=== PATIENT | male | born 1935 | race Caucasian/White ===

== ENCOUNTER 2018-08-26 05:50 | Day surgery (SDC) | payer MEDICARE, OTHER ==
[~2018-08-26] VITALS: Ht 172.7 cm; Wt 84.8 kg
[~2018-08-26 05:50] MED LIST: AMLODIPINE BESY10 MG PO; ASPIRIN325 MG PO; CLINDAMYCIN HC300 MG PO; DELZICOL400 M1 PO; LOSARTAN POTASS25 MG PO; LOSARTAN-HCTZ1 EAC1 PO; MELATONIN1 MG PO; NORCO 5-325 TA1 EACH PO; OMEPRAZOLE20 M1 PO; PENTASA500 MG PO; PRAVACHOL40 MG PO; PRAVACHOL80 MG PO; PROSCAR5 MG PO; STOOL SOFTENER100 M1 PO; TRIAMTERENE-HC1 EAC1 PO; VITAMIN D1000 UNIT PO
--- NOTE | 2018-08-26 10:41 | NUR ---
LE 0730 DR. PICKETT IN TO DISCUSS SURGERY WITH THE PT AND FAMILY. PER DR. PICKETT AND KANIKA MELO STRATEGIC MARKETING LEADER PROCEDURE CANCELED AT THIS TIME.
--- NOTE | 2018-08-27 11:12 | CONS ---
[facility] [address] [place] [place], [place] [address] Signed DATE OF CONSULTATION: 08/26/2018 HISTORY OF PRESENT ILLNESS: This 82-year-old white man is patient of Dr. Jessica Ramirez and has a complex recurrent abdominal wall hernia, for which repair was anticipated this morning. The patient has lost considerable amount of weight going from 230 pounds to 187 pounds anticipating this operation. He was noted by the anesthesia person today that his preoperative EKG showed a heart rate of 41 with a junctional rhythm. Additionally, this past weekend, the patient fell down while at the swap meet in [place], [place], sustaining some contusions to his face and right arm. He had no loss of consciousness or other issues related to that. His fall was related to unsure footing with use of his cane. Concern has been brought up regarding his heart rate being 41 as a baseline with a junctional rhythm. It is notable that he underwent a stress test (chemical type) by Dr. Ferro a year ago and he was said to have no evidence of coronary artery disease. There is no mention made of his low heart rate as regards morbidity at that time apparently. With close discussion with the patient and his , Cathi, it is noted, however, that he does have episodes of lightheadedness, dizziness, weakness and even syncopal episodes to a degree. He has seen a neurologist who had no answer or explanation for this. PHYSICAL EXAMINATION: GENERAL: He is alert and oriented. HEENT: He has a bit of a bruise over his right eye and swelling over his nose. There are some contusions of his right arm. ABDOMEN: Examination shows lax abdominal wall, but no tenderness and no mass. He does have hernia as previously noted. LABORATORY DATA: His heart rate is 40 today. EKG shows a junctional type rhythm. ASSESSMENT: His baseline bradycardia and junctional rhythm are of great concern to the anesthesia provider understandably. Additionally, it was not reported to his inspector electromechanical of his episodes of what sounds like syncope and he has minimized it in the past. His , however, notes that these episodes are significant. 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 It is recalled that he has had a cerebrovascular accident in the distant past. At this point, given the operation anticipated including manipulation of his intraabdominal viscera likely to exacerbate an underlying bradycardic issue (vagal stimulation), it is best operation not be undertaken today. Consideration should strongly be made for pacemaker placement. I would have no issue proceeding with operation once his heart rhythm is more reliably secured. We will discuss with Dr. Ramirez, his primary physician, to help coordinate additional visit with inspector electromechanical for consideration of pacemaker device. For now, hold off on abdominal operation. Norma Pickett MD JM/MODL /[id number] cc: MD Jessica Zimmerman MD Copies: ROSALINDA FERRO MD, JONATHAN MD ~ Electronically Signed By: NORMA PICKETT MD 08/27/18 1112 PATIENT NAME: LUIS ALBERTO MADRIGAL CONSULTATION DATE OF : 35 REPORT #: [id number] PHYSICIAN: NORMA PICKETT MD PCP: JESSICA RAMIREZ MD REPORT IS CONFIDENTIAL AND NOT TO BE RELEASED WITHOUT AUTHORIZATION
== END 2018-08-26 18:00 | disposition home or self-care (01) ==
LOC: DS 05:50
DX: K43.2 Incisional hernia without obstruction or gangrene (principal); R00.1 Bradycardia, unspecified; Z53.8 Procedure and treatment not carried out for other reasons

== ENCOUNTER 2019-05-21 08:45 | Observation (INO) | payer MEDICARE, OTHER ==
[~2019-05-21] VITALS: Ht 172.7 cm; Wt 84.8 kg
--- OUTSIDE RECORDS SUMMARY | ~2019-05-21 | XMS | Encounter Summary ---
Demographics + + + | Address | [address] | | | [place] [address] | + + + | Home Phone | | + + + | Preferred Language | Unknown | + + + | Marital Status | | + + + | Buddhism Affiliation | Unknown | + + + | Race | Unknown | + + + | Ethnic Group | Unknown | + + + Author + + + | Author | [facility] | | | and [place] | + + + | Organization | [facility] | | | and [place] | + + + | Address | Unknown | + + + | Phone | Unavailable | + + + Support + + +---------+ + | Name | Relationship | Address | Phone | + + +---------+ + | Cathi Curry | ECON | Unknown | | + + +---------+ + Marisol Curry | ECON | Unknown | | + + +---------+ + | Baylee Webb | ECON | Unknown | | + + +---------+ + Care Team Providers + +------+ + | Care Power Transformer Repair Supervisor Name | Role | Phone | + +------+ + PCP | Unavailable | + +------+ + Encounter Details +--------+ + + + + | Date | Type | Department | Care Team | Description | +--------+ + + + + | 08/31/ | Hospital | [facility] | | | | 1998 | Encounter | MED CTR XRAY [address] | | | | | | [place] | | | | | | [place] [address] | | | | | | [phone] | | | +--------+ + + + + Social History + +-------+ +--------+------+ | Tobacco Use | Types | Packs/Day | Years | Date | | | | | Used | | + +-------+ +--------+------+ | Never Assessed | | | | | + +-------+ +--------+------+ + + + | Sex Assigned at | Date Recorded | | | | + + + | Not on file | | + + + + + + + | Job Start Date | Occupation | Industry | + + + + | Not on file | Not on file | Not on file | + + + + + + + + | Travel History | Travel Start | Travel End | + + + + + + | No recent travel history available. | + + documented as of this encounter Plan of Treatment +--------+---------+ + + + | Date | Type | Specialty | Care Team | Description | +--------+---------+ + + + | 08/31/ | Office | Cardiology | Lobo Ferro, | | | 2019 | Visit | | MD [address] | | | | | | [place], | | | | | | [place] [address] | | | | | | [phone] | | | | | | | | +--------+---------+ + + + documented as of this encounter Visit Diagnoses Not on filedocumented in this encounter"
--- OUTSIDE RECORDS SUMMARY | ~2019-05-21 | XMS | Clinical Summary ---
Demographics + + + | Address | [address] | | | [place] [address] | + + + | Home Phone | | + + + | Preferred Language | Unknown | + + + | Marital Status | | + + + | Temple Affiliation | Unknown | + + + | Race | Unknown | + + + | Ethnic Group | Unknown | + + + Author + + + | Author | [facility] | | | and [place] | + + + | Organization | [facility] | | | [...] Team Providers + +------+ + | Care Nautical Instrument Mechanic Name | Role | Phone | + +------+ + | Torey Ramirez | PCP | | | MD | | | + +------+ + Allergies + + + + + + | Active Allergy | Reactions | Severity | Noted | Comments | | | | | Date | | + + + + + + | Penicillins | Hives, Swelling, | High | 11/12/19 | | | | Rash | | 14 | | + + + + + + Medications + + + +---------+------+------+-------+ | Medication | Sig | Dispensed | Refills | Star | End | Statu | | | | | | t | Date | s | | | | | | Date | | | + + + +---------+------+------+-------+ | Cholecalciferol | Take 2 tablets by | | 0 | | | Activ | | (VITAMIN D-3 PO) | mouth Daily. | | | | | e | + + + +---------+------+------+-------+ | omeprazole | Take 20 mg by mouth | | 0 | | | Activ | | (PRILOSEC) 20 mg | every morning | | | | | e | | capsule | (before breakfast). | | | | | | + + + +---------+------+------+-------+ | finasteride | Take 5 mg by mouth | | 0 | | | Activ | | (PROSCAR) 5 mg | Daily. | | | | | e | | tablet | | | | | | | + + + +---------+------+------+-------+ | apixaban (ELIQUIS) | Take 5 mg by mouth 2 | | 0 | 08/1 | | Activ | | 5 mg tablet | times daily. | | | 2/20 | | e | | | | | | 19 | | | + + + +---------+------+------+-------+ | aspirin 81 MG | Take 81 mg by mouth | | 0 | | | Activ | | tablet | Daily. | | | | | e | + + + +---------+------+------+-------+ | losartan (COZAAR) | Take 50 mg by mouth | | 0 | 11/17 | 11/17 | Activ | | 50 mg tablet | 2 times daily. | | | 10/06 | 09/06 | e | | | | | | 19 | 20 | | + + + +---------+------+------+-------+ | mesalamine | Apriso 0.375 gram ( | | 0 | | | Activ | | (APRISO) 0.375 g 24 | 2 capsules once a | | | | | e | | hr capsule | day ) | | | | | | + + + +---------+------+------+-------+ | pravastatin | pravastatin 40 mg | | 0 | | | Activ | | (PRAVACHOL) 40 MG | tablet qhs | | | | | e | | tablet | | | | | | | + + + +---------+------+------+-------+ | melatonin 1 mg | Take by mouth | | 0 | | | Activ | | TABS | nightly as needed. | | | | | e | + + + +---------+------+------+-------+ Active Problems + + + | Problem | Noted Date | + + + | Paroxysmal atrial fibrillation | 01/05/2019 | + + + | Bradycardia by electrocardiogram | 01/05/2019 | + + + | Pacemaker | 01/05/2019 | + + + | Agatston CAC score, >400 | 01/05/2019 | + + + | History of abdominal aortic aneurysm (AAA) repair | 01/05/2019 | + + + | History of cerebrovascular accident | 01/05/2019 | + + + | Mixed hyperlipidemia | 01/05/2019 | + + + | senior care current use of anticoagulant | 01/05/2019 | + + + | Encounter for monitoring diuretic therapy | 01/05/2019 | + + + | Cardiac pacemaker in situ | 12/25/2018 | + + + + + | Overview: Medtronic Rhododendron, model W1DR01, s# [id number]. RA | | Lead - [employer] Fineline II , model 4470, s# [id number]. RV | | Lead - Medtronic model 5076, s# [id number] | + + + + + | Morbid obesity | 08/02/2018 | + + + | Irreducible incisional hernia | 03/02/2018 | + + + | Recurrent ventral incisional hernia | 03/02/2018 | + + + | Coronary artery disease | 07/30/2017 | + + + + + | Overview: Coronary calcium score 3151 | + + + + + | Abdominal hernia | 06/13/2017 | + + + | Gastric reflux | | + + + | Essential hypertension | | + + + | Cerebrovascular accident (CVA) due to thrombosis of left middle | | | cerebral artery | | + + + | Atrial fibrillation | | + + + + + | Overview: on monitor 09/05 - AC | + + + +---+ | Sick sinus syndrome | | + +---+ Immunizations + + + + | Name | Administration Dates | Next Due | + + + + | PNEUMOCOCCAL | 05/16/2017 | | | CONJUGATE 13-VALENT | | | | (PCV13) | | | + + + + | ZOSTER, 1 DOSE | 01/06/2010 | | | (ZOSTAVAX) | | | + + + + Family History + + +------+ + | Medical History | Relation | Name | Comments | + + +------+ + | Coronary artery | Father | | | | disease | | | | + + +------+ + | Heart disease | Father | | | + + +------+ + | Cancer | Mother | | | + + +------+ + | Hypertension | Sister | | | + + +------+ + + +------+ + + | Relation | Name | Status | Comments | + +------+ + + | Daughter | | Alive | | + +------+ + + | Daughter | | Alive | | + +------+ + + | Father | | | [place] | | | | (Age | | | | | 68) | | + +------+ + + | Mother | | | colon cancer | | | | (Age | | | | | 84) | | + +------+ + + | Sister | | Alive | | + +------+ + + | Sister | | | | + +------+ + + | Son | | Alive | | + +------+ + + Social History + + + [...] | | | + +-------+---+---+ + + | Comments: smoked and chewed tobaccos | + + + + +---------+ + | Alcohol Use | Drinks/Week | oz/Week | Comments | + + +---------+ + | Yes | | | Alcoholic | | | | | Drinks/day: | | | | | occasionally drinks | | | | | Aida hartmann: | | | | | 3-4 drinks per week | + + +---------+ + + + [...] recent travel history available. | + + Last Filed Vital Signs + + + + + | Vital Sign | Reading | Time Taken | Comments | + + + + + | Blood Pressure | 120/80 | 02/17/2019 12:58 PM | | | | | PDT | | + + + + + | Pulse | 75 | 02/17/2019 12:58 PM | | | | | PDT | | + + + + + | Temperature | 36.4 C (97.6 F) | 01/05/2019 12:51 PM | | | | | PDT | | + + + + + | Respiratory Rate | 20 | 12/26/2018 7:18 AM | | | | | PDT | | + + + + + | Oxygen Saturation | 93% | 02/17/2019 12:58 PM | | | | | PDT | | + + + + + | Inhaled Oxygen | - | - | | | Concentration | | | | + + + + + | Weight | 89 kg (196 lb 1.6 | 02/17/2019 12:58 PM | | | | oz) | PDT | | + + + + + | Height | 172.7 cm (5' 8") | 02/17/2019 12:58 PM | | | | | PDT | | + + + + + | Body Mass Index | 29.82 | 02/17/2019 12:58 PM | | | | | PDT | | + + + + + Plan of Treatment +--------+---------+ + + + | Date | Type | Specialty | Care Team | Description | +--------+---------+ + + + | 08/31/ | Office | Cardiology | Lobo Ferro, | | | 2019 | Visit | | MD [address] | | | | | | [place], | | | | | | [place] [address] | | | | | | [phone] | | | | | | | | +--------+---------+ + + + + + + + + | Health Maintenance | Due Date | Last Done | Comments | + + + + + | Vaccine: | | | | | Dtap/Tdap/Td (1 - | 7 | | | | Tdap) | | | | + + + + + | Vaccine: Zoster (2 | | 01/06/2010 | | | of 3) | 0 | | | + + + + + | Vaccine: | | 05/16/2017 | | | Pneumococcal 65+ (2 | 8 | | | | of 2 - PPSV23) | | | | + + + + + | Adult Annual | | | | | Wellness Visit | 9 | | | + + + + + | Vaccine: Influenza | | 05/07/2009 | | | (#1) | 9 | | | + + + + + Results Not on filefrom Last 3 Months Insurance + +--------+ +--------+ + +--------+ | Payer | Benefi | Subscriber | Effect | Phone | Address | Type | | | t Plan | ID | katie | | | | | | / | | Dates | | | | | | Group | | | | | | + +--------+ +--------+ + +--------+ | [employer] | [place] | [id number] | 05/20/19 | | | Indemn | | | CHOICE | | 18-Pre | | | ity | | | PC3 | | sent | | | | + +--------+ +--------+ + +--------+ | [employer] | [employer] | [id number] | 05/20/19 | | | Indemn | | | NS | | 18-Pre | | | ity | | | ADMIN | | sent | | | | | | [place] | | | | | | [place] | | | | | | + +--------+ +--------+ + +--------+ | MEDICARE | MEDICA | [id number] | 09/18/19 | [phone] | | Medica | | | RE | | 01-Pre | 5 | | re | | | PART A | | sent | | | | | | AND B | | | | | | + +--------+ +--------+ + +--------+ | MODA | MODA | [id number] | 07/19/19 | [phone] | [address] | Indemn | | | HEALTH | | 08-Pre | 9 | [id number] | ity | | | MDCR | | sent | | [place], | | | | [place] | | | | [place] [address] | | + +--------+ +--------+ + +--------+ | [employer]MIN | [place] | [id number] | | | | Indemn | | | NS | | 015-Pr | | | ity | | | ADMIN | | esent | | | | | | [place] | | | | | | | | [place] | | | | | | + +--------+ +--------+ + +--------+ | MEDICARE | MEDICA | [id number] | 09/18/19 | [phone] | | Medica | | | RE | | 01-Pre | 5 | | re | | | PART A | | sent | | | | | | AND B | | | | | | + +--------+ +--------+ + +--------+ | MODA | MODA | [id number] | 05/20/19 | [phone] | [address] | Indemn | | | HEALTH | | 19-Pre | 9 | [phone] | ity | | | MDCR | | sent | | [place], | | | | [place] | | | | [place] [address] | | + +--------+ +--------+ + +--------+ + +--------+ +--------+ + + | Guarantor Name | Accoun | Relation to | Date | Phone | Billing Address | | | t Type | Patient | of | | | | | | | | | | + +--------+ +--------+ + + | Zen Curry | Person | Self [birth year] | [address] | | | al/Fam | | 1936 | [phone] | [place], [place] | | | [place] | | | [address] (Home) | [address] | + +--------+ +--------+ + + | Zen Curry | Person | Self [birth year] | [address] | | | al/Fam | | 1936 | [phone] | [place], [place] | | | [place] | | | [address] (Home) | [address] | + +--------+ +--------+ + + Advance Directives + + + + + | Type | Date Recorded | Patient | Explanation | | | | Label Printing Machinist | | + + + + + | Power of | 11/11/2013 1:22 | | POA Doc | | Business Assistant | PM | | | + + + + + | Advance | 06/02/2014 1:15 | | | | Directive | PM | | | + + + + +
--- OUTSIDE RECORDS SUMMARY | ~2019-05-21 | XMS | Encounter Summary ---
Demographics + + + | Address | [address] | | | [place] [address] | + + + | Home Phone | | + + + | Preferred Language | Unknown | + + + | Marital Status | | + + + | Oriental Orthodox Affiliation | Unknown | + + + [...] Team Providers + +------+ + | Care Night Court Magistrate Name | Role | Phone | + +------+ + | Torey Ramirez | PCP | | | MD | | | + +------+ + Reason for Visit + + + | Reason | Comments | + + + | Diarrhea (Adult) | | + + + Encounter Details +--------+ + + + + | Date | Type | Department | Care Team | Description | +--------+ + + + + | 06/02/ | Emergency | [facility] | Facundo Hinojosa | Diarrhea (Primary | | 2015 | | MED CTR [facility] | Ramirez Ribeiro MD | Dx) | | | | CENTER [address] | [address] | | | | | [place] | [place] | | | | | [address] | [address] | | | | | [phone] | | | +--------+ + + + [...] + + + | Blood Pressure | 108/46 | 06/02/2014 1:29 PM | | | | | PST | | + + + + + | Pulse | 64 | 06/02/2014 12:58 PM | | | | | PST | | + + + + + | Temperature | 36.4 C (97.6 F) | 06/02/2014 12:49 PM | | | | | PST | | + + + + + | Respiratory Rate | 16 | 06/02/2014 12:49 PM | | | | | PST | | + + + + + | Oxygen Saturation | 92% | 06/02/2014 12:58 PM | | | | | PST | | + + + + + | Inhaled Oxygen | - | - | | | Concentration | | | | + + + + + | Weight | 97.5 kg (215 lb) | 06/02/2014 12:49 PM | | | | | PST | | + + + + + | Height | 177.8 cm (5' 10") | 06/02/2014 12:49 PM | | | | | PST | | + + + + + | Body Mass Index | 30.85 | 06/02/2014 12:49 PM | | | | | PST | | + + + + + documented in this encounter Discharge Instructions Instructions Facundo Hinojosa MD - 06/02/2014Return for worsening severe abdomi nal pain, nausea, vomiting, fevers or any other worsening symptoms. Follow-up with your y sician or clinic for continued care. documented in this encounter Medications at Time of Discharge + + + +---------+ + + | Medication | Sig | Dispensed | Refills | Start | End Date | | | | | | Date | | + + + +---------+ + + | Cholecalciferol | Take 2 tablets by | | 0 | | | | (VITAMIN D-3 PO) | mouth Daily. | | | | | + + + +---------+ + + | finasteride | Take 5 mg by mouth | | 0 | | | | (PROSCAR) 5 mg | Daily. | | | | | | tablet | | | | | | + + + +---------+ + + | omeprazole | Take 20 mg by mouth | | 0 | | | | (PRILOSEC) 20 mg | every morning | | | | | | capsule | (before breakfast). | | | | | + + + +---------+ + + | amlodipine | Take 10 mg by mouth | | 0 | | | | (NORVASC) 10 MG | Daily. | | | | 9 | | tablet | | | | | | + + + +---------+ + + | aspirin 325 mg | Take 325 mg by mouth | | 0 | | | | tablet | Daily. | | | | 9 | + + + +---------+ + + | ciprofloxacin | Take 1 tablet by | 10 | 0 | 06/02/19 | | | (CIPRO) 500 mg | mouth 2 times daily | tablet | | 15 | 5 | | tablet | for 5 days. | | | | | + + + +---------+ + + | | Take 1 tablet by | 10 | 0 | 06/02/19 | | | diphenoxylate-atropi | mouth 4 times daily | tablet | | 15 | 5 | | ne (LOMOTIL) | as needed for | | | | | | 2.5-0.025 mg per | Diarrhea for up to | | | | | | tablet | 10 days. | | | | | + + + +---------+ + + | losartan (COZAAR) | Take 25 mg by mouth | | 0 | | | | 25 mg tablet | Daily. | | | | 9 | + + + +---------+ + + | MELATONIN PO | Take by mouth. | | 0 | | | | | | | | | 9 | + + + +---------+ + + | mesalamine | Take 1,500 mg by | | 0 | | | | (APRISO) 0.375 G 24 | mouth Daily. | | | | 9 | | hr capsule | | | | | | + + + +---------+ + + | pravastatin | Take 80 mg by mouth | | 0 | | | | (PRAVACHOL) 80 MG | nightly. | | | | 9 | | tablet | | | | | | + + + +---------+ + + | | Take 1 tablet by | | 0 | | | | triamterene-hydrochl | mouth Daily. | | | | 9 | | orothiazide | | | | | | | (MAXZIDE-25) 37.5-25 | | | | | | | mg per tablet | | | | | | + + + +---------+ + + | UNABLE TO FIND | Med Name: MELANIE Fink | | 0 | | | | | | | | | 9 | + + + +---------+ + + documented as of this encounter [...] | | | | | | [place] [address] | | | | | | [phone] | | | | | | | | +--------+---------+ + + + documented as of this encounter Visit Diagnoses + + | Diagnosis | + + | Diarrhea - Primary | + + documented in this encounter Administered Medications + +--------+ +--------+------+------+ | Medication Order | MAR | Action | Dose | Rate | Site | | | Action | Date | | | | + +--------+ +--------+------+------+ | ciprofloxacin (CIPRO) tablet | Given | 06/02/19 | 500 mg | | | | 500 mg 500 mg, Oral, ONCE, Sat | | 1:29 | | | | | 06/02/14 at 1330, For 1 dose, Give | | PM PST | | | | | 2 hours before or 6 hours after | | | | | | | antacids, dairy, calcium, iron, | | | | | | | or zinc., | | | | | | + +--------+ +--------+------+------+ +---+---+ | | | +---+---+ + +-------+ +---------+---+---+ | diphenoxylate-atropine | Given | 06/02/19 | 2 | | | | (LOMOTIL) 2.5-0.025 mg per tablet | | 15 1:29 | tablets | | | | 2 tablet 2 tablet, Oral, ONCE, | | PM PST | | | | | 06/02/14 at 1330, For 1 dose | | | | | | + +-------+ +---------+---+---+ +---+---+ | | | +---+---+ documented in this encounter
--- OUTSIDE RECORDS SUMMARY | ~2019-05-21 | XMS | Encounter Summary ---
Demographics + + + | Address | [address] | | | [place] [address] | + + + | Home Phone | | + + + | Preferred Language | Unknown | + + + | Marital Status | | + + + | Sabianist Affiliation | Unknown | + + + | Race | Unknown | + + + | Ethnic Group | Unknown | + + + Author + + + | Author | [facility] | | | and [place] | + + + | Organization | [facility] | | [...] Team Providers + +------+ + | Care Real Estate Rep Name | Role | Phone | + +------+ + | Torey Ramirez | PCP | | | MD | | | + +------+ + Reason for Visit +--------+ + | Reason | Comments | +--------+ + | Other | | +--------+ + Encounter Details +--------+ + + + + | Date | Type | Department | Care Team | Description | +--------+ + + + + | 06/03/ | Telephone | [facility] | Avery Wagner, | Other | | 2014 | | PHYSIATRY [address] | [place] [address] | | | | | [place], | [address] | | | | | [place] [address] | [address] | | | | | [phone] | | | +--------+ + + + [...] | | | | | | [place] [address] | | | | | | [phone] | | | | | | | | +--------+---------+ + + + documented as of this encounter Visit Diagnoses Not on filedocumented in this encounter"
--- OUTSIDE RECORDS SUMMARY | ~2019-05-21 | XMS | Encounter Summary ---
Demographics + + + | Address | [address] | | | [place] [address] | + + + | Home Phone | | + + + | Preferred Language | Unknown | + + + | Marital Status | | + + + | Pentecostalism Affiliation | Unknown | + + + | Race | White | + + + | Ethnic Group | Not or | + + + Author + + + | Author | [facility] | + + + | Organization | [facility] | + + + | Address | Unknown | + + + | Phone | Unavailable | + + + Support + + + + + | Name | Relationship | Address | Phone | + + + + + | Cathi Curry | OPAL | [place] | | + + + + + Care Team Providers + +------+ + | Care Medical Registrar Name | Role | Phone | + +------+ + PCP | Unavailable | + +------+ + Encounter Details +--------+ + + + + | Date | Type | Department | Care Team | Description | +--------+ + + + + | 08/17/ | Office | General Internal | Note, Outpatient | Progress Note | | 1997 | Visit-Trans | Medicine [address] | Clinic | | | | cribed | [address] | | | | | | Mailcode: [id number] | | | | | | Outpatient Clinic | | | | | | [facility] [address] | | | | | | [place], [place] | | | | | | [address] | | | | | | [phone] | | | +--------+ + + + [...] as of this encounter Progress Notes Interface, Property Utilization Manager In - 06/16/2006 1:10 AM PST CLINIC DATE: 08/17/97 SURGICAL ONCOLOGY CLINIC SUBJECTIVE: Mr. Curry is the of Cathi Curry who is a long-term patient of Dr. Li's. He has had symptoms of bilateral upper [...] documented in this encounter Plan of Treatment Not on filedocumented as of this encounter Visit Diagnoses Not on filedocumented in this encounter"
--- OUTSIDE RECORDS SUMMARY | ~2019-05-21 | XMS | Encounter Summary ---
Demographics + + + | Address | [address] | | | [place] [address] | + + + | Home Phone | | + + + | Preferred Language | Unknown | + + + | Marital Status | | + + + | Protestant Affiliation | Unknown | + + + | Race | Unknown | + + + | Ethnic Group | Unknown | + + + Author + + + | Author | [facility] | | | and [place] | + + + | Organization | [facility] | | | [...] Team Providers + +------+ + | Care Flitch Hanger Name | Role | Phone | + +------+ + | Torey Ramirez | PCP | | | MD | | | + +------+ + Reason for Visit + + + | Reason | Comments | + + + | Follow-up | 6 weeks | + + + Encounter Details +--------+---------+ + + + | Date | Type | Department | Care Team | Description | +--------+---------+ + + + | 02/17/ | Office | [facility] | Lobo Ferro, | Essential | | 2019 | Visit | CARDIOLOGY [place] | [address] | hypertension | | | | [address] | [place], | (Primary Dx); | | | | [address] | [place] [address] | Cardiac pacemaker in | | | | [place], [place] | [phone] | situ; Coronary | | | | [address] | | artery disease | | | | [phone] | | involving gila [place] | | | | | | coronary artery of | | | | | | [place] heart without | | | | | | angina pectoris; | | | | | | Agatston coronary | | | | | | artery calcium score | | | | | | greater than 400; | | | | | | Paroxysmal atrial | | | | | | fibrillation (HCC); | | | | | | Sick sinus syndrome | | | | | | (HCC); History of | | | | | | AAA (abdominal | | | | | | aortic aneurysm) | | | | | | repair; | | | | | | Hyperlipidemia, | | | | | | unspecified | | | | | | hyperlipidemia type; | | | | | | Preoperative | | | | | | cardiovascular | | | | | | examination; Ventral | | | | | | hernia without | | | | | | obstruction or | | | | | | gangrene | +--------+---------+ + + + Social History [...] occasionally drinks | | | | | Aidalenora hartmann: | | | | | 3-4 [...] + + + | Respiratory Rate | - | - | | + [...] + + + documented in this encounter Progress Notes Lobo Ferro MD - 02/17/2019 1:00 PM PDTFormatting of this note might be different fro m the original. Subjective: Patient ID: Zen Curry is a 83 y.o. male. Patient's medications, allergies, past medical, surgical, social and family histories were obtained and reviewed as appropriate. HPI Mr. Curry, accompanied by his , came to the office today for a follow up visit for hi s asymptomatic CAD (as noted on his coronary CT) and SSS with symptomatic bradycardia. Ammon payne saw him 10/12/17, but he has been seen in our office more recently by BEN Mandujano, most recently on 01/05/2019 and Javi Chaparro MD. Since I last saw him, he had a p ermanent pacemaker implanted on 12/25/18 for episodes of dizziness and unsteadiness with some exercise intolerance over the past several months due to symptomatic bradycardia. He has nev er lost consciousness. Atrial fibrillation was noted on his 6-day event monitor and he was s tarted on Eliquis. He has never had any palpitations. He denies any current chest pain, shor tness of breath. A coronary CT calcium score on 07/30/17 was markedly abnormal at 3151, involving the left m ain, LAD, circumflex and RCA. This is over the 90th percentile for his age. He is complete ly asymptomatic from a cardiovascular standpoint. I explained to them that the presence of calcium indicates that there is clearly plaquing building up in his coronary arteries, but i t can grow extrinsically, and not cause any problems, or intrinsically, and eventually restr icted blood flow, cause angina pectoris or a myocardial infarction. A Lexiscan Cardiolite s tress test at [facility] 10/16/17 showed no evidence of ischemia, with an EF of 53% . In addition to this, he has a history of a remote left MCA stroke in 1997, and an AAA res ection in 2001 that had not been checked since that time. 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 There was mild right renal artery stenosi s. There were simple cysts in the left kidney, and a 2.5 cm soft tissue mass in the right k idney that could represent a cyst, but a follow-up 3-phase CT of the kidneys was recommended . I did not order a CT of the chest to look for a thoracic aortic aneurysm, as the report f rom his coronary CT calcium scan noted only calcification, with no evidence of enlargement o f the ascending aorta. His blood pressure appears adequately controlled. He is on pravasta tin. I had initially seen him due to the bradycardia, for preoperative cardiovascular risk asses sment for ventral hernia repair surgery, which is still not been done. Now that he has a pa cemaker, there are no contraindications and he has a low risk for perioperative cardiovascul ar complications. This can be scheduled at any time, stopping his aspirin for 5 days prior to surgery, and Eliquis for 48 hours prior to surgery. 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 Left M CA CVA, no h/o migraines, seizures, syncope. He has occasional episodes of Dizziness, denie s numbness, tingling, paresthesias. EYES: No amaurosis, diplopia, recent visual changes, or glaucoma ENT: Bilateral hearing loss, tinnitus, epistaxis, has occasional dysphagia related to yadira o in 1949 ENDOCRINE: No history of diabetes. No history of thyroid disorders or other endocrine prob lems. No excessive hunger, thirst. PULMONARY/SLEEP: No dyspnea, orthopnea, paroxysmal nocturnal dyspnea. He has a remote his tory of asthma, has mild COPD/Emphysema. He has a history of both aspiration and community- acquired Pneumonia 3 x, most recently with septicemia 04/05. His notes snoring, no instructor dancing ea or gasping, denies daytime somnolence. Sleep is refreshing. CARDIOVASCULAR: Denies chest pain, pressure or discomfort. No history of CAD previously, but a coronary calcium score 07/30/17 was 3151, with calcium involving the LM, LAD, LCx and R CA. No history of heart failure. No history of cardiac arrhythmias. No palpitations. No his tory of a heart murmur, rheumatic fever. He has a history of essential Hypertension, Hyperl ipidemia. He has occasional pedal Edema, no claudication symptoms. He has a h/o an AAA, un derwent surgical repair 2001. -- Pacemaker implantation (12/25/18): Medtronic [place], model W1DR01, s# [id number]. RA Lead - [employer] Fineline II , model 4470, s# [id number]. RV Lead - Medtronic model 5076, s# [id number] -- 6-Day Event Monitor (09/11/18): predominantly sinus bradycardia, ave HR 55, low 38 bpm, p aroxysmal atrial fibrillation with an overall burden of 1.53%, rare PVCs, occasional PACs, a nd runs of PAT. 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 There was mild right renal artery stenosis. There were simple cysts in the left kidney, and a 2.5 cm soft tissue mass in the right kidney fina t could represent a cyst, but a follow-up 3-phase CT of the kidneys was recommended. -- Lexiscan Cardiolite stress test (10/16/17): No EKG changes, normal SPECT perfusion, EF 53 % GASTROINTESTINAL: Abdominal incisional hernias, GERD. No recent abdominal pain, nausea, v omiting or diarrhea. Denies PUD, melena, hematochezia, hepatitis. RENAL/: No history of kidney disease. No dysuria, hematuria, has BPH, with no significa nt urinary urgency, hesitancy, but has mildly increased frequency, no significant nocturia.. HEMATOLOGY/ONCOLOGY: No h/o bleeding disorders, DVT, PE. Denies easy bruisability or ble eding. No history of anemia, transfusions. He has a history of skin cancer. MUSCULOSKELETAL: No myalgias, has polyarthralgias. No history of rheumatologic or autoimm une diseases. CUTANEOUS: No rashes, pruritus, lesions. PSYCHIATRIC: No history of depression, anxiety or other psychiatric problems. Past Medical History: Diagnosis Date Abdominal aortic aneurysm (AAA) ([facility]) 2001 Surgical repair Atrial fibrillation ([facility]) on monitor 09/05 - AC Cardiac pacemaker in situ 12/25/2018 Medtronic Ansley, model W1DR01, s# [id number]. RA Lead - [employer] Fineline II , model 4470, s# [id number]. 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 RA Lead - [employer] Fineline II , model 4470, s# [id number]. RV Lead - Medtronic model 5076, s# [id number] CARDIOVASCULAR STRESS TEST 09/2017 A2A SPECT: normal perfusion, EF 53% cataract surgery 2010 HERNIA REPAIR 2006 x2 HERNIA REPAIR Left 5 surgeries on left side INCISIONAL HERNIA REPAIR x 5 OTHER SURGICAL HISTORY Right WRIST ARTHRODESIS OTHER SURGICAL HISTORY bilateral total knee arthroplasties OTHER SURGICAL HISTORY LAMINECTOMY FOR EXCISION / EVACUATION INTRASPINAL LESION - benign tumor OTHER SURGICAL HISTORY 05/09/1998 OTHER SURGICAL HISTORY 11/22/1997 OTHER SURGICAL HISTORY 09/06/2009 CATARACT EXTRACTION - bilateral OTHER SURGICAL HISTORY 07/19/2001 subclavian catheter placement OTHER SURGICAL HISTORY 08/2018 6 days: NSR 38-148 (55), atrial fib (1.53%, 91 avg HR, longest 2-3 hr), triggers with PACs PACEMAKER INSERTION 12/25/2018 DC MDT PPM for SSS, symptomatic bradycardia SKIN CANCER EXCISION 07/23/2014 face, right lateral brow TONSILLECTOMY AND ADENOIDECTOMY TOTAL KNEE ARTHROPLASTY 2006 right; left TRANSTHORACIC ECHOCARDIOGRAM 10/2018 EF 50%, tr-mild AI, mild MR, tr TR, mild MI, RVSP 22 Family History Problem Relation Age of Onset Cancer Mother Heart disease Father Coronary artery disease Father Hypertension Sister Social History Socioeconomic History Marital status: Spouse name: Not on file Number of children: Not on file Years of education: Not on file Highest education level: Not on file Social Needs Financial resource strain: Not on file Food insecurity - worry: Not on file Food insecurity - inability: Not on file Transportation needs - medical: Not on file Transportation needs - non-medical: Not on file Occupational History Not on file Tobacco Use Smoking status: Former Smoker Packs/day: 3.00 Years: 39.00 Pack years: 117.00 Types: Cigarettes Last attempt to quit: 05/20/1993 Years since quittin.7 Smokeless tobacco: Current User Types: Snuff Tobacco comment: smoked and chewed tobaccos Substance and Sexual Activity Alcohol use: Yes Comment: Alcoholic Drinks/day: occasionally drinks [place] whiskey: 3-4 drinks per week Drug use: Not on file Comment: Drug use: No Sexual activity: Never Other Topics Concern Not on file Social History Narrative Not on file Allergies Allergen Reactions Penicillins Hives,Swelling,Rash Intolerance No active intolerances/contraindications Current Outpatient Medications Medication Sig Dispense Refill apixaban (ELIQUIS) 5 mg tablet Take 5 mg by mouth 2 times daily. aspirin 81 MG tablet Take 81 mg by mouth Daily. Cholecalciferol (VITAMIN D-3 PO) Take 2 tablets by mouth Daily. finasteride (PROSCAR) 5 mg tablet Take 5 mg by mouth Daily. losartan (COZAAR) 50 mg tablet Take 50 mg by mouth 2 times daily. melatonin 1 mg TABS Take by mouth nightly as needed. mesalamine (APRISO) 0.375 g 24 hr capsule Apriso 0.375 gram ( 2 capsules once a day ) omeprazole (PRILOSEC) 20 mg capsule Take 20 mg by mouth every morning (before breakfast ). pravastatin (PRAVACHOL) 40 MG tablet pravastatin 40 mg tablet qhs No current facility-administered medications for this visit. Objective: BP 120/80 | Pulse 75 | Ht 1.727 m (5' 8") | Wt 89 kg (196 lb 1.6 oz) | SpO2 93% | BMI 29.82 kg/m PHYSICAL EXAM GENERAL: Moderately obese, well developed, well nourished elderly male, in no di stress. Appears approximately stated age. HEENT: Normocephalic, atraumatic. Bilateral hearing aids. EYES: PERRL, sclerae anicteric, no xanthelsasmas MOUTH: Oral mucosae moist, dentiures, no lesions noted NECK: No JVD, lymphadenopathy, thyromegaly, bruits. Carotid pulses are 2+ bilaterally LUNGS: Clear bilaterally, with no rales, rhonchi or wheezing noted, respirations unlabored HEART: Left-sided pacemaker pocket appears normal. Nondisplaced PMI, regular rate and rh ythm, S1, S2 normal. No murmurs, rubs or gallops noted. ABDOMEN: Soft, nontender, no organomegaly, masses or bruits. Bowel sounds are normal in a ll 4 quadrants. Well-healed scar from AAA resection. Large right-sided abdominal hernia, n ot reducible. The abdominal aortic pulsation is not palpable. EXTREMITIES: No edema. Radial pulses 2+ bilaterally. Femoral pulses are 2+ bilaterally wi thout bruits. DP and PT pulses are 2+ bilaterally. SKIN: Warm and dry, capillary refill is normal, no lesions. NEUROLOGIC: Awake, alert and oriented x 3. No focal motor deficits. PSYCHIATRIC: Appropriate, affect appears normal EKG: Atrial paced rhythm with capture, intrinsic ventricular conduction, LAFB, mild, nonspe cific IVCD, nonspecific T wave flattening in the inferolateral leads Assessment: Zen was seen today for follow-up. Diagnoses and all orders for this visit: Essential hypertension - ECG 12 lead Cardiac pacemaker in situ Coronary artery disease involving [place] coronary artery of [place] river heart without angina pec toris Agatston coronary artery calcium score greater than 400 Paroxysmal atrial fibrillation (HCC) Sick sinus syndrome (HCC) History of AAA (abdominal aortic aneurysm) repair Hyperlipidemia, unspecified hyperlipidemia type Plan: Schedule surgery per Dr. Ramirez. Follow-up in 6 months. documented in this en counter Plan of Treatment +--------+---------+ + + + | Date | Type | Specialty | Care Team | Description | +--------+---------+ + + + | 08/31/ | Office | Cardiology | Lobo Ferro, | | | 2019 | Visit | | [address] | | | | | | [place], | | | | | | [place] [id number] | | | | | | [phone] | | | | | | | | +--------+---------+ + + + documented as of this encounter Procedures + +--------+ + + + | Procedure Name | Priori | Date/Time | Associated Diagnosis | Comments | | | ty | | | | + +--------+ + + + | ECG 12 LEAD | Routin | 02/17/2019 | Essential | Results for this | | | e | 1:07 PM | hypertension | procedure are in the | | | | PDT | | results section. | + +--------+ + + + documented in this encounter Results ECG 12 lead (02/17/2019 1:07 PM PDT) + + + + + + | Component | Value | Ref Range | Performed | Pathologist | | | | | At | Signature | + + + + + + | VENTRICULAR | 71 | BPM | [facility] | | | RATE EKG | | | | | + + + + + + | ATRIAL RATE | 71 | BPM | [facility] | | + + + + + + | P-R | 208 | ms | [facility] | | | INTERVAL | | | | | + + + + + + | QRS | 110 | ms | [facility] | | | DURATION | | | | | + + + + + + | Q-T | 406 | ms | [facility] | | | INTERVAL | | | | | + + + + + + | Q-T | 441 | ms | [facility] | | | INTERVAL | | | | | | (CORRECTED) | | | | | + + + + + + | P WAVE AXIS | -20 | degrees | [facility] | | + + + + + + | QRS AXIS | -52 | degrees | [facility] | | + + + + + + | T AXIS | -31 | degrees | [facility] | | + + + + + + | INTERPRETAT | Atrial-paced rhythmLeft | | [facility] | | | ION TEXT | axis | | | | | | deviationNonspecific ST | | | | | | and T wave | | | | | | abnormalityAbnormal | | | | | | ECGWhen compared with | | | | | | ECG of 05-JAN-2019 | | | | | | 12:49,Previous ECG has | | | | | | undetermined rhythm, | | | | | | needs reviewST no longer | | | | | | depressed in Anterior | | | | | | leadsPlease refer to | | | | | | Providers office visit | | | | | | note for Providers | | | | | | Interpretation.Confirmed | | | | | | by [facility] [place] Read Only, | | | | | | [facility] ([id number]), | | | | | | publications editor Devante Dill | | | | | | ([id number]) on 02/17/2019 | | | | | | 3:21:05 PM | | | | + + + + + + + + | Specimen | + + | | + + + + + | Narrative | Performed At | + + + | | | + + + + +---------+ + + | Performing | Address | City/State/Zipcode | Phone Number | | Organization | | | | + +---------+ + + | [facility] | | | | + +---------+ + + documented in this encounter Visit Diagnoses + + | Diagnosis | + + | Essential hypertension - Primary Unspecified essential hypertension | + + | Cardiac pacemaker in situ | + + | Coronary artery disease involving [place] coronary artery of [place] heart without | | angina pectoris | + + | Agatston coronary artery calcium score greater than 400 Nonspecific (abnormal) | | findings on radiological and other examination of other intrathoracic organs | + + | Paroxysmal atrial fibrillation (HCC) Atrial fibrillation | + + | Sick sinus syndrome (HCC) Sinoatrial node dysfunction | + + | History of AAA (abdominal aortic aneurysm) repair Other postprocedural status | + + | Hyperlipidemia, unspecified hyperlipidemia type | + + | Preoperative cardiovascular examination Pre-operative cardiovascular examination | + + | Ventral hernia without obstruction or gangrene Ventral hernia, unspecified, without | | mention of obstruction or gangrene | + + documented in this encounter
--- OUTSIDE RECORDS SUMMARY | ~2019-05-21 | XMS | Encounter Summary ---
Demographics + + + | Address | [address] | | | [place] [address] | + + + | Home Phone | | + + + | Preferred Language | Unknown | + + + | Marital Status | | + + + | Sabianism Affiliation | Unknown | + + + | Race | Unknown | + + + | Ethnic Group | Unknown | + + + Author + + + | Author | [facility] | | | and [place] | + + + | Organization | [facility] | | | and [...] Team Providers + +------+ + | Care Airfield Engineer Officer Name | Role | Phone | + +------+ + | Torey Ramirez | PCP | | | MD | | | + +------+ + Encounter Details +--------+ + + + + | Date | Type | Department | Care Team | Description | +--------+ + + + + | 10/21/ | Orders Only | [facility] | Iman Estevez | | | 2019 | | [address] | [address] | | | | | [address] | [address] | | | | | [place], [place] | [place] [address] | | | | | [address] | [phone] | | | | | [phone] | | | +--------+ + + + [...] | 08/31/ | Office | Cardiology | Rosalinda Ferro, | | | 2019 | Visit | | MD [address] | | | | | | [place], | | | | | | [place] [address] | | | | | | [phone] | | | | | | | | +--------+---------+ + + + documented as of this encounter Procedures + +--------+ + + + | Procedure Name | Priori | Date/Time | Associated Diagnosis | Comments | | | ty | | | | + +--------+ + + + | ECHO COMPLETE | Routin | 10/21/2018 | | Results for this | | | e | 4:04 PM | | procedure are in the | | | | PDT | | results section. | + +--------+ + + + documented in this encounter Results ECHO Complete (10/21/2018 4:04 PM PDT) + + | Specimen | + + | | + + + + + | Impressions | Performed At | + + + | 1. Overall left ventricular systolic function is low-normal with an | | | EF of 50%. 2. The right ventricle is normal in size and function. 3. | | | No significant valvular abnormalities are noted. | | + + + + + + | Narrative | Performed At | + + + | Patient Name: Zen Curry Date of : 1935 | | | Performing Physician: ROSALINDA FERRO MD | | | | | | INDICATIONS AFIB, BRADYCARDIA, CVA CONCLUSIONS | | | 1. Overall left ventricular systolic function is | | | low-normal with an EF of 50%. 2. The right ventricle is normal in | | | size and function. 3. No significant valvular abnormalities are noted. | | | FINDINGS -------- ECG rhythm: Sinus ECG rhythm: bradycardia | | | (HR 50 bpm). Study: A 2-dimensional transthoracic echocardiogram with | | | m-mode, spectral and color flow Doppler was perfomed at [facility]. Study: | | | This was a technically adequate study. Left Ventricle: Overall left | | | ventricular systolic function is low-normal with an EF of 50%. Left | | | Ventricle: The left ventricle cavity size is normal. Left Ventricle: | | | Left ventricular wall thickness is normal. Left Ventricle: No | | | regional wall motion abnormalities. Left Ventricle: The diastolic | | | filling pattern is normal for the age of the patient. Right | | | Ventricle: The right ventricle is normal in size and function. Left | | | Atrium: The left atrium is normal in size. Right Atrium: The right | | | atrium is normal in size. Aortic Valve: The aortic valve was not well | | | visualized, but on limited views, appears to be trileaflet. Aortic | | | Valve: Aortic valve is mildly thickened. Aortic Valve: There is | | | trace-mild aortic regurgitation. Aortic Valve: The aortic pressure | | | half-time by Doppler is 1259ms. Aortic Valve: There is no evidence of | | | aortic stenosis. Mitral Valve: Normal appearing mitral valve. | | | Mitral Valve: Mild mitral regurgitation is present. Mitral Valve: No | | | evidence of MVP. Tricuspid Valve: The tricuspid valve appears | | | structurally normal. Tricuspid Valve: Trace tricuspid regurgitation | | | present. Tricuspid Valve: There is no evidence of pulmonary | | | hypertension. Tricuspid Valve: The right ventricular systolic | | | pressure (pulmonary artery systolic pressure), as measured by Doppler, | | | is 21.79mmHg. Pulmonic Valve: Pulmonic valve appears structurally | | | normal. Pulmonic Valve: Mild pulmonic regurgitation is present with 3 | | | small, separate regurgitant jets. Pericardium: There is no | | | pericardial effusion. IVC/Hepatic Veins: The inferior vena cava is | | | normal in size and collapses > 50 % with sniff, indicating normal | | | central venous pressures. Aorta: The aortic root, ascending aorta and | | | aortic arch are normal. Mass: No mass visualized Thrombus: No clot | | | visualized Thrombus: No vegetation visualized. Septum: No ASD | | | observed. Septum: No VSD observed. MEASUREMENTS | | | Ao asc: 3.78 cm Ao sinus: 3.[address] junct: 2.91 cm | | | EDV(Teich): 133.65 ml IVSd: 0.89 cm LVIDd: 5.27 cm LVPWd: | | | 0.86 cm LVOT Area: 4.29 cm2 LVOT Diam: 2.33 cm %FS: | | | 28.26 % EF(Teich): 54.19 % ESV(Teich): 61.22 ml LVIDs: | | | 3.78 cm SV(Teich): 72.43 ml RV Major: 7.24 cm RV Minor: | | | 2.73 cm LVEF MOD A2C: 69.49 % SV MOD A2C: 82.50 ml LVEF MOD | | | A4C: 67.77 % SV MOD A4C: 103.54 ml EF Biplane: 68.73 % | | | LVEDV MOD BP: 137.45 ml LVESV MOD BP: 42.98 ml LVEDV MOD A2C: | | | 118.72 ml LVLd A2C: 8.04 cm LVEDV MOD A4C: 152.77 ml LVLd | | | A4C: 8.39 cm LVESV MOD A2C: 36.22 ml LVLs A2C: 6.43 cm | | | LVESV MOD A4C: 49.22 ml LVLs A4C: 6.69 cm LAESV(A-L): 49.37 | | | ml LAESV Index (A-L): 24.20 ml/m2 LAAs A2C: 13.32 cm2 LAESV | | | A-L A2C: 36.68 ml LALs A2C: 4.10 cm LAAs A4C: 17.93 cm2 | | | LAESV A-L A4C: 54.82 ml LALs A4C: 4.97 cm RAAs: 16.25 cm2 | | | RAESV A-L: 44.86 ml RAESV MOD: 41.77 ml RALs: 4.99 cm AR | | | Dec [place]: 0.79 m/s2 AR Dec Time: 4340.87 ms AR maxPG: | | | 47.11 mmHg AR PHT: 1258.85 ms AR Vmax: 3.43 m/s AV maxPG: | | | 7.89 mmHg AV meanP.05 mmHg AV Vmax: 1.40 m/s AV Vmean: | | | 0.94 m/s AV VTI: 27.86 cm CONSUELO Vmax: 3.16 cm2 CONSUELO (VTI): | | | 3.87 cm2 AVAI (Vmax): 0.00 cm2/m2 AVAI (VTI): 0.00 cm2/m2 | | | LVOT maxP.29 mmHg LVOT meanP.25 mmHg LVSI Dopp: | | | 52.90 ml/m2 LVSV Dopp: 107.93 ml LVOT Vmax: 1.03 m/s LVOT | | | Vmean: 0.72 m/s LVOT VTI: 25.15 cm MV A Ilir: 0.76 m/s MV | | | Dec [place]: 3.70 m/s2 MV DecT: 189.41 ms MV E Ilir: 0.70 m/s | | | MV E/A Ratio: 0.91 MV PHT: 54.93 ms MVA By PHT: 4.00 cm2 | | | Septal e': 0.05 m/s Septal E/e': 13.12 Lateral e': 0.08 m/s | | | Lateral E/e': 8.07 RAP: 5 mmHg RVSP: 21.78 mmHg TR | | | maxP.78 mmHg TR Vmax: 2.04 m/s Marketing Support Manager: ELVIE | | | Authenticated by: ROSALINDA FERRO MD Report Date/Time: 10-21-2018 | | | 18:31:53 | | + + + + + | Procedure Note | + + | Andre Rad Conversion - 01/08/2019 1:42 PM PDT Patient Name: Thom Curry of | | : 1935 Performing Physician: ROSALINDA FERRO, | | INDICATIONS A | | FIB, BRADYCARDIA, CVA CONCLUSIONS 1. Overall left ventricular systolic | | function is low-normal with an EF of 50%.2. The right ventricle is normal in size and | | function. 3. No significant valvular abnormalities are noted. FINDINGS--------ECG | | rhythm: SinusECG rhythm: bradycardia (HR 50 bpm).Study: A 2-dimensional transthoracic | | echocardiogram with m-mode, spectral and color flow Doppler was perfomed at [facility].Study: | | This was a technically adequate study.Left Ventricle: Overall left ventricular systolic | | function is low-normal with an EF of 50%.Left Ventricle: The left ventricle cavity size | | is normal.Left Ventricle: Left ventricular wall thickness is normal.Left Ventricle: No | | regional wall motion abnormalities.Left Ventricle: The diastolic filling pattern is | | normal for the age of the patient.Right Ventricle: The right ventricle is normal in size | | and function.Left Atrium: The left atrium is normal in size.Right Atrium: The right | | atrium is normal in size.Aortic Valve: The aortic valve was not well visualized, but on | | limited views, appears to be trileaflet.Aortic Valve: Aortic valve is mildly | | thickened.Aortic Valve: There is trace-mild aortic regurgitation.Aortic Valve: The | | aortic pressure half-time by Doppler is 1259ms.Aortic Valve: There is no evidence of | | aortic stenosis.Mitral Valve: Normal appearing mitral valve.Mitral Valve: Mild mitral | | regurgitation is present.Mitral Valve: No evidence of MVP.Tricuspid Valve: The tricuspid | | valve appears structurally normal.Tricuspid Valve: Trace tricuspid regurgitation | | present.Tricuspid Valve: There is no evidence of pulmonary hypertension.Tricuspid Valve: | | The right ventricular systolic pressure (pulmonary artery systolic pressure), as | | measured by Doppler, is 21.79mmHg.Pulmonic Valve: Pulmonic valve appears structurally | | normal.Pulmonic Valve: Mild pulmonic regurgitation is present with 3 small, separate | | regurgitant jets.Pericardium: There is no pericardial effusion.IVC/Hepatic Veins: The | | inferior vena cava is normal in size and collapses > 50 % with sniff, indicating normal | | central venous pressures.Aorta: The aortic root, ascending aorta and aortic arch are | | normal.Mass: No mass visualizedThrombus: No clot visualizedThrombus: No vegetation | | visualized.Septum: No ASD observed.Septum: No VSD observed. MEASUREMENTS Ao | | asc: 3.78 cmAo sinus: 3.[address] junct: 2.91 cmEDV(Teich): 133.65 mlIVSd: | | 0.89 cmLVIDd: 5.27 cmLVPWd: 0.86 cmLVOT Area: 4.29 [id number] Diam: 2.33 cm%FS: | | 28.26 %EF(Teich): 54.19 %ESV(Teich): 61.22 mlLVIDs: 3.78 cmSV(Teich): 72.43 mlRV | | Major: 7.24 cmRV Minor: 2.73 cmLVEF MOD A2C: 69.49 %SV MOD A2C: 82.50 mlLVEF | | MOD A4C: 67.77 %SV MOD A4C: 103.54 mlEF Biplane: 68.73 %LVEDV MOD BP: 137.45 | | mlLVESV MOD BP: 42.98 mlLVEDV MOD A2C: 118.72 mlLVLd A2C: 8.04 cmLVEDV MOD A4C: | | 152.77 mlLVLd A4C: 8.39 cmLVESV MOD A2C: 36.22 mlLVLs A2C: 6.43 cmLVESV MOD A4C: | | 49.22 mlLVLs A4C: 6.69 cmLAESV(A-L): 49.37 mlLAESV Index (A-L): 24.20 ml/m2LAAs | | A2C: 13.32 [id number] A-L A2C: 36.68 mlLALs A2C: 4.10 cmLAAs A4C: 17.93 [id number] | | A-L A4C: 54.82 mlLALs A4C: 4.97 cmRAAs: 16.25 [id number] A-L: 44.86 mlRAESV MOD: | | 41.77 mlRALs: 4.99 cmAR Dec [place]: 0.79 m/s2AR Dec Time: 4340.87 msAR maxPG: | | 47.11 mmHgAR PHT: 1258.85 msAR Vmax: 3.43 m/Yasir maxP.89 mmHgAV meanP.05 | | mmHgAV Vmax: 1.40 m/Yasir Vmean: 0.94 m/Yasir VTI: 27.86 cmAVA Vmax: 3.16 cm2AVA | | (VTI): 3.87 [id number] (Vmax): 0.00 cm2/m2AVAI (VTI): 0.00 cm2/m2LVOT maxP.29 | | mmHgLVOT meanP.25 mmHgLVSI Dopp: 52.90 ml/m2LVSV Dopp: 107.93 mlLVOT Vmax: | | 1.03 m/sLVOT Vmean: 0.72 m/sLVOT VTI: 25.15 cmMV A Ilir: 0.76 m/sMV Dec [place]: | | 3.70 m/s2MV DecT: 189.41 msMV E Ilir: 0.70 m/sMV E/A Ratio: 0.91MV PHT: 54.93 | | msMVA By PHT: 4.00 [id number] e': 0.05 m/sSeptal E/e': 13.12Lateral e': 0.08 | | m/sLateral E/e': 8.07RAP: 5 mmHgRVSP: 21.78 mmHgTR maxP.78 mmHgTR Vmax: | | 2.04 m/s Marketing Support Manager: DBSAuthenticated by: Alejandro MORIN Date/Time: 10-21-2018 | | 18:31:53 IMPRESSION: 1. Overall left ventricular systolic function is low-normal with an | | EF of 50%.2. The right ventricle is normal in size and function. 3. No significant | | valvular abnormalities are noted. | | | |MEASUREMENTS | | | |Ao asc: 3.78 cm | |Ao sinus: 3.76 cm | |Ao st junct: 2.91 cm | |EDV(Teich): 133.65 ml | |IVSd: 0.89 cm | |LVIDd: 5.27 cm | |LVPWd: 0.86 cm | |LVOT Area: 4.29 cm2 | |LVOT Diam: 2.33 cm | |%FS: 28.26 % | |EF(Teich): 54.19 % | |ESV(Teich): 61.22 ml | |LVIDs: 3.78 cm | |SV(Teich): 72.43 ml | |RV Major: 7.24 cm | |RV Minor: 2.73 cm | |LVEF MOD A2C: 69.49 % | |SV MOD A2C: 82.50 ml | |LVEF MOD A4C: 67.77 % | |SV MOD A4C: 103.54 ml | |EF Biplane: 68.73 % | |LVEDV MOD BP: 137.45 ml | |LVESV MOD BP: 42.98 ml | |LVEDV MOD A2C: 118.72 ml | |LVLd A2C: 8.04 cm | |LVEDV MOD A4C: 152.77 ml | |LVLd A4C: 8.39 cm | |LVESV MOD A2C: 36.22 ml | |LVLs A2C: 6.43 cm | |LVESV MOD A4C: 49.22 ml | |LVLs A4C: 6.69 cm | |LAESV(A-L): 49.37 ml | |LAESV Index (A-L): 24.20 ml/m2 | |LAAs A2C: 13.32 cm2 | |LAESV A-L A2C: 36.68 ml | |LALs A2C: 4.10 cm | |LAAs A4C: 17.93 cm2 | |LAESV A-L A4C: 54.82 ml | |LALs A4C: 4.97 cm | |RAAs: 16.25 cm2 | |RAESV A-L: 44.86 ml | |RAESV MOD: 41.77 ml | |RALs: 4.99 cm | |AR Dec [place]: 0.79 m/s2 | |AR Dec Time: 4340.87 ms | |AR maxP.11 mmHg | |AR PHT: 1258.85 ms | |AR Vmax: 3.43 m/s | |AV maxP.89 mmHg | |AV meanP.05 mmHg | |AV Vmax: 1.40 m/s | |AV Vmean: 0.94 m/s | |AV VTI: 27.86 cm | |CONSUELO Vmax: 3.16 cm2 | |CONSUELO (VTI): 3.87 cm2 | |AVAI (Vmax): 0.00 cm2/m2 | |AVAI (VTI): 0.00 cm2/m2 | |LVOT maxP.29 mmHg | |LVOT meanP.25 mmHg | |LVSI Dopp: 52.90 ml/m2 | |LVSV Dopp: 107.93 ml | |LVOT Vmax: 1.03 m/s | |LVOT Vmean: 0.72 m/s | |LVOT VTI: 25.15 cm | |MV A Ilir: 0.76 m/s | |MV Dec [place]: 3.70 m/s2 | |MV DecT: 189.41 ms | |MV E Ilir: 0.70 m/s | |MV E/A Ratio: 0.91 | |MV PHT: 54.93 ms | |MVA By PHT: 4.00 cm2 | |Septal e': 0.05 m/s | |Septal E/e': 13.12 | |Lateral e': 0.08 m/s | |Lateral E/e': 8.07 | |RAP: 5 mmHg | |RVSP: 21.78 mmHg | |TR maxP.78 mmHg | |TR Vmax: 2.04 m/s | | | |Marketing Support Manager: DBS | |Authenticated by: ROSALINDA FERRO MD | |Report Date/Time: 10-21-2018 18:31:53 | | | |IMPRESSION: | |1. Overall left ventricular systolic function is low-normal with an EF of 50%. | |2. The right ventricle is normal in size and function. 3. No significant valvular abnormali ties are noted. | + + documented in this encounter Visit Diagnoses Not on filedocumented in this encounter"
--- OUTSIDE RECORDS SUMMARY | ~2019-05-21 | XMS | Encounter Summary ---
Demographics + + + | Address | [address] | | | [place] [address] | + + + | Home Phone | | + + + | Preferred Language | Unknown | + + + | Marital Status | | + + + | Buddhism Affiliation | Unknown | + + + | Race | Unknown | + + + | Ethnic Group | Unknown | + + + Author + + + | Author | [facility] | | | and [place] | + + + | Organization | [facility] | | | and [...] Team Providers + +------+ + | Care Refrigeration Installer Name | Role | Phone | + [...] | [address] | [place], [place] | Hypertension; Stroke | | | | [place], [place] | [address] | (HCC) | | | | [address] | | | | | | [phone] | | | +--------+ + + + [...] | | | | | | [place] [id number] | | | | | | [phone] | | | | | | | [...]
--- OUTSIDE RECORDS SUMMARY | ~2019-05-21 | XMS | Encounter Summary ---
Demographics + + + | Address | [address] | | | [place] [address] | + + + | Home Phone [...] + + + | Author | [facility] | + + + | Organization | [facility] | + + + | [...] Team Providers + +------+ + | Care Cook Seafood Name | Role | Phone | + +------+ + | Torey Ramirez MD | PCP | | + +------+ + Encounter Details +--------+ + + + + | Date | Type | Department | Care Team | Description | +--------+ + + + + | 03/03/ | Document-Sc | UNKNOWN DEPARTMENT | Unknown . | | | 2013 | anned | [address] | | | | | | [address] | | | | | | [place], [place] | | | | | | [address] | | | +--------+ + + + [...] as of this encounter Plan of Treatment Not on filedocumented as of this encounter Visit Diagnoses Not on filedocumented in this encounter"
--- OUTSIDE RECORDS SUMMARY | ~2019-05-21 | XMS | Encounter Summary ---
Demographics + + + | Address | [address] | | | [place] [address] | + + + | Home Phone | | + + + | Preferred Language | Unknown | + + + | Marital Status | | + + + | Oriental Orthodox Affiliation | Unknown | + + + | Race | Unknown | + + + | Ethnic Group | Unknown | + + + Author + + + | Author | [facility] | | | and [place] | + + + | Organization | [facility] | | | and [...] Team Providers + +------+ + | Care Laundry Operator Name | Role | Phone | + +------+ + | Torey Ramirez | PCP | | | MD | | | + +------+ + Encounter Details +--------+ + + + + | Date | Type | Department | Care Team | Description | +--------+ + + + + | 01/02/ | Orders Only | [facility] | Iman Estevez | Essential (primary) | | 2019 | | CARDIOLOGY [place] | [address] | hypertension; Mixed | | | | [address] | [address] | hyperlipidemia; | | | | [address] | [place] [address] | Anemia; watermaster | | | | [place], [place] | [phone] | current use of | | | | [address] | | anticoagulant; | | | | [phone] | | Paroxysmal atrial | | | | | | fibrillation (HCC); | | | | | | Encounter for | | | | | | screening for other | | | | | | suspected endocrine | | | | | | disorder; Dizziness | | | | | | and giddiness; | | | | | | Encounter for | | | | | | therapeutic drug | | | | | | level monitoring | +--------+ + + + + Social [...] | | | | | | [place] [id number] | | | | | | [phone] | | | | | | | | +--------+---------+ + + + + +------+--------+ + + | Name | Type | Priori | Associated Diagnoses | Order Schedule | | | | ty | | | + +------+--------+ + + | Comprehensive | Lab | Routin | Essential | Expected: | | Metabolic Panel | | e | (primary) | 10/20/2018, Expires: | | | | | hypertension Mixed | 04/08/2020 | | | | | hyperlipidemia | | + +------+--------+ + + | Lipid Panel | Lab | Routin | Mixed | Expected: | | | | e | hyperlipidemia | 10/20/2018, Expires: | | | | | | 04/08/2020 | + +------+--------+ + + | CBC with | Lab | Routin | Anemia watermaster | Expected: | | Differential | | e | current use of | 10/20/2018, Expires: | | | | | anticoagulant | 10/06/2019 | + +------+--------+ + + | TSH | Lab | Routin | Paroxysmal atrial | Expected: | | | | e | fibrillation (HCC) | 10/20/2018, Expires: | | | | | Encounter For | 10/07/2019 | | | | | Screening For Other | | | | | | Suspected Endocrine | | | | | | Disorder | | + +------+--------+ + + | Basic Metabolic | Lab | Routin | Essential | Expected: | | Panel | | e | (primary) | 12/18/2018, Expires: | | | | | hypertension | 11/18/2019 | | | | | Dizziness and | | | | | | giddiness Encounter | | | | | | for therapeutic | | | | | | drug level | | | | | | monitoring | | + +------+--------+ + + documented as of this encounter Visit Diagnoses + + | Diagnosis | + + | Essential (primary) hypertension Unspecified essential hypertension | + + | Mixed hyperlipidemia | + + | Anemia Anemia, unspecified | + + | correction current use of anticoagulant Encounter for long-term (current) use of | | anticoagulants | + + | Paroxysmal atrial fibrillation (HCC) Atrial fibrillation | + + | Encounter for screening for other suspected endocrine disorder | + + | Dizziness and giddiness | + + | Encounter for therapeutic drug level monitoring Encounter for therapeutic drug | | monitoring | + + documented in this encounter"
--- OUTSIDE RECORDS SUMMARY | ~2019-05-21 | XMS | Clinical Summary ---
Demographics + + + | Address | [address] | | | [place] [address] | + + + | Home Phone | | + + + | Preferred Language | Unknown | + + + | Marital Status | | + + + | Zoroastrian Affiliation | Unknown | + + + | Race | White | + + + | Ethnic Group | Not or | + + + Author + + + | Organization | Unknown | + + + | Address | Unknown | + + + | Phone | Unavailable | + + + Support + + + + + | Name | Relationship | Address | Phone | + + + + + | Cathi Curry | OPAL | [place] | | + + + + + Care Team Providers + +------+ + | Care Fire Suppression Captain Name | Role | Phone | + +------+ + PCP | Unavailable | + +------+ + Source Comments CRESCENCIO is fully live on both [facility] and [facility] InPatient.[facility] Allergies Not on File Medications Not on file Active Problems Not on file Social History + +-------+ +--------+------+ | Tobacco [...] | + + Last Filed Vital Signs Not on file Plan of Treatment + + + + + | Health Maintenance | Due Date | Last Done | Comments | + + + + + | Pneumococcal | | | | | vaccination (1 of 2 | 1 | | | | - PCV13) | | | | + + + + + | Influenza (Flu) | | | | | vaccination (#1) | 9 | | | + + + + + Results Not on filefrom Last 3 Months"
--- OUTSIDE RECORDS SUMMARY | ~2019-05-21 | XMS | Encounter Summary ---
Demographics + + + | Address | [address] | | | [place] [address] | + + + | Home Phone | | + + + | Preferred Language | Unknown | + + + | Marital Status | | + + + | Alevism Affiliation | Unknown | + + + | Race | Unknown | + + + | Ethnic Group | Unknown | + + + Author + + + | Author | [facility] | | | and [place] | + + + | Organization | [facility] | | [...] Team Providers + +------+ + | Care Poultry Process Worker Name | Role | Phone | + +------+ + PCP | Unavailable | + +------+ + Encounter Details +--------+ + + + + | Date | Type | Department | Care Team | Description | +--------+ + + + + | 06/08/ | Hospital | [facility] | | | | 1998 | Encounter | MED CTR XRAY [address] | | | | | | [place] | | | | | | [place] [address] | | | | | | [phone] | | | +--------+ + + + [...] | | | | | | [place] [id number] | | | | | | [phone] | | | | | | | | +--------+---------+ + + + documented as of this encounter Visit Diagnoses Not on filedocumented in this encounter"
--- OUTSIDE RECORDS SUMMARY | ~2019-05-21 | XMS | Encounter Summary ---
Demographics + + + | Address | [address] | | | [place] [address] | + + + | Home Phone | | + + + | Preferred Language | Unknown | + + + | Marital Status | | + + + | Gnosticism Affiliation | Unknown | + + + | Race | Unknown | + + + | Ethnic Group | Unknown | + + + Author + + + | Author | [facility] | | | and [place] | + + + | Organization | [facility] | | | [...] Team Providers + +------+ + | Care Direct Marketing Analyst Name | Role | Phone | + +------+ + | Jessica Vega | PCP | | | MD | | | + +------+ + Reason for Visit +--------+ + | Reason | Comments | +--------+ + | Other | Wound Check & 2 month | +--------+ + Encounter Details +--------+---------+ + + + | Date | Type | Department | Care Team | Description | +--------+---------+ + + + | 01/05/ | Office | [facility] | Iman Estevez | Paroxysmal atrial | | 2019 | Visit | [facility] [place] | [address] | fibrillation (HCC) | | | | [address] | PRANEETH CORTES | (Primary Dx); | | | | [address] | [place] [address] | Pacemaker; | | | | [place] | [phone] | Bradycardia by | | | | [address] | | electrocardiogram; | | | | [phone] | | Visit for wound | | | | | | check; | | | | | | Cerebrovascular | | | | | | accident (CVA) due | | | | | | to thrombosis of | | | | | | left middle cerebral | | | | | | artery (HCC); | | | | | | Agatston CAC score, | | | | | | >400; Essential | | | | | | hypertension; | | | | | | History of abdominal | | | | | | aortic aneurysm | | | | | | (AAA) repair; | | | | | | History of | | | | | | cerebrovascular | | | | | | accident; Mixed | | | | | | hyperlipidemia; Long | | | | | | term current use of | | | | | | anticoagulant; | | | | | | Encounter for | | | | | | monitoring diuretic | | | | | | therapy | +--------+---------+ + + + Social History [...] occasionally drinks | | | | | [place]: | | | | | 3-4 [...] + + + | Blood Pressure | 128/72 | 01/05/2019 12:51 PM | | | | | PDT | | + + + + + | Pulse | 76 | 01/05/2019 12:51 PM | | | | | PDT | | + + + + + | Temperature | 36.4 C (97.6 F) | 01/05/2019 12:51 PM | | | | | PDT | | + + + + + | Respiratory Rate | - | - | | + + + + + | Oxygen Saturation | 95% | 01/05/2019 12:51 PM | | | | | PDT | | + + + + + | Inhaled Oxygen | - | - | | | Concentration | | | | + + + + + | Weight | 86.4 kg (190 lb 6.4 | 01/05/2019 12:51 PM | | | | oz) | PDT | | + + + + + | Height | 172.7 cm (5' 8") | 01/05/2019 12:51 PM | | | | | PDT | | + + + + + | Body Mass Index | 28.95 | 01/05/2019 12:51 PM | | | | | PDT | | + + + + + documented in this encounter Patient Instructions Patient Instructions Iman Estevez FNP - 01/05/2019 12:30 PM PDTI made no changes t o medications today Your pacemaker looks good See me back in [address] Ferro documented in this encounter Progress Notes ValeriearnaldoImanYamileth, FNP - 01/05/2019 12:30 PM PDTFormatting of this note might be differe nt from the original. Progress Notes by BEN Vázquez at 10/06/18 0268 Author: BEN Vázquez Service: (none) Author Type: Advanced Registered Nurs e Practitioner Filed: 10/06/18 3006 Encounter Date: 10/06/2018 Status: Signed Char Filter Operator: BEN Vázquez (Advanced Registered Nurse Practitioner) Date of visit: 10/06/2018 Primary Care Physician: JESSICA VEGA CHIEF COMPLAINT: Chief Complaint Patient presents with Follow-up 4 week & monitor HISTORY OF PRESENT ILLNESS: Mr. Trevor Curry is a 83 old man who is here today to follow up after having a dual-[place] pacemaker placed [address] Chaparro for sick sinus syndrome for increased bradycar lizzy. He is accompanied today by his Catherine who contributed to history. He is a patient of Dr. Ferro who is his primary hypnotherapist and last seen by him November 12, 2017. He was also seen and evaluated by cardiology nurse practitioner Anna Kemp on September 02, 2018 when he was seen urgently due to abnormal EKG that was done as part of preop erative screening for abdominal hernia repair. Today, I reviewed all previous documentation available to me in electronic medical cara rd and from external sources. He has a history of sick sinus syndrome and bradycardia with dual chamber pacemaker 019, paroxysmal atrial fibrillation, coronary artery calcification with coronary calcium sc ore 07/30/2017 of 3151 with calcification mainly involving the left main, LAD, left circumfle x, and RCA, hypertension, hyperlipidemia, intermittent pedal edema, abdominal aortic surgica l repair 2001, and multiple hernia repairs. He had multiple hernia repairs, predominantly on the left, but now needs right-sided her abner repair by Dr. Pathak, and previously received cardiac clearance from Dr. Ferro 2017. He had his EKG performed for preoperative evaluation in August, and anesthesia declined to proce ed with anesthesia without further cardiac evaluation due to bradycardic heart rate in the 4 0's. His [id number] VASC score is 6 ( age, HTN, stroke) with HAS BLED score 4 (HTN, Stroke, age, ASA,) and he is anticoagulated on Eliquis 5 mg twice daily. His current and previous testing and procedures are detailed below . I saw him last on November 17, 2018 when I followed up with him about his event monitor, and rocael avilez had been referred to Dr. Chaparro. I stopped his losartan hydrochlorothiazide and changed him to losartan twice daily 50 mg, and added furosemide 20 mg daily for increased lower ext remity edema, and told him to follow-up with Dr. Vega about his mildly elevated TSH. He reports today that he tolerated his pacemaker procedure well, and has experienced rashawn y little pain or discomfort, and has mostly been compliant with his activity restrictions, t edson twice raised his left arm above his head before he caught himself. Unfortunately his right arm has limited mobility, and he predominantly uses his left arm for reaching. I removed Steri-Strips from incision today, and his pacemaker incision to his left upper ch est is well approximated without erythema or exudate, and is only problem areas are where he had EKG stickers in the hospital, which irritated his skin. He denies any fever or chills or increased dyspnea with or without exertion. He reports he resumed his Eliquis the day after the procedure and has not experienced any b leeding He reports his energy and alertness are much improved, and his previous symptoms of lighthe adedness and fatigue have resolved since his pacemaker was placed. He denies any chest pain, palpitations or syncope. He also denies any symptoms or signs of stroke or TIA. He has a former smoker who quit in 1993 and smoked 3 packs a day as well as chewing tobacco for approximately 44 years. He drinks 3-4 servings of whiskey per week, but denies any use of recreational drugs. He reports he dislikes drinking water, and his reports that al l of their caffeinated beverages such as ice tea and coffee are decaffeinated. 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illo [facility] for yearly evaluations, as well as his PCP Dr. Vega. They Again did not bring his medications to the clinic today, and I have asked that they d o so in future. I have reviewed his medication list in detail with him and his , and he is now taking furosemide daily, as previously refused to take it. He asked me to send a copy of my note today to not only his PCP, Dr. Vega, also Dr. Paige garcia at the [facility], and . Vital signs today: 01/05/2019: Blood pressure 128/72, pulse 76, O2 sat 95%, weight 190 pound s, temp 96.7 . REVIEW OF SYSTEMS: Negative except for pertinent items noted in HPI. Constitutional: Reports improved energy and activity tolerance.. Denies unexplained weight loss. Appetite is good. Weight is stable. Denies night sweats fevers or chills HENT: Denies nosebleeds. Bilateral hearing loss with hearing aids. 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 Eyes: History of cataract surgery. Denies visual disturbance or double vision. Respiratory/Sleep:: COPD/Emphysema seen on coronary CT calcium score July 2017, denies cou gh, occasional mild ROOT.. Denies hemoptysis or excessive sputum production. reports s noring, denies orthopnea, PND. Cardiovascular: Reports occasional mild pedal edema. Denies chest pain, palpitations . De nies history of rheumatic fever. Denies claudication . AAA surgical repair 2001 Gastrointestinal:Abdominal incisional hernias, multiple hernia repairs on the left, now nee ds repair on the right. GERD .Denies nausea, vomiting, and blood in stool. Genitourinary: Denies hematuria. BPH Musculoskeletal:arthralgia to hands . Denies myalgias, back pain. Skin: Denies color change. Denies rash or lesions. Skin cancer excision right lateral b row 2014 Neurological:previous dizziness and vertigo resolved with pacer.. stroke 1997 with mild ri ght slightest weakness previous expressive aphasia resolved. 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 Denies dizziness, syncope and numbness. Hematological/Oncology . Bruises easily. Denies bleeding history of skin cancer only Endocrine: Denies diabetes or thyroid disease. Denies excessive thirst or hunger. Psychia tric/Behavioral: denies any history of depression or anxiety or other psychiatric illness. Vaccines: Current on flu vaccine?. Current on post 65 pneumonia vaccine?. Habits/Social : history of smoking: quit 1993, smoked 3 ppd x 42 yrs , started when 16 year s, and also chewed at same time EtOH use:whiskey 3-4 per week . Drinks 2-3 servings of de caffeinated coffee, and iced tea daily . Denies recreational or illicit drug use. Exercis es with yard work and tolerates. Lives in [place]. . Retired [employer] . 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 Sees [facility] Badillo [facility] once a year Outpatient Medications Prior to Visit Medication Sig Dispense Refill aspirin 325 MG EC tablet Take 325 mg by mouth daily with breakfast. cholecalciferol (VITAMIN D-3) 1000 units tablet Take 1,000 Units by mouth daily. DiphenhydrAMINE HCl, Sleep, (ZZZQUIL) 25 MG CAPS Take 25 mg by mouth nightly. finasteride (PROSCAR) 5 MG tablet Take 5 mg by mouth daily. Garlic 10 MG CAPS Take 1 capsule by mouth daily. losartan-hydrochlorothiazide (HYZAAR) 100-25 MG per tablet Take 1 tablet by mouth daily . Melatonin 5 MG TABS Take 5 mg by mouth nightly. mesalamine (APRISO) 0.375 g 24 hr capsule Take 750 mg by mouth daily. omeprazole (PRILOSEC) 20 MG capsule Take 20 mg by mouth every morning before breakfast. pravastatin (PRAVACHOL) 40 MG tablet Take 40 mg by mouth nightly. No facility-administered medications prior to visit. PHYSICAL EXAM: Wt Readings from Last 3 Encounters: 10/06/18 85 kg (187 lb 6.4 oz) 09/02/18 85.7 kg (189 lb) 11/12/17 95.1 kg (209 lb 9.6 oz) Temp Readings from Last 3 Encounters: No data found for Temp BP Readings from Last 3 Encounters: 10/06/18 98/54 09/02/18 122/60 11/12/17 124/68 Pulse Readings from Last 3 Encounters: 10/06/18 56 09/02/18 51 11/12/17 58 GENERAL: Well developed, well nourished, in no distress. Appears approximately stated age . HEENT: Normocephalic, atraumatic. Bilateral hearing aids EYES: PERRL, EOM normal. MOUTH: Oral mucosae moist, dentition adequate( dentures), no lesions noted NECK: No JVD, lymphadenopathy, thyromegaly, bruits. Carotid pulses are 2+ bilaterally LUNGS/CHEST: Clear bilaterally, with no rales, rhonchi or wheezing noted, respirations unl abored HEART: Pacer incision to JULI, edges well approximated, no erythema or exudate. Nondisplace d PMI, regular rate and rhythm, S1, S2 normal. No murmurs, rubs or gallops noted. ABDOMEN: Wearing abdominal binder, not removed, platelets right-sided incisional hernia. S oft, nontender, no organomegaly, masses or bruits. Bowel sounds are normal in all 4 quadran ts. The abdominal aortic pulsation is not palpable. EXTREMITIES: No edema. Radial pulses 2+ bilaterally. Femoral pulses are 2+ bilaterally wi thout bruits. DP and PT pulses are 2+ bilaterally. No clubbing. SKIN: Warm and dry, capillary refill is normal, no lesions. NEUROLOGIC: Awake, alert and oriented x 3. No focal motor or sensory deficits. PSYCHIATRIC: Appropriate, affect appears normal DATA: Blood tests: No results found for: WBC, RBC, HGB, HCT, PLT No results found for: NA, K, CL, CO2, ANIONGAP, GLUF, BUN, CREATININE, BCR, CA, EGFR No results found for: CHOL, TRIG, LDL, LDL, GLUF, HGBA1C No results found for: BNP, CKTOTAL, TSH, CRP No results found for: METF, NMETFX, TFNMFX, XLLUHIM53KMG, QPFNTY05AUN, TOTEPI CARDIAC PROCEDURES/IMAGING Lexiscan Cardiolite stress test (10/16/17): No EKG changes, normal SPECT perfusion, EF 53% CT heart with calcium scorin07/30/2017:( [facility]) Significant calcification left main, RCA, LAD, and circumflex. Minimal amount of calcification seen in the accessory artery. Calcium score 3151 (90th 100-100 percentile for males over 70 years of age. Lung windows demonstra te significant lung destruction from COPD. No pleural or pericardial effusions. Aortic sarita t is moderately calcified. 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 There was mild right renal artery stenosi s. There were simple cysts in the left kidney, and a 2.5 cm soft tissue mass in the right k idney that could represent a cyst, but a follow-up 3-phase CT of the kidneys was recommended . 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 Mesenteric arteries widely patent. Kidneys each have a single artery. The left is widely patent the right appears narrowed by atherosc lerotic disease. The proximal abdominal aorta appears normal in caliber the mid abdominal aorta is slightly lobulated posteriorly and measures 33 mm in AP diameter. The distal aorta shows surgical cl ips anteriorly and at the bifurcation. The aorta measures 26 mm here. There is no evidence of dissection or leakage or residual aneurysm. The iliac arteries are widely patent, thoug h mildly calcified. The femoral arteries are moderately calcified but also appear patent. Incidental images of the lung base shows dependent atelectasis and scarring. Heavy coronar y artery calcification is present. The liver spleen stomach pancreas and adrenal glands rj ear normal. The gallbladder is absent. Skin there are seen multiple large anterior abdominal wall hernias of small bowel and vesse ls. There is no evidence of bowel obstruction. Scoliosis and degenerative changes are seen in the ECHO- Echo: 10/21/2018: [facility]: Technically adequate study. EF 50%. LV normal in size an d wall thickness, no regional wall motion abnormalities. Normal diastolic function for age. RV normal in size and function. Normal size atria. Aortic valve not well visualized appe ars to be trileaflet, mildly thickened, mild AI, aortic pressure half-time 1259 ms, no aorti c stenosis. Normal mitral valve, mild MR, no MVP. Tricuspid valve normal, trace TR. No pu lmonary hypertension, RVSP 21.79 mmHg. Pulmonic valve normal, mild PI with 3 small separate regurgitant jets. No pericardial effusion. IVC WNL, normal CVP. Aortic root, ascending a suzy, and aortic arch are normal. No mass, no clot, no ASD, no VSD PACER Dual-chamber pacemaker: 12/25/2018: (Dr. Chaparro): Indication bradycardia.Generator : [employer] onic Doyle, model #W1DR01, serial number [id number].RA Lead: [employer] right atrial Fineline II active fixation, model 4470,serial number [id number] RV Lead: A Med[employer]onic right ve ntricular active fixation, model 5076, serial number [id number]. EKG/EVENT MONITOR 7-day event monitor:09/11/2018-09/17/2018: Predominantly sinus bradycardia. Average heart rat e 55 bpm, range 38-148 bpm. Normal circadian rhythm. No evidence of AV block or clinically significant pauses. Ventricular ectopy <1%. Isolated unifocal PVCs, 35 ventricular couple ts, no evidence of ventricular tachycardia. Overall atrial ectopic rhythm burden was 4.53%. Isolated PACs, atrial couplets, and 76 months of PAT. Maximum duration 26 minutes, rate 1 27 maximum recorded heart rate. Single 2-hour and 40 one episode of paroxysmal atrial fibri llation during monitor time. With an overall burden of atrial fibrillation of 1.53%. Prue ge ventricular rate was 91 bpm, range 85-147 bpm. One episode of reported symptoms correlat ed to an isolated PAC EK10/07/2017: Sinus bradycardia with sinus arrhythmia, left axis deviation. Rate 57 bpm, WY 176 ms, QRS 110 ms, QTC 418 ms, tracing personally reviewed by me EK09/02/2018: Sinus bradycardia with PACs. Rate 49 bpm, WY 170 ms, QRS 114 ms, QTC 417 m s, tracing personally reviewed by me EK10/06/2018: Sinus bradycardia with PACs, ST flattening anterolateral, possible previous anterior IA. Rate 57 bpm, WY 170 ms, QRS 108 ms, QTC 424 ms tracing personally reviewed by me, and similar morphology to previous EKG's EK01/05/2019: Atrially paced rhythm , stable nonspecific ST and T wave abnormalities. R ate 71 bpm, WY 206 ms, QRS 104 ms, QTC 434 ms, tracing personally reviewed by me, and ST fla ttening in anterolateral leads stable, and atrially paced rhythm has replaced sinus rhythm s hannah previous EKG LABS Labs: 08/04/2018: BMP: Sodium 140, potassium 5, chloride 104, glucose 103, BUN 20, creatinin e 0.6, GFR 85 Labs: 08/25/2018: CMP: Sodium 140, potassium 3.5, ALT 100, glucose 105, BUN 14, creatinine 0. 8, AST 14, ALT 9, alk phos 40, total bili 1.4, GFR 93, albumin 3.9. CBC: WBC 6.1, RBC 4.63, hemoglobin 14.2, hematocrit 22.1, platelets 219. Labs: 12/25/2018: BMP: Sodium 146, potassium 3.6, chloride 107, glucose 90, BUN 18, creatinin e 0.86, GFR >60 CBC: WBC 6.81, RBC 4.57, hemoglobin 13.4, hematocrit 40.8, platelets 231 Assessment/Plan ASSESSMENT & PLAN: He Is here today with his to follow up after having a dual-chamber pacemaker placed [address] Chaparro for sick sinus syndrome with increased bradycardia. He has problems as detailed below. As discussed in HPI, his pacer incision is healing well, and edges are well as needed witho ut erythema or exudate. I reinforced activity restrictions with him today, as well as advis ing him against using any powder or lotion near his incision. He continues to tolerate Eliquis 5 mg twice daily well without any bleeding, and his labs p erformed last month prior to his pacemaker insertion showed a stable and normal BMP, and a n ormal CBC count. His EKG performed in the clinic today now shows atrially paced rhythm at 71 bpm. He reports today that he feels tremendously improved since his pacemaker insertion, wit h resolution of his previous symptoms of dizziness and lightheadedness, and his heart rate a nd blood pressure are now normalized, and he is tolerating daily furosemide. I made no changes to cardiac medications today, and he should continue Pravachol 40 mg nightly for hyperlipidemia, losartan 50 mg daily twice daily for hypertension, Eliquis 5 mg twice daily for stroke prevention, and aspirin 81 mg daily for coronary artery calcific ation, and furosemide 20 mg daily for hypertension and pedal edema. He will follow-up next with Dr. Ferro in February. I also discussed with him that once he has recovered completely from his pacemaker proce dure, he should be able to get his hernia operation. Please note, visit diagnosis should be : Paroxysmal atrial fibrillation,pacemaker, bradycardia, CVA due to thrombosis of the left mi ddle stable artery, agatston score CAC score greater than 400, essential hypertension, hist ory of abdominal aortic aneurysm repair, history of CVA, mixed hyperlipidemia, current use o f anticoagulant, encounter for monitoring diuretic . EKG only order placed for this visit. Errors occurred with new [employer] interface . 1. History of cerebrovascular accident 2. Paroxysmal atrial fibrillation (HCC) 3. Bradycardia by electrocardiogram 4. History of abdominal aortic aneurysm (AAA) repair 5. Essentialhypertension 6. Dizziness 7. Coronary artery calcification seen on CAT scan 8. 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 Mixed hyperlipidemia 10. Anemia, unspecified type 11. Anticoagulated 12. Screening for thyroid disorder Orders Placed This Encounter Procedures Comprehensive metabolic panel Lipid panel CBC W/Auto Diff (Reflex to Manual) TSH Ambulatory referral to Cardiac Electrophysiology Electrocardiogram, 12-lead Echo cardiac adult complete The following portions of the patient's history were personally reviewed by me and updated as appropriate: EKG tracings, other specialty provider and PCP notes,any Hospital admission and discharge summaries, any ER records , current and previous cardiac testing and procedure reports and d grace, medication bottles NOT brought to visit today Allergies, current medications.labs Family history, past medical history, past social history, past surgical history. Problem list. BEN Vázquez [facility] 10/06/2018 documented in t his encounter Plan of Treatment +--------+---------+ + + + | Date | Type | Specialty | Care Team | Description | +--------+---------+ + + + | 08/31/ | Office | Cardiology | Lobo Ferro, | | | 2019 | Visit | | MD [address] | | | | | | [place], | | | | | | [place] [address] | | | | | | [phone] | | | | | | | | +--------+---------+ + + + documented as of this encounter Procedures + +--------+ + + + | Procedure Name | Priori | Date/Time | Associated Diagnosis | Comments | | | ty | | | | + +--------+ + + + | ECG 12 LEAD | Routin | 01/05/2019 | Paroxysmal atrial | Results for this | | | e | 12:49 PM | fibrillation (HCC) | procedure are in the | | | | PDT | Bradycardia by | results section. | | | | | electrocardiogram | | | | | | Pacemaker Visit for | | | | | | wound check | | | | | | Cerebrovascular | | | | | | accident (CVA) due | | | | | | to thrombosis of | | | | | | left middle cerebral | | | | | | artery (HCC) | | | | | | Agatston CAC score, | | | | | | >400 Essential | | | | | | hypertension | | | | | | History of abdominal | | | | | | aortic aneurysm | | | | | | (AAA) repair | | | | | | History of | | | | | | cerebrovascular | | | | | | accident Mixed | | | | | | hyperlipidemia Long | | | | | | term current use of | | | | | | anticoagulant | | | | | | Encounter for | | | | | | monitoring diuretic | | | | | | therapy | | + +--------+ + + + documented in this encounter Results ECG 12 lead (01/05/2019 12:49 PM PDT) + + + + + + | Component | Value | Ref Range | Performed | Pathologist | | | | | At | Signature | + + + + + + | VENTRICULAR | 71 | BPM | [facility] | | | RATE EKG | | | | | + + + + + + | ATRIAL RATE | 70 | BPM | [facility] | | + + + + + + | P-R | 206 | ms | [facility] | | | INTERVAL | | | | | + + + + + + | QRS | 104 | ms | [facility] | | | DURATION | | | | | + + + + + + | Q-T | 400 | ms | [facility] | | | INTERVAL | | | | | + + + + + + | Q-T | 434 | ms | [facility] | | | INTERVAL | | | | | | (CORRECTED) | | | | | + + + + + + | P WAVE AXIS | -61 | degrees | [facility] | | + + + + + + | QRS AXIS | -47 | degrees | [facility] | | + + + + + + | T AXIS | -16 | degrees | [facility] | | + + + + + + | INTERPRETAT | Please refer to | | [facility] | | | ION TEXT | Providers office visit | | | | | | note for Providers | | | | | | Interpretation.Confirmed | | | | | | by [facility] Plato Read Only, | | | | | | [facility] Praneeth ([id number]), | | | | | | greeting card editor Devante Dill | | | | | | ([id number]) on 01/05/2019 | | | | | | 12:59:47 PM | | | | + + [...] + | Diagnosis | + + | Paroxysmal atrial fibrillation (HCC) - Primary Atrial fibrillation | + + | Pacemaker Cardiac pacemaker in situ | + + | Bradycardia by electrocardiogram Other specified cardiac dysrhythmias | + + | Visit for wound check Encounter for other specified aftercare | + + | 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 (HCC) | + + | Agatston CAC score, >400 Nonspecific (abnormal) findings on radiological and other | | examination of other intrathoracic organs | + + | Essential hypertension Unspecified essential hypertension | + + | History of abdominal aortic aneurysm (AAA) repair | + + | History of cerebrovascular accident Transient ischemic attack (TIA), and cerebral | | infarction without residual deficits | + + | Mixed hyperlipidemia | + + | residential current use of anticoagulant Encounter for long-term (current) use of | | anticoagulants | + + | Encounter for monitoring diuretic therapy Encounter for therapeutic drug monitoring | + + documented in this encounter
--- OUTSIDE RECORDS SUMMARY | ~2019-05-21 | XMS | Encounter Summary ---
Demographics + + + | Address | [address] | | | [place] [address] | + + + | Home Phone | | + + + | Preferred Language | Unknown | + + + | Marital Status | | + + + | Lutheran Affiliation | Unknown | + + + | Race | Unknown | + + + | Ethnic Group | Unknown | + + + Author + + + | Author | [facility] | | | and [place] | + + + | Organization | [facility] | | | [...] Team Providers + +------+ + | Care Refractory Specialist Name | Role | Phone | + +------+ + PCP | Unavailable | + +------+ + Encounter Details +--------+ + + + + | Date | Type | Department | Care Team | Description | +--------+ + + + + | 12/17/ | Hospital | [facility] | | | | 2000 | Encounter | MED CTR XRAY [address] | | | | | | [place] | | | | | | [place] [address] | | | | | | [phone] | | | +--------+ + + + [...] | | | | | | [place] [id number] | | | | | | [phone] | | | | | | | | +--------+---------+ + + + documented as of this encounter Visit Diagnoses Not on filedocumented in this encounter"
--- OUTSIDE RECORDS SUMMARY | ~2019-05-21 | XMS | Encounter Summary ---
Demographics + + + | Address | [address] | | | [place] [address] | + + + | Home Phone | | + + + | Preferred Language | Unknown | + + + | Marital Status | | + + + | Denominational Affiliation | Unknown | + + + | Race | Unknown | + + + | Ethnic Group | Unknown | + + + Author + + + | Author | [facility] | | | and [place] | + + + | Organization | [facility] | | | [...] Team Providers + +------+ + | Care Hunter Skin Diver Name | Role | Phone | + +------+ + PCP | Unavailable | + +------+ + Encounter Details +--------+ + + + + | Date | Type | Department | Care Team | Description | +--------+ + + + + | 12/27/ | Hospital | [facility] | | | | 2000 | Encounter | MED CTR XRAY [address] | | | | | | [place] | | | | | | [place] [address] | | | | | | [phone] | | | +--------+ + + + [...] | | | | | | [place] [address] | | | | | | [phone] | | | | | | | | +--------+---------+ + + + documented as of this encounter Visit Diagnoses Not on filedocumented in this encounter"
--- OUTSIDE RECORDS SUMMARY | ~2019-05-21 | XMS | Encounter Summary ---
Demographics + + + | Address | [address] | | | [place] [address] | + + + | Home Phone [...] Team Providers + +------+ + | Care Panel Machine Operator Name | Role | Phone | + +------+ + PCP | Unavailable | + +------+ + Encounter Details +--------+ + + + + | Date | Type | Department | Care Team | Description | +--------+ + + + + | 08/17/ | Results | | Other, Faculty | | | 1997 | Only | | [phone] | | +--------+ + + + + [...] Not on filedocumented as of this encounter Procedures + +--------+ + + + | Procedure Name | Priori | Date/Time | Associated Diagnosis | Comments | | | ty | | | | + +--------+ + + + | X-RAY CHEST 2 VIEW | Priori | 08/17/1997 | | Results for this | | | ty | 3:42 PM | | procedure are in the | | | | PST | | results section. | + +--------+ + + + documented in this encounter Results CHEST 2 VIEW (08/17/1997 3:42 PM PST) + + + + + + | Component | Value | Ref Range | Performed | Pathologist | | | | | At | Signature | + + + + + + | CHEST, 2 | Radiologist 1: [facility], | | | | | VIEWS OR | Sudhir PATEL-Radiologist | | | | | STEREO | 2: Reyna HILLMAN, | | | | | | M.DNaomyCHEST, TWO VIEWS: | | | | | | 08-17-97 at 1542 | | | | | | hours. | | | | | | Dictated: | | | | | | 08-20-97 COMPARISON: | | | | | | None. HISTORY: | | | | | | The patient is a | | | | | | 61-year-old male, rule | | | | | | out metastaticdisease. | | | | | | FINDINGS: There | | | | | | is a well-circumscribed | | | | | | 7-mm density | | | | | | projectingin the right | | | | | | upper lobe over the | | | | | | posterior fifth rib. | | | | | | The lungs areotherwise | | | | | | clear. There is | | | | | | slight hyperinflation | | | | | | with splaying of | | | | | | thepulmonary vasculature | | | | | | indicating early | | | | | | changes of emphysema. | | | | | | There ivy small | | | | | | eventration noted in the | | | | | | posterior aspect of the | | | | | | lefthemidiaphragm. No | | | | | | pleural effusion or | | | | | | pneumothorax is | | | | | | identified.The thoracic | | | | | | aorta is mildly tortuous | | | | | | through the chest. | | | | | | Themediastinum, yves | | | | | | and heart are otherwise | | | | | | normal. | | | | | | Surroundingvisualized | | | | | | skeletal structures and | | | | | | soft tissues are normal. | | | | | | IMPRESSION: 1. | | | | | | Calcified density | | | | | | projecting over the | | | | | | posterior right fifth | | | | | | riblikely represents | | | | | | granuloma or bone | | | | | | island. 2. No findings | | | | | | of metastatic disease. | | | | | | 3. Early changes of | | | | | | emphysema. END OF | | | | | | IMPRESSION: | | | | + + + + + + + + | Specimen | + + | | + + + + + | Narrative | Performed At | + + + | Ordered by NEERAJ YAN | | + + + + +---------+ + + | Performing | Address | City/State/Zipcode | Phone Number | | Organization | | | | + +---------+ + + | [facility] | | | | | RADIOLOGY | | | | + +---------+ + + documented in this encounter Visit Diagnoses Not on filedocumented in this encounter"
--- OUTSIDE RECORDS SUMMARY | ~2019-05-21 | XMS | Encounter Summary ---
Demographics + + + | Address | [address] | | | [place] [address] | + + + | Home Phone | | + + + | Preferred Language | Unknown | + + + | Marital Status | | + + + | Jainism Affiliation | Unknown | + + + | Race | White | + + + | Ethnic Group | Not or | + + + Author + + + | Author | [facility] | + + + | Organization | [facility] | + + + | [...] Team Providers + +------+ + | Care Legend Maker Name | Role | Phone | + +------+ + | Torey Ramirez MD | PCP | | + +------+ + Encounter Details +--------+ + + + + | Date | Type | Department | Care Team | Description | +--------+ + + + + | 12/04/ | Outside | Neurophysiology | Demarcus George MD | | | 2013 | Referral | EEG at [facility] [address] | [facility] | | | | Order | [address] | NEUROLOGY [address] | | | | | Mailcode: [id number] | [facility] | | | | | [facility] | [place] [address] | | | | | [place], [place] | [phone] | | | | | [address] | | | | | | [phone] | | | +--------+ + + + [...] 12/03/2013 Place of | | | Service: [facility] Department: EEG [facility] - [phone] | | | ROUTINE EEG Indication: Mr. [...] | recorded. Yaima Garcia M.D. Suggested CPT: 98636 - EEG | | | Routine Awake Only Suggested Dx: 780.39 - Convulsions | | | Electronically signed on 12/07/2013 at 5:10 PM YAIMA GARCIA MD. | | | | | + + + documented in this encounter Visit Diagnoses Not on filedocumented in this encounter"
--- OUTSIDE RECORDS SUMMARY | ~2019-05-21 | XMS | Encounter Summary ---
Demographics + + + | Address | [address] | | | [place] [address] | + + + | Home Phone | | + + + | Preferred Language | Unknown | + + + | Marital Status | | + + + | Rastafarian Affiliation | Unknown | + + + | Race | Unknown | + + + | Ethnic Group | Unknown | + + + Author + + + | Author | [facility] | | | and [place] | + + + | Organization | [facility] | | | [...] Team Providers + +------+ + | Care In Service Coordinator Name | Role | Phone | + [...] | Arachnoid | Awais, | [address] | | | | | cyst | PA-C [address] | [place], | | | | | Syncope and | [address] | [place] | | | | | collapse | [place], | [address] | | | | | Procedures | [place] [address] | Phone: | | | | | MRI Brain w | Phone: | [phone] | | | | | wo Contrast | [phone] | Fax: | | | | | | Fax: | [phone] | | | | | | [phone] | | +--------+--------+ + + + + [...] | | | | | | [place] [address] | [place] | | | | | | Phone: | [address] | | | | | | [phone] | Phone: | | | | | | Fax: | [phone] | | | | | | [phone] | Fax: | | | | | | | [phone] | +--------+ + + + + + [...] Kristy, | | | | | | [place] | Avery Ordaz DO | | | | | Subarachnoid | System | [address] | | | | | cyst | [place] | [address] | | | | | Procedures | Health and | [place], [place] | | | | | [place] OFFICE | Service | [address] Phone: | | | | | CONSULTATION | | [phone] | | | | | NEW/ESTAB | | Fax: | | | | | PATIENT 60 | | [phone] | | | | | MIN | | | +--------+--------+ + + + + Encounter Details +--------+---------+ + + + | Date | Type | Department | Care Team | Description | +--------+---------+ + + + | 11/11/ | Office | [facility] | Awais Nobles, | Arachnoid cyst | | 2013 | Visit | NEUROSURGERY [address] | PA-C [address] | (Primary Dx); | | | | [address] | [place], [place] | Syncope and collapse | | | | [place], [place] | [address] | | | | | [address] | | | | | | [phone] | | | +--------+---------+ + + + [...] RHEUMATOLOGIC: No joint arthritis, no rheumatoid arthritis. Awais Davis PA-C - 11/11/2013 1:15 PM PDT . 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 CRANIAL NERVES: II: Acuity is intact. [...] Intrinsics 5 5 Ulnar Intrinsics 5 5 Military Communications Specialist Strength 5 5 Hip Flexion 5 5 [...] today, and I greatly appreciate the r eferral. The patient has an arachnoid cyst. This [...] 11/11/2013 13:16 documented in thi s encounter Plan of Treatment +--------+---------+ + + + | Date | Type | Specialty | Care Team | Description | +--------+---------+ + + + | 08/31/ | Office | Cardiology | Lobo Ferro, | | | 2019 | Visit | | MD [address] | | | | | | [place], | | | | | | [place] [address] | | | | | | [phone] | | | | | | | | +--------+---------+ + + + + +---------+--------+ + + [...] | + + +--------+ + + | [place] | Outpatient | Routin | Arachnoid cyst [...]
[~2019-05-21 08:45] MED LIST changes: +ELIQUIS5 MG PO
--- NOTE | 2019-05-21 13:20 | NUR ---
05/21/19 1320 Vinita Wolf 1313-PATIENT ARRIVED TO PACU ON 10L MASK PLACED ON 6L RR EVEN.ORAL AIRWAY IN PLACE. PATIENT REACTIVE TO VOICE EYES OPEN DOES NOT FOLLOW COMMANDS. IVF INFUSING. BP RETAKEN FIRST READING LOWER. INCISION TO ABDOMEN CDI WITH GABRIELLE WRAP. 2 NATHAN DRAINS SANGUINOUS DRAINAGE. APACED
--- NOTE | 2019-05-21 15:06 | NUR ---
PT ARRIVED TO FLOOR VIA STRETCHER. PT IS SOMEWHAT DROWSY BUT ORIENTED TO PLACE AND PERSON. 2L NC IN PLACE. SATURATIONS 89% TITRATED TO 3LNC. SATURATION AT 92%. NOW. SCD'S IN PLACE. CPOX PLACED. ABDOMINAL BINDER IN PLACE. 2 NATHAN DRAINS WITH SMALL AMOUNT OF SERSANG DRAINAGE. PT DENEIS PAIN/NAUSEA. BOWEL TONES HYPOACTIVE. ORIENTED TO ROOM. CALL LIGHT IN REACH. BED ALARM PLACED FOR SAFETY.
--- NOTE | 2019-05-21 16:25 | NUR ---
VITALS TAKEN AND STABLE. ABDONIAL ISICION C/D/I. BINDER STILL IN PLACE. DRAIN WITH SAME AMOUNT OF SEROSANG DRAINAGE. DENEIS PAIN/NAUSEA. CALL LIGHT IN REACH.
--- NOTE | 2019-05-21 17:30 | NUR ---
PT SITTING UP I NBED. TELE #[address] HR 77 AND IRREGULAR. DINNER AT [facility]. CALL LIGHT IN REACH.
--- NOTE | 2019-05-21 18:14 | NUR ---
PT SITTING AT 90 DEGREE ANGLE IN BED EATING DINNER. VISIBLE FROM NURSES STATION. CALL LIGHT IN REACH.DRESSING C/D/I. JPS WITH SEROSANG DRAINAGE. DENIES PAIN OR NASUEA.
--- NOTE | 2019-05-21 22:31 | NUR ---
VITALS DONE AND CHARTED.
--- NOTE | 2019-05-21 23:06 | NUR ---
PATIENT RESSTING IN BED WATCHING TV, NO NEEDS AT THIS TIME. CALL LIGHT IN REACH.
--- NOTE | 2019-05-21 23:07 | NUR ---
ABD BINDER IN PLACE, NATHAN DRAINS DRAINING SANGUINOUS FLUID. PATIENT HAVING NO PAIN AND DRESSINGS HAVE SOME DRIED SHADOWING ON THE BUT ARE INTACT. PATIENT ABLE TO TAKE HIS PO PILLS AND JUST WANTS TO GO TO SLEEP. LIGHTS TURNED DOWN AND CALL LIGHT IN REACH.
--- NOTE | 2019-05-21 23:26 | NUR ---
PATIENT JUST LAYING AWAKE IN THE DARK. PATIENT HAS NO NEEDS AT THIS TIME. CALL LIGHT IN REACH.
--- NOTE | 2019-05-22 01:24 | NUR ---
PATIENT RESTING QUIETLY IN SEMI-FOWLERS POSITION. RESPIRATIONS REGULAR AND EVEN.CALL LIGHT IN REACH. SATS 97% ON 2.5L/NC. EYES CLOSED.
--- NOTE | 2019-05-22 03:27 | NUR ---
PATIENT CALLED 2 PERSON ASSIST UP TO THE BED SIDE COMMODE AND PATIENT HAD A 1 MEDIUM SEMI FORMED BM AND THEN BACK TO BED. ICE WATER FILLED, PATIENT HAVING NO PAIN. CALL LIGHT IN REACH NO OTHER NEEDS AT THIS TIME.
--- NOTE | 2019-05-22 05:08 | NUR ---
PATIENT HAS RESTED SLEPT PART OF THE NIGHT, CAT NAPS REALLY. HE HAS HAD NO C/O PAIN STOOD WITH 2 PERSON ASSIST AND HAD A MEDIUM SEMI FORMED BM IN THE BEDSIDE COMMODE THEN WENT BACK TO BED. RESTING QUIETLY AT THIS TIME. BOTH NATHAN SITES DRAINING SANGUINOUS FLUID. CALLS APPROPRIATELY. CALL LIGHT IN REACH AND ABD BINDER AND ABD DRESSING DRY AND INTACT.
--- NOTE | 2019-05-22 07:19 | NUR ---
REPORT RECEIVED FROM PAPER REWINDER OPERATOR RN. PT SITTING IN BED AWAKE. ALERT AND ORIENTED. CALL LIGHT IN REACH. 3L NC IN PLACE.
--- NOTE | 2019-05-22 07:39 | NUR ---
RN in room with patient getting him up to chair.
--- NOTE | 2019-05-22 07:42 | NUR ---
SBA TO CHAIR FOR COFFEE. PT REFUSING BREAKFAST THIS MORNING. ROY IN PLACE. TITRATED TO RA. SATURATION 93% CALL LIGHT IN REACH.
--- NOTE | 2019-05-22 07:59 | NUR ---
PATIENT UP TO CHAIR WITH CALL BUTTON IN REACH. PATIENT WASHED HANDS AND FACE. LINENS CHANGED. PATIENT DRINKING COFFEE REFUSED BREAKFAST. NO OTHER NEEDS AT THIS TIME.
[2019-05-22] MEDS ORDERED: TYLENOL EXTRA500 MG PO (09:43)
--- NOTE | 2019-05-22 09:49 | OR ---
[facility] [address] [place], [place] [address] Signed DATE OF OPERATION: 05/21/2019 SURGEON: Norma Pickett MD PREOPERATIVE DIAGNOSES: 1. Recurrent incarcerated complex abdominal wall hernia. 2. Multiple medical problems, distant history of cerebrovascular accident with near-complete recovery, history of aortic aneurysm repair, history of multiple incisional hernia repairs, history of more recent pacemaker placement. POSTOPERATIVE DIAGNOSES: 1. Recurrent incarcerated complex abdominal wall hernia. 2. Multiple medical problems, distant history of cerebrovascular accident with near-complete recovery, history of aortic aneurysm repair, history of multiple incisional hernia repairs, history of more recent pacemaker placement. 3. Additional hernia defect in inferior right lateral abdominal wall. PROCEDURES: 1. Exploration of abdominal wall with reduction of hernia x2, reconstruction of abdominal wall defect x2 with right-sided component separation technique and medialization of linea alba. 2. Implantation of Prolene mesh underlay technique. 3. Excision of redundant abdominal wall mesh. 4. Repair of secondary abdominal wall defect, separate and distinct. ANESTHESIA: General endotracheal; Norma Silva CRNA, and local 20 mL of 0.25% Marcaine with epinephrine. DRAINS: 7 mm [place] x2. INDICATION: This 83-year-old white man is a patient of Dr. Jessica Ramirez and well known to me from the past. He has undergone aortic aneurysm repair by me many years ago, which remains good but has had several abdominal wall hernias. He has very lax abdominal wall itself, but is noted to have considerable amount of enteric contents in the subcutaneous space on the right side. Incisional hernia repairs in the past have included implantation of mesh. He has very poor abdominal wall muscle tone. He underwent a weight loss effort, which was quite impressive and was anticipating complex abdominal Electronically Signed By: NORMA PICKETT MD 05/22/19 0949 PATIENT NAME: LUIS ALBERTO MADRIGAL OPERATIVE REPORT DATE OF : 35 REPORT #: [id number] PHYSICIAN: NORMA PICKETT MD PCP: JESSICA RAMIREZ MD REPORT IS CONFIDENTIAL AND NOT TO BE RELEASED WITHOUT AUTHORIZATION [facility] [address], [place] [address] Signed wall reconstruction and hernia repair a few months ago, but upon presentation had severe bradycardia, ultimately culminating in placement of a pacemaker device. He is now here for repair of the abdominal wall hernia and reconstruction of abdominal wall. The mindful is complex medical problems and rather complex abdominal wall defect. CT scan shows very attenuated muscle fibers and a large dominant defect, possibly another as well. He and his family understand the risk of hernia repair included but not limited to bleeding, infection, recurrence, and other unforeseen complications, in particular including abdominal compartment syndrome upon reduction of abdominal viscera to the abdominal compartment. Understanding all of this, they wished to proceed. FINDINGS: The dominant defect was felt to the right of the midline and about 3 cm above the umbilicus. A transverse incision was used. Reduction of multiple bowel loops from the subcutaneous space was undertaken and the fascial defect appeared to be about 10 cm transversely oriented and 6 cm wide. It appeared to be related to a defect where a mesh had from the abdominal wall. Medialization of the linea alba was undertaken with a component separation approach incising the external oblique fascia. Redundant and viable fascial tissue with Prolene mesh was noted medially. A good portion was excised so as to avoid seroma cavity with [id number] healing. Additionally noted was a separate defect approximately 6 cm in size inferior and lateral to the dominant defect. This was closed with interrupted Prolene sutures with Prolene pledgets and the defect additionally covered by mesh in continuity of the other defect. Photographs were taken. Drains were placed. He tolerated procedure well. DESCRIPTION OF PROCEDURE: The patient was brought to the operating room, given a general endotracheal anesthetic. Preoperative antibiotics were given. Sequential compression device stockings used and heparin subcutaneously administered. A Echavarria catheter was placed, mindful of a likely prolonged operation. Abdominal wall palpation confirmed very lax abdominal wall generally, but a distinct defect to the right of the midline prior incision several centimeters from it. On that basis, a transverse incision was made directly over that area. Dissection was carried through the subcutaneous space and using blunt electrocautery dissection, herniated small bowel with a large redundant hernia sac was undertaken. The lateral defect appeared to be rectus muscle and portion of linea alba directed laterally. Medially was a redundant but thick scar tissue with associated Prolene mesh. The hernia sac was dissected free circumferentially preserving hernia sac as necessary, but ultimately the hernia sac was entered. Intraabdominal contents were normal with no sign of ascites or carcinomatosis. The properitoneal space was developed circumferentially, but not fully able to be developed medially where the mesh was contiguous with it. It was freed superiorly and on the right lateral and inferior aspect quite handily. Palpation of the defect inferiorly showed another defect separate and distinct from this that measured approximately 6 cm in size with a well-formed Electronically Signed By: NORMA PICKETT MD 05/22/19 0949 PATIENT NAME: LUIS ALBERTO MADRIGAL OPERATIVE REPORT DATE OF : 35 REPORT #: [id number] PHYSICIAN: NORMA PICKETT MD PCP: JESSICA RAMIREZ MD REPORT IS CONFIDENTIAL AND NOT TO BE RELEASED WITHOUT AUTHORIZATION [facility] [address], [place] [address] Signed hernia sac. With various maneuvers, the hernia sac was dissected free. An additional incision was considered, however, minimizing incisions was deemed advisable under his circumstances and with great effort. The additional hernia was more fully defined. The fascial defect was reapproximated with interrupted 0 Prolene sutures with Prolene pledgets completely. Photographs were taken. This defect was able likely to be covered by additional mesh for the dominant hernia defect. The properitoneal space was well-developed and the peritoneum elastic and mobile enough that it could cover the inferior aspect and the medial aspects more fully. This peritoneal leaf was sewn to the abdominal wall in the lower aspect and inferiorly to allow for a biologic barrier between the anticipated implantation of Prolene mesh. A 6 x 6-inch piece of Prolene mesh was cut to an elliptical configuration and configured so as to cover the dominant defect as well as the secondary defect identified. It became clear that the most viable tissue was that on the right side of the abdomen including the rectus abdominis. Mobilization of the midline was somewhat impeded as is usual. On that basis, a components release approached at least to the right side was deemed advisable. Subcutaneous tissue was elevated and the lateral edge of the rectus identified and the external oblique incised with electrocautery. This allowed for mobility of the attenuated but healthy otherwise rectus abdominis. The Prolene mesh was then secured into the properitoneal space with interrupted 0 Prolene sutures with Prolene pledgets. The right rectus abdominis was medialized reconstructing the linea alba to essentially [place] linea alba with contiguous fibrotic mesh from the past. Redundant mesh was excised and the medialization and reconstruction of the defect undertaken with interrupted 0 Prolene suture with Prolene pledgets in multiple interrupted configuration. Irrigation was undertaken. The mesh covered both abdominal wall defects in aggregate. Two separate stab incisions were made to allow for placement of [place] drains 7 mm in size. They were secured to skin with nylon suture. Silvano's layer was reapproximated with interrupted 2-0 Vicryl and skin closed with running subcuticular 3-0 Vicryl. Steri-Strips were applied as was a silver sponge dressing and Opsites. The drains were attached to bulb suction. After dressings were applied, an abdominal binder was also applied. The patient tolerated procedure well. Blood loss was less than 25 mL in aggregate. Sponge, needle, and counts reported as correct x3. The operation was prolonged, complicated, and difficult lasting approximately nearly 4 hours in aggregate. Norma Pickett MD Electronically Signed By: NORMA PICKETT MD 05/22/19 0949 PATIENT NAME: LUIS ALBERTO MADRIGAL OPERATIVE REPORT DATE OF : 35 REPORT #: [id number] PHYSICIAN: NORMA PICKETT MD PCP: JESSICA RAMIREZ MD REPORT IS CONFIDENTIAL AND NOT TO BE RELEASED WITHOUT AUTHORIZATION [facility] [address] [place] [address] [place], [place] [address] Signed /MODL /[id number] cc: Jessica Ramirez MD Copies: JESSICA RAMIREZ MD ~ Electronically Signed By: NORMA PICKETT MD 05/22/19 0949 PATIENT NAME: LUIS ALBERTO MADRIGAL OPERATIVE REPORT DATE OF : 35 REPORT #: [id number] PHYSICIAN: NORMA PICKETT MD PCP: JESSICA RAMIREZ MD REPORT IS CONFIDENTIAL AND NOT TO BE RELEASED WITHOUT AUTHORIZATION
--- NOTE | 2019-05-22 10:08 | NUR ---
ROUNDED WITH DR PICKETT. POC DISCUSSED. AFTER CARE DISCUSSED. QUESTIONS ANSWERED. ROY DC'D PER ORDER. SALINE LOCKED PT. EDUCATED ON URINE OUTPUT AND DRAIN MANAGEMENT. FAMILY AT BEDSIDE.
--- NOTE | 2019-05-22 10:16 | NUR ---
SPOKE WITH PATIENT AND IN ROOM. PATIENT STATES HE USES A CANE AT HOME. HAS BEEN UP IN ROOM AND FEELS "NORMAL" FOR AMBULATION. DOES HAVE SOME ABD PAIN WITH MOVEMENT BUT STATES ITS "NOT BAD". PATIENT USES IS ONCE AN HOUR HE STATES AND CAN GET IT UP TO 2200. ENCOURAGED CONTINUED USE HERE AND ONCE AT HOME. PATIENT STATES DR PICKETT SAW HIM AND HE MIGHT GO LATER TODAY, HE NEEDS TO VOID. PATIENT STILL DRIVES BUT STATES DOES MOST OF THE DRIVING. PATIENT DENIES PROBLEMS AFFORDING MEDICATIONS, FOOD OR UTILITIES. PATIENT INTENDS TO GO HOME AT DISCHARGE, WILL BE WITH HIM AT HOME SHE IS RETIRED ALSO. DISCUSSED NORMAL POST-OP ISSUES. PATIENT HAS A NATHAN STILL AND KNOWS HOW TO EMPTY IT. STATES HE HAS HAD THEM AFTER OTHER HERNIA SURGIERS. HE UNDERSTNADS HE WILL NEED TO SEE SURGEON AND HIS PCP FOR FOLLOW UP. THEY UNDERSTAND WHAT TO WATCH FOR TO CALL OR RETURN IF HE HAS SERIOUS ISSUES. QUESTIONS ANSWERED. NO BARRIERS TO DISCHARGE HOME KNOWN AT THIS TIME.
--- NOTE | 2019-05-22 11:19 | NUR ---
PTS' COMPANY HAS JUST LEFT. STEPPED IN TO GREET PT AND HAVE A BRIEF VISIT. PT IS SITTING IN CHAIR, ADMITTED IT IS DIFFICLULT WHEN HE COUGHS. GAVE ENCOURAGEMENT, CUT VISIT SHORT TO LET HIM REST. WILL FOLLOW NEEDED
[2019-05-22] MEDS ORDERED: BACTRIM DS TAB1 EACH PO ×2 (11:28→11:30)
--- NOTE | 2019-05-22 13:10 | NUR ---
PATIENT UP TO BATHROOM WITH ONE PERSON ASSIST VOIDED 200ML. PATIENT WASHED UP AND PUT ON CLOTHES FROM HOME. PATIENT BACK TO CHAIR CALL BUTTON IN REACH. NO OTHER NEEDS AT THIS TIME.
--- NOTE | 2019-05-26 16:02 | NUR ---
CALLED PT [phone], MESSAGE LEFT. CALLED [phone]. NO ANSWER AT EITHER PLACE. WILL ATTEMPT TO CALL AGAIN TOMORROW.
--- NOTE | 2019-05-28 08:21 | PATH ---
[facility] [address] [place], [place] [address] Signed SPECIMEN(S): A HERNIA SAC #1 SPECIMEN(S): B HERNIA SAC #2 SPECIMEN(S): C SUBCUTANEOUS ADDITIONAL HERNIA SAC SPECIMEN(S): D PORTION OF MESH SPECIMEN SOURCE: A. HERNIA SAC #1 B. HERNIA SAC #2 C. SUBCUTANEOUS ADDITIONAL HERNIA SAC D. PORTION OF MESH meow CLINICAL HISTORY: Irreducible incisional hernia. FINAL PATHOLOGIC DIAGNOSIS: A. Hernia sac #1, herniorrhaphy: - Consistent with hernia sac. - Negative for malignancy. B. Hernia sac #2, herniorrhaphy: - Consistent with hernia sac with reactive mesothelial hyperplasia. - Negative for malignancy. C. "Subcutaneous additional hernia sac," excision: - Consistent with hernia sac with reactive mesothelial hyperplasia. - Negative for malignancy. D. Portion of mesh, excision: - Surgical mesh material with associated foreign body type giant cell reaction, chronic inflammation, and fibrosis. - Negative for malignancy. COMMENT: As part of [employer] Quality Improvement Program, parts B and C of this case were reviewed by another member of our pathology staff. NAL:smn:C2NR MICROSCOPIC EXAMINATION: Immunohistochemical stains (with appropriately staining controls) for WT-1, Calretinin, and Ranjeet-EP4 were performed on blocks B1 and C1. The reactive mesothelial cells are highlighted by WT-1 and calretinin and are negative for Ranjeet-EP4, supporting mesothelial origin. Histologic sections of all submitted blocks are examined by light microscopy. PATIENT NAME: LUIS ALBERTO MADRIGAL PATHOLOGY DATE OF : 35 REPORT #: [id number] PHYSICIAN: NABILA BUCK PCP: JESSICA VEGA MD REPORT IS CONFIDENTIAL AND NOT TO BE RELEASED WITHOUT AUTHORIZATION [facility] [address] [place], [place] [address] Signed These findings, together with the gross examination, support the pathologic diagnosis. GROSS DESCRIPTION: Four specimens are received in four containers, labeled "AC." A. The specimen, labeled "AC, hernia sac #1," is received in formalin and consists of one irregular shaped pink-gamez, fibromembranous, sac-like tissue with attached yellow-gamez, soft fibroadipose tissue that measures 10.0 x 6.9 x 2.2 cm. Sectioning through the specimen reveals regular fibromembranous and adipose tissue. No abnormalities are grossly identified. Compound Finisher sections are submitted in cassette (A1). B. The specimen, labeled "AC, hernia sac #2," is received in formalin and consists of one pink-gamez, irregular shaped, sac-like piece of tissue with attached yellow-gamez adipose tissue. The specimen measures 5.5 x 3.2 x 1.7 cm. Sectioning through the specimen is unremarkable. No abnormalities are grossly identified. Compound Finisher sections are submitted in cassette (B1). Additional tissue is submitted in cassettes B2-B3 per Dr. Weir's request. C. The specimen, labeled "AC, subcutaneous additional hernia sac," is received in formalin and consists of one irregular shaped piece of pink-gamez, fibromembranous tissue with attached yellow-gamez adipose tissue. The specimen measures 5.5 x 2.0 x 0.7 cm. Sectioning through the specimen reveals regular fibromembranous tissue. No abnormalities are grossly identified. Compound Finisher sections are submitted in cassette (C1). D. The specimen, labeled "AC, portion of mesh," is received in formalin and consists of three pieces of irregular shaped pink-gamez, fibromembranous tissue that aggregate measure 8.2 x 5.0 x 1.5 cm. Sectioning through the specimen reveals yellow-gamez and blue, plastic like, mesh-like material surrounded with a fibromembranous tissue. Compound Finisher sections are submitted in cassette (D1). JS (under the direct supervision of a pathologist) The Gross Description was prepared using a voice recognition system. The report was reviewed for accuracy; however, sound-alike word errors, addition and/or deletions may occur. If there is any question about this report, please contact Client Services. PERFORMING LABORATORY: The technical component was performed by [facility], [address] [place] [address], PATIENT NAME: LUIS ALBERTO MADRIGAL PATHOLOGY DATE OF : 35 REPORT #: [id number] PHYSICIAN: NABILA BUCK PCP: JESSICA VEGA MD REPORT IS CONFIDENTIAL AND NOT TO BE RELEASED WITHOUT AUTHORIZATION [facility] [address] [place], [place] [address] Signed DON Garcia [id number] ([employer] Supply Technician: Yesenia Wheat MD; CLIA# [id number]). [facility], [address] [address] ([employer] Supply Technician: Raúl Thomas MD; CLIA# [id number]). Diagnostician: Vanessa Weir MD Pathologist Electronically Signed 05/27/2019 Copies: ~ PATIENT NAME: LUIS ALBERTO MADRIGAL PATHOLOGY DATE OF : 35 REPORT #: [id number] PHYSICIAN: NABILA PATHOLOGY PCP: JESSICA VEGA MD REPORT IS CONFIDENTIAL AND NOT TO BE RELEASED WITHOUT AUTHORIZATION
--- NOTE | 2019-05-28 11:12 | NUR ---
ATTEMPTED CALL TO PT, NO ANSWER, MESSAGE LEFT.
--- NOTE | 2019-05-29 09:22 | NUR ---
CALLED AND SPOKE WITH PT THIS AM AT [phone], PT STATES HE IS DOING OK, CAN'T WAIT TO GET THE DRAINS OUT ON SATURDAY AT HIS APPT WITH DR PICKETT. STATES HE IS TAKING HIS REGULAR MEDS WITHOUT ISSUE. THE DRAINS ARE DRAINING THEY SHOULD AND NO ISSUES WITH THAT. CARE WAS EXCELLENT, MEDS GIVEN HERE WERE EXPLAINED PURPOSE AND SIDE EFFECTS. DENIES FURTHER ISSUES OR QUESTIONS AT THIS TIME.
== END 2019-05-22 13:50 | disposition home or self-care (01) ==
LOC: DS 08:45 → MS 14:16 → DS 14:17 → MS 14:18
PROVIDERS: ADMIT Surgery
PROC: 0WQF0ZZ Repair Abdominal Wall, Open Approach (ICD-10-PCS; 2019-05-21)
PROC: 0WUF0JZ Supplement Abdominal Wall with Synthetic Substitute, Open Approach (ICD-10-PCS; principal; 2019-05-21 12:00)
DX: K43.0 Incisional hernia with obstruction, without gangrene (principal); K43.9 Ventral hernia without obstruction or gangrene; K21.9 Gastro-esophageal reflux disease without esophagitis; I10 Essential (primary) hypertension; E03.9 Hypothyroidism, unspecified; E66.01 Morbid (severe) obesity due to excess calories; D68.4 Acquired coagulation factor deficiency; Z79.899 Other long term (current) drug therapy; Z86.73 Personal history of transient ischemic attack (TIA), and cerebral infarction without residual deficits; Z95.0 Presence of cardiac pacemaker; Z88.0 Allergy status to penicillin; Z79.01 Long term (current) use of anticoagulants; Z79.82 Long term (current) use of aspirin; Z68.28 Body mass index [BMI] 28.0-28.9, adult
CPT/HCPCS: 00832; 36415; 85025; 88300; 88302; 88341; 88342; 94762; 96372; C1781; G0378; J0131; J0330; J1100; J1644; J1720; J1885; J1940; J2250; J2370; J2405; J2704; J2765; J3010; J7121

== ENCOUNTER 2020-01-11 03:15 | Inpatient (IN) | payer MEDICARE, OTHER ==
[~2020-01-11] VITALS: Ht 172.7 cm; Wt 84.8 kg
--- OUTSIDE RECORDS SUMMARY | ~2020-01-11 | XMS | Encounter Summary ---
Demographics + + + | Address | [address] | | | [place] [address] | + + + | Home Phone | | + + + | Preferred Language | Unknown | + + + | Marital Status | | + + + | Bahai Affiliation | Unknown | + + + | Race | White | + + + | Ethnic Group | Not or | + + + Author + + + | Author | [facility] | | | and [place] | + + + | Organization | [facility] | | | and [place] | + + + | Address | Unknown | + + + | Phone | Unavailable | + + + Support + + +---------+ + | Name | Relationship | Address | Phone | + + +---------+ + | Cathi Curry | ECON | Unknown | | + + +---------+ + | Daniel Curry | ECON | Unknown | | + + +---------+ + | Baylee Webb | ECON | Unknown | | + + +---------+ + Care Team Providers + +------+ + | Care Continuity Person Name | Role | Phone | + +------+ + | Torey Ramirez | PCP | | | MD | | | + +------+ + Encounter Details +--------+ + + + + | Date | Type | Department | Care Team | Description | +--------+ + + + + | 10/30/ | Abstract | [facility] | Awais Nobles, | Gastric reflux | | 2013 | | NEUROSURGERY [address] | PA-C [address] | (Primary Dx); | | | | [address] | [place], [place] | Hypertension; Stroke | | | | [place], [place] | [address] | (HCC) | | | | [address] | | | | | | [phone] | | | +--------+ + + + + Social History + + + +--------+ + | Tobacco Use | Types | Packs/Day | Years | Date | | | | | Used | | + + + +--------+ + | Former Smoker | Cigarettes | 3 | 39 | Quit: 05/20/1993 | + + + +--------+ + + +-------+---+---+ | Smokeless Tobacco: | Snuff | | | | Current User | | | | + +-------+---+---+ + + +---------+ + | Alcohol Use | Drinks/Week | oz/Week | Comments | + + +---------+ + | Yes | | | social | + + +---------+ + + + + | Sex Assigned at | Date Recorded | | | | + + + | Not on file | | + + + documented as of this encounter Plan of Treatment +--------+ + + + + | Date | Type | Specialty | Care Team | Description | +--------+ + + + + | 05/16/ | Office | Cardiology | Javi Chaparro | | | 2019 | Visit | | MD [address] | | | | | | [address] | | | | | | [place] [address] | | | | | | [phone] | | | | | | | | +--------+ + + + + | 05/16/ | Procedure | Cardiology | | | | 2019 | visit | | | | +--------+ + + + + documented as of this encounter Visit Diagnoses + + | Diagnosis | + + | Gastric reflux - Primary Esophageal reflux | + + | Hypertension Unspecified essential hypertension | + + | Stroke (HCC) Unspecified cerebral artery occlusion with cerebral infarction | + + documented in this encounter"
--- OUTSIDE RECORDS SUMMARY | ~2020-01-11 | XMS | Encounter Summary ---
Demographics + + + | Address | [address] | | | [place] [address] | + + + | Home Phone | | + + + | Preferred Language | Unknown | + + + | Marital Status | | + + + | Caodaism Affiliation | Unknown | + + + | Race | White | + + + | Ethnic Group | Not or | + + + Author + + + | Author | [facility] | | | and [place] | + + + | Organization | [facility] | | | and [...] Team Providers + +------+ + | Care Money Laundering Investigator Name | Role | Phone | + +------+ + | Torey Ramirez | PCP | | | MD | | | + +------+ + Reason for Referral Diagnostic/Screening (Routine) +--------+--------+ + + + + | Status | Reason | Specialty | Diagnoses / | Referred By | Referred To | | | | | Procedures | Contact | Contact | +--------+--------+ + + + + | Closed | | Radiology | Diagnoses | [facility] Pr[facility], | [facility] | | | | | Arachnoid | Awais, | [address] | | | | | cyst | PA-C [address] | [place], | | | | | Syncope and | [address] | [place] | | | | | collapse | [place], | [address] | | | | | Procedures | [place] [address] | Phone: | | | | | MRI Brain w | Phone: | [phone] | | | | | wo Contrast | [phone] | Fax: | | | | | | Fax: | [phone] | | | | | | [phone] | | +--------+--------+ + + + + Evaluate & Treat (Routine) +--------+ + + + + + | Status | Reason | Specialty | Diagnoses / | Referred By | Referred To | | | | | Procedures | Contact | Contact | +--------+ + + + + + | Closed | Specialty | Neurology | Diagnoses | [place], | [place] | | | Services | | Arachnoid | Awais, | CLINIC | | | Required | | cyst | PA-C [address] | NEUROLOGY [address] | | | | | Syncope and | [address] | [address] | | | | | collapse | [place], | [place], | | | | | | [place] [address] | [place] | | | | | | Phone: | [phone] | | | | | | [phone] | Phone: | | | | | | Fax: | [phone] | | | | | | [phone] | Fax: | | | | | | | [phone] | +--------+ + + + + + Reason for Visit + + + | Reason | Comments | + + + | New Patient | subarachnoid cyst | + + + Evaluate & Treat (Urgent) +--------+--------+ + + + + | Status | Reason | Specialty | Diagnoses / | Referred By | Referred To | | | | | Procedures | Contact | Contact | +--------+--------+ + + + + | Closed | | Neurosurgery | Diagnoses | Provider | Kristy, | | | | | | [place] | Avery Ordaz DO | | | | | Subarachnoid | System | [address] | | | | | cyst | [place] | [address] | | | | | Procedures | Health and | [place], [place] | | | | | [place] OFFICE | Service | [address] Phone: | | | | | CONSULTATION | | [phone] | | | | | NEW/ESTAB | | Fax: | | | | | PATIENT 60 | | [phone] | | | | | MIN | | | +--------+--------+ + + + + Encounter Details +--------+---------+ + + + | Date | Type | Department | Care Team | Description | +--------+---------+ + + + | 11/11/ | Office | [facility] | Awais Nobles, | Arachnoid cyst | | 2013 | Visit | NEUROSURGERY [address] | PA-C [address] | (Primary Dx); | | | | [address] | [place], [place] | Syncope and collapse | | | | [place], [place] | [address] | | | | | [address] | | | | | | [phone] | | | +--------+---------+ + + + Social History + + [...] + + documented as of this encounter Last Filed Vital Signs + + + + + | Vital Sign | Reading | Time Taken | Comments | + + + + + | Blood Pressure | 125/72 | 11/11/2013 1:14 PM | | | | | PDT | | + + + + + | Pulse | 67 | 11/11/2013 1:14 PM | | | | | PDT | | + + + + + | Temperature | - | - | | + + + + + | Respiratory Rate | 18 | 11/11/2013 1:14 PM | | | | | PDT | | + + + + + | Oxygen Saturation | - | - | | + + + + + | Inhaled Oxygen | - | - | | | Concentration | | | | + + + + + | Weight | 97.5 kg (215 lb) | 11/11/2013 1:14 PM | | | | | PDT | | + + + + + | Height | 177.8 cm (5' 10") | 11/11/2013 1:14 PM | | | | | PDT | | + + + + + | Body Mass Index | 30.85 | 11/11/2013 1:14 PM | | | | | PDT | | + + + + + documented in this encounter Patient Instructions Patient Instructions Awais Nobles PA-C - 11/11/2013 1:58 PM PDTI would like you to h ave another brain MRI and return to see us in 6 months. I would also like you to see a Neurologist. documented in this encounter Progress Notes Awais Nobles PA-C - 11/11/2013 1:21 PM PDTREVIEW OF SYSTEMS GENERALLY: No fever, no night sweats, no anemia, no fatigue, no recent profound weight ch anges. EYES: + eye problems, no use of corrective lenses, no eye injury, + double vision, no blin dness. EARS, NOSE, AND THROAT: No changes in taste or smell, + hearing difficulty, no ringing in the ears, no ear drainage, + dizziness, no voice changes, + difficulty swallowing, no signif icant snoring, no sleep apnea, no sinus problems, + major dental work. NEUROLOGICALLY: Please see the review of systems discussed above in the history of present illness. In addition, the patient has coordination difficulty, pain in back, stroke. PSYCHIATRIC: No depression, + sleep disorders, no anxiety, no bipolar disorder, no psychot ic episodes. CARDIOVASCULAR: No heart attacks, no heart murmur, no heart fluttering, no chest pain, no ankle swelling. LUNG DISEASE: No shortness of breath, no cough, no tuberculosis, no bloody cough, no asth ma, no emphysema/COPD. GASTROINTESTINAL: No bowel disease, no nausea or vomiting, no rectal bleeding, no constipa tion, no stool incontinence, no liver disease, no gallbladder disease, no abdominal pain, no ulcers. KIDNEY DISEASE: No urinary frequency, no painful or difficult urination, no incontinence. ENDOCRINE: No diabetes, no thyroid disease, no osteopenia or osteoporosis, no breast drain age. SKIN: No breast lumps, no skin changes, no rashes, no itches. HEMATOLOGIC/LYMPHATIC: No enlarged lymph nodes, no easy or unusual bleeding, no personal h istory of cancer. RHEUMATOLOGIC: No joint arthritis, no rheumatoid arthritis. wais Nobles PA-C - 11/11/2013 1:15 PM PDT . Awais Nobles PA-C [address] [facility], [address] [place] [address] FAX: NEUROSURGERY HISTORY AND PHYSICAL EXAMINATION CHIEF COMPLAINT: Chief Complaint Patient presents with New Patient subarachnoid cyst HISTORY OF PRESENT ILLNESS: The patient is a 78 y.o. male with the complaint of dizziness. He reports that for about the last month or so that he has experienced mutliple episode of "dizziness," which almost cause him to fall. These episodes are sporadic and he seems to t hink that bright lights and direct light from the sun bring on the dizzy spells. Some days he does not experience any symptoms, and other days he has had up to 2 dizzy spells. The lo ngest has lasted up to 10 minutes and others resolves rapidly. 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 He denies any signs of intracranial pressure. No visual disturb ance, but his does report that when he is experiencing these spells his eyes deviate fr om side to side. She is adamant that this is no vertigo. PAST MEDICAL HISTORY: Past Medical History Diagnosis Date Gastric reflux Hypertension Stroke (HCC) PAST SURGICAL HISTORY: Past Surgical History Procedure Date Hernia repair 2005 x2 Total knee arthroplasty 2007 right; left Aneurysm 2002 Cataract surgery 2009 CURRENT MEDICATIONS: Current Outpatient Prescriptions Medication Sig Dispense Refill amlodipine (NORVASC) 10 MG tablet Take 10 mg by mouth Daily. aspirin 325 mg tablet Take 325 mg by mouth Daily. Cholecalciferol (VITAMIN D-3 PO) Take 2 tablets by mouth Daily. finasteride (PROSCAR) 5 mg tablet Take 5 mg by mouth Daily. losartan (COZAAR) 25 mg tablet Take 25 mg by mouth Daily. MELATONIN PO Take by mouth. mesalamine (APRISO) 0.375 G 24 hr capsule Take 1,500 mg by mouth Daily. omeprazole (PRILOSEC) 20 mg capsule Take 20 mg by mouth every morning (before breakfast ). pravastatin (PRAVACHOL) 80 MG tablet Take 80 mg by mouth nightly. triamterene-hydrochlorothiazide (MAXZIDE-25) 37.5-25 mg per tablet Take 1 tablet by willie th Daily. UNABLE TO FIND Med Name: MELANIE Fink ALLERGIES: Allergies no known allergies SOCIAL HISTORY: The patient reports that he quit smoking about 20 years ago. His smoking use included Ciga rettes. He has a 117 pack-year smoking history. His smokeless tobacco use includes Snuff. He reports that he drinks alcohol. FAMILY HISTORY: Family History Problem Relation Age of Onset Cancer Mother Heart disease Father REVIEW OF SYSTEMS GENERALLY: No fever, no night sweats, no anemia, no fatigue, no recent profound weight steward ges. EYES: + eye problems, no use of corrective lenses, no eye injury, + double vision, no blind ness. EARS, NOSE, AND THROAT: No changes in taste or smell, + hearing difficulty, no ringing in t he ears, no ear drainage, + dizziness, no voice changes, + difficulty swallowing, no signifi cant snoring, no sleep apnea, no sinus problems, + major dental work. NEUROLOGICALLY: Please see the review of systems discussed above in the history of present illness. In addition, the patient has coordination difficulty, pain in back, stroke. PSYCHIATRIC: No depression, + sleep disorders, no anxiety, no bipolar disorder, no psychoti c episodes. CARDIOVASCULAR: No heart attacks, no heart murmur, no heart fluttering, no chest pain, no a nkle swelling. LUNG DISEASE: No shortness of breath, no cough, no tuberculosis, no bloody cough, no asthma , no emphysema/COPD. GASTROINTESTINAL: No bowel disease, no nausea or vomiting, no rectal bleeding, no constipat ion, no stool incontinence, no liver disease, no gallbladder disease, no abdominal pain, no ulcers. KIDNEY DISEASE: No urinary frequency, no painful or difficult urination, no incontinence. ENDOCRINE: No diabetes, no thyroid disease, no osteopenia or osteoporosis, no breast draina ge. SKIN: No breast lumps, no skin changes, no rashes, no itches. HEMATOLOGIC/LYMPHATIC: No enlarged lymph nodes, no easy or unusual bleeding, no personal hi story of cancer. RHEUMATOLOGIC: No joint arthritis, no rheumatoid arthritis. PHYSICAL EXAMINATION: Height 1.778 m (5' 10"), weight 97.523 kg (215 lb). Body mass index is 30.85 kg/(m^2). GENERAL: Zen Curry is in no acute distress with unlabored respirations. The patie nt does not appear uncomfortable throughout the exam today. HEENT: HEAD/FACE: EYES: EARS: NASOPHARNYX: OROPHARNYX: Normocephalic and atraumatic. There are no areas of recent trauma. Normal sclerae without icterus. No drainage or tenderness. Clear without drainage. Clear without erythema. NECK (ANTERIOR): Supple and without palpable masses. CHEST: Clear to ausculation without crackles or wheeze. HEART: Regular rate and rhythm without murmurs. ABDOMEN: Soft, non-tender, non-distended, and without palpable masses. The patient is obe se. SPINE: There is no tenderness in the midline of the cervical, thoracic, or lumbar region. There is no major palpable deformity of the spine. EXTREMITIES: No cyanosis, clubbing, or edema. Distal pulses are palpable. NEUROLOGICAL EXAM: MENTAL STATUS: The patient is awake, alert, and oriented. He follows simple and complex commands. He speech is fluent, he comprehends speech well, and he repeats well. He has no apparent deficits with short or termite control representative memory. CRANIAL NERVES: II: Acuity is intact. Sesay are full to confrontation. III, IV, : The pupils are reactive. Extraocular movements are intact. No ptosis is note d. V: Facial sensation is intact and symmetric. VII: Facial movements are symmetric. VIII: Hearing is intact bilaterally. IX, X: The uvula and palate move appropriately. XI: Shrug is equal bilaterally. XII: Tongue protrusion is midline. MOTOR EXAM: (5 IS NORMAL) * Indicates pain limited MUSCLE/ MOVEMENT: RIGHT LEFT Deltoids 5 5 Biceps 5 5 Triceps 5 5 Wrist Flexion 5 5 Wrist Extension 5 5 Median Intrinsics 5 5 Ulnar Intrinsics 5 5 Parts Interpreter Strength 5 5 Hip Flexion 5 5 Hip Extension 5 5 Knee Flexion 5 5 Knee Extension 5 5 Dorsiflexion 5 5 Extensor Hallicus Longus 5 5 Plantarflexion 5 5 SENSORY EXAM: Sensory exam shows no diminished sensation to light touch or pain throughout the upper and lower extremities. REFLEXES: (2 OR 2+ IS NORMAL) REFLEX: RIGHT LEFT BICEPS 3 3 BRACHIORADIALIS 3 3 TRICEPS 2 2 PATELLAR 2 2 ACHILLES 1 1 MILLER'S POSITIVE POSTIVE PLANTAR UPGOING UPGOING GAIT: Gait is steady. PERIPHERAL NERVE/MISC: Tinel is negative at the wrists and elbows bilaterally. Phalen is negative. Straight leg raise is negative bilaterally. Javi's test of the hips is negative bilaterally. RADIOGRAPHIC REVIEW: The patient's imaging was reviewed in detail with the patient today during the visit. The brain MRI done 10/05/2013 shows old left occipital infarct. Lesion placing mass effect on th e herbie, which is most consistent with arachnoid cyst. ASSESSMENT: NEUROSURGICAL DIAGNOSES: No diagnosis found. GENERAL DIAGNOSES: Past Medical History Diagnosis Date Gastric reflux Hypertension Stroke (HCC) PLAN: It was a pleasure meeting and evaluating this patient today, and I greatly appreciate the r patricia. 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 I had a lengthy discussion with the patient about his options for care including surgical a nd non-surgical options. The patient decided that their best option based on my opinion was to be worked up for common causes of syncope and to obtain a repeat brain MRI with and with out contrast to monitor lesion. I will refer for further workup to Dr. George. I discussed this plan and they agreed. I spent 45 minutes in visit with Zen Curry today with the majority of time spent c ounselling the patient on his diagnosis, options for his care, and coordinating his care. ELECTRONICALLY SIGNED BY: Awais Nobles PA-C, 11/11/2013 13:16 documented in thi s encounter Miscellaneous Notes Miscellaneous - RONNELL DANIEL - 11/11/2013 12:00 AM PDT documented in this encounter Plan of Treatment +--------+ + + + + | Date | Type | Specialty | Care Team | Description | +--------+ + + + + | 05/16/ | Office | Cardiology | Javi Chaparro | | | 2019 | Visit | | MD [address] | | | | | | [address] | | | | | | [place] [address] | | | | | | [phone] | | | | | | | | +--------+ + + + + | 05/16/ | Procedure | Cardiology | | | | 2019 | visit | | | | +--------+ + + + + + +---------+--------+ + + | Name | Type | Priori | Associated Diagnoses | Order Schedule | | | | ty | | | + +---------+--------+ + + | MRI Brain w wo | Imaging | Routin | Arachnoid cyst | Expected: 11/21/2013 | | Contrast | | e | Syncope and collapse | (Approximate), | | | | | | Expires: 11/10/2014 | + +---------+--------+ + + + + +--------+ + + | Name | Type | Priori | Associated Diagnoses | Order Schedule | | | | ty | | | + + +--------+ + + | [place] | Outpatient | Routin | Arachnoid cyst | Ordered: 11/11/2013 | | Clinic Neurology - | Referral | e | Syncope and collapse | | | AMB Referral | | | | | + + +--------+ + + documented as of this encounter Visit Diagnoses + + | Diagnosis | + + | Arachnoid cyst - Primary Cerebral cysts | + + | Syncope and collapse | + + documented in this encounter
--- OUTSIDE RECORDS SUMMARY | ~2020-01-11 | XMS | Encounter Summary ---
Demographics + + + | Address | [address] | | | [place] [address] | + + + | Home Phone | | + + + | Preferred Language | Unknown | + + + | Marital Status | | + + + | Sabianist Affiliation | Unknown | + + + | Race | White | + + + | Ethnic Group | Not or | + + + Author + + + | Author | [facility] | | | and [place] | + + + | Organization | [facility] | | | and [...] Team Providers + +------+ + | Care Services Advisor Name | Role | Phone | + +------+ + | Torey Ramirez | PCP | | | MD | | | + +------+ + Encounter Details +--------+ + + + + | Date | Type | Department | Care Team | Description | +--------+ + + + + | 06/30/ | Imaging | [facility] | Provider, | | | 2019 | Exam | [facility] | MD Julianna [address] | | | | | IMAGING [address] | [address] | | | | | [address] [place] | [place] [address] | | | | | [place] [address] | | | | | | [phone] | | | +--------+ + + + [...] [address] | | | | | | [place] [address] | | | | | | [phone] | | | | | | | | +--------+ + + + + | 05/16/ | Procedure | Cardiology | | | | 2019 | visit | | | | +--------+ + + + + documented as of this encounter Procedures + +--------+ + + + | Procedure Name | Priori | Date/Time | Associated Diagnosis | Comments | | | ty | | | | + +--------+ + + + | MRI BRAIN WO | Routin | 10/05/2013 | | Results for this | | CONTRAST | e | 12:00 AM | | procedure are in the | | | | PDT | | results section. | + +--------+ + + + documented in this encounter Results MRI Brain wo Contrast (10/05/2013 12:00 AM PDT) + + | Specimen | + + | | + + + + + | Narrative | Performed At | + + + | External films for comparison only | [facility] | | | | | No results will be in the chart. | | + + + + +---------+ + + | Performing | Address | City/State/Zipcode | Phone Number | | Organization | | | | + +---------+ + + | [facility] | | | | + +---------+ + + documented in this encounter Visit Diagnoses Not on filedocumented in this encounter"
--- OUTSIDE RECORDS SUMMARY | ~2020-01-11 | XMS | Encounter Summary ---
Demographics + + + | Address | [address] | | | [place] [address] | + + + | Home Phone | | + + + | Preferred Language | Unknown | + + + | Marital Status | | + + + | Synagogue Affiliation | Unknown | + + + | Race | White | + + + | Ethnic Group | Not or | + + + Author + + + | Author | [facility] | | | and [place] | + + + | Organization | [facility] | | | and [...] Team Providers + +------+ + | Care Utility Maintenance Worker Name | Role | Phone | + +------+ + PCP | Unavailable | + +------+ + Encounter Details +--------+ + + + + | Date | Type | Department | Care Team | Description | +--------+ + + + + | 12/17/ | Hospital | [facility] | | | | 2000 | Encounter | MED CTR XRAY [address] | | | | | | [place] | | | | | | [place] [address] | | | | | | [phone] | | | +--------+ + + + [...] | | | | | [place] [address] | | | | | | [phone] | | | | | | | | +--------+ + + + + | 05/16/ | Procedure | Cardiology | | | | 2019 | visit | | | | +--------+ + + + + documented as of this encounter Visit Diagnoses Not on filedocumented in this encounter"
--- OUTSIDE RECORDS SUMMARY | ~2020-01-11 | XMS | Encounter Summary ---
Demographics + + + | Address | [address] | | | [place] [address] | + + + | Home Phone | | + + + | Preferred Language | Unknown | + + + | Marital Status | | + + + | Cheondoism Affiliation | Unknown | + + + | Race | White | + + + | Ethnic Group | Not or | + + + Author + + + | Author | [facility] | + + + | Organization | [facility] | + + + | Address | Unknown | + + + | Phone | Unavailable | + + + Support + + + + + | Name | Relationship | Address | Phone | + + + + + | Cathi Curry | ECON | [place] | | + + + + + | Daniel Curry | ECON | Unknown | | + + + + + Care Team Providers + +------+ + | Care Net Developer Contract Name | Role | Phone | + +------+ + | Unknown | PCP | Unavailable | + +------+ + Encounter Details +--------+ + + + + | Date | Type | Department | Care Team | Description | +--------+ + + + + | 12/14/ | Hospital | Registration [facility] | | | | 2020 | Encounter | [address] | | | | | | [place], | | | | | | [place] [address] | | | +--------+ + + + [...] Description | +--------+---------+ + + + | 02/03/ | Office | Surgery | Mitul, | | | 2019 | Visit | | MD Facundo [address] | | | | | [address] | | | | | | [place] | | | | | | [address] | | | | | | [phone] | | | | | | | | +--------+---------+ + + + documented as of this encounter Visit Diagnoses Not on filedocumented in this encounter"
--- OUTSIDE RECORDS SUMMARY | ~2020-01-11 | XMS | Encounter Summary ---
Demographics + + + | Address | [address] | | | [place] [address] | + + + | Home Phone | | + + + | Preferred Language | Unknown | + + + | Marital Status | | + + + | Confucianist Affiliation | Unknown | + + + | Race | White | + + + | Ethnic Group | Not or | + + + Author + + + | Author | [facility] | + + + | Organization | [facility] | + + + | Address | [...] Team Providers + +------+ + | Care Ring Stamper Name | Role | Phone | + +------+ + PCP | Unavailable | + +------+ + Encounter Details +--------+ + + + + | Date | Type | Department | Care Team | Description | +--------+ + + + + | 08/17/ | Office | General Internal | Note, Outpatient | Progress Note | | 1997 | Visit-Trans | Medicine [address] | Clinic | | | | cribed | [address] | | | | | | Mailcode: [id number] | | | | | | Outpatient Clinic | | | | | | [place] [address] | | | | | | [place], [place] | | | | | | [address] | | | | | | [phone] | | | +--------+ + + + [...] + + documented as of this encounter Progress Notes Interface, Sports Statistician In - 06/16/2006 1:10 AM [facility] DATE: 08/17/97 SURGICAL ONCOLOGY CLINIC SUBJECTIVE: Mr. Curry is the of Cathi Curry who is a long-term patient of Dr. Ross. He has had symptoms of bilateral upper abdominal pain for about a year for which he wants to be seen by Dr. Li. He reports that these pains are in the bilateral flanks and upper abdomen. They usually occur in the morning for the first one or two hours after he wakes up from sleep, and they eventually resolve. He denies any other symptoms. He reports that he has previously requested from his primary physician a chest x-ray but has turned down. PAST SURGICAL HISTORY: Appendectomy. MEDICATIONS: Anti-hypertensive medication. ALLERGIES: Penicillin. EXAMINATION: LUNGS: Clear to auscultation. HEART: Regular rate and rhythm. ABDOMEN: Soft, nondistended and nontender. Bowel sounds are present. He is somewhat obese. He has a well healed appendectomy scar. CHEST X-RAY: To my reading his chest x-ray appears normal with slightly increased cephalization of the vessels. ASSESSMENT: Middle-aged gentleman with bilateral flank pain: This could be secondary to vertebral abnormality which does not appear on the chest x-ray. PLAN: 1. Treatment with ibuprofen prn. 2. He may require a back MRI if his symptoms do not resolve. Chas Johnson M.D. Resident, Surgery Saroj Li M.D. Professor, Division of Surgical Oncology MF/mrd documented in this encounter Plan of Treatment +--------+---------+ + + + | Date | Type | Specialty | Care Team | Description | +--------+---------+ + + + | 02/03/ | Office | Surgery | Mitul, | | | 2020 | Visit | | MD [address]undo [address] | | | | | [address] | | | | | | [place] | | | | | | [address] | | | | | | [phone] | | | | | | | | +--------+---------+ + + + documented as of this encounter Visit Diagnoses Not on filedocumented in this encounter"
--- OUTSIDE RECORDS SUMMARY | ~2020-01-11 | XMS | Encounter Summary ---
Demographics + + + | Address | [address] | | | [place] [address] | + + + | Home Phone | | + + + | Preferred Language | Unknown | + + + | Marital Status | | + + + | Alevism Affiliation | Unknown | + + + | Race | White | + + + | Ethnic Group | Not or | + + + Author + + + | Author | [facility] | | | and [place] | + + + | Organization | [facility] | | | [...] Team Providers + +------+ + | Care Clin Tech Name | Role | Phone | + +------+ + PCP | Unavailable | + +------+ + Encounter Details +--------+ + + + + | Date | Type | Department | Care Team | Description | +--------+ + + + + | 08/31/ | Hospital | [facility] | | | | 1998 | Encounter | MED CTR XRAY [address] | | | | | | [place] | | | | | | [place] [address] | | | | | | [phone] | | | +--------+ + + + [...] | | | | | [place] [address] | | | | | | [phone] | | | | | | | | +--------+ + + + + | 05/16/ | Procedure | Cardiology | | | | 2019 | visit | | | | +--------+ + + + + documented as of this encounter Visit Diagnoses Not on filedocumented in this encounter"
--- OUTSIDE RECORDS SUMMARY | ~2020-01-11 | XMS | Encounter Summary ---
Demographics + + + | Address | [address] | | | [place] [address] | + + + | Home Phone | | + + + | Preferred Language | Unknown | + + + | Marital Status | | + + + | Restorationism Affiliation | Unknown | + + + [...] Team Providers + +------+ + | Care Critical Care Specialist Name | Role | Phone | + +------+ + PCP | Unavailable | + +------+ + Encounter Details +--------+ + + + + | Date | Type | Department | Care Team | Description | +--------+ + + + + | 12/17/ | Hospital | [facility] | | | | 2000 | Encounter | MED [facility] XRAY [address] | | | | | | [place] | | | | | | [place] [address] | | | | | | [phone] | | | +--------+ + + + [...] | | | | | [place] [address] | | | | | | [phone] | | | | | | | | +--------+ + + + + | 05/16/ | Procedure | Cardiology | | | | 2019 | visit | | | | +--------+ + + + + documented as of this encounter Visit Diagnoses Not on filedocumented in this encounter"
--- OUTSIDE RECORDS SUMMARY | ~2020-01-11 | XMS | Encounter Summary ---
Demographics + + + | Address | [address] | | | [place] [address] | + + + | Home Phone | | + + + | Preferred Language | Unknown | + + + | Marital Status | | + + + | Cheondoism Affiliation | Unknown | + + + | Race | White | + + + | Ethnic Group | Not or | + + + Author + + + | Author | [facility] | | | and [place] | + + + | Organization | [facility] | | | [...] Team Providers + +------+ + | Care Job Lithographer Name | Role | Phone | + [...] + + | 02/17/ | Office | [facility] | Lobo Ferro, | Essential | | 2019 | Visit | CARDIOLOGY [place] | [address] | hypertension | | | | [address] | [place], | (Primary Dx); | | | | [address] | [place] [address] | Cardiac pacemaker in | | | | [place] | [phone] | situ; Coronary | | | | [address] | | artery disease | | | | [phone] | | involving anvik | | | | | | coronary artery of | | | | | | anvik heart without | | | | | [...] coronary CT) and SSS with symptomatic bradycardia. I conrad ragland saw him 10/12/17, but he has been [...] A Lexiscan Cardiolite s tress test at [facility] 10/16/17 showed no evidence of ischemia, [...] with septicemia 04/05. His notes snoring, no program paraprofessional ea or gasping, denies daytime somnolence. Sleep [...] repair 2001. -- Pacemaker implantation (12/25/18): Medtronic [place], model W1DR01, s# [id number]. RA Lead - [employer] Fineline II , model 4470, s# [id number]. RV Lead - Medtronic model 5076, s# [id number] -- 6-Day Event Monitor (09/11/18): predominantly sinus [...] History: Diagnosis Date Abdominal aortic aneurysm (AAA) (HCC) 2001 Surgical repair Atrial fibrillation (HCC) on monitor 09/05 - AC Cardiac pacemaker in situ 12/25/2018 Medtronic [place], model W1DR01, s# [id number]. RA Lead - [employer] Fineline II , model 4470, s# [id number]. 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 RA Lead - [employer] Fineline II , model 4470, s# [id number]. RV Lead - Medtronic model 5076, s# [id number] CARDIOVASCULAR STRESS TEST 09/2017 A2A SPECT: normal [...] tr-mild AI, mild MR, tr TR, mild MD, RVSP 22 Family History Problem Relation Age [...] use: Yes Comment: Alcoholic Drinks/day: occasionally drinks [place] whiskey: 3-4 drinks per week Drug use: [...] pacemaker in situ Coronary artery disease involving anvik coronary artery of anvik heart without angina pec toris [place] coronary artery calcium score greater than 400 Paroxysmal atrial fibrillation (HCC) Sick sinus syndrome (HCC) History of AAA (abdominal aortic aneurysm) repair Hyperlipidemia, unspecified hyperlipidemia type Plan: Schedule surgery per Dr. Ramirez. Follow-up in 6 months. documented in this en counter Plan of Treatment +--------+ + + + + | Date | Type | Specialty | Care Team | Description | +--------+ + + + + | 05/16/ | Office | Cardiology | Javi Chaparro | | | 2019 | Visit | | MD Michael [address] | | | | | [address] | | | | | | [place] [address] | | | | | | [phone] | | | | | | | [...] | | | | | by [facility] Read Only, | | | | | | [facility] [address] ([id number]), | | | | | | web editor Devante Dill | | | | | | ([id number]) on 02/17/2019 | | | | | [...] + + | Coronary artery disease involving anvik coronary artery of anvik heart without | | angina pectoris | [...]
--- OUTSIDE RECORDS SUMMARY | ~2020-01-11 | XMS | Encounter Summary ---
Demographics + + + | Address | [address] | | | [place] [address] | + + + | Home Phone | | + + + | Preferred Language | Unknown | + + + | Marital Status | | + + + | Rastafarian Affiliation | Unknown | + + + | Race | White | + + + | Ethnic Group | Not or | + + + Author + + + | Author | [facility] | | | and [place] | + + + | Organization | [facility] | | [...] Team Providers + +------+ + | Care Cutting Room Supervisor Name | Role | Phone | + +------+ + | Torey Ramirez | PCP | | | MD | | | + +------+ + Reason for Visit + + + | Reason | Comments | + + + | Device Check | | | (Remote) | | + + + Encounter Details +--------+ + + + + | Date | Type | Department | Care Team | Description | +--------+ + + + + | 09/08/ | Procedure | [facility] | | Cardiac pacemaker in | | 2020 | visit | CARDIOLOGY [place] | | situ (Primary Dx) | | | | [address] | | | | | | [place] | | | | | | [address] | | | | | | [phone] | | | +--------+ + + + [...] occasionally drinks | | | | | [place] zechariahey: | | | | | 3-4 drinks per week | + + +---------+ + + + + | Sex Assigned at | Date Recorded | | | | + + + | Not on file | | + + + documented as of this encounter Procedure Notes Lavelle Nevarez RN - 09/09/2019 8:00 AM PDTAssociated Order(s): DEVICE INTERROGATION- REM OTEProcedure(s): DEVICE INTERROGATION- REMOTEPre-Procedure Diagnose(s): Cardiac pacemaker in situ PACEMAKER REMOTE INTERROGATION REPORT Name: Zen Curry PCP: Torey Ramirez MD : 1935 Primary cardiology provider: Daniel Ferro Primary electrophysiology provider: Katerin Chaparro Device telemetry monitor: Medtronic Device type: Dual chamber Battery Longevity: 12.8 years. RA Pacin.8% RV Pacing: <0.1% INTERROGATION RESULTS: Please see the full interrogation report attached Known history of atrial flutter or atrial fibrillation: Yes Current antithrombotic therapy including: apixaban [Eliquis] Since implant on 12/25/18: Mode switches: None. Ventricular high rate episodes: 1 ventricular event with EGM noted on 04/06/19 at 1045. Episode was 1:1 atrial driven, and lasted about 6 seconds with an average ventricular rate of 161 bpm. Lead function: Lead impedance and threshold value trends have been reviewed and are accepta ble based on most recent evaluation Follow up: The next scheduled interrogation will be in 3 months in the cardiac device clini c. Additional comments: None. IMPRESSION: 1. Normal pacemaker function. 2. No atrial fibrillation/flutter noted. 3. Ventricular high rate episodes were noted as above. Testing reviewed by: Lavelle Nevarez RN Associated attestation - Javi Chaparro MD - 10/04/2019 11:26 AM PDTDevice inte rrogation reviewed. Agree with assessment and plan as outlined. Patient has not been seen by EP since device implantation in 01/05. Will arrange for EP fol low-up in office.documented in this encounter Plan of Treatment +--------+ + + + + | Date | Type | Specialty | Care Team | Description | +--------+ + + + + | 05/16/ | Office | Cardiology | Javi Chaparro | | 2019 | Visit | | MD Michael [address] | | | | | [address] | | | | | | [place] [address] | | | | | | [phone] | | | | | | | | +--------+ + + + + | 05/16/ | Procedure | Cardiology | | | 2019 | visit | | | | +--------+ + + + + documented as of this encounter Procedures + +--------+ + + + | Procedure Name | Priori | Date/Time | Associated Diagnosis | Comments | | | ty | | | | + +--------+ + + + | DEVICE | Routin | 09/09/2019 | Cardiac pacemaker | Results for this | | INTERROGATION- | e | 8:00 AM | in situ | procedure are in the | | REMOTE | | PDT | | results section. | + +--------+ + + + documented in this encounter Results Device Interrogation - Remote (09/09/2019 8:00 AM PDT) + + + | Narrative | Performed At | + + + | Lavelle Ordaz | [facility] | | CRISTINA Nevarez 09/09/2019 10:56 [facility] | | | REPORT Name: Zen Curry PCP: Torey Ramirez MD : | | | 1935MRN: [id number] Primary cardiology provider: Daniel Ferro | | | Primary electrophysiology provider: Katerin Chaparro Device | | | telemetry monitor: Uanbai Device type: Dual chamber Battery Longevity: | | | 12.8 years. RA Pacin.8% RV Pacing: <0.1% INTERROGATION | | | RESULTS:Please see the full interrogation report attached Known | | | history of atrial flutter or atrial fibrillation: YesCurrent | | | antithrombotic therapy including: apixaban [Eliquis] Since implant on | | | 12/25/18:Mode switches: None. Ventricular high rate episodes: 1 | | | ventricular event with EGM noted on 04/06/19 at 1045. Episode was 1:1 | | | atrial driven, and lasted about 6 seconds with an average ventricular | | | rate of 161 bpm. Lead function: Lead impedance and threshold value | | | trends have been reviewed and are acceptable based on most recent | | | evaluation Follow up: The next scheduled interrogation will be in 3 | | | months in the cardiac device clinic. Additional comments: None. | | | IMPRESSION:1. Normal pacemaker function.2. No atrial | | | fibrillation/flutter noted.3. Ventricular high rate episodes were | | | noted as above. Testing reviewed by: Lavelle Nevarez RN | | | | | |Known history of atrial flutter or atrial fibrillation: Yes | | |Current antithrombotic therapy including: apixaban [Eliquis] | | | | | |Since implant on 12/25/18: | | |Mode switches: None. | | | | | |Ventricular high rate episodes: | | |1 ventricular event with EGM noted on 04/06/19 at 1045. Episode | | |was 1:1 atrial driven, and lasted about 6 seconds with an average | | |ventricular rate of 161 bpm. | | | | | |Lead function: Lead impedance and threshold value trends have | | |been reviewed and are acceptable based on most recent evaluation | | | | | |Follow up: The next scheduled interrogation will be in 3 months | | |in the cardiac device clinic. | | | | | |Additional comments: None. | | | | | |IMPRESSION: | | |1. Normal pacemaker function. | | |2. No atrial fibrillation/flutter noted. | | |3. Ventricular high rate episodes were noted as above. | | | | | |Testing reviewed by: Lavelle Nevarez RN | | + + + + +---------+ + + | Performing | Address | City[facility] | Phone Number | | Organization | | | | + +---------+ + + | [facility] | | | | + +---------+ + + documented in this encounter Visit Diagnoses + + | Diagnosis | + + | Cardiac pacemaker in situ - Primary | + + documented in this encounter"
--- OUTSIDE RECORDS SUMMARY | ~2020-01-11 | XMS | Encounter Summary ---
Demographics + + + | Address | [address] | | | [place] [address] | + + + | Home Phone | | + + + | Preferred Language | Unknown | + + + | Marital Status | | + + + | Rastafarian Affiliation | Unknown | + + + | Race | White | + + + | Ethnic Group | Not or | + + + Author + + + | Author | [facility] | + + + | Organization | [facility] | + + + | [...] Team Providers + +------+ + | Care Senior Lead Java Developer Name | Role | Phone | + +------+ + | Unknown | PCP | Unavailable | + +------+ + Encounter Details +--------+ + + + + | Date | Type | Department | Care Team | Description | +--------+ + + + + | 12/04/ | Outside | Neurophysiology | Demarcus George MD | | | 2013 | Referral | EEG at [facility] [address] | [facility] | | | | Order | Skyler Perez | NEUROLOGY [address] | | | | | [employer] [facility] | [facility] | | | | | [address] | [place] [address] | | | | | [place], [place] | [phone] | | | | | [address] | | | | | | [phone] | | | +--------+ + + + [...] [address] | | | | | | [place] | | | | | | [address] | | | | | | [phone] | | | | | | | | +--------+---------+ + + + documented as of this encounter Procedures + +--------+ + + + | Procedure Name | Priori | Date/Time | Associated Diagnosis | Comments | | | ty | | | | + +--------+ + + + | EEG ROUTINE | Routin | 12/03/2013 | | Results for this | | | e | | | procedure are in the | | | | | | results section. | + +--------+ + + + documented in this encounter Results EEG ROUTINE (12/03/2013) + + | Specimen | + + | | + + + + + | Narrative | Performed At | + + + | Patient Name: Zen Curry Date of : 1935 | | | Date of Test: 12/03/2013 Place of | | | Service: [facility] Department: EEG [facility] - [phone] | | | ROUTINE EEG Indication: Mr. 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 EEG to evaluate for epileptiform abnormalities. | | | Medications: Oxcarbazepine (prescribed, not sure if started) | | | Methods: This study was a Routine EEG with a duration of 22 minutes. | | | The digital recording was performed with routine electrodes applied | | | according to the 10-20 electrode placement system. The record | | | included video, EKG, and EOG monitoring. EEG was reviewed | | | electronically. Automated digital spike and seizure detection | | | analysis was used, along with patient-activated alarms and nursing | | | observations. EEG Description Interictal Record: The record | | | shows a symmetric, well-modulated, posterior dominant rhythm of 8.5 | | | Hz that attenuates with eye opening. Photic stimulation results in | | | intermittent asymmetry of the driving response, more consistent on | | | the right compared to the left. Hyperventilation does not appreciably | | | alter the record. Sleep architecture is not recorded. | | | Events/Seizures: No events or seizures are recorded. EKG: The | | | single-channel EKG recording shows a normal sinus rhythm. | | | Interpretation: This is a very mildly abnormal awake routine EEG | | | recording. Typically, mild asymmetry of the occipital driving | | | response during photic stimulation in the absence of other focal | | | findings is a benign finding that can be attributed to electrode or | | | light placement. However, in the context of left occipital | | | encephalomalacia, this is likely a focal finding, consistent with the | | | known structural lesion. No epileptiform abnormalities or seizures | | | recorded. Yaima Garcia M.D. Suggested CPT: 67090 - EEG | | | Routine Awake Only Suggested Dx: 780.39 - Convulsions | | | Electronically signed on 12/07/2013 at 5:10 PM YAIMA GARCIA MD. | | | | | + + + documented in this encounter Visit Diagnoses Not on filedocumented in this encounter"
--- OUTSIDE RECORDS SUMMARY | ~2020-01-11 | XMS | Encounter Summary ---
Demographics + + + | Address | [address] | | | [place] [address] | + + + | Home Phone | | + + + | Preferred Language | Unknown | + + + | Marital Status | | + + + | Taoism Affiliation | Unknown | + + + | Race | White | + + + | Ethnic Group | Not or | + + + Author + + + | Author | [facility] | | | and [place] | + + + | Organization | [facility] | | | [...] Team Providers + +------+ + | Care Salesperson Art Objects Name | Role | Phone | + [...] | | [address] | | | | | [place], [place] | [place] [address] | | | | | [address] | [phone] | | | | | [phone] | | | +--------+ + + + [...] | | | | | [place] [address] | | | | | | [phone] | | | | | | | [...] 1935 | | | Performing Physician: ROSALINDA LION MD | | | | | | [...] and color flow Doppler was perfomed at [facility]. Study: | | | This was [...] 4.99 cm AR | | | Dec [place]: 0.79 m/s2 AR Dec Time: 4340.87 ms [...] 0.76 m/s MV | | | Dec [place]: 3.70 m/s2 MV DecT: 189.41 ms MV E Ilir: 0.70 m/s | | | MV E/A Ratio: 0.91 MV PHT: 54.93 ms MVA By PHT: 4.00 cm2 | | | Septal e': 0.05 m/s Septal E/e': 13.12 Lateral e': 0.08 m/s | | | Lateral E/e': 8.07 RAP: 5 mmHg RVSP: 21.78 mmHg TR | | | maxP.78 mmHg TR Vmax: 2.04 m/s Lamp Shades Supervisor: DBS | | | Authenticated by: ROSALINDA LION MD Report Date/Time: 10-21-2018 | | | 18:31:53 | | + + + + + | Procedure Note | + + | Andre, Rad Conversion - 01/08/2019 1:42 PM PDT Patient Name: Thom Curry of | | : 1935 Performing Physician: ROSALINDA LION, | | MD INDICATIONS A | | FIB, BRADYCARDIA, CVA [...] and color flow Doppler was perfomed at [facility].Study: | | This was a technically [...] cmLVIDd: 5.27 cmLVPWd: 0.86 cmLVOT Area: 4.29 [id number] Diam: 2.33 cm%FS: | | 28.26 %EF(Teich): [...] (A-L): 24.20 ml/m2LAAs | | A2C: 13.32 [id number] A-L A2C: 36.68 mlLALs A2C: 4.10 cmLAAs A4C: 17.93 [id number] | | A-L A4C: 54.82 mlLALs A4C: 4.97 cmRAAs: 16.25 [id number] A-L: 44.86 mlRAESV MOD: | | 41.77 mlRALs: 4.99 cmAR Dec Kened[place]: 0.79 m/s2AR Dec Time: 4340.87 msAR maxPG: | | 47.11 mmHgAR PHT: 1258.85 msAR Vmax: 3.43 m/Yasir maxP.89 mmHgAV meanP.05 | | mmHgAV Vmax: 1.40 m/Yasir Vmean: 0.94 m/Yasir VTI: 27.86 cmAVA Vmax: 3.16 cm2AVA | | (VTI): 3.87 dr1HZEM (Vmax): 0.00 cm2/m2AVAI (VTI): 0.00 cm2/m2LVOT maxP.29 | | mmHgLVOT meanP.25 mmHgLVSI Dopp: 52.90 ml/m2LVSV Dopp: 107.93 mlLVOT Vmax: | | 1.03 m/sLVOT Vmean: 0.72 m/sLVOT VTI: 25.15 cmMV A Ilir: 0.76 m/sMV Dec [place]: | | 3.70 m/s2MV DecT: 189.41 msMV E Ilir: 0.70 m/sMV E/A Ratio: 0.91MV PHT: 54.93 | | msMVA By PHT: 4.00 gh2Njtxom e': 0.05 m/sSeptal E/e': 13.12Lateral e': 0.08 | | m/sLateral E/e': 8.07RAP: 5 mmHgRVSP: 21.78 mmHgTR maxP.78 mmHgTR Vmax: | | 2.04 m/s Lamp Shades Supervisor: DBSAuthenticated by: Savanah MORINort Date/Time: 10-21-2018 | | 18:31:53 IMPRESSION: 1. [...] | |RALs: 4.99 cm | |AR Dec Kenedy: 0.79 m/s2 | |AR Dec Time: 4340.87 [...] A Ilir: 0.76 m/s | |MV Dec Kened[place]: 3.70 m/s2 | |MV DecT: 189.41 ms [...] |TR Vmax: 2.04 m/s | | | |Lamp Shades Supervisor: DBS | |Authenticated by: ROSALINDA LION MD | |Report Date/Time: 10-21-2018 18:31:53 | [...]
--- OUTSIDE RECORDS SUMMARY | ~2020-01-11 | XMS | Encounter Summary ---
Demographics + + + | Address | [address] | | | [place] [address] | + + + | Home Phone | | + + + | Preferred Language | Unknown | + + + | Marital Status | | + + + | Taoist Affiliation | Unknown | + + + | Race | White | + + + | Ethnic Group | Not or | + + + Author + + + | Author | [facility] | | | and [place] | + + + | Organization | [facility] | | [...] Team Providers + +------+ + | Care Research Biostatistician Name | Role | Phone | + +------+ + | Torey Ramirez | PCP | | | MD | | | + +------+ + Reason for Visit + + + | Reason | Comments | + + + | Follow-up | | + + + Encounter Details +--------+---------+ + + + | Date | Type | Department | Care Team | Description | +--------+---------+ + + + | 08/31/ | Office | [facility] | Lobo Ferro, | Coronary artery | | 2020 | Visit | CARDIOLOGY [place] | [address] | disease involving | | | | [address] | [place], | sitka coronary | | | | [address] | [place] [address] | artery of sitka | | | | [place], [place] | [phone] | heart without angina | | | | [address] | | pectoris (Primary | | | | [phone] | | Dx); [place] | | | | | | coronary artery | | | | | | calcium score | | | | | | greater than 400; | | | | | | Paroxysmal atrial | | | | | | fibrillation (HCC); | | | | | | Sick sinus syndrome | | | | | | (HCC); Cardiac | | | | | | pacemaker in situ; | | | | | | History of AAA | | | | | | (abdominal aortic | | | | | | aneurysm) repair; | | | | | | Hyperlipidemia, | | | | | | unspecified | | | | | | hyperlipidemia type | +--------+---------+ + + + Social History [...] occasionally drinks | | | | | Reverelenora hartmann: | | | | | 3-4 [...] + + + | Blood Pressure | 142/68 | 09/01/2019 1:38 PM | | | | | PDT | | + + + + + | Pulse | 75 | 09/01/2019 1:38 PM | | | | | PDT | | + + + + + | Temperature | - | - | | + + + + + | Respiratory Rate | 14 | 09/01/2019 1:38 PM | | | | | PDT | | + + + + + | Oxygen Saturation | 93% | 09/01/2019 1:38 PM | | | | | PDT | | + + + + + | Inhaled Oxygen | - | - | | | Concentration | | | | + + + + + | Weight | 86.2 kg (190 lb) | 09/01/2019 1:38 PM | | | | | PDT | | + + + + + | Height | - | - | | + + + + + | Body Mass Index | 28.89 | 02/17/2019 12:58 PM | | | | | PDT | | + + + + + documented in this encounter Progress Notes Lobo Ferro MD - 09/01/2019 1:30 PM PDTFormatting of this note might be [...] coronary CT) and SSS with symptomatic bradycardia. He h ad a permanent pacemaker implanted on 12/25/18 for episodes of dizziness and unsteadiness with some exercise intolerance over the past several months due to symptomatic bradycardia. He h as never lost consciousness. Atrial fibrillation was noted on his 6-day event monitor and he was started on Eliquis. He has never had any palpitations. He denies any current chest pain , shortness of breath. His pacemaker has not been checked since it was implanted, for reaso ns which are unclear, and my office's pacemaker department will contact him to set up his re mote telephonic monitoring device and check it. A coronary CT calcium score on 07/30/17 [...] A Lexiscan Cardiolite s tress test at [facility] 10/16/17 showed no evidence of ischemia, with [...] adequately controlled. He is on pravasta tin. A full lipid panel was not done with his last blood work 05/14/2019. He had no complications with his ventral hernia repair surgery in May. His BP is mildly elevated today, but is usually well controlled, and I made no changes in h is medications. I will see him back in 6 months for follow-up. ROS CONSTITUTIONAL: 40 lb weight decrease, but [...] occasional dysphagia related to yadira o in 1950 ENDOCRINE: No history of diabetes. No history of thyroid disorders or other endocrine prob lems. No excessive hunger, thirst. PULMONARY/SLEEP: No dyspnea, orthopnea, paroxysmal nocturnal dyspnea. He has a remote his tory of asthma, has mild COPD/Emphysema. He has a history of both aspiration and community- acquired Pneumonia 3 x, most recently with septicemia 04/05. His notes snoring, no station supervisor ea or gasping, denies daytime somnolence. Sleep [...] repair 2001. -- Pacemaker implantation (12/25/18): Medtronic Crosspointe, model W1DR01, s# [id number]. RA Lead - [employer] Fineline II , model 4470, s# [id number]. RV Lead - Medtronic model 5076, s# [id number] -- 6-Day Event Monitor (09/11/18): predominantly sinus [...] changes, normal SPECT perfusion, EF 53 % --Lipid panel (05/14/19 -on pravastatin 40 mg): TC-136, LDL-not reported, HDL-not reported, TG-248 GASTROINTESTINAL: Abdominal incisional hernias, GERD. No recent [...] History: Diagnosis Date Abdominal aortic aneurysm (AAA) ([facility]) 2001 Surgical repair Atrial fibrillation ([facility]) on monitor 09/05 - AC Cardiac pacemaker in situ 12/25/2018 Medtronic [place], model W1DR01, s# [id number]. RA Lead - [place] [employer] Fineline II , model 4470, s# [id number]. 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 RA Lead - [employer] Fineline II , model 4470, s# [id number]. RV Lead - Medtronic model 5076, s# [id number] CARDIOVASCULAR STRESS TEST 09/2017 A2A SPECT: normal [...] tr-mild AI, mild MR, tr TR, mild MO, RVSP 22 Family History Problem Relation Age of Onset Cancer Mother Heart disease Father Coronary artery disease Father Hypertension Sister Social History Socioeconomic History Marital status: Spouse name: Not on file Number of children: Not on file Years of education: Not on file Highest education level: Not on file Occupational History Not on file Social Needs Financial resource strain: Not on file Food insecurity: Worry: Not on file Inability: Not on file Transportation needs: Medical: Not on file Non-medical: Not on file Tobacco Use Smoking status: Former Smoker Packs/day: 3.00 Years: 39.00 Pack years: 117.00 Types: Cigarettes Last attempt to quit: 05/20/1993 Years since quittin.3 Smokeless tobacco: Current User Types: Snuff Tobacco comment: smoked and chewed tobaccos Substance and Sexual Activity Alcohol use: Yes Comment: Alcoholic Drinks/day: occasionally drinks [place] whiskey: 3-4 drinks per week Drug use: Not on file Comment: Drug use: No Sexual activity: Never Lifestyle Physical activity: Days per week: Not on file Minutes per session: Not on file Stress: Not on file Relationships Social connections: Talks on phone: Not on file Gets together: Not on file Attends amish service: Not on file Active member of club or organization: Not on file Attends meetings of clubs or organizations: Not on file Relationship status: Not on file Intimate partner violence: Fear of current or ex partner: Not on file Emotionally abused: Not on file Physically abused: Not on file Forced sexual activity: Not on file Other Topics Concern Not on file Social [...] 50 mg by mouth 2 times daily. losartan-hydrochlorothiazide (HYZAAR) 100-25 MG per tablet melatonin 1 mg TABS Take by mouth nightly as needed. mesalamine (APRISO) 0.375 g 24 hr capsule Apriso 0.375 gram ( 2 capsules once a day ) omeprazole (PRILOSEC) 20 mg capsule Take 20 mg by mouth every morning (before breakfast ). pravastatin (PRAVACHOL) 40 MG tablet pravastatin 40 mg tablet qhs No current facility-administered medications for this visit. Objective: BP 142/68 | Pulse 75 | Resp 14 | Wt 86.2 kg (190 lb) | SpO2 93% | BMI 28.89 kg/m PHYSICAL EXAM GENERAL: Moderately obese, well [...] motor deficits. PSYCHIATRIC: Appropriate, affect appears normal Assessment: Zen was seen today for follow-up. Diagnoses and all orders for this visit: Coronary artery disease involving sitka coronary artery of sitka heart without angina pec toris [place] coronary artery calcium score greater than 400 Paroxysmal atrial fibrillation (HCC) Sick sinus syndrome (HCC) Cardiac pacemaker in situ History of AAA (abdominal aortic aneurysm) repair Hyperlipidemia, unspecified hyperlipidemia type Plan: Follow-up in 6 months. documented in this [...] [address] | | | | | | [place] [address] | | | | | | [phone] | | | | | | | | +--------+ + + + + | 05/16/ | Procedure | Cardiology | | | | 2019 | visit | | | | +--------+ + + + + + + +--------+ + + | Name | Type | Priori | Associated Diagnoses | Order Schedule | | | | ty | | | + + +--------+ + + | Device Interrogation | Cardiac | Routin | Sick sinus | Expected: | | | Implant | e | syndrome (HCC) | 09/02/2019, Expires: | | | | | Cardiac pacemaker in | 08/31/2020 | | | | | situ | | + + +--------+ + + documented as of this encounter Visit Diagnoses + + | Diagnosis | + + | Coronary artery disease involving sitka coronary artery of sitka heart without | | angina pectoris - Primary | + + | Agat[place] coronary artery calcium score greater than 400 Nonspecific (abnormal) | | findings on radiological and other examination of other intrathoracic organs | + + | Paroxysmal atrial fibrillation (HCC) Atrial fibrillation | + + | Sick sinus syndrome (HCC) Sinoatrial node dysfunction | + + | Cardiac pacemaker in situ | + + | History of AAA (abdominal aortic aneurysm) repair Other postprocedural status | + + | Hyperlipidemia, unspecified hyperlipidemia type | + + documented in this encounter"
--- OUTSIDE RECORDS SUMMARY | ~2020-01-11 | XMS | Encounter Summary ---
Demographics + + + | Address | [address] | | | [place] [address] | + + + | Home Phone | | + + + | Preferred Language | Unknown | + + + | Marital Status | | + + + | Voodoo Affiliation | Unknown | + + + | Race | White | + + + | Ethnic Group | Not or | + + + Author + + + | Author | [facility] | + + + | Organization | [facility] | + + + | Address | [...] Team Providers + +------+ + | Care Bottom Liner Name | Role | Phone | + +------+ + | Torey Ramirez MD | PCP | | + +------+ + Encounter Details +--------+ + + + + | Date | Type | Department | Care Team | Description | +--------+ + + + + | 03/03/ | Document-Sc | UNKNOWN DEPARTMENT | Unknown . | | | 2013 | anned | [address] [facility] | | | | | | [address] | | | | | | [place], [place] | | | | | | [address] | | | +--------+ + + + [...] + + documented as of this encounter Miscellaneous Notes Scan - Queenie Geiger - 03/07/2014 1:45 PM PDTElectronically signed by Queenie Geiger at 1:45 PM PDTdocumented in this encounter Plan of Treatment +--------+---------+ + + + | Date | Type | Specialty | Care Team | Description | +--------+---------+ + + + | 02/03/ | Office | Surgery | Mitul, | | | 2019 | Visit | | MD Facundo [address] | | | | | | [address] | | | | | | [place] | | | | | | [address] | | | | | | [phone] | | | | | | | | +--------+---------+ + + + documented as of this encounter Visit Diagnoses Not on filedocumented in this encounter"
--- OUTSIDE RECORDS SUMMARY | ~2020-01-11 | XMS | Encounter Summary ---
Demographics + + + | Address | [address] | | | [place] [address] | + + + | Home Phone | | + + + | Preferred Language | Unknown | + + + | Marital Status | | + + + | Sikh Affiliation | Unknown | + + + [...] Team Providers + +------+ + | Care Barrel Handler Name | Role | Phone | + +------+ + | Torey Ramirez | PCP | | | MD | | | + +------+ + Reason for Visit + +--------+ + | Reason | Onset | Comments | | | Date | | + +--------+ + | Device Check | 09/08/ | | | (Remote) | 2020 | | + +--------+ + Encounter Details +--------+ + + + + | Date | Type | Department | Care Team | Description | +--------+ + + + + | 09/08/ | Telephone | [facility] | Lobo Ferro, | Device Check | | 2019 | | CARDIOLOGY [place] | [address] | (Remote) | | | | [address] | [facility], | | | | | [place], [place] | [place] [address] | | | | | [address] | [phone] | | | | | [phone] | | | +--------+ + + + [...] documented as of this encounter Miscellaneous Notes Telephone Encounter - Johana Villegas V - 09/09/2019 9:39 AM PDTLeft message for patient to send manual transmission by end of day. Device: Medtronic pacemaker P DTdocumented in this encounter Plan of Treatment +--------+ + + + + | Date | Type | Specialty | Care Team | Description | +--------+ + + + + | 05/16/ | Office | Cardiology | Javi Chaparro | | | 2019 | Visit | | MD Michael [address] | | | | | | [address] | | | | | | [place] [address] | | | | | | [phone] | | | | | | | | +--------+ + + + + | 05/16/ | Procedure | Cardiology | | | | 2019 | visit | | | | +--------+ + + + + documented as of this encounter Visit Diagnoses Not on filedocumented in this encounter"
--- OUTSIDE RECORDS SUMMARY | ~2020-01-11 | XMS | Encounter Summary ---
Demographics + + + | Address | [address] | | | [place] [address] | + + + | Home Phone | | + + + | Preferred Language | Unknown | + + + | Marital Status | | + + + | Scientology Affiliation | Unknown | + + + | Race | White | + + + | Ethnic Group | Not or | + + + Author + + + | Author | [facility] | | | and [place] | + + + | Organization | [facility] | | [...] Team Providers + +------+ + | Care Dough Panner Name | Role | Phone | + [...] Description | +--------+---------+ + + + | 11/10/ | Office | [facility] | Clifford Chaparro | Paroxysmal atrial | | 2020 | Visit | CARDIOLOGY [place] | MD Michael [address] | fibrillation (HCC) | | | | [address] | [address] | (Primary Dx); Sick | | | | [place], [place] | [place] [address] | sinus syndrome | | | | [address] | [phone] | (HCC); Status post | | | | [phone] | | placement of cardiac | | | | | | pacemaker; Sleep | | | | | | apnea, unspecified | | | | | | type | +--------+---------+ + + + Social [...] + + + | Blood Pressure | 129/81 | 11/11/2019 2:03 PM | | | | | PDT | | + + + + + | Pulse | 93 | 11/11/2019 2:03 PM | | | | | PDT | | + + + + + | Temperature | 36.6 C (97.9 F) | 11/11/2019 2:03 PM | | | | | PDT | | + + + + + | Respiratory Rate | - | - | | + + + + + | Oxygen Saturation | 93% | 11/11/2019 2:03 PM | | | | | PDT | | + + + + + | Inhaled Oxygen | - | - | | | Concentration | | | | + + + + + | Weight | 88.9 kg (195 lb 14.4 | 11/11/2019 2:03 PM | | | | oz) | PDT | | + + + + + | Height | 172.7 cm (5' 8") | 11/11/2019 2:03 PM | | | | | PDT | | + + + + + | Body Mass Index | 29.79 | 11/11/2019 2:03 PM | | | | | PDT | | + + + + + documented in this encounter Progress Notes Clifford Chaparro MD - 11/11/2019 1:45 PM PDTFormatting of this note might be dif ferent from the original. Subjective: Referring MD: No ref. provider found Chief Complaint Patient presents with Follow-up HPI: This is a 84 y.o. male who presents today for follow-up of his dual-chamber pacemaker. Mr. Curry had a dual-chamber pacemaker implanted in December 2018 but has not been seen by electrophysiology since device implantation. A remote transmission was sent more recently and he was asked to follow-up in the office. He denies any recent medical issues, hospitali zations, or procedures. He denies any current chest pain, shortness of breath, dizziness, l ightheadedness, palpitations, or recent syncope. He continues on anticoagulation with Eliqu is. Past Medical History: Diagnosis Date Abdominal aortic aneurysm (AAA) ([facility]) 2001 Surgical repair Atrial fibrillation ([facility]) on monitor 09/05 - AC Cardiac pacemaker in situ 12/25/2018 Medtronic [place], model W1DR01, s# [id number]. RA Lead - [place] [employer] Fineline II , model 4470, s# [id number]. 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 RA Lead - [place] [employer] Fineline II , model 4470, s# [id number]. RV Lead - Medtronic model 5076, s# [id number] CARDIOVASCULAR STRESS TEST 09/2017 A2A SPECT: normal [...] tr-mild AI, mild MR, tr TR, mild CT, RVSP 22 VENTRAL HERNIA REPAIR 05/21/2019 Family History Problem Relation Age of Onset Cancer Mother Heart disease Father Coronary artery disease Father Hypertension Sister Social History Socioeconomic History Marital status: Spouse name: Not on file Number of children: Not on file Years of education: Not on file Highest education level: Not on file Tobacco Use Smoking status: Former Smoker Packs/day: 3.00 Years: 39.00 Pack years: 117.00 Types: Cigarettes Quit date: 05/20/1993 Years since quittin.4 Smokeless tobacco: Current User Types: Snuff Tobacco comment: smoked and chewed tobaccos Substance and Sexual Activity Alcohol use: Yes Comment: Alcoholic Drinks/day: occasionally drinks [place] whiskey: 3-4 drinks per week Sexual activity: Never Review of Systems: Ten system review negative unless noted in HPI. Current Outpatient Medications Medication Sig Dispense Refill [...] No current facility-administered medications for this visit. Allergies Allergen Reactions Penicillins Hives, Swelling and Rash Objective: Vitals: 11/11/19 1403 BP: 129/81 Pulse: 93 Temp: 36.6 C (97.9 F) Weight: 88.9 kg (195 lb 14.4 oz) Height: 1.727 m (5' 8") Body mass index is 29.79 kg/m. Exam: General: Patient is alert, pleasant, cooperative, and in no acute distress. Eyes: Sclerae anicteric. Ears: External ears normal. Nose: External nose normal. Oral exam: No oral lesions noted. Neck: Trachea midline. No thyromegaly. No elevation of jugular venous pressure. No oh tid bruits. Lungs: Clear to auscultation bilaterally. No wheezes, rales, or rhonchi. Heart: Regular rate and rhythm. Normal S1/S2. No murmurs, gallops, rubs. Abdomen: Bowel sounds present. Soft, nondistended. No masses or hepatosplenomegaly noted . No significant tenderness noted. Extremities: No clubbing or cyanosis noted. No lower extremity edema noted. Pulses: Intact bilateral radial and pedal pulses. Musculoskeletal: No obvious arthritic change noted of the knees. Skin: Warm and dry. Psychiatric: Patient is alert and oriented to person, place, and day. Mood and affect nor mal. Neurological: Patient is intact to light touch in the upper and lower extremities bilateral ly. Left pocket: Incision is well-healed with no erythema, induration, discharge, or pre-erosio n Review of studies: ECG: Normal sinus rhythm at 92 bpm, left axis deviation, compared to the EKG of February atrial pacing is no longer seen Device Interrogation: His Medtronic dual-chamber pacemaker was interrogated and found to rausch ve stable sensing, pacing, and impedance values. He paces 86% of the time in the atrium wit h less than 1% ventricular pacing. No significant mode switch episodes were noted since las t interrogation. Impression/Plan: Zen was seen today for follow-up. Diagnoses and all orders for this visit: Paroxysmal atrial fibrillation (HCC) - ECG 12 lead Sick sinus syndrome (HCC) Status post placement of cardiac pacemaker Sleep apnea, unspecified type 1) Atrial fibrillation - Mr. 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 The average heart rate du ring the episode was 91 bpm. He did not note any symptoms at the time. He had not been on any rate/rhythm medication due to his significant resting bradycardia with symptoms. He con tinues on anticoagulation with Eliquis due to risk factors. His echocardiogram performed in 2019 demonstrated an ejection fraction of 50%. A stress test in 2014 demonstrated normal m yocardial perfusion with a gated ejection fraction of 53%. He has not had any recent mode s witch episodes based on device diagnostics. 2) Sick sinus syndrome - He was noted to have significant resting bradycardia on evaluation prior to potential hernia surgery in 2019. He noted episodes of dizziness and exercise int olerance for some time. An event monitor worn for 6 days demonstrated episodes of sinus bra dycardia with an average heart rate of 55 bpm. Given irreversible, symptomatic bradycardia pacemaker implantation was recommended. 3) S/p DC pacemaker - He had a dual-chamber pacemaker implanted in December 2018. His device was interrogated today and found to be functioning normally in all respects. We will plan for remote transmission in 3 months with follow-up in the office in 6 months. 4) Sleep apnea - He has several risk factors for obstructive sleep apnea. We previously d iscussed getting a sleep evaluation in [place]. He is aware of the association of obstructiv e sleep apnea with atrial dysrhythmias. This encounter was dictated with voice recognition software and may contain inadvertent rec ognition errors. Electronically signed by: Clifford Chaparro MD documented in this encounter Plan of Treatment +--------+ + + + + | Date | Type | Specialty | Care Team | Description | +--------+ + + + + | 05/16/ | Office | Cardiology | Clifford Chaparro | | | 2019 | Visit | | MD Michael [address] | | | | | [address] | | | | | | [place] [address] | | | | | | [phone] | | | | | | | [...] | ECG 12 LEAD | Routin | 11/11/2019 | Paroxysmal atrial | Results for this | | | e | 2:08 PM | fibrillation (HCC) | procedure are in the | | | | PDT | | results section. | + +--------+ + + + documented in this encounter Results ECG 12 lead (11/11/2019 2:08 PM PDT) + + + + + + | Component | Value | Ref Range | Performed | Pathologist | | | | | At | Signature | + + + + + + | VENTRICULAR | 92 | BPM | [facility] | | | RATE EKG | | | | | + + + + + + | ATRIAL RATE | 92 | BPM | [facility] | | + + + + + + | P-R | 168 | ms | [facility] | | | INTERVAL | | | | | + + + + + + | QRS | 102 | ms | [facility] | | | DURATION | | | | | + + + + + + | Q-T | 380 | ms | [facility] | | | INTERVAL | | | | | + + + + + + | Q-T | 469 | ms | [facility] | | | INTERVAL | | | | | | (CORRECTED) | | | | | + + + + + + | P WAVE AXIS | 53 | degrees | [facility] | | + + + + + + | QRS AXIS | -43 | degrees | [facility] | | + + + + + + | T AXIS | 10 | degrees | [facility] | | + + + + + + | INTERPRETAT | Please refer to | | [facility] | | | ION TEXT | Providers office visit | | | | | | note for Providers | | | | | | Interpretation.Confirmed | | | | | | by CLIFFORD CHAPARRO MD | | | | | | ([id number]) on 11/14/2019 | | | | | | 1:50:12 PM | | | | + + [...] Primary Atrial fibrillation | + + | Sick sinus syndrome (HCC) Sinoatrial node dysfunction | + + | Status post placement of cardiac pacemaker Cardiac pacemaker in situ | + + | Sleep apnea, unspecified type | + + documented in this encounter
--- OUTSIDE RECORDS SUMMARY | ~2020-01-11 | XMS | Encounter Summary ---
Demographics + + + | Address | [address] | | | [place] [address] | + + + | Home Phone | | + + + | Preferred Language | Unknown | + + + | Marital Status | | + + + | Voodoo Affiliation | Unknown | + + + | Race | White | + + + | Ethnic Group | Not or | + + + Author + + + | Author | [facility] | | | and [place] | + + + | Organization | [facility] | | | [...] Team Providers + +------+ + | Care Environmental Solutions Engineer Name | Role | Phone | + +------+ + PCP | Unavailable | + +------+ + Encounter Details +--------+ + + + + | Date | Type | Department | Care Team | Description | +--------+ + + + + | 12/27/ | Hospital | [facility] | | | | 2000 | Encounter | MED CTR XRAY [address] | | | | | | [place] | | | | | | [place] [address] | | | | | | [phone] | | | +--------+ + + + [...] | | | | | [place] [address] | | | | | | [phone] | | | | | | | | +--------+ + + + + | 05/16/ | Procedure | Cardiology | | | | 2019 | visit | | | | +--------+ + + + + documented as of this encounter Visit Diagnoses Not on filedocumented in this encounter"
--- OUTSIDE RECORDS SUMMARY | ~2020-01-11 | XMS | Encounter Summary ---
Demographics + + + | Address | [address] | | | [place] [address] | + + + | Home Phone | | + + + | Preferred Language | Unknown | + + + | Marital Status | | + + + | Confucianism Affiliation | Unknown | + + + | Race | White | + + + | Ethnic Group | Not or | + + + Author + + + | Author | [facility] | | | and [place] | + + + | Organization | [facility] | | | [...] Team Providers + +------+ + | Care Cast Associate Name | Role | Phone | + [...] | | | [address] [place] | [place] [address] | | | | | [place] [address] | | | | | | [phone] | | | +--------+ + + + [...] | | | | | [place] [address] | | | | | | [phone] | | | | | | | [...]
--- OUTSIDE RECORDS SUMMARY | ~2020-01-11 | XMS | Encounter Summary ---
Demographics + + + | Address | [address] | | | [place] [address] | + + + | Home Phone | | + + + | Preferred Language | Unknown | + + + | Marital Status | | + + + | Church Affiliation | Unknown | + + + | Race | White | + + + | Ethnic Group | Not or | + + + Author + + + | Author | [facility] | | | and [place] | + + + | Organization | [facility] | | | and [...] Team Providers + +------+ + | Care Product Marketing Manager Name | Role | Phone | + +------+ + PCP | Unavailable | + +------+ + Encounter Details +--------+ + + + + | Date | Type | Department | Care Team | Description | +--------+ + + + + | 12/27/ | Hospital | [facility] | | | | 2000 | Encounter | MED CTR XRAY [address] | | | | | | [place] | | | | | | [place] [address] | | | | | | [phone] | | | +--------+ + + + [...] | | | | | [place] [address] | | | | | | [phone] | | | | | | | | +--------+ + + + + | 05/16/ | Procedure | Cardiology | | | | 2019 | visit | | | | +--------+ + + + + documented as of this encounter Visit Diagnoses Not on filedocumented in this encounter"
--- OUTSIDE RECORDS SUMMARY | ~2020-01-11 | XMS | Encounter Summary ---
Demographics + + + | Address | [address] | | | [place] [address] | + + + | Home Phone | | + + + | Preferred Language | Unknown | + + + | Marital Status | | + + + | Restorationist Affiliation | Unknown | + + + | Race | White | + + + | Ethnic Group | Not or | + + + Author + + + | Author | [facility] | | | and [place] | + + + | Organization | [facility] | | | [...] Team Providers + +------+ + | Care Supervisor Metal Cans Name | Role | Phone | + [...] + + | 01/05/ | Office | [facility] | Iman Estevez | Paroxysmal atrial | | 2019 | Visit | CARDIOLOGY [place] | [address] | fibrillation (HCC) | | | | [address] | [address] | (Primary Dx); | | | | [address] | [place] [address] | Pacemaker; | | | | [place], [place] | [phone] | Bradycardia by | | | | [address] | | electrocardiogram; | | | | [phone] | | Visit for wound | | [...] Ferro documented in this encounter Progress Notes Iman Estevez FNP - 01/05/2019 12:30 PM PDTFormatting of this note might be differe nt from the original. Progress Notes by BEN Vázquez at 10/06/18 6526 Author: BEN Vázquez Service: (none) Author Type: Advanced Registered Nurs e Practitioner Filed: 10/06/18 7121 Encounter Date: 10/06/2018 Status: Signed Electromedical Service Engineer: BEN Vázquez (Advanced Registered Nurse Practitioner) Date [...] of Dr. Ferro who is his primary precipitator operator and last seen by him November 12, [...] fibrillation, coronary artery calcification with coronary calcium co ore 07/30/2017 of 3151 with calcification mainly [...] heart rate in the 4 0's. His POD0YN1 VASC score is 6 ( age, HTN, stroke) with HAS BLED score 4 (HTN, Stroke, age, ASA,) and he is anticoagulated on Eliquis 5 mg twice daily. His current and previous testing and procedures are detailed below . I saw him last on November 17, 2018 when I followed up with him about his event monitor, and h raghav had been referred to Dr. Chaparro. I [...] coffee are decaffeinated. 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illo [facility] for yearly evaluations, as well as his [...] Vega, also Dr. Paige garcia at the [facility], and . Vital signs today: 01/05/2019: Blood [...] dizziness and vertigo resolved with pacer.. stroke 1998 with mild ri ght slightest weakness previous [...] with yard work and tolerates. Lives in [place]. . Retired [employer] . 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 Sees Dr. Badillo at the [facility] once a year Outpatient Medications Prior to [...] No results found for: METF, NMETFX, TFNMFX, [id number], [id number], TOTEPI CARDIAC PROCEDURES/IMAGING Lexiscan Cardiolite stress test [...] are seen in the ECHO- Echo: 10/21/2018: [facility]: Technically adequate study. EF 50%. LV normal [...] pacemaker: 12/25/2018: (Dr. Chaparro): Indication bradycardia.Generator : [employer], model #W1DR01, serial number [id number].RA Lead: [employer] right atrial Fineline II active fixation, model 4470,serial number [id number] RV Lead: [employer] right ve ntricular active fixation, model 5076, serial number [id number]. EKG/EVENT MONITOR 7-day event monitor:09/11/2018-09/17/2018: Predominantly sinus [...] overall burden of atrial fibrillation of 1.53%. [place] ventricular rate was 91 bpm, range 85-147 bpm. One episode of reported symptoms correlat ed to an isolated PAC EK10/07/2017: Sinus bradycardia with sinus arrhythmia, left axis deviation. Rate 57 bpm, OK 176 ms, QRS 110 ms, QTC 418 ms, tracing personally reviewed by me EK09/02/2018: Sinus bradycardia with PACs. Rate 49 bpm, OK 170 ms, QRS 114 ms, QTC 417 m s, tracing personally reviewed by me EK10/06/2018: Sinus bradycardia with PACs, ST flattening anterolateral, possible previous anterior [place]. Rate 57 bpm, OK 170 ms, QRS 108 ms, QTC 424 ms tracing personally reviewed by me, and similar morphology to previous EKG's EK01/05/2019: Atrially paced rhythm , stable nonspecific ST and T wave abnormalities. R ate 71 bpm, OK 206 ms, QRS 104 ms, QTC 434 [...] for this visit. Errors occurred with new [employer] interface . 1. History of cerebrovascular accident [...] past surgical history. Problem list. 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
--- OUTSIDE RECORDS SUMMARY | ~2020-01-11 | XMS | Encounter Summary ---
Demographics + + + | Address | [address] | | | [place] [address] | + + + | Home Phone | | + + + | Preferred Language | Unknown | + + + | Marital Status | | + + + | Hindu Affiliation | Unknown | + + + | Race | White | + + + | Ethnic Group | Not or | + + + Author + + + | Author | [facility] | | | and [place] | + + + | Organization | [facility] | | [...] Team Providers + +------+ + | Care Steel Fitter Name | Role | Phone | + [...] + + | 06/02/ | Emergency | [facility] | Facundo Hinojosa | Diarrhea (Primary | | 2014 | | MED CTR EMERGENCY | Ramirez Ribeiro MD | Dx) | | | | CENTER [address] | [address] | | | | | [place] | [place] | | | | | [address] | [address] | | | | | [phone] | | | +--------+ + + + [...] any other worsening symptoms. [facility] for [facility] care. documented [...] + + documented as of this encounter ED Notes Savannah Rodriguez RN - 06/02/2014 1:42 PM PSTGiven prescription for Cipro and Lomotil. E lectronically signed by Savannah Rodriguez RN at 06/02/2014 1:42 PM PSTParks, Facundo Ribeiro MD - 06/02/2014 1:12 PM PSTFormatting of this note might be different from the margaux ginal. [facility] Zen Curry Emergency Department Encounter Note [address] [place] [address] PCP:Torey Ramirez [phone] eMERGENCY dEPARTMENT eNCOUnter CHIEF COMPLAINT Chief Complaint Patient presents with Diarrhea (Adult) HPI Zen Curry is a 78 y.o. male who presents patient with significant diarrhea for the last 3 days. It began Saturday night. He states he's had his difficulty making to the bat hroom at times. He denies any abdominal pain he does has a "lot"as watery stool. Patient d oes not feel weak or dizzy. He has normal vital signs at this time. Patient states he has no abdominal pain no fever. He cannot think of anything he is eating that is caused this. Patient states he has had diverticulitis in the past. [facility]. 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 ASPIRIN 325 MG TABLET Take 325 mg by mouth Daily. CHOLECALCIFEROL (VITAMIN D-3 PO) Take 2 tablets by mouth Daily. FINASTERIDE (PROSCAR) 5 MG TABLET Take 5 mg by mouth Daily. LOSARTAN (COZAAR) 25 MG TABLET Take 25 mg by mouth Daily. MELATONIN PO Take by mouth. MESALAMINE (APRISO) 0.375 G 24 HR CAPSULE Take 1,500 mg by mouth Daily. OMEPRAZOLE (PRILOSEC) 20 MG CAPSULE Take 20 mg by mouth every morning (before breakfast ). PRAVASTATIN (PRAVACHOL) 80 MG TABLET Take 80 mg by mouth nightly. TRIAMTERENE-HYDROCHLOROTHIAZIDE (MAXZIDE-25) 37.5-25 MG PER TABLET Take 1 tablet by willie th Daily. UNABLE TO FIND Med Name: MELANIE Fink ALLERGIES Allergies Allergen Reactions Penicillins Hives and Swelling FAMILY HISTORY Family History Problem Relation Age of Onset Cancer Mother Heart disease Father SOCIAL HISTORY History Social History Marital Status: Spouse Name: N/A Number of Children: N/A Years of Education: N/A Social History Main Topics Smoking status: Former Smoker -- 3.0 packs/day for 39 years Types: Cigarettes Quit date: 05/20/1993 Smokeless tobacco: Current User Types: Snuff Alcohol Use: Yes Comment: social Drug Use: None Sexually Active: No Other Topics Concern None Social History Narrative None REVIEW OF SYSTEMS Please see HPI, All systems negative except as marked. Twelve point review of system comp leted my me. PHYSICAL EXAM VITAL SIGNS: Temp: 36.4 C (97.6 F) Pulse: 62 Resp: 16 SpO2: 94 % BP: 130/65 mmHg Constitutional: Well developed, Well nourished, Non-toxic appearance. No acute distress HENT: Normocephalic, Atraumatic, Bilateral external ears normal, mucous membranes moist, N o oral exudates, Nose normal. Neck- Normal range of motion, No tenderness, Supple, No strido r. Eyes: PERRL, EOMI, Conjunctiva normal, No discharge. Respiratory: Normal breath sounds, No respiratory distress, No wheezing, No chest tenderne ss. Cardiovascular: Normal heart rate, Normal rhythm, No murmurs, No rubs, No gallops. GI: Bowel sounds normal, Soft, No tenderness, No masses, No pulsatile masses. : defered Musculoskeletal: Intact distal pulses, No edema, No tenderness, No cyanosis, No clubbing. Good range of motion in all major joints. No tenderness to palpation or major deformities no velia. Back:- No tenderness. Skin: Warm, Dry, No erythema, No rash. Lymphatic: No lymphadenopathy noted. Neurologic: Alert & oriented x 3, Normal motor function, Normal sensory function, No focal deficits noted, no facial assymetry noted. Equal securities consultant in all extremities Psychiatric: Affect normal, Judgment normal, Mood normal. ED COURSE & MEDICAL DECISION MAKING Pertinent Labs & Imaging studies reviewed. (See chart for details) Nursing notes reviewed. Patient at this point appears to be stable. He does not appear to be in acute distress. H e is having frequent bowel movements. I discussed with him bulk stool forming foods. Also I'm placing the patient on ciprofloxacin for 5 days. He is to return for severe worsening s ymptoms. Follow-up Information Follow up with Torey Ramirez. Specialty: Family Medicine Contact information: [address] [place] [address] New Prescriptions CIPROFLOXACIN (CIPRO) 500 MG TABLET Take 1 tablet by mouth 2 times daily for 5 days. DIPHENOXYLATE-ATROPINE (LOMOTIL) 2.5-0.025 MG PER TABLET Take 1 tablet by mouth 4 times daily as needed for Diarrhea for up to 10 days. Discharge Instructions Return for worsening severe abdominal pain, nausea, vomiting, fevers or any other worsening symptoms. Follow-up with your physician or clinic for continued care. FINAL IMPRESSION 1. Diarrhea Portions of this chart may have been created with Dragon voice recognition software. Occasi onal wrong-word or sound-alike substitutions may have occurred due to the inherent del valle itations of voice recognition software. Please read the chart carefully and recognize, using context, where these substitutions have occurred Facundo Hinojosa MD 06/02/14 1316 documented in this encounter Miscellaneous Notes Plan of Care - ONCHAPO ERNST WAOH - 06/03/2014 12:00 AM PST D Triage Notes - Savannah Rodriguez RN - 06/02/2014 12:46 PM PSTDiagnosed with diverticulitis 5 years ago at [facility]. Has been having diarrhea since Saturday night. Now worse that he can't make it to the bathroom in time. Denies abd pain. Denies arnol sea. Loose-watery. d ocumented in this encounter Plan of Treatment +--------+ + + + + | Date | Type | Specialty | Care Team | Description | +--------+ + + + + | 05/16/ | Office | Cardiology | Javi Chaparro | | | 2019 | Visit | | MD [address] | | | | | | [address] | | | | | | [place] [address] | | | | | | [phone] | | | | | | | | +--------+ + + + + | 05/16/ | Procedure | Cardiology | | | | 2020 | visit | | | | +--------+ [...] 500 mg, Oral, ONCE, Sat | | 15 1:29 | | | | | 06/02/14 [...]
--- OUTSIDE RECORDS SUMMARY | ~2020-01-11 | XMS | Clinical Summary ---
Demographics + + + | Address | [address] | | | [place] [address] | + + + | Home Phone | | + + + | Preferred Language | Unknown | + + + | Marital Status | | + + + | Episcopalian Affiliation | Unknown | + + + | Race | White | + + + | Ethnic Group | Not or | + + + Author + + + | Author | NON REVENUE LOCATIONS | + + + | Organization | NON REVENUE LOCATIONS | + + + | Address | Unknown | + + + | Phone | Unavailable | + + + Support + + + + + | Name | Relationship | Address | Phone | + + + + + | Cathi Curry | ECON | [place] | | + + + + + | Daniel Curry | ECON | Unknown | | + + + + + Care Team Providers + +------+ + | Care Tutoring Assistant Name | Role | Phone | + +------+ + | Unknown | PCP | Unavailable | + +------+ + Source Comments CRESCENCIO is fully live on both [facility] Ambulatory and [facility] InPatient.[facility] Allergies Not on File Medications Not on file Active Problems Not on file Encounters +--------+ + + + + | Date | Type | Specialty | Care Team | Description | +--------+ + + + + | 12/14/ | Hospital | | | | | 2020 | Encounter | | | | +--------+ + + + + from Last 3 Months Social History + +-------+ +--------+------+ | Tobacco [...] on file | | + + + Last Filed Vital Signs Not on file Plan of Treatment +--------+---------+ + + + | Date | Type | Specialty | Care Team | Description | +--------+---------+ + + + | 02/03/ | Office | Surgery | Mitul | | | 2019 | Visit | | MD Facundo [address] | | | | | | [address] | | | | | | [place], [place] | | | | | | [address] | | | | | | [phone] | | | | | | | | +--------+---------+ + + + + + +-------+ + | Health Maintenance | Due Date | Last | Comments | | | | Done | | + + +-------+ + | Pneumococcal | | | | | vaccination (1 of 2 | 1 | | | | - PCV13) | | | | + + +-------+ + | Influenza (Flu) | | | | | vaccination (#1) | 0 | | | + + +-------+ + Results Not on filefrom Last 3 [...] + +--------+ | MEDICARE | MEDICA | [id number] | 09/18/19 | [phone] | [address] | Medica | | | RE A & | | 01-Pre | 1 | [id number] | re | | | B | | sent | | [place] | | | | | | | | [address] | | + +--------+ +--------+ + +--------+ | MODA MEDICARE | MODA | [id number] | 05/20/19 | [phone] | [address] | POS | | SUPPLEMENT | MEDICA | | 19-Pre | 4 | [id number] | | | | RE | | sent | | [place], | | | | [place] | | | | [place] [address] | | | | MENT | | | | | | + [...] | [birth year] | | [address] | | | al/Fam | | 1936 | [phone] | [place] [address] | | | [place] | | | 8 (Home) | | + +--------+ +--------+ + +"
--- OUTSIDE RECORDS SUMMARY | ~2020-01-11 | XMS | Encounter Summary ---
Demographics + + + | Address | [address] | | | [place] [address] | + + + | Home Phone | | + + + | Preferred Language | Unknown | + + + | Marital Status | | + + + | Taoism Affiliation | Unknown | + + + | Race | White | + + + | Ethnic Group | Not or | + + + Author + + + | Author | [facility] | | | and [place] | + + + | Organization | [facility] | | | [...] Team Providers + +------+ + | Care Boiler Erector Name | Role | Phone | + +------+ + PCP | Unavailable | + +------+ + Encounter Details +--------+ + + + + | Date | Type | Department | Care Team | Description | +--------+ + + + + | 06/08/ | Hospital | [facility] | | | | 1998 | Encounter | MED CTR XRAY [address] | | | | | | [place] | | | | | | [place] [address] | | | | | | [phone] | | | +--------+ + + + [...] | | | | | [place] [address] | | | | | | [phone] | | | | | | | | +--------+ + + + + | 05/16/ | Procedure | Cardiology | | | | 2019 | visit | | | | +--------+ + + + + documented as of this encounter Visit Diagnoses Not on filedocumented in this encounter"
--- OUTSIDE RECORDS SUMMARY | ~2020-01-11 | XMS | Clinical Summary ---
Demographics + + + | Address | [address] | | | [place] [address] | + + + | Home Phone | | + + + | Preferred Language | Unknown | + + + | Marital Status | | + + + | Jew Affiliation | Unknown | + + + | Race | White | + + + | Ethnic Group | Not or | + + + Author + + + | Author | [facility] | | | and [place] | + + + | Organization | [facility] | | | [...] Team Providers + +------+ + | Care Heat Pump Installer Name | Role | Phone | [...] e | + + + +---------+------+------+-------+ | mesalamine [...] e | + + + +---------+------+------+-------+ | | | | 0 | 01/2 | | Activ | | losartan-hydrochloro | | | | 8 | | e | | thiazide (HYZAAR) | | | | 20 | | | | 100-25 MG per tablet | | | | | | | + + + +---------+------+------+-------+ Active Problems [...] | 01/05/2019 | + + + | 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 RA | | Lead - [employer] Fineline II , model 4470, s# [id number]. RV | | Lead - Medtronic model 5076, s# [id number] | + + + + + | [...] Sick sinus syndrome | | + +---+ Encounters +--------+ + + + + | Date | Type | Specialty | Care Team | Description | +--------+ + + + + | 11/10/ | Office | Cardiology | Javi Chaparro | Paroxysmal atrial | | 2019 | Visit | | MD Michael | fibrillation (HCC) | | | | | | (Primary Dx); Sick | | | | | | sinus syndrome | | | | | | (HCC); Status post | | | | | | placement of cardiac | | | | | | pacemaker; Sleep | | | | | | apnea, unspecified | | | | | | type | +--------+ + + + + | 11/10/ | Procedure | Cardiology | | Cardiac pacemaker in | | 2019 | visit | | | situ | +--------+ + + + + from Last 3 Months Immunizations + + + + | Name [...] + + | Father | | | [place] | | | | (Age | | [...] + + + Last Filed Vital Signs + [...] + + + + Plan of Treatment +--------+ + + + + | Date | Type | Specialty | Care Team | Description | +--------+ + + + + | 05/16/ | Office | Cardiology | Javi Chaparro | | | 2019 | Visit | | MD Michael [address] | | | | | | [address] | | | | | | [place] [address] | | | | | | [phone] | | | | | | | | +--------+ + + + + | 05/16/ | Procedure | Cardiology | | | | 2019 | visit | | | | +--------+ + + + + + + + + + | Health Maintenance | Due Date | Last | Comments | | | | Done | | + + + + + | Medication | | | | | Management | 6 | | | + + + + + | Vaccine: | | | | | Dtap/Tdap/Td (1 - | 5 | | | | Tdap) | | | | + + + + + | Vaccine: Zoster (2 | | 01/07/20 | | | of 3) | 0 | 10 | | + + + + + | Vaccine: | | 05/16/20 | | | Pneumococcal 65+ (2 | 8 | 17 | | | of 2 - PPSV23) | | | | + + + + + | Adult Annual | | | | | Wellness Visit | 9 | | | + + + + + | Med Mgmt: Cr | | 12/26/19 | | | | 0 | 19 | | + + + + + | Med Mgmt: HCT | | 12/26/19 | | | | 0 | 19 | | + + + + + | Med Mgmt: HGB | | 12/26/19 | | | | 0 | 19 | | + + + + + | Med Mgmt: K | | 12/26/19 | | | | 0 | 19 | | + + + + + | Med Mgmt: Na | | 12/26/19 | | | | 0 | 19 | | + + + + + | Vaccine: Influenza | | | | | (#1) | 0 | | | + + + + + Procedures + +--------+ + + + | [...] section. | + +--------+ + + + | DEVICE INTERROGATION | Routin | 11/11/2019 | Cardiac pacemaker | Results for this | | | e | 12:00 AM | in situ | procedure are in the | | | | PDT | | results section. | + +--------+ + + + from Last 3 Months Results ECG 12 lead (11/11/2019 2:08 PM [...] | | | | | | by JAVI CHAPARRO MD | | | | | | ([id number]) on 11/14/2019 | | | | | [...] | | | + +---------+ + + Device Interrogation (11/11/2019 12:00 AM PDT) + + + | Narrative | Performed At | + + + | [facility] | | CRISTINA Nevarez 11/11/2019 4:58 PMDevice interrogation done by Katerin | | | Krysta Any events or changes listed in office note. See device data | | | attached to scheduled encounter for additional details. line maintenance: [facility]elle | | | CRISTINA Nevarez | | |See device data attached to scheduled encounter for additional | | |details. | | | | | |RODRÍGUEZ Barrera: Lavelle Nevarez RN | | + + + + + | Procedure Note | + + | Lavelle Nevarez RN - 11/11/2019 1:30 PM PDT Device interrogation done by Katerin | | Jovani events or changes listed in office note.See device data attached to | | scheduled encounter for additional details. line maintenance: Lavelle Nevarez RN | | | |See device data attached to scheduled encounter for additional details. | | | |line maintenance: Lavelle Nevarez RN | + + + +---------+ + + | Performing | Address | City/State/Zipcode | Phone Number | | Organization | | | | + +---------+ + + | [facility] | | | | + +---------+ + + from Last 3 Months Insurance + +--------+ +--------+ [...] +--------+ | [place] [place] | [id number] | 05/20/19 | | | Indemn | | | COMMUN | | 18-Pre | | | ity | | | ITY | | sent | | | | | | CARE | | | | | | + +--------+ +--------+ + +--------+ | [employer]MIN | [place] | [id number] | 05/20/19 | | | Indemn | | | NS | | 18-Pre | | | ity | | | ADMIN | | sent | | | | | | [place] | | | | | [place] | | | | | | + +--------+ +--------+ + +--------+ | MEDICARE | MEDICA | [id number] | 09/18/19 | [phone] | | Medica | | | RE | | 01-Pre | 5 | | re | | | PART A | | sent | | | | | | AND B | | | | | | + +--------+ +--------+ + +--------+ | MODA | MODA | [id number] | 07/19/19 | [phone] | [address] | Indemn | | | HEALTH | | 08-Pre | 9 | [phone] | ity | | | MDCR | | sent | | [place], | | | | [place] | | | | [place] [address] | | + +--------+ +--------+ + +--------+ | [employer]ANS ADMIN | [place] | [id number] | | | | Indemn | | | NS | | 015-Pr | | | ity | | | ADMIN | | esent | | | | | | [place] | | | | | | | | [place] | | | | | | + +--------+ +--------+ + +--------+ | MEDICARE | MEDICA | [id number] | 09/18/19 | [phone] | | Medica | | | RE | | 01-Pre | 5 | | re | | | PART A | | sent | | | | | | AND B | | | | | | + +--------+ +--------+ + +--------+ | MODA | MODA | [id number] | 05/20/19 | [phone] | [address] | Indemn | | | HEALTH | | 19-Pre | 9 | [phone] | ity | | | MDCR | | sent | | [place], | | | | [place] | | | | [place] [address] | | + +--------+ +--------+ + +--------+ [...] | | al/Fam | | 1936 | [phone] | [place], [place] | | | br[place]ley | | | 8 (Home) | [address] | + +--------+ +--------+ + + | Zen Curry | Person | Self | [birth year] | [address] | | | al/Fam | | 1936 | [phone] | [place], [place] | | | [place] | | | 8 (Home) | [address] | + +--------+ +--------+ + + Advance Directives + + + + + | Type | Date Recorded | Patient | Explanation | | | | Director Digital Sales | | + + + + + | Power of | 11/11/2013 1:22 | | POA Doc | | Power Generation Equipment Repairer | PM | | | + + + + + | Advance | 06/02/2014 1:15 | | | | Directive | PM | | | + + + + +
--- OUTSIDE RECORDS SUMMARY | ~2020-01-11 | XMS | Encounter Summary ---
Demographics + + + | Address | [address] | | | [place] [address] | + + + | Home Phone | | + + + | Preferred Language | Unknown | + + + | Marital Status | | + + + | Uatsdin Affiliation | Unknown | + + + | Race | White | + + + | Ethnic Group | Not or | + + + Author + + + | Author | [facility] | | | and [place] | + + + | Organization | [facility] | | | [...] Team Providers + +------+ + | Care Superintendent Meters Name | Role | Phone | + [...] | Arachnoid | Awais, | [address] | | | | | cyst | PA-C [address] | [place], | | | | | Syncope and | [address] | [place] | | | | | collapse | [place], | [address] | | | | | Procedures | [place] [address] | Phone: | | | | | MRI Brain w | Phone: | [phone] | | | | | wo Contrast | [phone] | Fax: | | | | | | Fax: | [phone] | | | | | | [phone] | | +--------+--------+ + + + + [...] | | | | | | [place] [address] | [place] | | | | | | Phone: | [address] | | | | | | [phone] | Phone: | | | | | | Fax: | [phone] | | | | | | [phone] | Fax: | | | | | | | [phone] | +--------+ + + + + + [...] | | | | | cyst | Christian | [address] | | | | | Procedures | Health and | [place], [place] | | | | | [place] OFFICE | Service | [address] Phone: | | | | | CONSULTATION | | [phone] | | | | | NEW/ESTAB | | Fax: | | | | | PATIENT 60 | | [phone] | | | | | MIN | | | +--------+--------+ + + + + Encounter Details +--------+---------+ + + + | Date | Type | Department | Care Team | Description | +--------+---------+ + + + | 11/11/ | Office | [facility] | Awais Nobles, | Arachnoid cyst | | 2013 | Visit | NEUROSURGERY [address] | PA-C [address] | (Primary Dx); | | | | [address] | [place] | Syncope and collapse | | | | [place], [place] | [address] | | | | | [address] | | | | | | [phone] | | | +--------+---------+ + + + [...] PM PDT . Awais Nobles PA-C [address] [facility] [address] [place] [address] FAX: NEUROSURGERY HISTORY AND PHYSICAL EXAMINATION CHIEF [...] has no apparent deficits with short or terminal makeup operator memory. CRANIAL NERVES: II: Acuity is intact. [...] Intrinsics 5 5 Ulnar Intrinsics 5 5 Component Prep Operator Strength 5 5 Hip Flexion 5 5 [...] [address] | | | | | | [place] [address] | | | | | | [phone] | | | | | | | [...] | + + +--------+ + + | [place] | Outpatient | Routin | Arachnoid cyst [...]
--- OUTSIDE RECORDS SUMMARY | ~2020-01-11 | XMS | Encounter Summary ---
Demographics + + + | Address | [address] | | | [place] [address] | + + + | Home Phone | | + + + | Preferred Language | Unknown | + + + | Marital Status | | + + + | Catholic Affiliation | Unknown | + + + | Race | White | + + + | Ethnic Group | Not or | + + + Author + + + | Author | [facility] | | | and [place] | + + + | Organization | [facility] | | | [...] Team Providers + +------+ + | Care Web Services Developer Name | Role | Phone | + +------+ + | Torey Ramirez | PCP | | | MD | | | + +------+ + Encounter Details +--------+ + + + + | Date | Type | Department | Care Team | Description | +--------+ + + + + | 01/02/ | Orders Only | [facility] | Iman Estevez | Essential (primary) | | 2019 | | CARDIOLOGY [place] | [address] | hypertension; Mixed | | | | [address] | [address] | hyperlipidemia; | | | | [address] | [place] [address] | Anemia; shelter | | | | [place], [place] | [phone] | current use of | | | | [address] | | anticoagulant; | | | | [phone] | | Paroxysmal atrial | | | [...] Cardiology | Javi Chaparro | | | 2020 | Visit | | MD Michael [address] | | | | | | [address] | | | | | | [place] [address] | | | | | | [phone] | | | | | | | | +--------+ + + + + | 05/16/ | Procedure | Cardiology | | | | 2019 | visit | | | | +--------+ + + + + + +------+--------+ + + [...] with | Lab | Routin | 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
--- OUTSIDE RECORDS SUMMARY | ~2020-01-11 | XMS | Encounter Summary ---
Demographics + + + | Address | [address] | | | [place] [address] | + + + | Home Phone | | + + + | Preferred Language | Unknown | + + + | Marital Status | | + + + | Pentecostalism Affiliation | Unknown | + + + | Race | White | + + + | Ethnic Group | Not or | + + + Author + + + | Author | [facility] | | | and [place] | + + + | Organization | [facility] | | | and [...] Team Providers + +------+ + | Care Process Chemist Name | Role | Phone | + [...] [address] | | | | | | [place] | | | | | | [place] [address] | | | | | | [phone] | | | +--------+ + + + [...] | | | | | [place] [address] | | | | | | [phone] | | | | | | | | +--------+ + + + + | 05/16/ | Procedure | Cardiology | | | | 2019 | visit | | | | +--------+ + + + + documented as of this encounter Visit Diagnoses Not on filedocumented in this encounter"
--- OUTSIDE RECORDS SUMMARY | ~2020-01-11 | XMS | Encounter Summary ---
Demographics + + + | Address | [address] | | | [place] [address] | + + + | Home Phone | | + + + | Preferred Language | Unknown | + + + | Marital Status | | + + + | Advent Affiliation | Unknown | + + + | Race | White | + + + | Ethnic Group | Not or | + + + Author + + + | Author | [facility] | | | and [place] | + + + | Organization | [facility] | | [...] Team Providers + +------+ + | Care Assistant Director Of Financial Aid Name | Role | Phone | + [...] | 06/02/ | Emergency | [facility] | Facundo Hinojosa | Diarrhea (Primary | | 2014 | | MED CTR EMERGENCY | Ramirez Ribeiro MD | Dx) | | | | CENTER [address] | [address] | | | | | [place] | [place] | | | | | [address] | [address] | | | | | [phone] | | | +--------+ + + + [...] any other worsening symptoms. Follow-up with your [facility] sician or clinic for continued care. documented [...] might be different from the margaux ginal. [facility] Zen Curry Emergency Department Encounter Note [address] [place] [id number] PCP:Torey Ramirze [phone] eMERGENCY dEPARTMENT eNCOUnter CHIEF COMPLAINT Chief [...] deficits noted, no facial assymetry noted. Equal chief clerk in all extremities Psychiatric: Affect normal, Judgment [...] Notes Plan of Care - ONCHAPO ERNST WAHI - 06/03/2014 12:00 AM PST D Triage Notes - Savannah Rodriguez RN - 06/02/2014 12:46 PM PSTDiagnosed with diverticulitis 5 years ago at [place]. Has been having diarrhea since Saturday night. [...] [address] | | | | | | [place] [address] | | | | | | [phone] | | | | | | | [...]
--- OUTSIDE RECORDS SUMMARY | ~2020-01-11 | XMS | Encounter Summary ---
Demographics + + + | Address | [address] | | | [place] [address] | + + + | Home Phone | | + + + | Preferred Language | Unknown | + + + | Marital Status | | + + + | Alevism Affiliation | Unknown | + + + | Race | White | + + + | Ethnic Group | Not or | + + + Author + + + | Author | [facility] | | | and [place] | + + + | Organization | [facility] | | [...] Team Providers + +------+ + | Care Adult Educator Name | Role | Phone | + [...] | [address] | [place] | Hypertension; Stroke | | | | [place], [place] | [address] | (HCC) | | | | [address] | | | | | | [phone] | | | +--------+ + + + [...] [address] | | | | | | [place] [address] | | | | | | [phone] | | | | | | | [...]
--- OUTSIDE RECORDS SUMMARY | ~2020-01-11 | XMS | Encounter Summary ---
Demographics + + + | Address | [address] | | | [place] [address] | + + + | Home Phone | | + + + | Preferred Language | Unknown | + + + | Marital Status | | + + + | Gnosticism Affiliation | Unknown | + + + | Race | White | + + + | Ethnic Group | Not or | + + + Author + + + | Author | [facility] | | | and [place] | + + + | Organization | [facility] [...] Team Providers + +------+ + | Care Open Source Developer Name | Role | Phone | + +------+ + PCP | Unavailable | + +------+ + Encounter Details +--------+ + + + + | Date | Type | Department | Care Team | Description | +--------+ + + + + | 08/31/ | Hospital | [facility] | | | | 1998 | Encounter | MED CTR XRAY [address] | | | | | | [place] | | | | | | [place] [address] | | | | | | [phone] | | | +--------+ + + + [...] | | | | | [place] [address] | | | | | | [phone] | | | | | | | | +--------+ + + + + | 05/16/ | Procedure | Cardiology | | | | 2019 | visit | | | | +--------+ + + + + documented as of this encounter Visit Diagnoses Not on filedocumented in this encounter"
--- OUTSIDE RECORDS SUMMARY | ~2020-01-11 | XMS | Encounter Summary ---
Demographics + + + | Address | [address] | | | [place] [address] | + + + | Home Phone | | + + + | Preferred Language | Unknown | + + + | Marital Status | | + + + | Jewish Affiliation | Unknown | + + + | Race | White | + + + | Ethnic Group | Not or | + + + Author + + + | Author | [facility] | | | and [place] | + + + | Organization | [facility] | | | and [...] Team Providers + +------+ + | Care Zone Maintenance Technician Name | Role | Phone | + +------+ + | Torey Ramirez | PCP | | | MD | | | + +------+ + Reason for Visit +--------+--------+ + | Reason | Onset | Comments | | | Date | | +--------+--------+ + | Other | 06/03/ | | | | 2014 | | +--------+--------+ + Encounter Details +--------+ + + + + | Date | Type | Department | Care Team | Description | +--------+ + + + + | 06/03/ | Telephone | [facility] | Avery Wagner, | Other | | 2014 | | PHYSIATRY [address] | [address] | | | | | [address] | [address] [place], [place] | | | | | [place], [place] | [id number] | | | | | [address] | | | | | | [phone] | | | +--------+ + + + [...] this encounter Miscellaneous Notes Telephone Encounter - Dustin Lopez CMA - 06/03/2014 10:47 AM PSTCalled to schedule MRI, at this point patient is not interested. Patient has followed up with Dr George. elephone Encounter - Dustin Lopez CM A - 06/03/2014 10:47 AM PSTMessage copied by DUSTIN LOPEZ on SatJun 03, 2014 1047 ------ Message from: CARLIE OSWALD Created: SatNov 11, 2013 1411 Regarding: MRI Call to schedule MRI at [facility] early afternoon for review. Patient is not claust. 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
--- OUTSIDE RECORDS SUMMARY | ~2020-01-11 | XMS | Encounter Summary ---
Demographics + + + | Address | [address] | | | [place] [address] | + + + | Home Phone | | + + + | Preferred Language | Unknown | + + + | Marital Status | | + + + | Orthodox Affiliation | Unknown | + + [...] Team Providers + +------+ + | Care Buzzsaw Operator Name | Role | Phone | + +------+ + PCP | Unavailable | + +------+ + Encounter Details +--------+ + + + + | Date | Type | Department | Care Team | Description | +--------+ + + + + | 08/17/ | Results | | Other, Faculty | | | 1997 | Only | | [phone] | | +--------+ + + + + [...] 2019 | Visit | | MD Facundo [address] | | | | | [address] | | | | | | [place], [place] | | | | | | [address] | | | | | | [phone] | | | | | | | [...] | | + +---------+ + + | [facility] DEPARTMENT OF | | | | | RADIOLOGY | | | | + +---------+ + + documented in this encounter Visit Diagnoses Not on filedocumented in this encounter"
--- OUTSIDE RECORDS SUMMARY | ~2020-01-11 | XMS | Encounter Summary ---
Demographics + + + | Address | [address] | | | [place] [address] | + + + | Home Phone [...] Team Providers + +------+ + | Care Credit Product Analyst Name | Role | Phone | + +------+ + | Torey Ramirez | PCP | | | MD | | | + +------+ + Reason for Visit + + + | Reason | Comments | + + + | Device Check | | | (In-office) | | + + + Encounter Details +--------+ + + + + | Date | Type | Department | Care Team | Description | +--------+ + + + + | 11/10/ | Procedure | [facility] | | Cardiac pacemaker in | | 2020 | visit | [facility] | | situ | | | | [address] | | | | | | [place] | | | | | | [address] | | | | | | [phone] | | | +--------+ + + + [...] occasionally drinks | | | | | [place] whiskey: | | | | | 3-4 drinks per week | + + +---------+ + + + + | Sex Assigned at | Date Recorded | | | | + + + | Not on file | | + + + documented as of this encounter Procedure Notes Lavelle Nevarez RN - 11/11/2019 1:30 PM PDTAssociated Order(s): DEVICE INTERROGATIONProce dure(s): DEVICE INTERROGATIONPre-Procedure Diagnose(s): Cardiac pacemaker in situDevice inte rrogation done by Katerin Chapraro Any events or changes listed in office note. See device data attached to scheduled encounter for additional details. cable engineer outside plant: Lavelle Nevarez RN documented in this encounter Plan of Treatment +--------+ + + + + | Date | Type | Specialty | Care Team | Description | +--------+ + + + + | 05/16/ | Office | Cardiology | Javi Chaparro | | | 2019 | Visit | | MD [address] | | | | | | [address] | | | | | | [place] [address] | | | | | | [phone] | | | | | | | [...] documented in this encounter Results Device Interrogation (11/11/2019 12:00 AM PDT) + + + | Narrative | Performed At | + + + | [facility] | | CRISTINA Nevarez 11/11/2019 4:58 PMDevice interrogation done by Katerin | | | Krysta Any events or changes listed in office note. See device data | | | attached to scheduled encounter for additional details. cable engineer outside plant: Lavelle Damon | | [place] | | |See device data attached to scheduled encounter for additional | | |details. | | | | | |cable engineer outside plant: Lavelle Nevarez RN | | + + + + + | Procedure Note | + + | Lavelle Nevarez RN - 11/11/2019 1:30 PM PDT Device interrogation done by Pat | | Jovani events or changes listed in office note.See device data attached to | | scheduled encounter for additional details. cable engineer outside plant: Lavelle Nevarez RN | | | |See device data attached to scheduled encounter for additional details. | | | |cable engineer outside plant: Lavelle Nevarez RN | + + + +---------+ + + | Performing | Address | City/State/Zipcode | Phone Number | | Organization | | | | + +---------+ + + | [facility] | | | | + +---------+ + + documented in this encounter Visit Diagnoses + + | Diagnosis | + + | Cardiac pacemaker in situ | + + documented in this encounter"
[~2020-01-11 03:15] MED LIST changes: +APRISO0.375 GM PO; +BACTRIM DS TAB1 EACH PO; -PENTASA500 MG PO; +TYLENOL EXTRA500 MG PO
[2020-01-11] MEDS ORDERED: ST. JOSEPH ASPI81 MG PO (03:27)
--- NOTE | 2020-01-11 07:45 | NUR ---
Patient arrives to unit via stretcher. Patient able to self-transfer to hospital bed with minimal assist. Vital signs taken, assessment complete. Patient on 2LNC with SpO2 in the upper 90's. Paced cardiac rhythm with HR in the 70's. Patient stands at bedside with 1PA, uses urinal to void 200 mls. No further needs at this time, call light within reach.
--- NOTE | 2020-01-11 09:25 | NUR ---
Patient sleeping in bed, respirations even. RR of 30, SpO2 of 96% on 2LNC. Call light within reach.
--- NOTE | 2020-01-11 10:00 | NUR ---
Attempted to contact pt by phone as covid is pending. He does not answer phone. He is sleeping when I went to room. Will follow up tomorrow or when covid is completed. Per Rn pt is very INAJA.
--- NOTE | 2020-01-11 10:06 | NUR ---
Dr. Wolff in room to assess patient and discuss POC
--- NOTE | 2020-01-11 10:26 | NUR ---
Patient's sister called for update, which was provided per patient request
--- NOTE | 2020-01-11 10:30 | NUR ---
Blood culture obtained for second lactic acid. Sample sent to lab.
--- NOTE | 2020-01-11 11:00 | NUR ---
Patient sleeping in bed, rouses easily to voice. SpO2 of 94% on RA, RR in the upper 20's. Medications given (see MAR). Aspiration precautions in place. D5LR infusing at 75 mls/hr. Patient denies further needs at this time, bed lowered to semi-fowlers. Warm blanket provided, call light within reach.
--- NOTE | 2020-01-11 12:22 | NUR ---
Patient sleeping in bed, rouses to voice. SpO2 of 95% on RA, HR in the 70's. Patient denies needs at this time, call light within reach.
--- NOTE | 2020-01-11 13:37 | NUR ---
Patient sitting up in chair. SpO2 of 87% on RA, 2LNC put in place. Patient assisted to BSC, BM produced. SpO2 of 93%. Patient back to bed with 1PA, warm blankets provided. Denies further needs at this time, call light within reach.
--- NOTE | 2020-01-11 17:00 | NUR ---
Patient sitting up in chair watching tv. Dinner delivered. 2LNC in place, SpO2 in the upper 90's. HR in the 70's. Patient denies needs at this time, call light within reach.
--- NOTE | 2020-01-11 18:54 | PATH ---
[facility] [address] [place], [place] [address] Signed ORDERING PHYSICIAN: Rah Orozco MD PATIENT NAME: LUIS ALBERTO MADRIGAL GENDER: M : 1935 SPECIMEN(S): No Source Given MOLECULAR PATHOLOGY RESULTS: SARS-CoV-2 Not Detected ADDITIONAL NOTES.: The [employer] Fusion SARS-CoV-2 Assay is a multiplex real-time PCR (RT-PCR) in vitro diagnostic test intended for the qualitative detection of RNA from SARS-CoV-2 from individuals who meet COVID-19 clinical and/or epidemiological criteria. In general, SARS-CoV-2 RNA can be detected during the acute phase of infection. Positive results indicate the presence of SARS-CoV-2 RNA. Clinical correlation with patient history and other diagnostic information is necessary to determine patient infection status. Positive results do not rule out bacterial infection or co-infection with other viruses. Negative results do not preclude SARS-CoV-2 infection and should not be used as the sole basis for patient management decisions. Negative results must be combined with other clinical observations, patient history, and epidemiological information. The P[employer] Fusion SARS-CoV-2 Assay is not yet approved or cleared by the [place] FDA. When there are no FDA-approved or cleared tests available, and other criteria are met, FDA can make tests available under an emergency access mechanism called an Emergency Use Authorization (EUA). The EUA for this test is supported by the Survey Field Technician of Health and Human Service's (HHS's) declaration that circumstances exist to justify the emergency use of in vitro diagnostics for the detection and/or diagnosis of the virus that causes COVID-19. This EUA will remain in effect for the duration of the COVID-19 declaration justifying emergency of IVDs, unless it is terminated or revoked by FDA, after which the test may no longer be used. The [employer] Fusion SARS-CoV-2 Assay is for use only under EUA in US laboratories certified under the Clinical Laboratory Improvement Amendments of 1988 (CLIA) to perform high complexity tests. [facility] is certified under CLIA to perform high complexity PATIENT NAME: LUIS ALBERTO MADRIGAL PATHOLOGY DATE OF : 35 REPORT #: [id number] PHYSICIAN: NABILA PATHOLOGY PCP: JESSICA VEGA MD REPORT IS CONFIDENTIAL AND NOT TO BE RELEASED WITHOUT AUTHORIZATION [address] [address] Signed clinical laboratory testing. PERFORMING LABORATORY.: Molecular testing was performed by [facility] [place] [address] (Tapper Helper: David Chino D.O.; CLIA#: [id number]) Diagnostician: System Interface Pathologist Electronically Signed 01/11/2020 Copies: ~ PATIENT NAME: KAITLIN,LUIS ALBERTO YURI PATHOLOGY DATE OF : 35 REPORT #: [id number] PHYSICIAN: NABILA BUCK PCP: JESSICA VEGA MD REPORT IS CONFIDENTIAL AND NOT TO BE RELEASED WITHOUT AUTHORIZATION
--- NOTE | 2020-01-11 19:04 | NUR ---
Patient laying in bed watching tv. PM medications given. Fluids infusing at 75 mls/hr. Warm blankets provided. 2LNC in place with an SpO2 of 96%. Patient denies further needs, call light within reach.
--- NOTE | 2020-01-11 19:30 | NUR ---
REPORT RECEIVED FROM DAY SHIFT RN. PT IN BED, CALL ALICIA DOTY DENIES NEEDS AT THIS TIME.
--- NOTE | 2020-01-11 20:10 | NUR ---
IN TO DO ASSESSMENT. PT DENIES PAIN/SOB AT THIS TIME. HAD SOME COMPLAINTS ABOUT HIS DINNER, OFFERED HIM A SNACK WHICH HE DID NOT WANT. O2 AT 2L/NC, SOME SHORTNESS OF BREATH WITH MOVING. ALERT AND ORIENTED, CALL LIGHT IN HAND.
--- NOTE | 2020-01-11 21:00 | NUR ---
PT UP TO BR WITH FWW. O2/2L/NC IN PLACE, HR STEADY AND SATS 92% WHILE UP.
--- NOTE | 2020-01-11 21:19 | NUR ---
ASSISTED PT BACK TO BED. PT WAS AT TOILET TO VOID. PT REPORTS A LIQUID BM OF "LESS THAN A CUP" IN VOLUME. PT SETTLED IN TO BED FOR THE NIGHT. NO FURTHER NEEDS AT THIS TIME. CALL LIGHT WITHIN REACH.
--- NOTE | 2020-01-11 23:49 | NUR ---
PT CALLS TO GET UP TO CHAIR HE IS UNCOMFORTABLE IN BED. UP TO CHAIR WITH CALL LIGHT IN HAND. O2/2L/NC. ASSESSMENT DONE. TEMP NOTED 99.9 WILL MONITOR.
--- NOTE | 2020-01-12 00:15 | NUR ---
PT ARRIVED TO THE FLOOR IN HIS RECLIENR. STATES THAT HE WAS GETTING TIRED OF LYING IN BED. PT STATES THAT HE WOULD LIKE TO STAY IN THE RECLINER FOR A WHILE. PT ORIENTED TO NEW ROOM AND POC FOR THIS SHIFT. CALL LIGHT IN PT'S REACH. PT DENIES FURTHER NEEDS AT THIS TIME.
--- NOTE | 2020-01-12 02:14 | NUR ---
PT UTILIZES CALL LIGHT, REQUESTS TO GO BACK TO BED FROM CHAIR. PT ASSESSMENT COMPLETE. PT DENIES PAIN, NAUSEA, OR SOB. O2 IN PLACE AT 4 LPM. PT REPORTS PRODUCTIVE COUGH. BT'S ACTIVE. PT DENIES ABD TENDERNESS. ABD WITH VERY LARGE HERNIA PRESENT. ATTENDS IN PLACE. PT DENIES URGE TO VOID AT THIS TIME. IV FLUIDS INFUSING. PT ICE WATER REFILLED. PT DENIES FURTHER NEEDS AT THIS TIME. CALL LIGHT IN REACH.
--- NOTE | 2020-01-12 03:03 | NUR ---
PT RESTING IN BED WITH EYES CLOSED. RESPIRATIONS EVEN AND UNLABORED. PT APPEARS TO BE SLEEPING. CALL LIGHT IN REACH.
--- NOTE | 2020-01-12 05:40 | NUR ---
PT UTILIZES CALL LIGHT, REQUESTS TO SIT UP IN THE CHAIR. PT TRANSFERS TO CHAIR WITH 1 PA. TOLERATED WELL. PT PROVIDED WITH WARM WASHCLOTH TO WASH HIS FACE. FEET ELEVATED AND BLANKETS PROVIDED. URINAL EMPTIED. PT DECLINES TO WATCH TV OR READ. STATES HE LIKES TO "PEOPLE WATCH". CURTAIN OPENED SO PT CAN SEE OUT OF ROOM. VS OBTAINED, WNL. SAO2 99% ON 2 LPM. 94-96% ON RA. PT REMAINS ON RA AT THIS TIME. DENIES SOB. CALL LIGHT IN REACH. PT DENIES FURTHER NEEDS.
--- NOTE | 2020-01-12 06:41 | NUR ---
CCU TX OVERNIGHT. NO C/O PAIN, NAUSEA, OR SOB. O2 @ 4 LPM OVERNIGHT, RA THIS AM. SAO2 IN 90'S. LUNG SOUNDS ADVENTITIOUS. PRODUCTIVE COUGH PRESENT. LARGE HIATAL HERNIA PRESENT TO R SIDE ABD. PT DENIES TENDERNESS. PT EEK. IV WNL, FLUIDS INFUSING. 1 PA WITH FWW. URINAL AT BEDSIDE. UO QS.
--- NOTE | 2020-01-12 07:47 | NUR ---
RECEIVED REPORT FROM MICHAEL EVANS. PT SITTING UP IN CHAIR AT THIS TIME AND APPEARS TO BE RESTING COMFORTABLY WITH RESPIRATIONS NOTED.
--- NOTE | 2020-01-12 08:14 | NUR ---
PATIENT SITTING UP IN CHAIR. WHITE BOARD UPDATED. PATIENT'S BREAKFAST ORDERED. PATIENT USES THE BATHROOM. ONE PERSON ASSISING WITH WALKER. PATIENT'S HANDS AND FACE WASHED. PATIENT BACKS TO CHAIR. CALL DALE MURILLO. NO OTHER NEEDS AT THIS TIME
--- NOTE | 2020-01-12 08:30 | NUR ---
THIS RN IN PTS ROOM TO GIVE MORNING MEDS. PT AWAKE AND ALERT THIS AM. PT IN GOOD SPIRITS BUT IS WANTING TO GO HOME. THIS RN DISCUSSED WITH PT WHY HE IS STILL HERE. PT STATES HE UNDERSTANDS. PT HAS NO OTHER COMPLAINTS OR CONCERNS AT THIS TIME
--- NOTE | 2020-01-12 09:50 | NUR ---
THIS RN TO ROOM TO CHECK ON PT. PT UP TO CHAIR. PT DENIES PAIN AND NAUSEA AND REPORTS HE HAS NO REQUESTS OR COMPLAINTS AT THIS TIME. CALL LIGHT WITHIN REACH.
--- NOTE | 2020-01-12 09:51 | NUR ---
PATIENT SITTING UP IN CHAIR. VITAL SIGNS AND I&O DONE. CALL LIGHT WITHIN REACH. NO OTHER NEEDS AT THIS TIME
--- NOTE | 2020-01-12 11:00 | EKG ---
[facility] [address] [facility] [place] [address] Signed Normal sinus rhythm Left anterior fascicular block Abnormal ECG When compared with ECG of 14-MAY-2019 12:29, Sinus rhythm has replaced Electronic atrial pacemaker Confirmed by MELINA HAWKINS MD ([id number]) on 01/12/2020 10:59:52 AM Electronically Signed By: MELINA HAWKINS MD 01/12/20 1100 PATIENT NAME: KAITLINLUIS ALBERTO YURI Electrocardiogram DATE OF : 35 PHYSICIAN: MELINA HAWKINS MD REPORT #: [id number] REPORT IS CONFIDENTIAL AND NOT TO BE RELEASED WITHOUT AUTHORIZATION
--- NOTE | 2020-01-12 13:23 | NUR ---
THIS RN IN PTS ROOM TO TURN OFF PTS FLUIDS PER ORDER FROM MD. PT STILL SITTING UP IN CHAIR WITH NO COMPLAINTS AT THIS TIME. PT ON ROOM AIR AND SATTING APPROPRIATELY
--- NOTE | 2020-01-12 13:41 | NUR ---
PATIENT SITTING UP IN CHAIR. IN ROOM. VITAL SIGNS AND I&O DONE. PATIENT REFUSED TO TAKE A SHOWER TODAY. CALL LIGHT WITHIN REACH. NO OTHER NEEDS AT THIS TIME
[2020-01-12] MEDS ORDERED: NORTRIPTYLINE H10 MG PO (13:51)
[2020-01-12] MEDS ORDERED: ELIQUIS5 MG PO (14:55)
--- NOTE | 2020-01-12 14:55 | NUR ---
MED REC COMPLETE
--- NOTE | 2020-01-12 15:00 | NUR ---
Spoke with Art and his Nallely. They live in [place] and he has several hernia surgeries. Will have more surgery at [facility] in January for hernia repair. Pt states he has had pneumonia for several weeks, but did not realize what it was. He uses a cane and the md are building him a ramp. is very supportive and pt plans on dc to home tomorrow. They deny need for dc.
--- NOTE | 2020-01-12 15:49 | NUR ---
IN PTS ROOM TO CHECK ON PT. CALL LIGHT WITHIN REACH AND PT STATES HE HAS NO CONCERNS AT THIS TIME.
--- NOTE | 2020-01-12 19:29 | NUR ---
REPORT RECEIVED FROM DAY SHIFT RN. PT LYING IN BED WITH EYES CLOSED, NAD. NOT DISTURBED AT THIS TIME. WHITE BOARD UPDATED. CALL LIGHT IN REACH.
--- NOTE | 2020-01-12 20:30 | NUR ---
EVENING ASSESSMENT COMPLETE. SCHEDULED MEDS ADMINISTERED PER EMAR. NO SWALLOWING ISSUES NOTED. SBA TO BR TO VOID. PT REFUSED WALKER. GAIT STEADY. IV SITE IN LEFT FOREARM REMOVED DUE TO INFILTRATION. TIP INATCT. ONE ATTEMPT MADE BY THIS RN TO PLACE NEW IV. PT BERTA WELL. CHILD CARE COOK TO ATTEMPT. PRN ADMINISTERED FOR SLEEP PER PT REQUEST. NO FURTHER NEEDS AT THIS TIME. CALL LIGHT IN REACH.
--- NOTE | 2020-01-12 21:59 | NUR ---
IN pt ROOM FOR IV START. 22 GAUGE STARTED LEFT HAND. ASSISTED BACK TO BED, SBA. PRIMARY RN VINOD IN ROOM.
--- NOTE | 2020-01-12 23:45 | NUR ---
PT RESTING IN BED ON RIGHT SIDE. RESPIRATIONS EVEN AND UNLABORED. PT ON RA. URINAL EMPTIED. CALL LIGHT WITHIN REACH.
--- NOTE | 2020-01-13 00:17 | NUR ---
PATIENT CALLED WANTING TO GET UP IN THE CHAIR. 1 PA USING WALKER. CALL LIGHT WITHIN REACH. EMPTIED URINAL. SIDE TABLE WITHIN REACH.
--- NOTE | 2020-01-13 01:03 | NUR ---
PT RESTING IN RECLINER WITH EYES CLOSED, NAD.
--- NOTE | 2020-01-13 02:58 | NUR ---
PT RESTING IN BED LYING ON RIGHT SIDE. EYES CLOSED. RR EVEN AND UNLABORED.
--- NOTE | 2020-01-13 05:14 | NUR ---
PT SBA TO RECLINER. BLE ELEVATED. VS DONE. PT REMAINS AFEBRILE. SpO2 93% ON RA. PT DENIES SOB. NO PAIN OR NAUSEA. FRESH ICE WATER PROVIDED.
--- NOTE | 2020-01-13 06:11 | NUR ---
PT SLEPT WELL. ALTERNATES BETWEEN BED AND RECLINER. ALERT AND ORIENTED. USES CALL LIGHT. RA. AFEBRILE. PRODUCTIVE COUGH. IV ABX. SBA. DENIES PAIN OR NAUSEA.
--- NOTE | 2020-01-13 07:29 | NUR ---
REPORT RECEIVED FROM CRISTINA BROCK. PT UP TO CHAIR. PT DENIES PAIN AND NAUSEA. PT ANTICIPATING DISCHARGE TODAY. NO REQUESTS OR COMPLAINTS AT THIS TIME. CALL DALE MURILLO.
--- NOTE | 2020-01-13 08:37 | NUR ---
PATIENT UP IN BATHROOM. LINENS CHANGED, AM CARE DONE INDEPENDENTLY. PATIENT IN CHAIR, CALL [facility] IN REACH, NO OTHER NEEDS AT THIS TIME
--- NOTE | 2020-01-13 08:51 | NUR ---
MORNING ASSESSMENT AND MEDICATION DUE. PT UP TO CHAIR REVIEWING HANDOUTS ON DIAGNOSIS. PT DENIES PAIN AND NAUSEA AND REPORTS HE IS READY TO GO HOME. ASSESSMENT DONE. LUNG SOUNDS CLEAR. LARGE ABDOMINAL HERNIA PRESENT, PT STATES HE HAS APOINTMENT IN [place] TO HAVE HERNIA REPAIRED. BOWEL TONES ACTIVE. MEDICATIONS GIVEN. PT DENIES ADDITIONAL REQUESTS OR COMPLAINTS AT THIS TIME. CALL LIGHT WITHIN REACH.
--- NOTE | 2020-01-13 09:46 | NUR ---
Pt. was sitting up in chair. Vitals and I&O's taken and charted. Pt. linens were changed. Call light was in reach.
--- NOTE | 2020-01-13 10:02 | NUR ---
THIS RN TO ROOM TO CHECK ON PT. ABX INFUSION COMPLETE. PT UP TO CHAIR WATCHING THE NEWS. PT STATES HE HAS NO REQUESTS OR COMPLAINTS. CALL LIGHT [employer].
[2020-01-13] MEDS ORDERED: CEFPODOXIME PR200 MG PO (10:40)
--- NOTE | 2020-01-13 11:18 | NUR ---
PT READY FOR DISCHARGE. IV DC'D PER PROTCOL. GAUZE AND COBAN APPLIED. VITALS TAKEN. DISCHARGE INSTRUCTIONS REVIEWED WITH PT AND . PT VERBALIZES UNDERSTANDING OF INSTRUCTIONS, MEDICATION AND FOLLOW UP APPOINTMENT. PHARMACIST TO BEDSIDE TO REVIEW MEDICATIONS. PT TRANSFERES SELF TO WHEELCHAIR. PT WHEELED FROM UNIT. NO ADDITIONAL CONCERNS OR REQUESTS.
--- NOTE | 2020-01-13 13:09 | NUR ---
PT STANDING UP, GETTING DRESSED AND READY FOR DC. PTS' IN TO HELP. HE SEEMS SO MUCH BETTER, BIG SMILE AND THANKED ME FOR CHECKING ON HIM. GAVE A BLESSING
--- NOTE | 2020-01-13 14:57 | NUR ---
Spoke with Art and his . They are discharging to home and pt. is dressed. Deny any needs to go home. Will follow up with Dr. Ramirez.
== END 2020-01-13 11:25 | disposition home or self-care (01) | DRG 871 ==
LOC: ED 03:15 → CCU 05:24 → MS 01-12 00:33
PROVIDERS: ADMIT Internal Medicine
DX: A40.3 Sepsis due to Streptococcus pneumoniae (principal); J13 Pneumonia due to Streptococcus pneumoniae; R13.12 Dysphagia, oropharyngeal phase; I49.5 Sick sinus syndrome; Z95.0 Presence of cardiac pacemaker; I10 Essential (primary) hypertension; N40.0 Benign prostatic hyperplasia without lower urinary tract symptoms; K21.9 Gastro-esophageal reflux disease without esophagitis; E78.5 Hyperlipidemia, unspecified; Z87.891 Personal history of nicotine dependence; I69.991 Dysphagia following unspecified cerebrovascular disease
CPT/HCPCS: 36415; 71045; 80048; 80053; 81001; 83605; 85025; 87070; 87205; 93005; 93010; 94760; 96360; 97162; 99285-25; J0456; J0696; J1650; J7030; J7060; J7121

== ENCOUNTER 2020-12-08 18:26 | Inpatient (IN) | payer MEDICARE, OTHER ==
[~2020-12-08] VITALS: Ht 172.7 cm; Wt 88.4 kg
[~2020-12-08 18:26] MED LIST changes: -APRISO0.375 GM PO; +CEFPODOXIME PR200 MG PO; +LIALDA1.2 GM PO; +NORTRIPTYLINE H10 MG PO; +ST. JOSEPH ASPI81 MG PO
--- OUTSIDE RECORDS SUMMARY | 2020-12-08 18:28 | XMS ---
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 Faraz has no Care Guidelines for this patient. [place] VISIT COUNT (12 MO.) 2 [facility] TOTAL 2 NOTE: Visits indicate total known visits. ED/C VISIT TRACKING (12 MO.) 12/08/2020 18:26 [facility] TYPE: Emergency COMPLAINT: - WEAKNESS 01/11/2020 03:15 [facility] TYPE: Emergency COMPLAINT: - WEAKNESS INPATIENT VISIT TRACKING (12 MO.) 12/05/2020 08:36 [facility] Iman [facility]CHO[facility] TYPE: Surgical Services DIAGNOSES: - Impingement syndrome of left shoulder - Bicipital tendinitis, left shoulder - Complete rotator cuff tear or rupture of left shoulder, not specified as traumatic 01/11/2020 05:24 [facility] [place] TYPE: Medical Surgical COMPLAINT: - SEPSIS/PNEUMONIA DIAGNOSES: - Gastro-esophageal reflux disease without esophagitis - Personal history of nicotine dependence - Dysphagia, oropharyngeal phase - Personal history of nicotine dependence - Dysphagia, oropharyngeal phase - Hyperlipidemia, unspecified - Benign prostatic hyperplasia without lower urinary tract symptoms - Personal history of transient ischemic attack (TIA), and cerebral infarction without residual deficits - Sick sinus syndrome - Benign prostatic hyperplasia without lower urinary tract symptoms - Hyperlipidemia, unspecified - Sepsis due to Streptococcus pneumoniae - Sick sinus syndrome - Essential (primary) hypertension - Presence of cardiac pacemaker - Pneumonia, unspecified organism - Dysphagia following unspecified cerebrovascular disease - Dysphagia following unspecified cerebrovascular disease - Gastro-esophageal reflux disease without esophagitis - Essential (primary) hypertension - Presence of cardiac pacemaker - Pneumonia due to Streptococcus pneumoniae - Pneumonia due to Streptococcus pneumoniae [email or web address]
--- NOTE | 2020-12-08 22:45 | NUR ---
THIS RAYON WINDER BROUGHT PT TO THE FLOOR, 3PA TRANSFER TO [facility] BED, VITAL DONE, PT OUT OF CLOTHES AND INTO GOWN, WATER PROVIDED WITH WATER
--- NOTE | 2020-12-08 23:10 | NUR ---
PT ARRIVED TO [facility] AT 2233 VIA STRETCHER. 3PA TO SLIDE PT OVER TO BED. PT'S AT BEDSIDE, SHE STATES SHE CAN BRING HIS MESALAMINE MED IN TOMORROW MORNING SINCE WE DO NOT HAVE IT IN STOCK. PT STATES HE HAD COVID VACCINATION BUT DOES NOT REMEMBER WHICH ONE BUT KNOWS IT WAS 2 DOSES. PT'S WENT HOME FOR THE NIGHT. PRIMARY RN BHUPINDER IS IN ROOM HANGING LR. PT DENIES FURTHER NEEDS AT THIS TIME. CALL LIGHT IS CLOSE.
--- NOTE | 2020-12-08 23:25 | NUR ---
ASSISTED PT WITH CRISTINA LEDBETTER IN [facility]
--- NOTE | 2020-12-08 23:46 | NUR ---
coop with admit assessment. on o2 2.5L NC, lungs with coarse exp lung sounds. shallow breathing, sob with exertion noted. HOB elevated to his comfort moist frequent productive cough of yellow thick drainage noted, able to expectorate, uses kleenex. t/o. very large abd on the R side, "I had several hernia repair surgeries stated. Has had a recent pacemaker placement surgery. Irregular hert rate. Recent L shoulder surgery, this saturday. dressing in place, wearing a sling, good cms, weakness LE, edema at ankles. alert and oriented
--- NOTE | 2020-12-09 01:48 | NUR ---
IN TO ASSIST PT WITH URINAL, URINE SAMPLE TAKEN, SENT TO LAB, PROVIDED PT WITH SAMPLE CUP FOR SPUTUM , NO FURTHER NNEDS
--- NOTE | 2020-12-09 05:09 | NUR ---
pt on O2 2.5L NC, not chronic, lungs with coarse exp sounds. sob with exertion noted. IVF infusing w/o rpblems, no c/o adverse reaction to abx. Received a 500cc bolus after admission. has tolerated well. tolerating fluids. Abd large with more prominence R side. Slept off and on. c/o back pain. medicated with Tylenol 500mg po and warm blanket to back. Repositioned in bed. Currently, up to chair, 2pa. tolerated well. sob with exertion noted. HOB legs elevated. L arm dressing intact, slling in place, good cms. pt coopertaive. pleasant, alert and oriented. uses urinal, has attends due to dribbling. call light and fluids at bedside,
--- NOTE | 2020-12-09 06:30 | NUR ---
PT CALLED FOR ASSISTANCE BACK TO BED FROM CHAIR. 1PA TO BED, URINAL WITHIN REACH, AND CALL LIGHT IS CLOSE. PT WOULD LIKE TO USE URINAL WITHOUT HELP. ADVISED PT TO CALL IF HE NEEDS HELP WITH IT.
--- NOTE | 2020-12-09 06:37 | NUR ---
in bed, no further c/o back pain. O2 2.5L, moist productive cough of clear and creamy sputum present. sample sent to lab. hob elevated. ivf infusing, call light at hands reach, uses urinal. Back to bed after being in chair for a while. coop.
--- NOTE | 2020-12-09 07:09 | NUR ---
REPORT RECEIVED FROM CRISTINA ROE. PT RESTING IN BED WITH EYES CLOSED, RESPIRATIONS EVEN, MILD SNORING NOTED, MOUTH OPEN WITH BREATHING. HEAD OF BED ELEVATED TO [address] PT ALLOWED TO REST UNDISTURBED. BED RAILS UP. CALL LIGHT WITHIN REACH.
--- NOTE | 2020-12-09 09:00 | NUR ---
INTO PATIENT ROOM, PATIENT SITTING UP AT BEDSIDE. PATIENT C/O NEED TO RETURN TO BED HE IS COLD AND HE HAS "NOT SEEN A NURSE IN 10 MINUTES." PATIENT ASSISSTED BACK TO BED WITH ASSIST FROM JOVANNY RAMON AND DONY EVANS. WARM BLANCKET PROVIDED. CASE MANAGEMENT ASSESSMENT COMPLETED, PLEASE SEE FURTHER DOCUMENTATION. PATIENT STATES HE HAD SHOULDER SURGERY AT THE [facility] ON 12/05/2020 AND HAD BEEN RECOVERING WELL PRIOR TO HIS ADMISSION. PATIENT STATES HE HAS HAD A PERSISTANT COUGH FOR 2 MONTHS AND HAS SEEN SEVERAL PHYSICIANS PRIOR TO COMING TO THE ER. PATIENT LIVES IN A ONE STORY HOME WITH HIS SHANTEL WHO HAS BEEN PROVIDING CARE FOR HIM SINCE HIS SURGERY. PATIENT STATES THEY HAVE ONE STEP INTO THE HOME WITH A RAIL. HE DOES USE A CANE FOR MOBILITY AND DENIES RECENT FALLS. [facility] VEGA FOR PRIMARY CARE SERVICES. PATIENT DENIES FINANCIAL NEEDS STATING HE IS RETIRED FROM THE [facility] AND [facility] FULL [facility]. PATIENT DOES NOT NORMALLY REQUIRE OXYGEN AT HOME, THOUGH DUE TO HYPOXIA AFTER SURGERY PATIENT WAS DC'D WITH HOME OXYGEN. AT THE END OF THE CONVERSATION WITH PATIENT HE APPEARS SHOB AND FATIGUED. WILL CONTINUE TO FOLLOW UP WITH PATIENT DURING HIS VISIT.
--- NOTE | 2020-12-09 09:20 | NUR ---
MORNING ASSESSMENT AND MEDICATION DUE. THIS RN TO ROOM. PT RESTING IN BED WITH HEAD OF BED ELEVATED TO 30 DEGREES. PTS AIRWAY NOTED TO BE MOIST, FREQUENT MOIST COUGHS AND PHELEM. PT REPORTS HE IS "NOT STRONG ENOUGH"TO SPIT PHELEM OUT. PT IS SCOOPING PHELM FROM MOUTH WITH TISSUES. SUCTION SET UP AND MODERATE-LARGE AMOUNTS OF YELLOW PHELEM NOTED WITH SUCTIONING. PT TAUGHT TO USE SUCTION AND DEMONSTRATES UNDERSTANDING. PT REPORTS "THAT'S MUCH EASIER, I LIKE THAT." IV ASSSESSE, WNL, IV FLUIDS INFUSING. NO S/S OF PHELBITIS NOTED. PT DENIES PAIN AND NAUSEA. PT REPORTS "I HAVEN'T HAD ANY PAIN WITH THIS SHOULDER SURGERY, I WAS REALLY SURPRISED." PT OREINTED TO ALL, ALERT AND ANSWERING QUESTIONS APPROPRIATLY. PT DENIES NUMBNESS AND TINGLING INCLUDING IN LEFT ARM/SHOULDER. PT UP TO CHAIR WITH 1 PERSON ASSIST. PT REPORTS HE FEELS STRONGER TODAY STATING "I'M WASN'T ABLE TO WALK AT ALL YESTERDAY AND TODAY I CAN STAND!" SMALL AMOUNTS OF EDEMA NOTED IN LEFT SHOULDER AND BLE. LEGS ELVATED IN RECLINER. PTS ABDOMEN LARGE AND SHIFTED TO RIGHT SIDE. PT REPORTS HE HAS AN OLD HERNIA THAT HE HAS DECIDED NOT TO REPAIR. PT STATES "THE ONLY THING HOLDING IN MY GUTS IS MY SKIN" PT STATES HE HAS HAD 9 SURGERIES FOR THIS HERNIA IN THE PAST. PT DENIES PROBLEMS WITH CONSTIPATION. BOWEL TONES NOTED. PT DEMONSTRATES USE OF CORNET X10. DRESSING TO LEFT SHOULDER C/D/I. UNABLE TO ASSESS WOUND BED WOUND IS COVERED. SLING IN PLACE. PT REMAINS UP TO CHAIR. NO ADDITIONAL REQUESTS OR COMPLAINTS AT THIS TIME. CALL LIGHT WITHIN REACH. PT EASILY VIEWED FROM NURSES STATION.
[2020-12-09] MEDS ORDERED: TYLENOL EXTRA500 MG PO (10:34)
[2020-12-09] MEDS ORDERED: REFRESH LIQUIGE15 ML OU (10:35)
[2020-12-09] MEDS ORDERED: VITAMIN B-121000 MCG PO (10:35)
--- NOTE | 2020-12-09 10:52 | NUR ---
THIS RN TO ROOM TO CHECK ON PT. PT REMAINS UP TO CHAIR. PT REPORTS HIS COUGH IS "MUCH BETTER" WHILE UP IN THE CHAIR COMPAIRD TO LYING IN BED. PT REPORTS HE FEELS STRONGER TODAY AND "BETTER" OVERALL. WARM BLANKETS PROVIDED PER PT REQUEST. PT CONTINUES TO HAVE MODERATE AMOUNTS OF YELLOW PHELM, SUCTION IN HAND. PT DENIE ADDITIONAL REQUESTS OR COMPLAINTS. CALL LIGHT WITHIN REACH. PT EASILY VIEWED FROM NURSES STATION.
[2020-12-09] MEDS ORDERED: FLUTICASONE PRO16 GM NAS (11:26)
[2020-12-09] MEDS ORDERED: IPRATROPIUM BRO30 ML NAS (11:27)
[2020-12-09] MEDS ORDERED: MAGOX 400400 MG PO (11:29)
[2020-12-09] MEDS ORDERED: MULTI-VITAMIN1 EAC1 PO (11:31)
--- NOTE | 2020-12-09 11:31 | NUR ---
THIS RN TO ROOM TO CHECK ON PT. PT REPOSITIONED IN CHAIR. PT ABLE TO STAND WITH STAND BY ASSIST AND READJUSTED POSITION IN CHAIR. PT REPORTS HE LOST A HEARING AID AND CANNOT REMEMBER WHERE IT WAS LOST. LINENS CHANGED AND CHECK, NO HEARING AID FOUND. ER CALLED, NO HEARING AID FOUND. WILL CONTINUE TO LOOK. PT STATES "IT MIGHT BE AT HOME." NO ADDITIONAL REQUESTS OR COMPLAINTS CALL LIGHT WITHIN REACH. FAMILY AT BEDSIDE.
[2020-12-09] MEDS ORDERED: HYDROCODON-ACE1 EA10 PO (11:32)
--- NOTE | 2020-12-09 11:59 | NUR ---
THIS RN TO ROOM TO CHECK ON PT. PTS AT BEDSIDE AND HAS BROUGHT PTS HOME MESALAMINE. MEDICATION BOTTLE SENT TO PHARMACY. PT STATES HE "ALREADY TOOK A PILL" THIS MORNING WHEN HIS BROUGHT IN THE MEDICATION. PHARAMCIST UPDATED. MEDICATION DOCUMENTED GIVEN. PT UP WITH 1 PERSON ASSIST TO RESTROOM, DEPENDS CHANGED. ROOM EXAMINED FOR HEARING AID. NOT FOUND. PT DENIES PAIN AT THIS TIME. CALL LIGHT WITHIN REACH. NO ADDITIONAL REQUESTS OR COMPLAINTS. FAMILY AT BEDSIDE.
--- NOTE | 2020-12-09 12:06 | NUR ---
pTS SISTER FIONA CALLED AND UPDATED PER PTS REQUEST. FIONA VERBALIZES UNDERSTANDING OF PLAN OF CARE AND STATES HER QUESTIONS HAVE BEEN ANSWERED.
--- NOTE | 2020-12-09 14:26 | NUR ---
AFTERNOON ASSESSMENT AND MEDICATION DUE. PT UP TO CHAIR. PT DENIES PAIN AND NAUSEA. LUNG SOUNDS REMAIN COURSE. PT REMAINS ON 2.5L O2 BY NC. WITH OXYGEN SATURATION AT 92%. EXPIARTORY WHEEZES NOTED. PRODUCTIVE COUGH CONTINUES. WITH MODERATE AMOUNT OF YELLOW SPUTUM NOTED. PT USING SUCTION DEVICE TO SUCTION OUT SPUTUM. HEART RATE OF 62. HEART TONES REGULAR AT THIS TIME. GENERALIZED WEAKNESS CONTINUES. PT ENCORUAGED TO SHOWER TODAY, PT DECLINES. LEFT ARM RANGE OF MOTION LIMITED BY POST OP SLING PLACEMENT AND INSTRUCTIONS. CMS INTACT TO ALL EXTREMITIES WITH NO NUMBNESS OR TINGLING NOTED. PT REPORTS OVER ALL HE IS FEELING "A LOT BETTER" THAN YESTERDAY AND "BETTER" THAN THIS MORNING. PT REPORTS HIS LAST BOWEL MOVEMENT WAS "4 DAYS AGO." PT REPORTS FEELING CONSTIPATED. MD CONSUTLED PT HAS LARGE ABDOMINAL HERNIA. NEW ORDERS PLACED. TAPE RECORDING MACHINE OPERATOR REPORTS PT HAD DIFFICULTY SWALLOWING DURING LUNCH TODAY, "COUGHING WITH THE SMALL PIECES OF GROUND MEAT." MD UPDATED AND DIET ORDERS CHANGED. EDUCATION DONE WITH PT REGARDING NEW DIET ORDERS. PT AND VERBALIZE UNDERSTANDING. DRESSING TO LEFT SHOULDER C/D/I WITH NO DRAINAGE NOTED. LEFT ARM REMAINS IN SLING, LIQUOR ESTABLISHMENT MANAGER STRONG, PT DENIES NUMBNESS OR TINGLING. PT REMAINS UP TO CHAIR. CALL LIGHT WITHIN REACH. PTS AT BEDSIDE. I.S. USE DEMONSTRATED X5 REACHING 1250ML. CORNET USE DEMONSTRATED X10. ICE WATER REFILLED. NO ADDITIONAL REQUESTS OR COMPLAINTS.
--- NOTE | 2020-12-09 14:35 | NUR ---
MED REC COMPLETE
--- NOTE | 2020-12-09 14:59 | NUR ---
MEDICATION FOR CONSTIPATION READY. PT EDUCATION DONE REGARDING MEDICATION, SIDE EFFECTS AND WHAT TO EXPECT. PT VERBALIZES UNDERSTANDING AND STATE THIS MEDICATION SEEMS "LIKE A GOOD PLAN." PT DENIES ADDITIONAL REQUESTS OR COMPLAINTS. CALL LIGHT WITHIN REACH. PTS AT BEDSIDE.
--- NOTE | 2020-12-09 16:34 | NUR ---
THIS RN TO ROOM TO CHECK ON PT. PT RESTING IN BED. PT ENCOURAGED TO GET UP TO AMBULATE. PT AGREES. PT UP WITH FWW TO AMBULATE IN DUONG X1 LAP WITH ONE REST BREAK. PT REMAINS ON 2.5L O2 BY NC WITH AMBULATION. O2 SATURATION 92% UPON RETURN TO ROOM. 1 PERSON ASSIST PROVIDED. PT UNSTEADY ON FEET. LEFT ARM REMAINS IN SLING WITH AMBULATION. PT BACK TO BED. PT REPORTS 6/10 CHRONIC ACHING BACK PAIN. PT REQUEST TYELNOL, SEE MAR FOR MEDICATION GIVEN. IV ASSESSED (WNL, NO PHELBITIS NOTED). IV MAGNEIUSM INFUSION STARTED. PT WATCHIGN TV. NO ADDITIONALR EQUESTS OR COMPLAINTS. CALL LIGHT WITHIN REACH. AT BEDSIDE. BED RAILS UP.
--- NOTE | 2020-12-09 17:18 | NUR ---
PT HERE FOR RLL PNEUMONIA. PT UP TO CHAIR AND TO AMBULATE THIS SHIFT WITH ONE PERSON ASSIST AND FWW. LEFT ARM REMAINS IN SLING, POST OP SHOULDER SURGER. DRESSING C/D/I WITH NO CHANGES NOTED. PT DENIES PAIN AND NAUSEA THIS SHIFT. COUGHING AND CHOAKING NOTED THIS SHIFT AT LUNCH RELATED TO CHOPPED FOODS. DIET CHANGED TO PUREED WITH 2 GM SODIUM RESTRICION, MINIMAL APPITITE. ENSURES ENCOURAGED, PT AGRRES TO TRY AT BREAKFAST TOMORROW MORNING. BOWEL MOVEMENT THIS SHIFT. RIGHT AC IV SALINE LOCKED WITH SCHEDULED ABX. MAGNESIUM RIDER GIVEN THIS SHIFT. pT CONTINUES TO WEAR 2.5L 2 BY NC WITH OXYGEN SATURATIONS IN THE LOW 90'S. I.S. AND CORNET USE ENSURED WITH PT REACHING 1250ML. ATTENDS IN PLACE FOR DRIBBLING, PT VOIDING QUANTITY SUFFICIENT. PT REPORTS CONSTIPATION, LACTULOSE GIVEN THIS SHIFT. SCHEDULED SENNA ORDERED. PT USES CALL LIGHT INCONSISTANTLY. FAMILY AT BEDSIDE THIS SHIFT.
--- NOTE | 2020-12-09 17:55 | NUR ---
THIS RN TO ROOM TO CHECK ON PT. PT UP TO CHAIR. FINISHED WITH DINNER. PT ATE 95% OF DINNER, NO CHOAKING OR INCREASE IN COUGHING NOTED. PT REPORTS 6/10 BACK PAIN STATING "IT'S ALWAYS A 6/10." HEAT AND ICE PACKS OFFERED, PT DECLINES STATING "MAYBE AT BEDTIME." PT DECLINES ADDITIONAL PAIN INTERVENTIONS. I.S. USE DEMONSTRATED REACHING 1250ML. CORNET USE DEMONSTRATED. PT ASSISTED WITH REPOSITIONING IN CHAIR. PT WATCHING TV. NO ADDITIONAL REQUESTS OR COMPLAINTS. CALL LIGHT WITHIN REACH.
--- NOTE | 2020-12-09 19:20 | NUR ---
SHIFT REPORT FROM NURSE BILLY. PT APPEARS TO BE SLEEPING WITH EYES CLOSED AND EVEN BREATHING NOTED. NO APPARENT SIGNS OF DISTRESS. CALL LIGHT WITHIN REACH.
--- NOTE | 2020-12-09 19:55 | NUR ---
PT CALLED FOR ASSISTANCE TO THE RESTROOM. HE WILL PULL CALL STRING WHEN HE IS DONE.
--- NOTE | 2020-12-09 20:28 | NUR ---
PT IS NOW BACK IN BED AFTER USING THE RESTROOM. BOOSTED PT AND HE NOW DENIES FURTHER NEEDS. CALL LIGHT IS CLOSE.
--- NOTE | 2020-12-09 21:35 | NUR ---
IN ROOM TO ADMINISTER IV ABX FOR PRIMARY RN. IV FLUSHES WELL AND IV ABX IS INFUSING. VS TAKEN AND ENTERED, FRESH ICEWATER AT BEDSIDE. PT DENIES FURTHER NEEDS. CALL LIGHT IS CLOSE.
--- NOTE | 2020-12-09 21:50 | NUR ---
IN ROOM FOR ASSESSMENT AND MEDS. PT IS AWAKE AND TALKATIVE, SITTING UP IN BED WATCHING TV. VSS. PT REPORTS 5/10 PAIN IN BACK AND SHOULDER. PRN TYLENOL GIVEN AT THIS TIME. PT REPORTS A BOWEL MOVEMENT AND STATES HE FEELS MUCH BETTER NOW. LUNG SOUNDS COARSE, MOIST. PT STILL COUGHING AND HAVING PHLEGM AND YELLOWISH SPUTUM. PT USES WALL SUCTION TO SUCTION MOUTH FREE FROM PHLEGM. PT REQUESTS TO SIT UP IN CHAIR. SBA TO CHAIR. PT REPORTS USING I.S AND CORONET FREQUENTLY. CALL LIGHT AND BEDSIDE TABLE WITHIN REACH. NO FURTHER NEEDS AT THIS TIME.
--- NOTE | 2020-12-09 23:46 | NUR ---
CALL LIGHT ANSWERED. SBA BACK TO BED. CALL LIGHT AND WALL SUCTION GIVEN TO PT. BEDSIDE TABLE AND URINAL WITHIN REACH. NO FURTHER NEEDS AT THIS TIME.
--- NOTE | 2020-12-10 01:36 | NUR ---
CHECKED ON PT. PT AWAKES THIS NURSE ENTERS ROOM. URINAL EMPTIED. PT REPORTS SLEEPING "OFF AND ON". NO FURHTER NEEDS AT THIS TIME. CALL LIGHT AND BEDSIDE TABLE WITHIN REACH.
--- NOTE | 2020-12-10 02:27 | NUR ---
CALL LIGHT ANSWERED. SBA TO TOILET; PT TRIED TO HAVE A BM BUT ONLY URINATED. PT RETURNED TO BED, CALL LIGHT, BEDSIDE TABLE, AND SUCTION WITHIN REACH. PT USING CORONET AND I.S. WHILE THIS NURSE IN ROOM. IV ABX INFUSING PER ORDER.
--- NOTE | 2020-12-10 03:34 | NUR ---
CALL LIGHT ANSWERED. PT UP TO CHAIR HE STATES THE BED IS HURTING HIS BACK. PRN TYLENOL ADMINISTERED AT THIS TIME. CALL LIGHT, BEDSIDE TABLE AND SUCTION WITHIN REACH. NO FURTHER NEEDS AT THIS TIME.
--- NOTE | 2020-12-10 04:36 | NUR ---
CALL LIGHT ANSWERED. PT RETURNED TO BED, CALL LIGHT AND SUCTION WITHIN REACH. ASSESSMENT COMPLETE. LUNGS SOUNDS ARE IMPROVED SINCE LAST ASSESSMENT. NO FURTHER CARE NEEDS AT THIS TIME.
--- NOTE | 2020-12-10 06:10 | NUR ---
PT CALLED FOR HELP TO RESTROOM. ASSISTED PT TO THE CHAIR. FRESH ICEWATER AT BEDSIDE AND HE DENIES FURTHER NEEDS. CALL LIGHT IS CLOSE.
--- NOTE | 2020-12-10 07:47 | NUR ---
REPORT RECIEVED FROM CRISTINA MORAN. PT UP TO CHAIR. REMAINS ON 2.5L O2 BY NC WITH OXYGEN SATURATION OF 92%. PT REPORTS COUGH IS IMPROVING AND HE HAS HAD TO USE THE SUCTION LESS. PT REPORTS BASELINE 6/10 BACK PAIN AND DENIES NEED FOR INTERVENTIONS AT THIS TIME. NO ADDITIONAL REQUESTS OR COMPLAINTS. CALL LIGHT WITHIN REACH, PT EASILY VIEWED FROM NURSES STATION.
--- NOTE | 2020-12-10 09:33 | NUR ---
MORNING ASSESSMENT AND MEDICAITON DUE. PT BACK TO BED, RESTING WITH EYES CLOSED, HEAD OF BED ELVATED TO 42 DEGREES. RESPIRATIONS EVEN AND UNLABORED. PT AWAKENES TO MOVEMENT IN THE ROOM. PT REPORTS ONGOING BASELINE PAIN IN BACK AT 6/10. PT DECLINES TYELNOL AT THIS TIME. STATING "NO i'LL WAIT TILL I REALLY NEED IT." PT DENIES NAUSEA. PT STATES HE DOES NOT LIKE THE PUREED DIET IT REMINDS HIM OF THE FOOD HE ATE WHEN HE HAD POLIO. PT STATES "I REFUSE TO EAT THAT STUFF." PT DOES STATE THAT HE ENJOIED THE ENSURE MILKSHAKE PROVIDED WITH BREAKFAST. ADDITIONAL ENSURE MILKSHAKE PROVIDED FOR PT AT THIS TIME. PT ALERT AND ORIENTED TO ALL. GENERALIZED WEAKNESS CONTINUES. LEFT SHOULDER ROM IMPAIRED. CMS INTACT TO ALL EXREMITIES. LEFT SHOULDER REMAINS IN SLING AT THIS TIME. DRESSING TO LEFT SHOULDER C/D/I. LUNG SOUNDS CONTINUE TO BE COURSE ON RIGHT SIDE BUT IMPROVING COMPARED TO YESTERDAY. PT REPORTS HE IS COUGHING LESS TODAY. PRODUCTIVE COUGH CONTINUES WITH MODERATE AMOUNT OF THICK YELLOW SPUTUM. PT USING SUCTION TO REMOVE SECRETIONS FROM MOUTH. PT DEMONSTRATES USE OF CORNET X10 AND I.S. X10 REACHING 1750ML ON I.S. PT DENIES CONSTIPATION THIS SHIFT BUT AGREES TO TAKE SENNA "JUST IN CASE." NO ADDITIONAL REQUESTS OR COMPLAINTS. CALL LIGHT WITHIN REACH. BED RAILS UP.
--- NOTE | 2020-12-10 10:27 | NUR ---
PUMP ALARMING, INFUSION AND FLUSH COMPLETE. IV SALINE LOCKED AT THIS TIME. FLUSHES EASILY, NO S/S OF PHELBITIS. ALCOHOL CAP APPLIED. PT WEANED TO ROOM AIR, O2 SATURATIONS FROM 90-94% ON ROOM AIR WHILE RESTING. PT UP TO AMBULATE IN [place], O2 DROPS TO 84% ON ROOM AIR WITH AMBULATION. PT AMBULATE 1 SMALL LAP IN DUONG WITH STAND BY ASSIST AND CANE. PT BACK TO ROOM. OXYGEN SATURATION RECOVERS WITHIN 3 MINUTES TO 90-92% ON ROOM AIR. PT REPORTS HE FEELS "PRETTY GOOD, i DONT' THINK I NEED THAT OXYGEN." PT FINISHING 2ND ENSURE MILKSHAKE AND VISITING WITH WHILE UP TO CHAIR. NO ADDITIONAL REQUESTS OR COMPLAINTS. CALL LIGHT WITHIN REACH. AT BEDSIDE.
--- NOTE | 2020-12-10 11:00 | NUR ---
PT CALL LIGHT ON. PT REQUESTS ASSISTANCE UP TO SHOWER AND BATHROOM. PT IMPULSIVE AND INSISTS ON SHOWERING NOW OR "I CAN JUST DO IT MYSELF." THIS RN TO ROOM. 1 PERSON ASSIST UP WITH CANE TO RESTROOM. PT VOIDS 200ML CLEAR YELLOW URINE. PT UP TO SHOWER WITH ASSISTANCE FROM THIS RN. SLING REMOVED FOR SHOWER. LEFT ARM SUPPORTED DURING SHOWER WITH TOWELS AND ASSISTANCE FROM PT. SKIN CARE DONE. SHAMPOO PERFORMED. NAY CARE PERFORMED. NO NEW SKIN WOUNDS NOTED AT [facility] TIME. PT DELINCES ORAL CARE STATING "I ALREADY DID IT WITH MY ." PT DENIES PAIN WITH SHOWER. PT UP TO TOILET AGAIN AND VOIDS AN ADDITIONAL 200ML CLEAR YELLOW URINE. NAY CARE PROVIDED. FRESH GOWN SOCKS AND UNDERWARE PROVIDED. HAIR COMBED. SLING REPLACED TO LEFT ARM. SECURED AROUND RIGHT SHOULDER AND WITH WASTE STRAP. CMS REMAINS INTACT. PT REPORTS SLING FEELS COMFORTABLE. PT BACK TO CHAIR WITH STAND BY ASSIST AND CANE. WARM BLANKETS PROVIDED. PT REPORS "ONLY MY NORMAL BACK PAIN." AND DENIES NEED FOR ADDITIONAL INTERVENTIONS. O2 93% ON ROOM AIR. PT VISITING WITH . NO ADDIITONAL REQUESTS OR COMPLAINTS. CALL LIGHT WITHIN REACH.
--- NOTE | 2020-12-10 13:32 | NUR ---
AFTERNOON ASSESSMENT DUE. THIS RN TO ROOM. PT UP TO CHAIR VISITING WITH . PT REPORTS ACHING BACK PAIN AT 610 REMAINS THE SAME, PT CONTINUES TO DECLINE PAIN MEDICATION OR OTHER INTERVENTIONS AT THIS TIME. STAND BY ASSIST WITH CANE UP TO RESTROOM. PT VOIDS 250ML WITHOUT ISSUE. NAY CARE DONE. STAND BY ASSIST BACK TO BED, PT REPORTS HE WOULD LIKE TO REST THIS AFTERNOON AND STATES HE WOULD BE WILLING TO WALK AGAIN AFTER RESTING FOR A WHILE. PT CONTINUES TO BE ALERT AND ORIENTED. LUNG SOUNDS CLEARING, UPPER LOBES CEAR AT THIS TIME. RLL SLIGHLY CORSE, LUNG SOUDNS OTHERWISE CLEAR. PT TOELRATING ROOM AIR WITH O2 SATURATIONS NOW ABOVE 92% CONSISTANTLY. CURRENTLY 95% ON ROOM AIR. PT DEMONSTRATES USE OF I.S. REACHING 1750ML. UPPER AIRWAY CONGESTION CONTINUES WITH COUGH PRODUCING YELLOW SPUTUM. PT REPORTS COUGH HAS DECREASED. LEFT ARM REMAINS IN SLING. CMS REMAINS INTACT TO ALL EXREMITIES. DRESSING TO LEFT SHOULDER C/D/I. PT DENIES PAIN TO LEFT SHOULDER. PT DENIES ADDITIONAL REQUESTS OR COMPLAINTS AT THIS TIME. CALL LIGHT WITHIN REACH. BED RAILS UP. AT BEDSIDE.
--- NOTE | 2020-12-10 14:17 | NUR ---
MEDICATION ARRIVED FROM PHARMACY. GIVEN ORDERED (SEE MAR). IV ASSESSED PRIOR TO STARTING IV ABX. IV WNL, BLOOD RETURN NOTED. IV ABX STARTED. PT CONTINUES RESTING IN BED. NO ADDITIONAL REQUESTS OR COMPLAINTS. DIETARY TO BEDSIDE TO ASK FOR DINNER ORDER. PT STATES "I'M NOT GOING TO EAT THAT SHIT." REFERING TO GROUND UP FOOD. "I REFUSE TO EAT ANYTHING PUREED LIKE THAT." NO DINNER ORDER PLACED AT THIS TIME. PT DECLINES MILK SHAKE, ENSURE, AND ANY OTHER OFFERED FOODS. WILL CONSULT ME. BED RAILS UP. CALL LIGHT WITHIN REACH.
[2020-12-10] MEDS ORDERED: CEFPODOXIME PR200 MG PO (14:59)
[2020-12-10] MEDS ORDERED: CLINDAMYCIN HC150 MG PO (15:00)
[2020-12-10] MEDS ORDERED: PROBIOTIC1 EAC5 PO (15:01)
[2020-12-10] MEDS ORDERED: LOSARTAN POTAS100 MG PO ×2 (15:02→16:52)
[2020-12-10] MEDS ORDERED: SENNA LAX8.6 MG PO (15:02)
--- NOTE | 2020-12-10 16:00 | NUR ---
PT READY FOR DISCHRAGE. PT DRESSED AND UP TO CHAIR. FURNITURE SALESPERSON TOOK VITAL SIGNS AND CRISTINA BEAN REMOVED PTS IV. DISCHRAGE INSTRUCTIONS REVEIWED WITH PT AND PTS . PT AND VERBALIZE UNDERSTANDING OF INSTRUCTIONS, MEDICAITON, FOLLOW UP AND WHEN TO CALL THE DOCTOR. PT STATES HIS QUESTIONS HAVE BEEN ANSWERED. PT WAITING TO TALK WITH PHARMACIST PRIOR TO DISCHARGE. CALL LIGHT WITHIN REACH.
--- NOTE | 2020-12-10 16:38 | NUR ---
MEDICATIONS DUE. GIVEN ORDERED. PT ANXIOUS TO LEAVE DEPARTMENT. RHONDA PHARMACIST TO BEDSIDE WITH RX INFORMATION AND EDUCATION FOR PT. PT VERBALIZES UNDERSTANDING OF MEDICATION AND STATES HIS QUESTIONS HAVE BEEN ANSWERED. PT TRANSFERS SELF TO WHEELCHAIR. PT WHEELED FROM MED/SURG, NO ADDITIONAL REQUESTS OR CONCERNS.
--- NOTE | 2020-12-10 18:59 | EKG ---
[facility] [address] [place] [address] Signed Sinus rhythm with premature atrial complexes Left axis deviation Abnormal ECG When compared with ECG of 11-JAN-2020 03:39, premature atrial complexes are now present Inverted T waves have replaced nonspecific T wave abnormality in Inferior leads Confirmed by MELINA HAWKINS MD ([id number]) on 12/10/2020 6:59:10 PM Electronically Signed By: MELINA HAWKINS MD 12/10/20 1859 PATIENT NAME: LUIS ALBERTO MADRIGAL Electrocardiogram DATE OF : 35 PHYSICIAN: MELINA HAWKINS MD REPORT #: [id number] REPORT IS CONFIDENTIAL AND NOT TO BE RELEASED WITHOUT AUTHORIZATION
== END 2020-12-10 17:19 | disposition home or self-care (01) | DRG 179 ==
LOC: ED 18:26 → MS 22:12
PROVIDERS: ADMIT Internal Medicine; ATTEND Internal Medicine
DX: J69.0 Pneumonitis due to inhalation of food and vomit (principal); J15.8 Pneumonia due to other specified bacteria; R13.12 Dysphagia, oropharyngeal phase; I10 Essential (primary) hypertension; E78.5 Hyperlipidemia, unspecified; K58.9 Irritable bowel syndrome, unspecified; Z20.822 Contact with and (suspected) exposure to COVID-19; Z79.899 Other long term (current) drug therapy; I49.5 Sick sinus syndrome; H93.299 Other abnormal auditory perceptions, unspecified ear; G47.00 Insomnia, unspecified; N40.0 Benign prostatic hyperplasia without lower urinary tract symptoms; Z95.0 Presence of cardiac pacemaker; Z88.0 Allergy status to penicillin; Z79.82 Long term (current) use of aspirin; Z79.01 Long term (current) use of anticoagulants; I69.391 Dysphagia following cerebral infarction
CPT/HCPCS: 71045; 80048; 80053; 80500; 81001; 83735; 84484; 85025; 85379; 87040; 93005; 93010; 94667; 94668; 94760; 94762; 96374; 99285-25; C9803; J0696; J1650; J3475; J3490; J7121; U0003

== ENCOUNTER 2020-12-25 09:20 | Observation (INO) | payer MEDICARE, OTHER ==
[~2020-12-25] VITALS: Ht 172.7 cm; Wt 88.0 kg
[~2020-12-25 09:20] MED LIST changes: +CLINDAMYCIN HC150 MG PO; +FLUTICASONE PRO16 GM NAS; +HYDROCODON-ACE1 EA10 PO; +IPRATROPIUM BRO30 ML NAS; +LOSARTAN POTAS100 MG PO; +MAGNESIUM OXID420 MG PO; -MELATONIN1 MG PO; +MELATONIN3 MG PO; +MULTI-VITAMIN1 EAC1 PO; +PROBIOTIC1 EAC5 PO; +REFRESH LIQUIGE15 ML OU; +SENNA LAX8.6 MG PO; +VITAMIN B-121000 MCG PO
--- OUTSIDE RECORDS SUMMARY | 2020-12-25 09:24 | XMS ---
PreManage Notification: LUIS ALBERTO MADRIGAL Security Spray Pilot Events No recent Security Events currently on file CRITERIA MET - [facility] - 2 Visits in 30 Days - History of Sepsis Dx CARE PROVIDERS JESSICA VEGA [facility] 12/09/2020-Current PHONE: [phone] Faraz has no Care Guidelines for this patient. EMerced VISIT COUNT (12 MO.) 3 [facility] TOTAL 3 NOTE: Visits indicate total known visits. ED/UCC VISIT TRACKING (12 MO.) 12/25/2020 09:21 [facility] TYPE: Emergency COMPLAINT: - SHORTNESS OF BREATH, FEVER 12/08/2020 18:26 [facility] TYPE: Emergency COMPLAINT: - WEAKNESS 01/11/2020 03:15 [facility] TYPE: Emergency COMPLAINT: - WEAKNESS INPATIENT VISIT TRACKING (12 MO.) 12/08/2020 22:12 [facility] TYPE: Medical Surgical COMPLAINT: - ASPIRATION PNA DIAGNOSES: - Other abnormal auditory perceptions, unspecified ear - Presence of cardiac pacemaker - Allergy status to penicillin - Dysphagia, oropharyngeal phase - Hyperlipidemia, unspecified - Benign prostatic hyperplasia without lower urinary tract symptoms - Insomnia, unspecified - 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 drier 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
--- NOTE | 2020-12-25 17:14 | EKG ---
[facility] [address] [facility] [place] [address] Signed Normal sinus rhythm Left axis deviation Low voltage QRS Nonspecific ST abnormality Abnormal ECG When compared with ECG of 08-DEC-2020 18:49, premature atrial complexes are no longer present Confirmed by MELINA HAWKINS MD ([id number]) on 12/25/2020 5:14:30 PM Electronically Signed By: MELINA HAWKINS MD 12/25/20 1714 PATIENT NAME: LUIS ALBERTO MADIRGAL Electrocardiogram DATE OF : 35 PHYSICIAN: MELINA HAWKINS MD REPORT #: [id number] REPORT IS CONFIDENTIAL AND NOT TO BE RELEASED WITHOUT AUTHORIZATION
--- NOTE | 2020-12-25 18:05 | NUR ---
THIS RN IN PTS ROOM TO ASSIST PT BACK TO BED. PT ABLE TO STAND AND TRANSFER WTIH MINIMAL ASSIST FROM THIS RN. PT STATES THAT HE IS COMFORTABLE IN BED AND NEEDS NOTHING FURTHER AT THIS TIME. CALL EMILY MURILLO
--- NOTE | 2020-12-25 18:25 | NUR ---
THIS RN IN PTS ROOM PER PT REQUEST STATING THAT "I HAVE FLEM IN MY MOUTH" THIS RN PROVIDED PT WITH EMESIS BAG TO SPIT FLEM UP AND SOME PAPER TOWELS TO WIPE MOUTH. THIS RN NOTED THAT PT DID NOT HAVE HIS O2 IN PLACE, THIS RN INSTRUCTED PT TO PLACE HIS NASAL CANNULA BACK IN HIS NARES. THIS RN DISCUSSED WITH PT THAT HE IS HERE FOR HYPOXIA SO HE NEEDS TO WEAR HIS OXYGEN, PT THEN STATED TO THIS RN "WHEN I GO HOME I AM NOT WEARING MY OXYGEN, I WOULD RATHER THAN WEAR IT AND I HAVE ALREADY DISCUSSED THIS WITH MY ." THIS RN INSTRUCTED PT TO WEAR THE O2 WHILE HERE. THIS RN PLACED PTS HEARING AIDS IN A URINE SAMPLE CUP, THIS RN ALSO PLACED PTS DENTURES IN A DENTURE CUP WITH EFFERDENT TABLET- PLACED IN BATHROOM
--- NOTE | 2020-12-25 19:15 | NUR ---
SHIFT REPORT RECEIVED FROM DAYSHIFT CRISTINA MAYER AT BEDSIDE. pt RESTING QUIETLY IN BED, EYES CLOSED. RR EVEN AND UNLABORED. 4LNC IN PLACE, NO DISTRESS NOTED. CALL LIGHT IN REACH AND BED ALARM ON FOR SAFETY.
--- NOTE | 2020-12-25 21:00 | NUR ---
SPOKE TO SORAIDA FROM LAB REGARDING BLOOD CULTURE ORDERED IN ED. PER SORAIDA, BOTH SETS OF BLOOD CULTURES WERE COLLECTED. ONE AT 1136 AND THE SECOND AT 1140.
--- NOTE | 2020-12-25 21:00 | NUR ---
IN ROOM TO COMPLETE BEDSIDE SWALLOW SCREEN, pt PASSED SCREENING. NO POCKETING, COUGHING, OR DIFFICULTY SWALLOWING DETECTED. pt STATES HE HAS HAD ISSUES SWALLOWING IN THE PAST "SINCE I WAS 14, I GOT POLIO". HOB ELEVATED WITH SCREEN AND pt SITTING UPRIGHT IN HIGH FOWLERS POSITION. MEDS GIVEN WITH THIN LIQUIDS, NO ISSUES DETECTED. pt REPOSITIONED IN BED, PILLOW UNDER LEFT AND RIGHT HIPS. NO FURTHER NEEDS VERBALIZED, CALL LIGHT IN REACH AND BED ALARM ON. pt DENIES NEED TO VOID.
--- NOTE | 2020-12-25 21:45 | NUR ---
PATIENT GOT UP TO BEDSIDE COMMODE 2PA THIS SECURITIES TELLER AND PRIMARY RN ELGIN. PATIENT VOIDED. PATIENT IS BACK IN BED. BED ALARM ON FOR SAFETY.
--- NOTE | 2020-12-25 22:00 | NUR ---
IV ABX INFUSING PER MD ORDERS, IV SITE WNL AND FLUSHES EASILY. YENNY MARRERO IN ROOM AND ASSISTED pt TO BSC, NO BM NOTED. 100MLS OUTPUT. pt BACK IN BED, REPOSITIONED IN BED. PILLOW PLACED UNDER LEFT HIP AND RIGHT ARM PER pt REQUEST. pt REPORTS HE TENDS TO LEAN TO THE RIGHT. SKIN TO BUTTOCKS AND COCCYX INTACT. NO REDDNESS OR SKIN BREAKDOWN NOTED. pt DENIES FURTHER NEEDS, CALL LIGHT IN REACH. BED ALARM RESUMED.
--- NOTE | 2020-12-25 22:35 | NUR ---
IV ABX COMPLETE, pt SALINE LOCKED. pt DENIES NEEDS OR CONCERNS. CALL LIGHT IN REACH AND BED ALARM ON.
--- NOTE | 2020-12-26 01:28 | NUR ---
CALL LIGHT ANSWERED, pt UP 1-2PA STAND PIVOT TO BSC. 100MLS OUTPUT NOTED, pt BACK TO BED. VSS, MID 90'S ON 4LNC, TITRATED DOWN TO 3LNC AND SUSTAINING 94-95%. WILL TITRATE PRN, CPOX IN PLACE TO MONITOR. NO FURTHER NEEDS, WATER OFFERED BUT DECLINED BY pt. BED ALARM RESUMED AND CALL LIGHT IN REACH.
--- NOTE | 2020-12-26 04:00 | NUR ---
IV ABX INFUSING PER MD ORDERS, CURRENT IV DISCONTINUED D/T PAIN WITH FLUSH. NEW IV STARTED BY BLANKET BINDER BAILEY, 20G. pt TOLERATED WELL. IV ABX STARTED. pt UP 1PA STAND PIVOT TO BSC AND BACK TO BED. NO NEEDS AT THIS TIME. CALL THO MURILLO. BED ALARM ON.
--- NOTE | 2020-12-26 04:40 | NUR ---
IV ABX COMPLETE, IV SITE WNL. pt DENIES NEEDS. SPO2 UPPER 80'S ON 2LNC, TITRATED TO 3LNC. NOW SUSTAINING IN LOW TO MID 90'S. CALL LIGHT IN REACH AND BED ALARM ON.
--- NOTE | 2020-12-26 06:50 | NUR ---
VS AND I&O'S COMPLETE. SCHEDULED AM MEDS GIVEN, NO POCKETING NOTED. NO ISSUES WITH SWALLOWING. pt IN CHAIR WITH ALSRM ON, CALL LIGHT IN REACH.
--- NOTE | 2020-12-26 08:30 | NUR ---
PT AWAKE IN ROOM SITTING UP IN CHAIR. FRESH ICE WATER GIVEN. PT IS VERY IONE. PT HAS BREAKFAST. WARM CLOTH GIVEN FOR FACE. WHITE BOARD UPDATED. CALL LIGHT WITHIN REACH. WARM BLANKET GIVEN. NO FURTHER NEEDS AT THIS TIME.
--- NOTE | 2020-12-26 09:45 | NUR ---
Up and down to bsc, no bm, passes gas, st in room to assess pt. Pt back in chair, no sob noted
--- NOTE | 2020-12-26 10:00 | NUR ---
down to DI via w/c for modified barium swallow evaluation.
--- NOTE | 2020-12-26 11:08 | NUR ---
PATIENT TO BED FROM CHAIR, SBA CANE. IN ROOM. CASE MANAGMENT IN ROOM AT THIS TIME. CALL LIGHT IN REACH. NO FURTHER NEEDS AT THIS TIME.
--- NOTE | 2020-12-26 11:30 | NUR ---
Spoke with pt and his , Nallely. They live in a s story house. He uses a cane and [facility]. would like him to use 02 but he declines and states he will not do so. [facility] a and [facility]. He also has Dr Ramirez here in [place] who is retiring the end of January. He would like to be switched to Dr. Jones when Dr. Ramirez retires. I called and scheduled a fu with Dr. Ramirez's office. Pt cont. to have issues with swallowing. He was evaluated by this am. Pt would like to dc to home when ready for dc. Denies needs. will assist him. Spoke with Bharati from Dr. Ramirez's office. For now they will keep him scheduled with Dr. Ramirez.
--- NOTE | 2020-12-26 13:01 | NUR ---
PT was sitting up in chair and appeared to have just finished breakfast. Had difficulty hearing me until he put in his hearing aids. Expressed satisfaction with care and frustration with returning bouts of illness. Hopes this is the last one for a while. Prayed together for return of health.
--- NOTE | 2020-12-26 13:32 | NUR ---
PATIENT UP TO CHAIR, SBSushma CANE. IN ROOM. VITALS AND I&O'S CHARTED. CALL LIGHT IN REACH. NO FURTHER NEEDS AT THIS TIME.
--- NOTE | 2020-12-26 14:56 | NUR ---
Pt up in chair, room air, spot checks 90-91%, no sob noted. calm, tolerating liquids well. no cough. in room
--- NOTE | 2020-12-26 16:40 | NUR ---
pt has been up in chair most of this am, legs elevated off and on, obese, generalized edema 1+. Was on 2L NC at begining of shift. on room air most of this shift, desatted to 88-89% when sleeping a few minutes ago, no sob noted on return to bed. O2 2LNC placen back on, sats 98-100%. decreased to 1LNC sats 96-98%, will leave on 1L per wifes requests. pt stated "Even if they send me home with O2, Ben not going to wear it, Ben not going to let a 10 ft cord rule my life". had a ba swallow study, no changes to diet at this time, continues on 2gram mechanical soft diet, pt has been tolerating liquids and diet well, continues to have ocassional cough after po intake. and pt aware of ba swallow results. pt uses chintuck down after drinking fluids, took meds w/o problems. has voided QS dark yellow urine, small amounts at a time. Had a bm. SL patent, no c/o adverse reaction to abx. back to bed at this time
--- NOTE | 2020-12-26 18:15 | NUR ---
pt in bed, O2 1LNC, no sob, no distress. ocassional moist productive cough present. concerned that pt staed that he is feeling worse. pt skin pink, warm, has tolerated moving around as usual. lungs w slight improvement. will notify Dr Eagle
--- NOTE | 2020-12-26 18:26 | NUR ---
dr rosas notified of wifes concerns, new orders received.
--- NOTE | 2020-12-26 19:25 | NUR ---
REPORT RECEIVED FROM CRISTINA ROE. pt RESTING IN BED WITH 1L OXYGEN BY NC IN PLACE. pt SITTING UP IN BED WITH EYES CLOSED. BREATHING UNLABORED.
--- NOTE | 2020-12-26 20:25 | NUR ---
PT CALLED, MIMINAL ASSIST TO STAND TO USE URINAL, AND THEN TO CHAIR BY HIS CHOICE. WARM BLANKETS, ALL PERSONAL SUPPLIES WITHIN HIS REACH.
--- NOTE | 2020-12-26 21:34 | NUR ---
PT CALLED TO USE URINAL. ASSISTED TO BED ONCE FINISHED, LIFTED BOTH LEGS INTO BED, WAS ABLE TO REPOSITION SELF ONCE IN BED. FRESH ICE WATER GIVEN, VS COMPLETED, TEMP REPORTED TO PT PRIMARY RN.
--- NOTE | 2020-12-26 21:50 | NUR ---
pt AWAKE WHEN RN ENTERS ROOM. 0.5L OXYGEN BY NC IN PLACE. pt WITH OCCASIONAL DRY COUGH AT THIS TIME, NON-PRODUCTIVE. REFUSES NEB TREATMENT AT THIS TIME STATES "IT'S TOO LATE AND I DON'T WANT IT TONIGHT, I DON'T THINK I NEED IT." PRN COUGH MEDICATION ADMINISTERED. IV SITE FLUSHED WNL, IV ANTIBIOTIC INFUSING ORDERED. pt COMPLAINS OF 6/10 CHRONIC BACK PAIN, PRN TYLENOL ADMINISTERED REQUESTED. pt ABLE TO SWALLOW PILLS WNL INSTRUCTED WITH HOB ELEVATED AND TUCKING CHIN TO SWALLOW, NO COUGHING NOTED WITH SWALLOWING. COARSENESS RUL, DIMINISHED BILATERALLY IN LUNG BASES. LIGHTS OFF IN ROOM. CALL LIGHT WITHIN REACH.
--- NOTE | 2020-12-26 22:40 | NUR ---
CALL LIGHT ANSWERED. SBA TO STAND AT BEDSIDE FOR VOID IN URINAL. pt NOW UP TO CHAIR REQUESTED. CALL LIGHT AND PERSONAL SUPPLIES IN REACH. NO ADDITIONAL REQUESTS.
--- NOTE | 2020-12-27 01:15 | NUR ---
CALL LIGHT ANSWERED. SBA TO SIDE OF BED FOR VOID AND BACK IN BED. 0.5L OXYGEN BY NC IN PLACE.
--- NOTE | 2020-12-27 01:30 | NUR ---
ANSWERED CALL LIGHT. 1 PA TO THE BATHROOM. PATIENT VOIDED UNMEASURED AND HAD A BOWEL MOVEMENT. PATIENT IS BACK IN BED. NO OTHER NEEDS AT THIS TIME. CALL LIGHT IN REACH.
--- NOTE | 2020-12-27 02:00 | NUR ---
CHECKED ON pt. RESTING IN BED WITH EYES CLOSED. 0.5 L OXYGEN WITH NC IN PLACE. LIGTHS OFF IN ROOM.
--- NOTE | 2020-12-27 04:05 | NUR ---
CALL LIGHT ANSWERED. ASSISTED TO STAND AT SIDE OF BED FOR VOID IN URINAL AND BACK TO BED. 1L OXYGEN BY NC IN PLACE, SPO2 WNL. LUNG SOUNDS CLEAR THROUGHOUT ALL LOBES AT THIS TIME. ASSESSMENT COMPLETE. pt DENIES PAIN. IV SITE FLUSHED WNL AND IV ANTIBIOTIC INFUSING ORDERED. CALL LIGHT IN REACH. NO ADDITIONAL REQUESTS AT THIS TIME.
--- NOTE | 2020-12-27 04:41 | NUR ---
IV ANTIBIOTIC COMPLETE. IV SL WNL. pt SLEEPING, AWAKENS TO RN ENTERING ROOM THEN BACK TO SLEEP. 1L OXYGEN BY NC IN PLACE.
--- NOTE | 2020-12-27 06:15 | NUR ---
call light answered. ASSISTED PATIENT GET UP TO USE THE URINAL. PATIENT VOIDED 175ML. PATIENT IS BACK IN BED. NO OTHER NEED AT THIS TIME. CALL LIGHT WITHIN REACH.
--- NOTE | 2020-12-27 07:30 | NUR ---
Shift report recieved from CRISTINA García. Pt assisted to bathroom, by YENNY Dodson, pt now back in bed resting safely w/ call light in reach.
--- NOTE | 2020-12-27 07:50 | NUR ---
PT AWAKE IN BED. SBA TO CHAIR FOR BREAKFAST. WHITE BOARD UPDATED. CALL LIGHT WITHIN REACH.PLAN FOR A SHOWER LATER. NO FURTHER NEEDS AT THIS TIME.
--- NOTE | 2020-12-27 08:45 | NUR ---
PT SITTING UP IN CHAIR W/ CALL LIGHT IN REACH. MORNING ASSESMENT COMPLETED AND SCHEDULED MEDS GIVEN PER PROVIDER ORDER. RT IN ROOM TO COMPLETE HOME O2 EVAL.
[2020-12-27] MEDS ORDERED: CLINDAMYCIN HC300 MG PO (09:56)
[2020-12-27] MEDS ORDERED: PROBIOTIC1 EAC1 PO (09:57)
--- NOTE | 2020-12-27 10:00 | NUR ---
Notified by Dr. Eagle pt will dc today. Received 02 qualifer showing pt needs 2 L with exercise. In and spoke with pt as yesterday he cont. to state he would not use 02 at home and would rather then be on 02. Lengthy discussion and pt does agree to have at home and use if and when he feels he needs. Pt would like [employer] for his 02 and states his tanks were removed last week that he used after his shoulder surgery. Informed I will send the proper paperwork. He does decline to use a portable tank to go home and I did not argue with this patient. Will make sure 02 is available in home prior to dc.
--- NOTE | 2020-12-27 10:15 | NUR ---
Face sheet, 02 order, H&P, Dc summary, 02 qualifier faxed to [facility] at pts request. Above faxed to [facility] but included ST assessment and order for ST.
--- NOTE | 2020-12-27 10:25 | NUR ---
MED REC COMPLETE
--- NOTE | 2020-12-27 10:45 | NUR ---
pt sitting up in bed dressed, in room. Pt receiving final dose of IV abx before discharging home.
--- NOTE | 2020-12-27 11:24 | NUR ---
CALL RECEIVED FROM [facility]. MESSAGE GIVEN TO ROBIN PTS PRIMARY RN, WHO WILL CHECK WITH PT.
--- NOTE | 2020-12-27 11:46 | NUR ---
PT READY FOR DISCHARGE, VITAL SIGNS TAKEN, STABLE. PT TOLERATING ROOM AIR WITH O2 SATURATIONS ABOVE 92%. IV DC'D PER PROTOCOL, GAUZE AND COBAN APPLIED. KANIKA, PTS PRIMARY RN TO BEDSIDE TO REVIEW DISCHARGE INSTRUCTIONS.
--- NOTE | 2020-12-27 12:02 | NUR ---
DISCHARGE INSTRUCTIONS GIVEN TO PT AND HIS . CRISTINA BILLY ASSISTED PT IN W/C TO THE FRONT. VSS ON RA
== END 2020-12-27 11:55 | disposition home or self-care (01) ==
LOC: ED 09:20 → MS 09:22
PROVIDERS: ADMIT Internal Medicine; ATTEND Internal Medicine
DX: J69.0 Pneumonitis due to inhalation of food and vomit (principal); J96.01 Acute respiratory failure with hypoxia; I69.391 Dysphagia following cerebral infarction; R13.12 Dysphagia, oropharyngeal phase; I10 Essential (primary) hypertension; I49.5 Sick sinus syndrome; N40.0 Benign prostatic hyperplasia without lower urinary tract symptoms; E78.5 Hyperlipidemia, unspecified; K21.9 Gastro-esophageal reflux disease without esophagitis; K58.9 Irritable bowel syndrome, unspecified; F51.04 Psychophysiologic insomnia; Z88.0 Allergy status to penicillin; Z79.899 Other long term (current) drug therapy; Z79.82 Long term (current) use of aspirin; Z79.01 Long term (current) use of anticoagulants; Z20.822 Contact with and (suspected) exposure to COVID-19
CPT/HCPCS: 71045; 74230; 80053; 83605; 84484; 85025; 87040; 92610; 92611; 93005; 93010; 94760; 94761; 96365; 96374; 96376; 99285-25; C9803; G0378; U0003

== ENCOUNTER 2021-01-20 11:01 | Inpatient (IN) | payer MEDICARE, OTHER ==
[~2021-01-20] VITALS: Ht 172.7 cm; Wt 84.3 kg
[~2021-01-20 11:01] MED LIST changes: +PROBIOTIC1 EAC1 PO
--- OUTSIDE RECORDS SUMMARY | 2021-01-20 11:04 | XMS ---
PreManage Notification: LUIS ALBERTO MADRIGAL Security Distribution Tech Events No recent Security Events currently on file CRITERIA MET - [facility] - 2 Visits in 30 Days CARE PROVIDERS JESSICA VEGA [facility] [place] 12/09/2020-Current PHONE: [phone] Faraz has no Care Guidelines for this patient. [place] VISIT COUNT (12 MO.) 3 [facility] TOTAL 3 NOTE: Visits indicate total known visits. 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 - Dysphagia, oropharyngeal phase - Benign prostatic hyperplasia without lower urinary tract symptoms - Pneumonitis due to inhalation of food and vomit - Other usp (current) drug therapy - Psychophysiologic insomnia - Shortness of breath - Essential (primary) hypertension - Gastro-esophageal reflux disease without esophagitis - retirement (current) use of aspirin - exterminator helper (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 12/08/2020 22:12 [facility] TYPE: Medical Surgical COMPLAINT: - ASPIRATION PNA DIAGNOSES: - Other abnormal auditory perceptions, unspecified ear - Presence of cardiac pacemaker - Allergy status to penicillin - Dysphagia, oropharyngeal phase - Hyperlipidemia, unspecified - Benign prostatic hyperplasia without lower urinary tract symptoms - Insomnia, unspecified - retirement (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 - Irritable bowel syndrome without diarrhea - Sick sinus syndrome - Pneumonitis due to inhalation of food and vomit - Essential (primary) hypertension - Dysphagia following cerebral infarction - retirement (current) use of aspirin - Other vermin exterminator (current) drug therapy - Pneumonia due to other specified bacteria 12/05/2020 08:36 [facility] TYPE: Surgical Services DIAGNOSES: - Impingement syndrome of left shoulder - Bicipital tendinitis, left shoulder - Complete rotator cuff tear or rupture of left shoulder, not specified as traumatic [email or web address]
[2021-01-20] MEDS ORDERED: LEVOFLOXACIN750 MG PO (11:22)
--- NOTE | 2021-01-20 15:30 | NUR ---
REPORT RECEIVED FROM CHEMICAL WEIGHER AND PT. ARRIVED VIA STRETCHER. PT. ASSISTED WITH TRANSFERRING TO BED. ON 6L NC AND O2 SAT IS 96%. IV SITE WNL AND FLUSHES WELL. SKIN IS INTACT. BRUISING PRESENT ON RT. TOES AND +1 EDEMA PRESENT IN FEET BILAT. PT. STATES IT IS DUE TO KICKING A DOOR JAM. LUNGS ARE COARSE THROUGHOUT WITH CRACKLES IN THE BASES. WET, PRODUCTIVE COUGH WITH TENACIOUS GREEN SPUTUM. HEART RHYTHM IS SINUS TACH IN THE LOW 100'S. HE IS ALERT AND ORIENTED. PRESENT AT BEDSIDE. INTAKE COMPLETED. DISCUSSED SAFETY, MEDS, AND POC. PT. LEFT RESTING WITH CALL LIGHT IN REACH.
--- NOTE | 2021-01-20 16:05 | NUR ---
MED REC COMPLETE
--- NOTE | 2021-01-20 17:56 | NUR ---
ROUNDING ON PT. SPOT CHECKED 02 SAT AND IS 93% ON 5L NC. PT. PT. DENIED FURTHER NEEDS AND LEFT RESTING WITH CALL LIGHT IN REACH.
--- NOTE | 2021-01-20 18:40 | NUR ---
PT USED CALL LIGHT APPROPRIATELY FOR ASSISTANCE. HE HAD TROUBLE WITH URINAL AND HAD INCONTINENT VOID ON BED AND GOWN. PT. ASSISTED WITH AMBULATING WITH FWW AND 2PA. HE HAD DIFFICULTY STANDING AND HAD TO SIT BACK DOWN AFTER STANDING FOR A FEW SECONDS. DENIED DIZZINESS BUT STATED HE FELT WEAK. ASSISTED AGAIN AND MADE IT TO THE CHAIR. PT. LEFT RESTING WITH CALL LIGHT IN REACH.
--- NOTE | 2021-01-20 19:39 | NUR ---
PATIENT RETURNED TO BED WITH HELP FROM [facility]. PATIENT HAS NO OTHER NEEDS AT THIS TIME. CALL LIGHT IS IN REACH. REPORT RECEIVED FROM CRISTINA OWEN.
--- NOTE | 2021-01-20 21:15 | NUR ---
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 pt RESTING QUIETLY IN BED, IV PUMP ALARMING, ISSUE RESOLVED. RR EVEN AND UNLABORED, NO DISTRESS NOTED. NO ADDITIONAL NEEDS VERBALIZED, CALL LIGHT IN REACH.
--- NOTE | 2021-01-20 21:30 | NUR ---
1PA PIVOT TO THE BEDSIDE COMMODE AND BACK TO BED. PATIENT FELT HE NEEDED TO HAVE A BM, BUT NO RESULT. NO OTHER NEEDS AT THIS TIME. CALL LIGHT IN REACH.
--- NOTE | 2021-01-20 22:45 | NUR ---
1PA FROM THIS RN, PIVOT TO THE BEDSIDE COMMODE AND BACK TO BED. PATIENT STILL DID NOT HAVE A BM. PATIENT HAS NO OTHER NEEDS AT THIS TIME. CALL LIGHT IN REACH.
--- NOTE | 2021-01-20 23:10 | NUR ---
IN TO ASSIST PT OVER THE CHAIR 1PA PIVOT, NO FURTHER NEEDS AT THIS TIME, CALL LIGHT AT SIDE, ORAL SUCT DEVICE IN HAND,
--- NOTE | 2021-01-20 23:59 | NUR ---
IN TO ASSIST PT BACK TO BED, PIVOT, TUCKED IN TO BED AND NO FURTHER NEEDS, PT ALSO HAD 100MLS IN URINAL, EMPTIED, NO FURTHER NEEDS AT THIS TIME
--- NOTE | 2021-01-21 00:05 | NUR ---
CALL LIGHT ON, PT STATES ORAL SUCT DEVICE IS NOT WORKING, IN RM TO LOOK AT IT, SUCTION IS WORKING AGAIN, NO FURTHER NEEDS
--- NOTE | 2021-01-21 00:18 | NUR ---
CALL LIGHT ON, IN TO ASSIST PT, PT STATING HE WAS HAVING SOME SHORTNESS OF BREATH, PT SITTING UP IN BED, SPO2 CHECKED, 88-90s, RT NEARBY AND OFFERED PT A BREATHING TREATMENT, THIS INSTRUMENTAL TEACHER SET PT UP IN CHAIR, NO FURTHER NEEDS
--- NOTE | 2021-01-21 01:50 | NUR ---
PATIENT REMAINS SITTING UP IN THE BEDSIDE ARMCHAIR. ASSESSMENT AND VS COMPLETE WITH HELP FROM YENNY VARGHESE. PATIENT HAS A NEW SUCTION TIP TO USE. PATIENT REMAINS NPO. CALL LIGHT IS IN REACH AND PATIENT HAS BEEN USING IT APPROPRIATELY.
--- NOTE | 2021-01-21 01:50 | NUR ---
IN TO GET VITALS, PT MOVED BACK TO BED AT THIS TIME, NO FURTHER NEEDS,
--- NOTE | 2021-01-21 04:01 | NUR ---
PATIENT UP TO THE BEDSIDE COMMODE AGAIN WITH ASSISTANCE FROM THIS RN. TURN AND PIVOT FROM BED TO COMODE AND BACK TO BED WITH NO BM RESULTING AGAIN. PATIENT POSITIONED TO HIS RIGHT SIDE WITH CALL LIGHT IN REACH. PATIENT HAD NO OTHER CARE NEEDS AT THIS TIME.
--- NOTE | 2021-01-21 06:15 | NUR ---
PATIENT BACK INTO BED WITH YENNY STINSON'S ASSISTANCE. PATIENT RESTING ON HIS RIGHT SIDE NOW AFTER SITTING UP IN THE CHAIR FOR AWHILE. PATIENT HAS NO NEW CARE NEEDS AT THIS TIME AND NEW IV BAG WAS HUNG. CALL LIGHT IS IN REACH.
--- NOTE | 2021-01-21 06:55 | NUR ---
IN TO ASSIST PT OVER TO THE CHAIR VIA 1PA PIVOT, CALL LIGHT BY SIDE, TABLE IN PLACE, ORAL SUCT. DEVICE IN HAND, NO FURTHER NEEDS AT THIS TIME
--- NOTE | 2021-01-21 07:05 | NUR ---
Report received from Riley EVANS. Pt resting in bed with eyes closed, respirations even and unlabored, no apparent needs at this time. Will continue plan of care.
--- NOTE | 2021-01-21 08:54 | NUR ---
Patient is visiting with a family member. Patient is unsure if they would like a shower or a bed bath and declined because he feels that he is too weak to stand. Bed bath wipes shall be provided in case the patient optes to have a bed bath.
--- NOTE | 2021-01-21 09:04 | NUR ---
Patient vitals, I&Os are complete. Call light is in reach and there are no other requests. Patient refused both shower and bed bath option.
--- NOTE | 2021-01-21 09:20 | NUR ---
Scheduled medications administered, assessment complete. Pt states no pain or SOB, suctions self while this RN in room after deep coughing- thick, yellow sputum noted. Pt spo2 97% on 5L, titrated to 4L and maintains SPO2 at 96%. Pt has no other needs at this time, at bedside engaged in care and attentive to patient. Call light in reach
--- NOTE | 2021-01-21 10:30 | NUR ---
IV ABX infusing WNL. Pt resting in bed, suction in reach, on 4L O2 via NC and tolerating well. Pt's at bedside, both state no needs at this time. Call light in reach.
--- NOTE | 2021-01-21 12:15 | NUR ---
Rounded on patient who is resting in bed, states no needs at this time. IVF infusing WNL. SPO2 95% on 4L NC. Continues to suction self with yankauer in room. A+O, states no pain or needs. Call light in reach.
--- NOTE | 2021-01-21 14:16 | NUR ---
Patient is visiting with . Vitals, I&Os are complete. Patient has not voided or have a BM in 3 hours. The RN will be notified. The call light is in reach. There are no requests at this time but they are curious when the doctor will come in.
--- NOTE | 2021-01-21 15:00 | NUR ---
Pt bladder scanned as alerted by SENIOR GRADUATE ADVISOR that he has not voided recently. 288 ml in bladder, notified. Pt states no urge to void at this time. Maintains spo2 at 95% on 4L NC O2, frequent, productive cough with copious yellow/green sputum noted, pt able to suction self. IVF infusing WNL. Discussed patient's care goals of potentially having a feeding tube, patient and were able to discuss this with Dr Wolff and Dr Ramirez. All questions answered at this time by this RN, concerns addressed. Pt feels happy with care at this time, has no needs. Call light in reach.
--- NOTE | 2021-01-21 19:02 | EKG ---
[facility] [address] [place] [address] Signed Sinus rhythm with premature atrial complexes Left axis deviation Abnormal ECG When compared with ECG of 25-DEC-2020 10:28, premature atrial complexes are now present Nonspecific T wave abnormality has replaced inverted T waves in Inferior leads Confirmed by MELINA HAWKINS MD ([id number]) on 01/21/2021 7:02:29 PM Electronically Signed By: MELINA HAWKINS MD 01/21/21 1902 PATIENT NAME: LUIS ALBERTO MADRIGAL Electrocardiogram DATE OF : 35 PHYSICIAN: MELINA HAWKINS MD REPORT #: [id number] REPORT IS CONFIDENTIAL AND NOT TO BE RELEASED WITHOUT AUTHORIZATION
--- NOTE | 2021-01-21 19:30 | NUR ---
REPORT RECEIVED FROM CRISTINA ENGLE. PATIENT SITTING UP IN THE BEDSIDE ARMCHAIR AND HIS HIS HAND HELD SUCTION IN PLACE. PATIENT HAS NO CURRENT CARE NEEDS. CALL LIGHT IS IN REACH AND PATIENT HAS BEEN CALLING APPROPRIATELY.
--- NOTE | 2021-01-21 21:10 | NUR ---
THIS CHILD DEVELOPMENT DIRECTOR ASSISTING PT BACK TO BED FROM THE CHAIR, 1PA FWW, NO FURTHER NEEDS AT THIS TIME, TABLE, CALL LIGHT, AND SUCTIONING DEVICE IN PLACE
--- NOTE | 2021-01-21 21:52 | NUR ---
ASSISTED PT TO STAND WITH URINAL AT BEDSIDE, PT VOIDED, BACK TO BEF
--- NOTE | 2021-01-21 22:14 | NUR ---
PATIENT IS NOW TURNED TO HIS RIGHT SIDE IN BED, RESPIRATIONS 22BPM, PATIENT HAS NO OTHER CARE NEEDS AT THIS TIME. CALL LIGHT IS IN REACH.
--- NOTE | 2021-01-21 23:11 | NUR ---
pt NPO, IV FLUIDS DISCONTINUED. CLARIFIED ORDERS WITH DR HAWKINS. TELEPHONE ORDER READ BACK FOR D5LR @100/HR.
--- NOTE | 2021-01-21 23:56 | NUR ---
PATIENT RESTING IN BEDSIDE ARMCHAIR AND PREFERS TO BE THERE AT THIS TIME THAN IN BED. D5LR STARTED AT 100MLS/HR. PATIENT HAS HIS SUCTION AT CHAIR SIDE. PATIENT HAD NO CURRENT CARE NEEDS CALL LIGHT IS IN REACH.
--- NOTE | 2021-01-22 02:12 | NUR ---
PT FINISH WITH BSC, SET UP IN THE CHAIR, ITEMS ALL IN REACH, NO FURTHER NEEDS AT THIS TIME
--- NOTE | 2021-01-22 03:03 | NUR ---
PATIENT BACK TO BED FROM BEDSIDE ARMCHAIR 1PA AND FWW. PATIENT IN BED WITH HIS HAND HELD SUCTION. PATIENT HAD NO OTHER CARE NEEDS AT THIS TIME. PATIENT IN SEMI-FOWLERS POSITION AND CALL LIGHT IS IN REACH.
--- NOTE | 2021-01-22 05:35 | NUR ---
PATIENT GETTING AM LABS DRAWN. PATIENT'S VS HAVE BEEN STABLE THROUGH THE NIGHT ON 4L/NC ALTHOUGH HIS RESPIRATIONS HAVE BEEN 22-24BPM THROUGH THE NIGHT. THIS RN ASKED PATIET IF HE WAS HAVING BREATHING DIFFICULTY AND HE SAID,"I DON'T THINK SO, I'M DOING OK". PATIENT HAS HAD NO C/O PAIN AND HAS GONE BACK AND FORTH FROM THE BED TO THE CHAIR SLEEPING AWHILE IN EACH PLACE. PATIENT DOING HIS OWN ORAL SUCTIONING FOR SPUTUM. PATIENT HAS NO CURRENT CARE NEEDS AT THIS TIME. CALL LIGHT IS IN REACH.
--- NOTE | 2021-01-22 07:10 | NUR ---
Report received, pt resting with no needs at this time. Will continue plan of care.
--- NOTE | 2021-01-22 07:10 | NUR ---
REPORT TO CRISTINA ENGLE. PATIENT RESTING QUIETLY UP IN THE BEDSIDE ARMCHAIR, CALL LIGHT IS IN REACH.
--- NOTE | 2021-01-22 09:44 | NUR ---
PATIENT SITTING IN CHAIR. WARM WASHCLOTH GIVEN. VITALS AND I&O'S CHARTED. CALL LIGHT IN REACH. NO FURTHER NEEDS AT THIS TIME.
--- NOTE | 2021-01-22 09:50 | NUR ---
Scheduled medications administered, assessment complete. Pt sitting up in chair, on 4L O2 NC tolerating well. Pt needs positive encouragement regarding plan of care, he states feeling waiting for his next procedure is difficult. This RN discussed plan of care, pt agreeable. IVF infusing WNL. Suction at bedside, pt continues to use by self with no assistance needed. No other needs at this time, call light in reach.
--- NOTE | 2021-01-22 11:15 | NUR ---
Discussed with pt's POC. She is emotional regarding his current depressed mood. This RN updates her on pt's condition, oxygen requirements, gives positive outlook regarding planned procedure. She is agreeable at this time. Warm blankets provided for patient. No other needs at this time.
--- NOTE | 2021-01-22 11:32 | NUR ---
PATIENT BACK TO BED FROM CHAIR, 1PA FWW. IN ROOM. WARM BLANKET GIVEN. CALL LIGHT IN REACH. NO FURTHER NEEDS AT THIS TIME.
--- NOTE | 2021-01-22 13:45 | NUR ---
PATIENT UP TO CHAIR FROM BED, SBA FWW. IN ROOM. VITALS AND I&O'S CHARTED. LINENS FRESHED UP. CALL LIGHT IN REACH. NO FURTHER NEEDS AT THIS TIME.
--- NOTE | 2021-01-22 16:20 | NUR ---
PT WALKED ONE LONG LAP AROUND NURSES STATION WITH THIS REPAIRER SASH AND DOOR AND FWW. PT WAS ON 4LNC ANS IS NOW BACK IN ROOM SITTING UP IN THE CHAIR. CALL LIGHT WITHIN REACH. IN THE ROOM. NO FURTHER NEEDS AT THIS TIME.
--- NOTE | 2021-01-22 17:00 | NUR ---
Scheduled medication administered, pt resting in bed on R side with eyes closed, respirations even and unlabored. His has left for the evening after being updated on his care. No needs at this time, call light in reach.
--- NOTE | 2021-01-22 17:42 | NUR ---
PATIENT IN BED RESTING WITH EYES CLOSED. VITALS AND I&O'S CHARTED. CALL LIGHT IN REACH. NO FURTHER NEEDS AT THIST DUYEN.
--- NOTE | 2021-01-22 19:52 | NUR ---
PATIENT RESTING QUIETLY SITTING UP IN HIS BEDSIDE ARMCHAIR. PATIENT HAS NO CURRENT CARE NEEDS. CALL LIGHT IS IN REACH.
--- NOTE | 2021-01-22 20:15 | NUR ---
SOCIETY REPORTERLORIE QUIJANO AND THIS INSURANCE VERIFICATION REP HELPED PATIENT GO TO BED USING WALKER. V/S AND I&O'S DONE AND CHARTED.
--- NOTE | 2021-01-22 20:15 | NUR ---
IV ABX COMPLETED, PT UP IN CHAIR. PT REQUESTED TO GET TO BED, TOLD PT 10 MIN, HE YELLED, ITS BEEN OVER "2 HOURS SINCE I WAS TOLD IT WOULD BE 15 MIN", INFORMED PT THAT THIS RN HAS ONLY BEEN ON SHIFT NOT EVEN 2 HOURS, THEN HE SLAMMED HIS RECLINER DOWN AND SAID ANGERLY I WILL JUST PUT MY SELF TO BED. TOLD HIM TO WAIT AND THIS RN WOULD GET SOME HELP. POWER ORIGINATOR IN AND ASSISTED.
--- NOTE | 2021-01-22 20:42 | NUR ---
PATIENT'S PM ASSESSMENT IS COMPLETE AND PATIENT IS BACK TO BED. PATIENT DENIES PAIN AND IS A+O. PATIENT HAS NO CARE NEEDS AT THIS TIME AND PM MED IS HELD FOR ASPIRATION PRECAUTIONS. CALL LIGHT IS IN REACH.
--- NOTE | 2021-01-22 22:30 | NUR ---
PATIENT BACK UP TO THE BEDSIDE ARMCHAIR AND HAS HIS HAND HELD SUCTION AND CALL LIGHT IN REACH. 1PA WITH FWW TO CHAIR.
--- NOTE | 2021-01-23 00:29 | NUR ---
PATIENT GOT UP BY HIMSELF WITHOUT CALLING, USED THE URINAL, AND PUT HIMSELF BACK TO BED. INFORMED THE PATIENT HE REALY NEEDS TO CALL STAFF BEFORE HE GETS OUT OF BED OR UP FROM THE CHAIR. PATIENT VERBALIZED UNDERSTANDING AND CALL LIGHT IS IN REACH AND BED ALARM IS NOW ON. NEW WARM BLANKETS GIVEN.
--- NOTE | 2021-01-23 01:05 | NUR ---
PATIENT RESTING QUIETLY IN BED AND USING HIS SUCTION. ANTIBIOTICS HUNG AND STARTED. IV WNL. PATIENT HAS NO CARE NEEDS AT THIS TIME. CALL LIGHT IS IN REACH.
--- NOTE | 2021-01-23 01:52 | NUR ---
PATIENT RESTING QUIETLY ON HIS RIGHT SIDE ON 4L/NC, EYES ARE CLOSED, RESPIRATIONS ARE REGULAR AND EVEN, AND CALL LIGHT IS IN REACH.
--- NOTE | 2021-01-23 02:50 | NUR ---
PATIENT CALLED TO USE THE URINAL. 1 PA USING WALKER. PATIENT IS UP IN THE CHAIR. CALL LIGHT WITHIN REACH.
--- NOTE | 2021-01-23 05:06 | NUR ---
PATIENT STOOD TO VOID PER URINAL AND THEN BACK TO BED 1PA AND FWW WITH THIS RN. PATIENT COVERED UP WITH WARM BLANKETS AND HAS HIS OWN HAND HELD SUCTION. PATIENT'S NIGHT HAS BEEN SPENT GOING BACK AND FORTH BETWEEN CHAIR AND BED AND VOIDING IN BETWEEN. PATIENT HAS HIS CALL LIGHT IN REACH AND HAS NO OTHER NEEDS AT THIS TIME.
--- NOTE | 2021-01-23 06:50 | NUR ---
PATIENT RESTING QUIETLY ON HIS RIGHT SIDE, RESPIRATIONS REGULAR AND EVEN, EYES ARE CLOSED, NC IS ON, AND CALL LIGHT IS IN REACH.
--- NOTE | 2021-01-23 07:10 | NUR ---
Report received from Riley EVANS. Pt resting in bed with eyes closed, even and unlabored respirations. No needs at this time, call light in reach
--- NOTE | 2021-01-23 09:21 | NUR ---
PATIENT BACK TO BED FROM CHAIR, 1PA FWW. LINENS CHANGED. VITALS AND I&O'S CHARTED. CALL LIGHT IN REACH. NO FURTHER NEEDS AT THIS TIME.
--- NOTE | 2021-01-23 10:00 | NUR ---
Scheduled ABX and heparin injection administered, pt resting in bed with even respirations, states having no pain or SOB today. Lungs continue to sound coarse. HRR. Pt has suction at bedside and uses by self. at bedside, engaged in care and attentive to patient. Pt states feeling "bored", encouraged that we are making progress with care, discussed plan for procedure tomorrow (01/24). Pt is agreeable and has no needs at this time.
--- NOTE | 2021-01-23 12:40 | NUR ---
Pt walks in hallway 1 lap with 2 members nursing staff, tolerates well and states he "could walk further, just don't want to" right now. Back to chair, spo2 WNL on 4L NC, suction in hand. IVF infusing WNL. Call light in reach.
--- NOTE | 2021-01-23 13:15 | NUR ---
PATIENT IN CHAIR RESTING WITH EYES CLOSED. VITALS AND I&O'S CHARTED. CALL LIGHT IN REACH. NO FURTHER NEEDS AT THIS TIME.
--- NOTE | 2021-01-23 15:07 | CONS ---
[facility] [address], [place] [address] Signed DATE OF CONSULTATION: 01/22/2021 CONSULTING PHYSICIAN: Norma Pickett MD. REQUESTING PHYSICIAN: Dr. Hawkins. PROBLEM: Possible need for feeding gastrostomy. HISTORY OF PRESENT ILLNESS: This 85-year-old white man is well known to me from the past. In the late , I performed aortic aneurysm repair on him, which he has done well from since that time. The patient is known to also have had in 1997 a significant cerebrovascular accident requiring a PEG feeding tube. He had rather significant hemiplegia, but with care and diligence recovered his function from this relatively well. 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 He has had issues of swallowing since his polio presentation worsened by his stroke and over the years compensated for well. The past number of weeks, the patient has had recurrent right lower lobe pneumonia, which has been significant and attributed to his dysphagia. He underwent an advanced swallowing evaluation on December 26, 2020 which did not really confirm aspiration proper. The speech pathologist had been evaluating this as well. Functional remedies were outlined to improve his swallowing. The study by Dr. Irineo Rivera showed "trace penetration of barium into the vestibule of the larynx." There was persistent mild pooling in the vallecula of contrast. A barium tablet quickly passed without lodging in the throat. The patient and his and additionally Dr. Hawkins are concerned of his inability to maintain adequate nutrition based on his swallowing difficulties and consideration has been made for a PEG feeding tube. It is additionally noted that in 2019 I had anticipated to work on a rather large incarcerated incisional hernia of his abdominal wall dominantly to the right side. He lost weight going from 231 pounds to 187 pounds by intention anticipating the operation. Operation was performed, but unfortunately he suffered a relatively prompt recurrence thereafter. He was referred to Dr. Bauman at [facility], who advised him to not proceed with repair given his advanced age and multiple comorbidities and on that basis, the patient remains with incisional hernia in the right abdomen. His operation of note by me was on May 21, 2019. The patient has had no known COVID disease but has been hospitalized three times I Electronically Signed By: NORMA PICKETT MD 01/23/21 1507 PATIENT NAME: LUIS ALBERTO MADRIGAL CONSULTATION DATE OF : 35 REPORT #: [id number] PHYSICIAN: NORMA PICKETT MD PCP: JESSICA VEGA MD REPORT IS CONFIDENTIAL AND NOT TO BE RELEASED WITHOUT AUTHORIZATION [facility] [address], [place] [address] Signed believe in the past several weeks for a persistent and relatively refractory right basilar pneumonia. In addition to all of this it is recalled anticipating his incisional hernia repair in May 2019. He was noted to be bradycardic with a heart rate of 41 and his original operation date was delayed due to this. Evaluation culminated in placement of a pacemaker device which continues to work well. Currently, he says he has no taste nor any strong attraction to oral intake due to the cervical dysphagia he suffers. He does not have specific gross aspiration that he is aware of. He is currently having no abdominal pain particularly. REVIEW OF SYSTEMS: He denies any hematemesis or blood per rectum. He has had no abdominal pain related to the recurrent hernia. PHYSICAL EXAMINATION: GENERAL: This is an elderly white man who looks quite debilitated overall. VITAL SIGNS: Temperature is 98.1, pulse is 70, respirations 24, blood pressure 113/66, O2 saturation on 4 L is 95%. HEENT: Trachea is midline. His speech is baseline since his stroke. He is edentulous. CHEST: Shows no evidence of tachypnea. ABDOMEN: Rather rotund with poor abdominal tone. A long midline incision is noted and transverse incision in the right upper abdomen from prior hernia repair. EXTREMITIES: Show no cyanosis. LABORATORY STUDIES: Currently show a white count of 13.7, previously 10.4, hematocrit 34.8, platelets 262,000. His chem profile is essentially normal. Creatinine is 0.85, glucose 123. COVID serology is negative. IMAGING STUDIES: Reviewed including chest x-ray which shows left-sided pacemaker device (left pectoral area) which appears to be a dual lead pacemaker device with atrial and ventricle leads. There is haziness to right lung base. Left side appears reasonably normal. ASSESSMENT: A feeding tube is requested by patient, his and Dr. Hawkins. Abdominal examination confirms a long midline incision and there is a site of prior gastrostomy tube noted as well. The goals of his request include improvement of his nutritional status without as much concern for aspiration and persisting recurring pneumonia which has been attributed to aspiration, though not entirely documented based on upper GI, though there was some laryngeal penetration. A percutaneous endoscopic (PEG) gastrostomy tube could be likely performed despite his multiple incisions and prior interventions. If this was not deemed satisfactory and the Electronically Signed By: NORMA PICKETT MD 01/23/21 1507 PATIENT NAME: LUIS ALBERTO MADRIGAL CONSULTATION DATE OF : 35 REPORT #: [id number] PHYSICIAN: NORMA PICKETT MD PCP: JESSICA VEGA MD REPORT IS CONFIDENTIAL AND NOT TO BE RELEASED WITHOUT AUTHORIZATION [facility] [address] [place], [place] [address] Signed usual criteria (transillumination of the abdominal wall clearly etc.) In a small epigastric incision, an open technique likely could be performed. The risks of bleeding, infection, and of course failure to improve his overall situation reviewed in detail. The patient is very debilitated, has advanced significant numerous comorbidities and is very elderly. Goals of therapy are in alignment with his wishes and I think reasonable under the circumstances. This would be considered an elective procedure and therefore will need to be performed not on emergency basis and likely this Saturday would be a reasonable time frame to do so. We will make arrangements. Norma Pickett MD /ANGELL /[id number] cc: MD Jessica Escoto MD Copies: MELINA HAWKINS MD, JONATHAN MD ~ Electronically Signed By: NORMA PICKETT MD 01/23/21 1507 PATIENT NAME: LUIS ALBERTO MADRIGAL CONSULTATION DATE OF : 35 REPORT #: [id number] PHYSICIAN: NORMA PICKETT MD PCP: JESSICA VEGA MD REPORT IS CONFIDENTIAL AND NOT TO BE RELEASED WITHOUT AUTHORIZATION
--- NOTE | 2021-01-23 16:45 | NUR ---
Scheduled IV ABX administered, pt resting in bed with eyes closed, respirations even and unlabored, no needs at this time. at bedside and states has no needs. Call light in reach.
--- NOTE | 2021-01-23 19:02 | NUR ---
PATIENT CALLED TO TRANSFER TO CHAIR, UP TO CHAIR, 1PA FWW. CALL LIGHT IN REACH. NO FURTHER NEEDS AT THIS TIME.
--- NOTE | 2021-01-23 19:07 | NUR ---
THIS FINANCIAL BROKERS ANSWERED THE CALL LIGHT TO FIND PT IN THE CHAIR STATING THEY WERE SHORT OF BREATH. PT WAS WEARING 3L NASAL CANNULA AND INITIAL O2 READING WAS 43%, RN MICAH WAS IMMEDIATELY NOTIFIED AND ENTERED ROOM. THIS FINANCIAL BROKERS MOVED NASAL CANNULA FROM NOSE TO MOUTH PER CRISTINA OBRIEN INSTRUCTION. CHARGE NURSE AND RT IN ROOM SHORTLY AFTER.
--- NOTE | 2021-01-23 19:21 | NUR ---
NOTIFIED PT OF CURRENT SITUATION, SHE IS "ON HER WAY".
--- NOTE | 2021-01-23 19:39 | NUR ---
PT TRANSFERRED TO ICU ROOM 128 WITH RT, DR HAWKINS AT BEDSIDE. CXR DONE. PT ARRIVES ON BIPAP 04/01 100%. ATTEMPTING IV STARTS. PT AWAKE SITTING UP IN BED WITH RESP DISTRESS. RR 40-50. RT ATTEPTING DEEP SUCTIONING.
--- NOTE | 2021-01-23 19:54 | NUR ---
RT, RN, SENIOR SOFTWARE ANALYST REMAIN AT BEDSIDE WITH TENTATIVE PLAN TO INTUBATE PT, AWAITING ARRIVAL OF ANESTHESIA. PT CONT TO BE AWAKE ON BIPAP, SPO2 NOW 67%, FREQUENT SUCTIONING IMPROVING PT STATUS. RR NOW 30. LEFT LUNG SOUNDS ABSENT. IN WAITING ROOM AWARE OF PLAN, HAD CONVERSATION WITH DR HAWKINS.
--- NOTE | 2021-01-23 20:00 | NUR ---
DR HAWKINS AND RT, HEATH, NOTIFIED APPROX 1918 OF PT HYPOXIA, CALLED RAPID RESPONSE @ 1920. AIMEE AND KEM CHIN SUPERVISORS, DR. HAWKINS ORDERED PT TO CCU. BY 1928 PT TO CCU.
--- NOTE | 2021-01-23 20:00 | NUR ---
PT INTUBATED BY JUANY FROM ANESTHESIA WITH RT AND DR HAWKINS PRESENT. 150MG PROPOFOL GIVEN. PT INTUBATED WITH 7.5 ETT 21 AT THE LIP. ETCO2 HOOKED UP 33, SPO2 73% HR 105. 200MCG PHENYLEPHRINE FOR BP 66/50.
--- NOTE | 2021-01-23 20:06 | NUR ---
BP UP TO 81/55. SPO2 72%.
--- NOTE | 2021-01-23 20:08 | NUR ---
CURRENT VENT SETTINGS TV 500, PEEP 15, FIO2 100%. XR IN TO DO CXR
--- NOTE | 2021-01-23 20:40 | NUR ---
ANESTHESIA DID BEDSIDE BRONCSCOPE, VIEWED LARGE MUCOUS PLUG. GALDINO 50MCG/MIN AND JUST STARTING PROPOFOL GTT AT 10
--- NOTE | 2021-01-23 20:43 | NUR ---
DR HAWKINS OUT TO WAITING ROOM TO DISCUSS PT STATUS WITH FAMILY. HR 85 SINUS RYHTHM RR 22 SPO2 93% AND ETCO2 26.
--- NOTE | 2021-01-23 20:44 | NUR ---
AWAITING DR PICKETT, PLAN TO DO BRONCHOSCOPY
--- NOTE | 2021-01-23 21:12 | NUR ---
consent signed by pt for Kendrick to perform bronchoscopy. Family remains in waiting room. Kendrick and surgical crew, anesthesia and Dr. Wolff in room at this time.
--- NOTE | 2021-01-23 21:20 | NUR ---
PER ANESTHESIOLOGIST, NEOSYNEPHRINE ON STAND BY AT THIS TIME AND PROPOFOL BOLUS GIVEN TO HELP WITH PT AGGITATION AND SEDATION DURING PROCEDURE.
--- NOTE | 2021-01-23 21:27 | NUR ---
IN TO DO ASSESSMENT AND GIVE HS MEDS. PT AWAKENS EASILY, DENIES NEEDS. HAS BEEN ON CPAP, FIO2 75% 14. SPO2 98%, HR 58, RR 28.
--- NOTE | 2021-01-23 22:00 | NUR ---
PT FAMILY UPDATED BY DR PICKETT AND DR HAWKINS ON CURRENT CO FAMILY IN ROOM TO SEE PT. PROPOFOL CONTINUES TO INFUSE AT 13 MCG/KG/MIN. WRIST RESTRAINTS IN PLACE. FIO2 ON VENTILATOR DECREASED TO 85% BY DR HAWKINS. SPO2 = 97. CURRENT RASS SCORE OF -1. IV FLUIDS INFUSING. ASSESSMETN COMPLETED. THIS RN REMAINS IN ROOM TO PERFORM CARES.
--- NOTE | 2021-01-23 23:16 | NUR ---
FIO2 ON VENTILATOR DECREASED TO 70% AT THIS TIME
--- NOTE | 2021-01-23 23:27 | NUR ---
UPDATED DR HAWKINS ON LOWER BP'S, LAST BP 83/61 MAP 69. WILL CONT TO MONITOR, URINE OUTPUT 40ML/HR GOAL AND KEEPING MAP ABOVE 65.
--- NOTE | 2021-01-24 00:50 | NUR ---
IV abx now infusing. propofol drip continues to infuse at 10 mcg/kg/min. oral care completed. Pt opens eyes and moves in bed with oral care but relaxes easily with rest. Urine output continues to be adequate, MAPs remain greater than 65. pt repostioned. restraints repositioned. spo2 =99% on 70%fio2 on ventilator. RASS score of -2. This RN remains at bedside.
--- NOTE | 2021-01-24 03:30 | NUR ---
ASSESSMENT COMPLETED. PT REPOSITIONED IN BED. PT OPENS EYES TO VOICE. IV IN RIGHT AC NO LONGER PATENT AND WAS DC'D AT THIS TIME. PROPOFOL AND IV FLUIDS INFUSING. ABX ARE COMPLETED. LUNGS DIM IN THE UPPERS AIR PLATA AND COARSE IN THE LOWER LOBES. SPO2= 97 % ON VENT FIO2 = 60%. HEART RATE 70 BPM, MAPS MAINTAINED OVER 65.
--- NOTE | 2021-01-24 04:12 | NUR ---
dr soto updated on pt's low urine output for the last three hours. IV fluid rate has been increased to 125/hr per MD telephone order. will continue to monitor.
--- NOTE | 2021-01-24 06:05 | NUR ---
blood drawn and sent to lab. pts urine output continues to be poor. pt repostioned, restraints released and reapplied.
--- NOTE | 2021-01-24 09:54 | NUR ---
FI02 TURNED DOWN TO 45% AT 0835. WORKING ON WEANING TRIAL TODAY. FI02 TURNED DOWN TO 40% AT 0857. PT ON PROPOFOL INITIALLY AT 12 MCG/KG/MIN THIS AM BUT THIS WAS TURNED OFF AT 0930. PT AWAKENS EASILY, MAKES EYE CONTACT AND REMAINS AT A -1 RASS SCORE. INITIAL VENT SETTINGS THIS AM WERE VT 420, FI02 50%, PEEP 15, VC/AC 16. PT REMAINS IN A ATRIAL PACED RHYTHM, HR IN THE 70s. PT TOLERATING VENTILATOR WELL AT THIS TIME. CONTINUE TO MONITOR CLOSELY.
--- NOTE | 2021-01-24 10:10 | NUR ---
IV PLACED IN LEFT UPPER ARM PER PICC RN. PT TOLERATED WELL. RT CALLED TO START WEANING TRIAL. PT'S HAS SINCE ARRIVED AND GIVEN AN UPDATE. PLAN TO WORK ON EXTUBATION.
--- NOTE | 2021-01-24 10:19 | NUR ---
RT IN ROOM WORKING WITH PATIENT ON SBT.
--- NOTE | 2021-01-24 11:01 | NUR ---
PATIENT EXTUBATED AT 1050 AND IS NOW IN 2 L NC. PT ABLE TO COUGH WITH A STRONG COUGH, AND CONTINUES TO EXPECTORATE THICK SPUTUM. RT DEEP SUCTIONED PATIENT 3-4 TIMES PRIOR TO EXTUBATION. SP02 IS 96% AT THIS TIME ON 2L NC. CONTINUE TO MONITOR. URINE OUTPUT STARTING TO ELECTRICAL SOLDERER ON IT'S OWN WITH THE LAST HOUR BEING 34 ML.
--- NOTE | 2021-01-24 12:45 | NUR ---
PATIENT REMAINS ON 2 L WITH SP02 OF 91% AT THIS TIME. DR. PICKETT IN TO SEE PATIENT AND PLAN IS TO HOLD OFF ON PLACING PATIENT'S FEEDING TUBE TODAY, AND REEVALUATE TOMORROW. PT RESTING AT THIS TIME. PT'S REMAINS IN ROOM. CONTINUE OT MONITOR.
--- NOTE | 2021-01-24 13:51 | NUR ---
Per [address] Wolff pt intubated and will remain in unit. Update from RN at 1351 and pt was extubated around 1100. Pt will have G tube placement tomorrow.
--- NOTE | 2021-01-24 14:21 | NUR ---
PATIENT RESTING QUIETLY IN BED, NC IN PLACE. IN ROOM. ROY EMPTIED. VITALS CHARTED. CALL LIGHT IN EASY REACH
--- NOTE | 2021-01-24 14:25 | NUR ---
PATIENT RESTING AT THIS TIME, REMAINS ON 2 L NC. PATIENT DENIES NEEDS BUT DOES SAY, "YEAH I'D LIKE A HAMBURGER." RR IS 35 AT THIS TIME, HEART RATE 70s. PT'S REMAINS IN ROOM.
--- NOTE | 2021-01-24 15:59 | NUR ---
PATIENT GIVEN BED BATH AND LINEN CHANGED. PT TOLERATED WELL. PT NOW LAYING RIGHT SIDE AND REMAINS ON 2 L NC. PT STILL HAVING SOME PRODUCTION TO HIS COUGH AND USING YANKEUR. ASSESSMENT UNCHANGED FROM PRIOR ASSESSMENT. PT EAGER TO HAVE TUBE FEED PLACED TOMORROW PER DR. PICKETT.
--- NOTE | 2021-01-24 16:56 | NUR ---
PATIENT'S O2 SATS HAVE STARTED TO DROP THIS AFTERNOON SINCE AROUND 1545. PATIENT WAS ON 2L NC BUT HAS PROGRESSIVELY BEEN TURNED UP TO 10 L OXYMASK AT THIS TIME, WITH SP02 AT 93%. PT WAS TURNED TO RIGHT SIDE AFTER HIS BATH, AND NOW ON HIS LEFT SIDE. PT RESISTANT TO TURNING TO LEFT SIDE DUE TO HIS SHOULDER SURGERY. PT STILL HAVE A COUGH, BUT IT IS LESS PRODUCTIVE THAN EARLIER TODAY. DR. HAWKINS CALLED AND ORDER REC'D TO TRY NT SUCTIONING PATIENT, AND IF THIS DOESN'T HELP THEN START PATIENT ON CPAP.
--- NOTE | 2021-01-24 17:05 | NUR ---
RT IN ROOM AT THIS TIME SUCTIONING PATIENT.
--- NOTE | 2021-01-24 18:03 | NUR ---
PATIENT ON 5 L OXYMASK AT THIS TIME AND SP02 IS 94%. PT'S HAS LEFT FOR THE EVENING. PT SUCTIONING HIMSELF WHEN HE IS ABLE TO COUGH SECRETIONS UP.
--- NOTE | 2021-01-24 18:07 | NUR ---
PATIENT ASKING, "WHAT'S MY BLOOD OXYGEN LEVEL NOW?" AND THIS RN REPLIES 93-94% ON 5 L. EXPRESSED CONCERN THAT PATIENT MAY BE CONTINUING TO ASPIRATE WITHOUT HIM REALIZING IT, AND HE SAYS, "I'M JUST SO TIRED, IT DOESN'T REALLY MATTER." DISCUSSED THESE FEELINGS WITH PATIENT AND PROVIDED EMOTIONAL SUPPORT. ENCOURAGED PATIENT TO VOICE HIS CONCERNS TO STAFF WHENEVER HE NEEDS. PT RESTING NOW, WATCHING TV.
--- NOTE | 2021-01-24 19:09 | OR ---
[facility] [address], [place] [address] Signed DATE OF OPERATION: 01/23/2021 SURGEON: Norma Pickett MD TIME: 09:30 p.m. PREOPERATIVE DIAGNOSES: 1. Acute hypoxic respiratory failure, status post intubation. 2. Ongoing right lower lobe pneumonia. 3. Consolidation and lack of ventilation of left lower lobe with mucus plugging. POSTOPERATIVE DIAGNOSES: 1. Acute hypoxic respiratory failure, status post intubation. 2. Ongoing right lower lobe pneumonia. 3. Consolidation and lack of ventilation of left lower lobe with mucus plugging. OPERATIVE PROCEDURES: Flexible bronchoscopy with bronchial alveolar lavage and clearance of left lower lobe mucous plugs. ANESTHESIA: Propofol infusion (sedated on ventilator). INDICATION: This 85-year-old white man was admitted on 01/20/2021 with recurrent right lower lobe pneumonia, thought related to aspiration. The patient has been n.p.o. since his admission and has been given intravenous antibiotics under the direction of Dr. Wolff. 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 I was consulted two days ago for consideration of a feeding gastrostomy, which was anticipated for tomorrow. Late this evening, he had a hypoxemic episode and nearly cardiopulmonary arrest requiring rapid response team and emergency intubation by [facility]. He required pressor agents and full ventilatory support and his O2 saturations were in the low 60s. Once intubated, the flexible intubating bronchoscope was used by the artist suspect demonstrated complete plugging of the left mainstem bronchus with mucoid Electronically Signed By: NORAM PICKETT MD 01/24/21 1909 PATIENT NAME: LUIS ALBERTO MADRIGAL OPERATIVE REPORT DATE OF : 35 REPORT #: [id number] PHYSICIAN: NORMA PICKETT MD PCP: JESSICA VEGA MD REPORT IS CONFIDENTIAL AND NOT TO BE RELEASED WITHOUT AUTHORIZATION [facility] [address], [place] [address] Signed material. No food (the patient not eating currently), but significant inability to ventilate the left lung. There are essentially no breath sounds on the left side. Emergent consultation was undertaken with me for consideration of flexible bronchoscopy to clear the mucus plugs and secretions. I conferred with Dr. Wolff on this. I have reviewed his chest x-ray and discussed this with his and other family members and recommend emergency bronchoscopy in the intensive care unit for clearance of the left bronchus. The risks of bleeding, infection, precipitation of cardiac arrhythmias, and so forth was reviewed. They understand and wished to proceed. FINDINGS: Indeed, there was mucous plugging of the left lower lobe bronchus, less so for the upper. Tenacious secretions were quite obvious and well noted. With persistent lavage and suctioning technique, the mucoid material was completely cleared. Culture of the mucoid material was undertaken once extracted. A postprocedure chest x-ray showed remarkable improvement of aeration of the left lung, persistence of the right lower lobe infiltrate, and no complication. PROCEDURE: At the bedside in the intensive care unit, the flexible bronchoscopy equipment was readied and the bronchoscope focused and materials needed for bronchoalveolar lavage made ready. An adapter was applied to the endotracheal tube in the ventilator secured to it. Assistance of the respiratory therapist was beneficial in this regard obviously. An Olympus flexible bronchoscope with video adapter was passed down the endotracheal tube. The main beryl was identified. Passage to the left side was undertaken and the left main stem bronchus was clear. The left upper lobe bronchus had a bit of mucoid material, which was suctioned free. The material was whitish and rather tenacious and mucoid, but was able to be cleared rather readily. Realignment to the left lower lobe showed complete mucoid blocking the entrance. Irrigation and repeated suctioning with high level of suction on the bronchoscope allowed for breakdown of the mucous plugging and with saline and persistence and occasional withdrawal of the scope entirely to offload mucoid material, left lower lobe bronchus was cleared more fully. The segmental bronchi were similarly lavaged with saline and irrigated free until it completely clear. A large tenacious amount of mucoid material was extracted and this was successfully cultured. The scope was reintroduced. Examination of the right side showed conventional anatomy including the right upper lobe, bronchus intermedius, and right lower lobe segmental bronchi and right superior segmental bronchus. There was no sign of purulence or mucoid material there. Re-examination of the left side confirmed complete clearance. He tolerated the procedure well, was re-established to his normal circuitry in the ventilator. Electronically Signed By: NORMA PICKETT MD 01/24/21 4896 PATIENT NAME: LUIS ALBERTO MADRIGAL OPERATIVE REPORT DATE OF : 35 REPORT #: [id number] PHYSICIAN: NORMA PICKETT MD PCP: JESSICA VEGA MD REPORT IS CONFIDENTIAL AND NOT TO BE RELEASED WITHOUT AUTHORIZATION [address] [address] Signed A postprocedure chest x-ray showed remarkable improvement of his left lung aeration indicating highly successful endeavor has been accomplished. MD FEDE Samuels/MODL /[id number] Copies: ~ Electronically Signed By: NORMA PICKETT MD 01/24/21 1909 PATIENT NAME: LUIS ALBERTO MADRIGAL OPERATIVE REPORT DATE OF : 35 REPORT #: [id number] PHYSICIAN: NORMA PICKETT MD PCP: JESSICA VEGA MD REPORT IS CONFIDENTIAL AND NOT TO BE RELEASED WITHOUT AUTHORIZATION
--- NOTE | 2021-01-24 19:30 | NUR ---
REPORT RECIEVED FROM DAY SHIFT RN, CARE OF PATIENT ASSUMED AT [facility]. PT RESTING IN BED WATCHING TELEVISION. ALERT AND ORIENTED AT THIS TIME. SPO2 = 92% ON 4 L NC. CALL LIGHT WITHIN REACH. DENIES FURTHER NEEDS AT THIS TIME.
--- NOTE | 2021-01-24 20:15 | NUR ---
Sputum obtained via left nare and sent to lab.
--- NOTE | 2021-01-24 20:45 | NUR ---
ASSESSMENT COMPLETED. PLAN OF CARE FOR EVENING ESTABLISHED. IV ABX AND FLUIDS NOW INFUSING. PT USING ORAL SUCTIONING AT [facility] [place]. SATURATIONS MAINTAINED GREATER THAN 90% ON 4 L NC. CALL LIGHT WITHIN REACH. WILL CONTINUE TO MONITOR.
--- NOTE | 2021-01-24 22:15 | NUR ---
PT RESTING WITH EYES CLOSED BREATHING EVEN AND UNLABORED. RR=22. SPO2 = 93% CALL LIGHT AND PERSONAL BELONGINGS WITHIN REACH. WILL CONTINUE TO MONITOR.
--- NOTE | 2021-01-24 23:00 | NUR ---
OXYGEN SATS DROPPED DOWN TO 86% ON OXYMASK 4L. PT ASSISTED WITH SUCTIONING, ALSO REPOSITIONED ONTO LEFT SIDE. SATS UP TO 92%.
--- NOTE | 2021-01-24 23:30 | NUR ---
pts oxygen saturations down into the mid 80s. assisted pt with coughing and using oral suction. repositioned pt in bed. saturations now back up to 93% on 6 L OM. will continue to monitor.
--- NOTE | 2021-01-25 00:58 | NUR ---
pt pulled of oxygen, saturations down into the mid 80s. This RN in room. Assisted pt in repostioning in bed. PT did oral suctioning. oxygen back in place. spo2 =92 percent at this time. will continue to monitor.
--- NOTE | 2021-01-25 02:30 | NUR ---
PT REPOSTIONED ONTO RIGHT SIDE, AND ASSISTED PT WITH ORAL SUCTIONING. ENCOURAGED COUGHING AND DEEP BREATHING. PT SPO2 = 93% IV FLUIDS INFUSING, CALL LIGHT WITHIN REACH. WILL CONTINUE TO MONITOR.
--- NOTE | 2021-01-25 05:00 | NUR ---
lab in room at this time to draw blood.
--- NOTE | 2021-01-25 06:43 | NUR ---
pt repostioned onto back and pulled up in bag. IV fluids continue to infuse. call light within reach. denies further needs
--- NOTE | 2021-01-25 08:51 | NUR ---
IN PATIENT'S ROOM FOR ASSESSMENT, VITALS AND BUSINESS APPLICATIONS DEVELOPER. PATIENT AWAKE, ALERT, AND IN GOOD SPIRITS. PATIENT STATES HE IS FEELING GOOD OVERALL, AND STATES, "I GOT A LOT OF STUFF UP LAST NIGHT." PATIENT DENIES PAIN AT THIS TIME, EXCEPT FOR IN HIS RIGHT UPPER ARM/AC AREA WHERE HE HAD A PREVIOUS IV. DR. HAWKINS AWARE OF WHAT THIS RN SAW ON U/S YESTERDAY IN THE RIGHT BASILIC VEIN AND WILL ASSESS TODAY. PATIENT GIVEN BED BATH AND LINEN CHANGE PER POT FIRER. PT NOW UP TO CHAIR AT BEDSIDE AND DOING WELL. PT SWITCHED OVER TO NASAL CANNULA AT 3 L AT THIS TIME. ROY DRAINING CLEAR YELLOW URINE. IV SITES IN RIGHT LOWER ABDOMINAL AREA STILL FLUSHING WELL. LUNG SOUNDS WERE IMPROVED IN RIGHT LUNG TODAY AND LESS DIM OVERALL. PT ALSO HAS DENTURES AND HEARING AIDS IN AT THIS TIME. CALL LIGHT WITHIN REACH.
--- NOTE | 2021-01-25 09:03 | NUR ---
BEDBATH COMPLETE. NEW GOWN AND CLEAN LINENS, AND WARM BLANKET PROVIDED. PATIENT UP TO CHAIR 1PA, TOLERATED WELL. CALL LIGHT AND [place] IN REACH. NOOTHER NEEDS AT THIS TIME
--- NOTE | 2021-01-25 10:54 | NUR ---
PT UP IN CHAIR WITH SPOUSE IN ROOM. TITRATED 02 DOWN TO 2L. LASIX AND POTASSIUM GIVEN. PT CONTIUES TO HAVE PRODUCTIVE SPUTUM AND USING SUCTION. ROY TO BE DC'D LATER TODAY. IV FLUIDS ON STANDBY WHILE POTASSIUM IS INFUSING. WARM BLANKETS PROVIDED. CALL LIGHT WITHIN REACH.
--- NOTE | 2021-01-25 11:51 | NUR ---
PATIENT USES CALL LIGHT AND WANTING TO GO BACK TO BED. PT HAS BEEN SITTING UP IN CHAIR SINCE AROUND 0900. PT REMAINS ON 2 L NC WITH SP02 AT 92% AT THIS TIME. PRODUCTIVE SPUTUM CONTINUES AND USING SUCTION. PT'S REMAINS IN ROOM. WARM BLANKETS PROVIDED. ROY DRAINING LARGE AMOUNT OF DILUTE URINE AFTER LASIX WAS GIVEN. IV SITE W/O REDNESS OR SWELLING. PT WILL TRANSFER TO MEDICAL FLOOR TODAY W/O TELEMETRY.
--- NOTE | 2021-01-25 13:21 | NUR ---
PT's nurse said PT and his would most likely want a visit from me. I had a short visit with PT who let me know that he had a hard diagnosis but not a fatal one. PT got emotional when I asked how I could pray for him. PT's said he has been depressed. I prayed for PT for comfort and peace and a knowing that he was not alone but God was with him in this broken world. He and his thanked me for visiting and I let them know I would continue to pray for them.
--- NOTE | 2021-01-25 16:39 | NUR ---
Pt transferred to Medical floor.
--- NOTE | 2021-01-25 17:48 | NUR ---
Patient vitals, I&Os are complete. Patient's went home. Call light is in reach. Patient is resting.
--- NOTE | 2021-01-25 18:19 | NUR ---
THIS RN IN PTS ROOM TO REMOVE PTS ROY PER MD ORDERS. PT RESTING IN BED AND APPEARS TO BE DOING WELL AT THIS TIME. PT TOLERATED REMOVAL AND ONLY REQUESTS HIS HEAD TO BE LOWERED SLIGHTLY- HOB STILL ELEVATE TO GREATER THAN 30 DEGREES.
--- NOTE | 2021-01-25 19:39 | NUR ---
Shift report received from CRISTINA Gómez, pt sitting up in chair w/ call light in reach. O2 sats 92% on 2L via NC, pt denies any needs at this time.
--- NOTE | 2021-01-25 19:40 | NUR ---
IN TO ASSIST PT REPOSITION IN THE CHAIR, PILLOW UNDER BOTTOM, PT STATES HIS BACK HURTS, ASKING PT IF WE CAN DO ANYTHING TO HELP HIS PAIN, PT STATES, "YEAH IF YOU CAN BRING ME A SHOTGUN", ENCOURAGED PT TO CALL OFFEN SO WE CAN HELP PT WITH COMFORT, RN NOTIFED ABOUT PTs COMMENT, NO FURTHER NEEDS AT THIS TIME
--- NOTE | 2021-01-25 20:00 | NUR ---
PT SITTING UP IN CHAIR SAFELY W/ CALL LIGHT IN REACH. O2 SATS 92% ON 2.5l VIA NC, PT DENIES SOB. EVENING ASSESMENT COMPLETED, IV FLUIDS INFUSING PER PROVIDER ORDER. PT DENIES ANY NEEDS AT THIS TIME.
--- NOTE | 2021-01-25 20:38 | NUR ---
RT NOTIFIED THIS RN THAT pt REQUESTING TO SIT ON FLOOR BOTTOM IS HURTING. IN pt ROOM. pt C/O PAIN IN REAR END. pt DENIES PRN SUPPOSITORY. SBA TO BED, REPOSITIONED TO FLOATING WITH PILLOWS UNDER BOTH HIPS, TELEPHONIC RN ABIMAEL ASSIST. pt STATES "I'M COMFORTABLE FOR NOW". VSS. CALL LIGHT IN REACH.
--- NOTE | 2021-01-25 21:40 | NUR ---
IN TO ASSIST PT WITH URINAL, 100MLS OUT, PT REQUESTING TO SIT IN THE CHAIR AT THIS TIME, MOVED AFTER VOIDING WITH SBA, NO FURTHER NEEDS AT THIS TIME
--- NOTE | 2021-01-25 22:00 | NUR ---
PT SITTING UP IN CHAIR SAFELY W/ CALL LIGHT IN REACH, O2 SATS 93% ON 2.5L VIA NC, PT DENIES ANY SOB OR NEEDS AT THIS TIME.
--- NOTE | 2021-01-25 23:54 | NUR ---
PT ASSISTED FROM CHAIR TO BED, PT LYING ON R SIDE, O2 SATS 92% ON 2.5L, PT DENIES SOB. IV ABX HUNG AND INFUSING PER PROVIDER ORDER. PT DENIES ANY OTHER NEEDS AT THIS TIME, CALL LIGHT IN REACH.
--- NOTE | 2021-01-26 01:00 | NUR ---
PT UP TO VOID AT BEDSIDE, MOVED TO THE CHAIR FOR COMFORT NO FURTHER NEEDS AT THIS TIME
--- NOTE | 2021-01-26 02:15 | NUR ---
PT RESTING IN BED SAFELY W/ CALL LIGHT IN REACH. O2 SATS 90% ON 2.5L. PT REPOSITIONED ONTO R SIDE.
--- NOTE | 2021-01-26 04:24 | NUR ---
Pt resting safely in bed w/ call light in reach and eyes closed, RR even and unlabored, O2 sats 90% on 2.5L.
--- NOTE | 2021-01-26 05:46 | NUR ---
Pt back and forth between bed and chair, but able to get some rest. O2 sats remained in low 90's on 2.5L via NC, CPOX on. Sufficient urine output for shift. Pt 1PA/SBA for transfers. IV fluids infusing per provider order.
--- NOTE | 2021-01-26 05:50 | NUR ---
in to assist pt, pt attemted to call for assistance while staff were busy away from the nursing station, pt tried to use the urinal, missed some, soiling gown and chux/drawsheet, replaced items, new flat sheet replaced, new attends on pt, lab in to draw pt, vitals and i&os done, pt set up in the chair, call light in reach, no further needs, apologiesed to pt for not being nearby when he called, pt seems to understand
--- NOTE | 2021-01-26 08:00 | NUR ---
REPORT RECEIVED. PT IN BED. DENIES PAIN. CALL LIGHT IN REACH.
--- NOTE | 2021-01-26 09:20 | NUR ---
No change in plan for dc.
--- NOTE | 2021-01-26 09:32 | NUR ---
PT UP IN RECLINER, CALLED IV BEEPING, IN TO ROOM , NEW FLUID BAG STARTED. PT REPORTED HIS BOTTOM IS HURTING, REPOSITIONED IN RECLINER. PT THEN REQUESTED TO GO BACK BED, ASSISTED BACK TO BED.
--- NOTE | 2021-01-26 11:44 | NUR ---
ASSESSMENT COMPLETED. PT ASSSITED BACK TO CHAIR FOR LUNCH. RIGHT SIDE OF LUNGS DIM WITH LITTLE AIR FLOW. HEART SOUNDS REGULAR. BRUISE ON LEFT FOOT WITH EDEMA PRESENT. PT REPORTS IT FEELS BETTER TODAY. SPO2 AT 86%. TITRATED UP TO 5L NC. SATURATIOSN INCREASED TP 89-80%. TITRATED BACK TO 4L NC. PT MAINTAINING SATS. PT COUGHING UP COPIUS AMOUNTS OF WHITE THICK SPUTUM. SUCTION AT BEDSIDE. DENIES SOB. AT BEDSIDE. CALL LIGHT IN REACH. DENIES FURTHER NEEDS.
--- NOTE | 2021-01-26 12:20 | NUR ---
ASSISTED PT BACK TO BED WITH SBA. HOB ELEVATED AT 30 DEGREES. 4L NC IN PLACE. SPO2 AT 89%. RT IN EARLIER FOR NEB TREATMENT. IV SITE ON ABDOMEN WNL INFUSING WELL. CALL LIGHT IN REACH.
--- NOTE | 2021-01-26 17:24 | NUR ---
IV TO ABDOMEN INFILTRATED. LEFT UPPER ARM IV IS LEAKING. NEW IV PLACED IN LEFT FORARM 22G. ABX STARTED. PT TOLERATED WELL. PT ASSISTED TO SIT IN CHAIR. DENEIS FURTHER NEEDS. CALL LIGHT IN REACH. AT [facility].
--- NOTE | 2021-01-26 19:15 | NUR ---
SHIFT REPORT RECEIVED FROM DAYSHIFT RN DONY, pt RESTING QUIETLY IN BED. CPOX IN PLACE, 4LNC, SPO2 LOW 90'S. SUCTION AND CALL LIGHT BOTH IN REACH. IV ABX INFUSING, SITE WNL. NO DISTRESS NOTED, WILL CONTINUE TO MONITOR.
--- NOTE | 2021-01-26 20:02 | NUR ---
CALL LIGHT ANSWERED, pt UP SBA WITH FWW FROM BED TO CHAIR. SUCTION IN REACH WELL CALL LIGHT. BLE ELEVATED WITH USE OF PILLOW. IV MAINTENACNE FLUIDS RESUMED, IV SITE WNL. NO FURTHER NEEDS, URINAL ALSO EMPTIED. BOARD UPDATED.
--- NOTE | 2021-01-26 22:00 | NUR ---
IN TO GET VITALS, I&Os DONE, PT RESTING THROUGH VITALS, NO FURTHER NEEDS AT THIS TIME
--- NOTE | 2021-01-26 22:15 | NUR ---
ASSESSMENT COMPLETE, NO SCHEDULED MEDS (SEE EMAR). VSS, pt ON 4LNC, CPOX IN PLACE. SPO2 ABOVE 90%, HR WNL. SUCTION IN REACH, pt SUCTIONS PRN FOR COMFORT. IV FLUIDS INFUSING PER MD ORDER, SITE WNL. pt UP SBA TO VOID AND IS NOW BACK IN BED. CALL LIGHT IN REACH, NO FURTHER NEEDS OR CONCERNS VERBALIZED.
--- NOTE | 2021-01-26 23:45 | NUR ---
IN TO ASSIST PT OVER TO THE CHAIR FROM THE BED, 1PA/SBA FWW, PT SET UP WITH CALL LIGHT, SUCTION, CPOX, AND PILLOWS, NO FURTHER NEEDS AT THIS TIME
--- NOTE | 2021-01-27 00:34 | NUR ---
pt in chair, back to bed 1pa/fww, slow gait/fww. o2 in place, uses yaunker to suctioning oral drainage. ivf infusing, tolerated well, did own mouth care with oral sponges
--- NOTE | 2021-01-27 01:20 | NUR ---
pt RESTING IN BED, EYES CLOSED. RR EVEN AND UNLABORED. 4LNC IN PLACE, CPOX REMAINS ON. SPO2 AND HR BOTH WNL. pt REMAINS NPO, IV FLUIDS INFUSING WITH ABX PER MD ORDERS, SITE WNL. CALL LIGHT IN REACH.
--- NOTE | 2021-01-27 02:00 | NUR ---
PT UP TO VOID AT BEDSIDE, MOVED OVER TO CHAIR, CALL LIGHT IN PLACE, PILLOWS AND BLANKETS FOR COMFORT, NO DURTHER NEEDS
--- NOTE | 2021-01-27 02:50 | NUR ---
IN TO ASSIST PT BACK TO BED, NO FURTHER NEED
--- NOTE | 2021-01-27 05:32 | NUR ---
CALL LIGHT ANSWERED, pt UP SBA WITH FWW FROM BED TO CHAIR. STEADY ON FEET. ASSESSMENT COMPLETE, NO NEW CHANGES OR CONCERNS. SUCTION IN REACH, pt REMAINS NPO. HOB REAMINS ELEVATED MORE THAN 30 DEGREES PER MD ORDERS. 18 G TO LEFT UPPER ARM LEAKING, DISCONTINUED, CATHETER TIP INTACT. CALL LIGHT IN REACH. LAB IN ROOM FOR BLOOD DRAW.
--- NOTE | 2021-01-27 05:45 | NUR ---
LR WITH STRAIGHT TUBING HUNG AND IN ROOM FOR SURGERY. CONSENT WITNESSED BY THIS RN AND IN FRONT OF CHART.
--- NOTE | 2021-01-27 07:35 | NUR ---
THIS AGGREGATE CONVEYOR OPERATOR HELPED PT GET UP IN THEIR RECLINER. WHITEBOARD WAS UPDATED. CALL LIGHT IS WITHIN REACH. NO FURTHER NEEDS AT THIS TIME. PT IS NOW RECIEVING BREATHING TREATMENTS.
--- NOTE | 2021-01-27 07:57 | NUR ---
REPORT RECIEVED. PT SITTING UP IN CHAIR. RT IN ADMISNTERING BREATHING TREATMENT. CALL LIGHT IN REACH.
--- NOTE | 2021-01-27 08:29 | NUR ---
PRE-PROCEDURE WIPE DOWN DONE. PT ASSISTED BACK TO BED. ASSESSMENT COMPLETED. ABX STARTED. PT WITH 4L NC IN PLACE.
--- NOTE | 2021-01-27 08:44 | NUR ---
THIS CORE MOUNTER AND RN DONY WIPED DOWN PT FOR THEIR SURGERY. PT IS NOW IN BED WITH A NEW GOWN ON. CALL LIGHT IS WITHIN REACH. NO FURTHER NEEDS AT THIS TIME.
--- NOTE | 2021-01-27 09:30 | NUR ---
ASSESSMENT COMPLETED. PT CONNECTEDTO STRAIGHT TUBBING ABX WITH PT. PT OFF FLOOR TO SURGERY.
--- NOTE | 2021-01-27 11:56 | NUR ---
01/27/21 1156 Sherly,Sayda 1137 PT ARRIVED TO PACU ON 10L VIA MASK, O2 SAT 84% AND ENVIRONMENTAL STUDIES PROFESSOR AT BEDSIDE, SUCTIONS USED AND CLEAR MUCUS SUCTIONED OUT OF MOUTH. O2 INCREASING. 1140 O2 85-95%, HOB INCREASED AND PT MOVED UP IN BED. OXY MASK PLACED. 1150 PT STARTS USING THE SUCTIONS HIMSELF AND CONTINUES TO COUGH UP MUCUS. PT DENIES PAIN IN ABD. PT REORIETNED TO PACU. 1155 PT COUGHING OFF AND ON, PT AWAKE AND TALKING TO RN. PT CONTINUES TO USE SUCTION OFF AND ON.
--- NOTE | 2021-01-27 13:03 | NUR ---
TUBE FEEDING RECOMMENDATIONS: Use Jevity 1.5 ([facility]). Start by bolusing 1/2 of a carton, wait 60 minutes then bolus the other half. This will allow the stomach to adjust to having volume in it. Ultimately he will need 5 to 6 cartons of Jevity 1.5 daily to meet his calorie and protein needs. Once he is able to tolerate 1 carton in a bolus, he could take 1 carton every 2 hours or so during the day. It is important for the patient to remain upright for at least 1 hour after feeding before laying down. Water flushes per Dr. Ramirez or [place] for now. Calorie Needs: [id number] Protein Needs: 83-100 grams/day Fluid Needs: 2100 ml/day 5 Jevity 1.5 would provide 1775 calories and 75 grams protein. 6 cartons would provide 2130 calories and 90 grams protein. Plan to monitor his tolerance and adjust feeding regimen and water flushes to accomodate meeting his needs at home.
--- NOTE | 2021-01-27 13:13 | NUR ---
PT ARRIVED TO FLOOR VIA STRETCHER. PT IS ALERT AND ORIENTED. PT DENEIS PAIN. NO NAUSEA. LUNGS CLEAR ON LEFT AND DIM WTIH SOME CRACKELS ON RIGHT SIDE. 5L NC IN PLACE. CPOX ON. VITALS TAKEN AND STABLE. AT BEDSODE. PEG TUB LOOKS GOOD WITH GAUZE. NO DRAINAGE. CALL LIGHT IN REACH. DENEIS FURTHER NEEDS.
--- NOTE | 2021-01-27 13:21 | NUR ---
PATIENT SITTING UP IN CHAIR FACING THE WINDOW. HIS IS VISITING. HE FINISHED HIS LUNCH, EATING MOST OF HIS CHICKEN NOODLE SOUP AND A SHERBET. HE MUST HAVE DRANK SOME GRAPE JUICE OR CRANBERRY JUICE BECAUSE THERE WAS AN EMPTY JUICE CUP ON HIS TRAY. HIS STATES TEODORO WAS EATING WELL AT HOME. SHE IS SURPRISED HE HASN'T GAINED WEIGHT. I TOLD THEM THAT HE NEEDS TO EAT AT LEAST 2000 CALORIES OR MORE IN ORDER TO GAIN WEIGHT. THIS WILL INVOLVE HIM EATING 6 SMALL MEALS A DAY AND MAKING SURE HE ADDS FAT TO HIS MEALS TO GET HIS CALORIES UP THERE. I SUGGESTED ADDING PEANUT BUTTER, BUTTER, AVOCADO, OIL, OR TRINIDAD TO FOODS. HE CAN ALSO ADD CHEESE WHICH WILL PROVIDE PROTEIN, TOO. I EMPHASIZED THE IMPORTANCE OF HIM EATING MORE OFTEN IN ORDER TO GAIN SOME WEIGHT. HE DOES DRINK ENSURE AT HOME. HE WAS DRINKING WHOLE MILK, BUT WHEN THE STORE DIDN'T HAVE IT LAUREN BOUGHT HALF & HALF SO HE HAS BEEN DRINKING HALF & HALF AT HOME FOR ABOUT THE PAST MONTH OR SO. PROVIDED A HANDOUT ON SUGGESTIONS FOR INCREASING CALORIES AND PROTEIN AT HOME. WILL MAKE SURE THE KITCHEN KNOWS TO SEND WHOLE MILK. CONTINUE 60 GM CONSISTENT CARB DIET.
--- NOTE | 2021-01-27 15:29 | NUR ---
IN FOR POST-OP VITALS AND TUBE FEEDING. SATURATIONS BEFORE FEEDING WERE 85-86% ON WAVE FOR WAS NOT SHOWING ACCURATE FORM. PT DENIES SOB. RR IS 22. TUBE FEEDING COMPLETED WITH A TOTAL OF 180ML OF FLUID IN. PT DENEIS NAUSEA, BLOATING OR DISTENTION. FINGER PROBE CAHNGED. SATURATIONS DID NOT IMPROVE. TITRATED O2 TO 10L NC. SATURATIONS FROM 87-88%. CHANGED TO OXYMASK. NO CHANGE IN SATURAITONS. PT STILL DENIES SOB. RESPITORY THERAPY CALLED TO ASSESS PT. DECREASE IN LUNG SOUNDS NOTED ON RIGHT SIDE. THIS IS A CHANGE FROM ASSESSMENT [place] ONE HOUR AGO. NON-REBREATHER PLACED WITH 15+ L OXYGEN. SATURATIONS NOW AT90-91%. DR COUGHLIN AND PIYUSH BOTH NOTIFIED. BOTH AGREED ON CHEST X-RAY, SUCTION AND HOLDING FEEDINGS. DR COUGHLIN TO FLOOR TO ASSESS PT. IMAGING IN ROOM FOR CHEST X-RAY.
--- NOTE | 2021-01-27 15:50 | NUR ---
PT HAD LOW OXYGEN LEVELS ON CPOX , RN CHANGED PROBE AND IT HAD GOOD WAVEFORM , PT WAS NOT IN ANY DESTRESS THIS TIME,PT WAS PLACED ON OXYMASK THE TO NONREBREATHER ANDSPO2 WAS HANGING AT 88%, BS WERE DIMINISHED ON THE RIGHT COMPARED TO LEFT AND CHEST WALL EXPANSION WAS UNEQUAL. PATIENT BS DID NOT INDICATE THAT SUCTIONING WOULD BE HELPFUL. PT WAS GIVEN A BREATHING TREATMENT. A CHEST XRAY WAS VIEWED BY DOCTOR AT BEDSIDE , PT SPO2 INCREASED TO 97% AFTER XRAY CHANGE OF POSITION MAY HAVE HELPED . DOCTOR MADYSON INSTRUCTED TO WEAN FIO2 . PT WAS WEANED TO 6LPM OXYMASK SPO2 WAS 94% AND PATIENT LOOKED STABLE.
--- NOTE | 2021-01-27 16:18 | NUR ---
SATURATIONS INCREASED TO 96%. CXR COMPLETED. DR COUGHLIN AT BEDSIDE TO LOOK AND IMAGE. TITRATED PT TO 7L OXYMASK. SATURATIONS AT 94%. PT ASSISTED TO SIT AT EDGE OF BED TO TRY AND COUGH UP SECRETIONS. VOIDED 200ML. AT BEDSIDE. DENEIS FURTHER NEEDS.
--- NOTE | 2021-01-27 16:53 | NUR ---
ROUNDED ON PT TO ASSESS OXYGEN SATURATIONS. O2 AT 84% ON 7L OXYMASK. TITRATED TO 10L. NO CHANGE. TITRATED TO 15+L. OXYGEN 87%. DR COUGHLIN NOTIFIED. ORDERS FOR ABG'S TO BE DONE. RT CALLED AND NOTIFIED OF NEW ORDER./
--- NOTE | 2021-01-27 16:55 | NUR ---
THIS CASE INVESTIGATOR HELPED CASE INVESTIGATOR STEPHEN BOOST PT UP IN BED. WHEN PT WAS FLAT, PT WAS HAVING A HARD TIME BREATHING WHILE ON 15 LITERS MASK.
--- NOTE | 2021-01-27 17:04 | NUR ---
RESPITORY THERAPY TO BEDSIDE FOR ABG'S. DEEP SUCTION PROVIDED TO PT BY RT. PT TOELRATED WELL.
--- NOTE | 2021-01-27 18:21 | NUR ---
PT REQUESTING TUBE FEEDING. DR PICKETT AND MADYSON AGREE IT IS OKAY TO PROCEED WITH CAUTION. 1/2 A CAN OF JEVITY 1.5 TRACEY ADMISNTERED WITH 25ML FLUSH BEFORE AND AFTER. PT SITTING UP IN CHAIR FOR FEEDING. TOLERATED WELL. OXYMASK IN PLACE WITH 14L IN PLACE. ACCAPELLA DONE WITH PT. SUCTION AT BEDSIDE. DR ORDERED DEEP SUCTION TO BE DONE TWICE A DAY. ORDER PLACED.
--- NOTE | 2021-01-27 18:49 | NUR ---
JACKELINE ON PT. STILL ON 14L OXYMASK SITTING UP IN CHAIR. SPO2 AT 92%.
--- NOTE | 2021-01-27 19:45 | NUR ---
BEDSIDE REPORT RECEIVED FROM DONY EVANS ON MED SURG FLOOR. HER AND THIS RN TRANSPORTED PATIENT TO CCU. RT IN ROOM PUTING VAPORTHERM IN ROOM ON STANDBY. PATIENT PLACED ON CERTIFIED ETHICAL HACKER, CONTINUOUS PULSE OX AND HOURLY BLOOD PRESSURES. PATIENT CONTINUES RECEIVING HIS ABX. PATIENT'S BAGS AND BELONGINGS HERE WITH PATIENT. PATIENT;S DENTURES AND HEARING AIDS PLACED IN CUPS. PATIENT CURRENTLY ON OXYMASK.
--- NOTE | 2021-01-27 19:49 | NUR ---
DR COUGHLIN NOTIFIED OF PT DESATTING. RT ALSO NOTIFIED, ORDERS TO TRANSFER TO CCU AND PLACE VAPOTHERM. REPORT GIVEN TO CCU AND PT TRANSFERED OVER. CALLED AND NOTIFIED.
--- NOTE | 2021-01-27 19:57 | NUR ---
DR PICKETT CALLED AND UPDATED ON PT CONDITION AND PLAN OF CARE.
--- NOTE | 2021-01-27 20:04 | NUR ---
OLIVIA FROM RT PERFORMED DEEP SUCTIONING PATIENT TOLERATED WELL. PATIENT HAS SUCTION SET UP WITH MARY IN HAND TO SELF SUCTION HIS SECRETIONS. CURRENTLY ON 4 LITERS OXY MASK SATS 88-90%
--- NOTE | 2021-01-27 20:41 | NUR ---
PLACED IN BEDSIDE CHAIR PER PATIENT REQUEST TO SIT UP MORE, ABLE TO DO THIS WITH ONE PERSON ASSIST. HOWEVER O2 SATS STAYED IN 80'S ON OXYMASK, PATIENT WAS LEANING FORWARD AND HIS AIRWAY WAS POSITIONAL, PLACED ON NRB TO ALLOW VAPOTHERM TO HEAT UP. PT ON VAPOTHERM 35 LPM, 60% FIO2. TOLERATING WELL. PT SLEEPING
--- NOTE | 2021-01-27 21:22 | NUR ---
PATIENT ASKS TO GO TO BED. ASSISTED BACK TO BED, HOB ELEVATED PAST 30 DEGREES. PATIENT REMAINS ON THE VAPOTHERM AT THIS TIME, SATING 93%. 40 LPM, 60% FIO2. CALL LIGHT IN REACH. SANFORD IN REACH SET TO SUCTION.
--- NOTE | 2021-01-27 22:22 | NUR ---
PATIENT AWAKE ASKING TO USE URINAL, INSISTS ON BEING ABLE TO STAND UP TO DO THIS. THIS RN HELPED PATIENT TO STAND UP USING HIS WALKER, PATIENT WAS ABLE TO HOLD URINAL AND VOID, 150 ML. PATIENT WANTS TO SIT UPRIGHT IN CHAIR "FOR ABOUT AN HOUR" PATIENT ABLE TO AMBULATE WITH WALKER WHILE ON VAPOTHERM, WHEN HE GOT TO CHAIR HE HAD TO SUCTION SOME SECRETIONS BUT OTHER THAN THAT HE TOLERATED WELL. ALSO THIS RN FLUSHED HIS G TUBE TO CHECK PATENCY, IT FLUSHES AND PULLS. SURGICAL DRESSING REMAINS INTACT, DRY. VAPOTHERM REMAINS 40 LPM. 60% FIO2. HAS [place] IN HAND HOOKED TO SUCTION. CALL LIGHT INR EACH.
--- NOTE | 2021-01-27 23:28 | NUR ---
PATIENT WOULD LIKE TO BE TRANSFERRED BACK TO THE BED. NE PERSON ASSIST TO HELP PATIENT UP TO HIS WALKER AND THEN TO GUIDE TUBES AND WIRES. PATIENT WAS ABLE TO AMBULATE TO BED WHILE ON VAPOTHERM, WHEN SAT DOWN TO BED PATIENT SELF SUCTIONED. BACK IN BED WITH SCDS ON, REMAINS ON 40 LPM 60% FIO2 ON VAPOTHERM. SATS IN MID 90'S. COVERED PATIENT WITH MULTIPLE BLANKETS PER REQUEST. CALL LIGHT IN REACH, SANFORD IN HAND SET UP TO SUCTION. PATIENT DENIES OTHER NEEDS.
--- NOTE | 2021-01-28 01:16 | NUR ---
ANSWERED PATIENT'S CALL LIGHT. PATIENT REPORTS HE NEEDS TO VOID AND WISHES TO STAND. ASSISTED PATIENT TO STANDING POSITION WITH HIS WALKER, AGAIN PATIENT ABLE TO HOLD OWN URINAL WITH STANDBY ASSSIT. VOIDED 200 ML URINE. PATIENT ASKED TO SIT IN CHAIR. ASSISTED PATIENT BY GUIDING WIRES, CABLES, TUBES PATIENT ABLE TO AMBULATE WITH WALKER TO CHAIR. PLACED HIS FEET UP PER REQUEST. REMAINS ON VAPOTHERM 40 LPM, 60% FIO2, SATS IN LOW TO MID 90'S, RR 26-36. CALL LIGHT IN REACH, YAUNKER TO SUCTION IN HIS HAND. INSTUCTED TO USE CALL LIGHT TO GET ASSISTANCE WHEN READY TO GET UP.
--- NOTE | 2021-01-28 02:41 | NUR ---
PT BACK TO HIS BED WITH ASSISTANCE OF OTHER RN, REMAINS ON VAPOTHERM SAME SETTINGS, SUCTION TO SANF[place] FOR PATIENT IN BED, CALL LIGHT IN REACH.
--- NOTE | 2021-01-28 03:14 | NUR ---
PATIENT O2 SATS NOTED TO DROP TO 81 % WHILE ON VAPOTHERM WITH GOOD PLETH. VAPOTHERM TURNED 10 100% FIO2, ALREADY 40 LPM. PATIENT DENIES BEING MORE SHORT OF BREATH OR ANY WORSENING FEELINGS. LUNG SOUNDS AUSCULTATED, CONTINUES TO BE DIMINISHED IN ALL LOBES. RT CALLED AND IN ROOM SATS REMAIN IN 80'S. ASKED RT TO ATTEMPT TO DEEP SUCTION PATIENT.
--- NOTE | 2021-01-28 03:31 | NUR ---
IN TO SPEAK WITH PATIENT ABOUT BEING PLACED ON CPAP OR BIPAP. EXPLAINED HOW IT IS USED TO PATIENT. HE GIVES VERBAL CONSENT TO THIS RN TO TRY THIS. PATIENT IS ON 40 LPM 100%FIO2 ON VAPOTHERM SATS REMAINING IN LOW 80'S, RR IN HIGH 20'S TO MID 30'S. AMARA EVANS HAS CALLED AND SPOKE WITH DR COUGHLIN.
--- NOTE | 2021-01-28 03:31 | NUR ---
DISCUSSED PATIENT'S RESPIRTORY STATUS WITH . ORDERS RECEIVED. SEE EMAR. PATIENT OFFERED CPAP/BIPAP BY FREEDOM EVANS. PATIENT WILLING TO TRY THIS INTERVENTION. RT NOTIFIED.
--- NOTE | 2021-01-28 03:48 | NUR ---
PATIENT BEING TAKEN OFF VAPOTHERM AND PLACED ON BIPAP AT 16, 100% FIO2 PER RT, ALSO GETTING MUCOMYST AND ALBUTEROL THROUGH NEBULIZER WHILE ON BIPAP. CURRENTLY SATS ARE 92% PATIENT TOLERATING WELL SO FAR.
--- NOTE | 2021-01-28 03:59 | NUR ---
PER REQUEST PATIENT'S WAS NOTIFIED OF PATIENT'S CURRENT O2 DEMANDS. PATIENT'S STATED SHE WOULD COME INTO SEE HIM WENDI. PATIENT NOTIFIED.
--- NOTE | 2021-01-28 05:15 | NUR ---
PATIENT REQUEST BIPAP MASK BE REMOVED. TITRATED TO 90% TO MAINTAIN O2 SATS 86-88%. PATIENT UNDERSTANDS O2 NEEDS MAY NOT BE ADEQUATE ON VAPOTHERM. PATIENT VERBALIZED UNDERSTANDING AND AGREES. PATIENT SWITCHED TO VAPOTHERM 40L 100% Fi02.
--- NOTE | 2021-01-28 06:37 | NUR ---
PATIENT WAS ADMITTED FROM MED SURG AT SHIFT CHANGE LAST NIGHT, HAVING TROUBLES KEEPING O2 SATS UP, HX OF ASPIRATION PNEUMONIA, SWALLOWING ISSUES. HAD G TUBE PLACED YESTERDAY. PATIENT WAS PLACED ON VAPOTHEMRM 40 LPM 60% FIO2 AND SATS WERE IN 90'S FOR MANY HOURS. PATIENT'S SATS BEGIN TO GO INTO THE 80S AND RT ATTEMPTED VAPOTHERM MAXED OUT, THEN TRIED BIPAP. PATIENT DOES NOT WANT TO BE ON BIPAP. HE IS CURRENTLY DNR/DNI. HE IS ON VAPOPTHERM AT THIS TIME.
--- NOTE | 2021-01-28 07:30 | NUR ---
PATIENT REPORT RECIEVED FROM CRISTINA DORAN. PATIENT IS RESTING IN THE BED AT THIS TIME. FAMILY MEMBERS PRESENT IN ROOM. CALL LIGHT WITHIN REACH NO FUTHER NEEDS.
--- NOTE | 2021-01-28 08:45 | NUR ---
PATIENT ASSESSMENT COMPLETE. ORDERED MEDICATIONS GIVEN. PATIENT TRANSFERRED FROM THE BED TO THE CHAIR WITH A 1 PERSON ASSIST. PATIENT TOLLERATED WELL. PATIENT IS ALERT AND ORIENTED X4. PATIENT DENIES ANY DIZZENESS. LUNG SOUNDS ARE DIMINISHED. OXYGEN SATURATION IS 90% ON 40 LPM AND 100 FIO2. HEART SOUNDS ARE WNL AND IN SINUS RYTHM. HR IS 80 BPM. PEG TUBE SITE WNL. PATIENT TUBE FEEDING THIS MORNING WAS 237 MLS AND IRRAGATED WITH 100 MLS OF TAP WATER. PATIENT HAS TENDERNESS AROUND SITE. BOWEL SOUNDS ARE ACTIVE. NO BM OR URINE THIS MORNING. PATIENT UPDATED ON PLAN OF CARE. FAMILY MEMBERS PRESENT AT BEDSIDE. CALL LIGHT WITHIN REACH NO FUTHER NEEDS.
--- NOTE | 2021-01-28 10:30 | NUR ---
PATIENT TRANSFERRED BACK TO BED. TOLLERATED TRANSFER WELL. PATIENT OXYGEN SATURATIONS IN BED DECREASED TO 82%. PATIENT WAS PUT ON BIPAP AT 80% FIO2. PATIENT SATURATIONS ARE AT 90% FIO2. PATIENT HEAD OF BED RAISED AND COUGHING UP THICK CLEAR SECRECTIONS. FAMILY MEMBERS PRESENT AT BEDSIDE. CALL LIGHT WITHIN REACH NO FUTHER NEEDS.
--- NOTE | 2021-01-28 12:30 | NUR ---
PATIENT ASSESSMENT COMPLETE. PATIENT TRANSFERRED TO CHAIR WITH ONE PERSON ASSIST. PATIENT TOLLERATED THIS WELL. ALERT AND ORIENT X4. LUNG SOUNDS ARE DIMINISHED. PATIENT IS ON VAPOTHERM 40 LPM AND 60 FIO2. HEART SOUNDS ARE WNL. SINUS RYTHM AND 80 BPM. TUBE FEEDING COMPLETED. 237 INTAKE AND 100 ML FLUSH. PATIENT COMPLAINS OF ABDOMINAL PAIN WITH FEEDINGS. PATIENT REPOSITIONED AND WANTS TO DO HALF A FEEDING AT A TIME. URINE OUTPUT IS 300 MLS. NO BM YET TODAY. UPDATED ON PLAN OF CARE. CALL LIGHT WITHIN REACH NO FUTHER NEEDS. FAMILY AT BEDSIDE.
--- NOTE | 2021-01-28 16:00 | NUR ---
PATIENT ASSESSMENT COMPLETE. ORDERED MEDICATIONS GIVEN. PATIENT IS ON VAPOTHERM AT 40 LPM AND 60 FIO2. LUNG SOUNDS ARE DIMINISHED. SPUTUM IS THICK AND CLOUDY. PATIENT HEART SOUNDS ARE WNL. PATIENT IS IN SINUS RHYTHM. HEART RATE 86 BPM. PATIENT DENIES ANY PAIN IN HIS ABDOMEN AREA. PATIENT UPDATED ON PLAN OF CARE. NO QUESTIONS. PRESENT AT BEDSIDE. CALL LIGHT WITHIN REACH NO FUTHER NEEDS.
--- NOTE | 2021-01-28 19:28 | NUR ---
REPORT RECEIVED FROM DAY SHIFT NURSES. PATIENT HAS BEEN ON VAPOTHERM MAX SETTINGS UP TO VOID MULTIPLE TIMES, HAD ISSUES WITH GRAVITY FEEDING TO HIS TUBE AND PER DR COUGHLIN NO MORE FEEDS ONLY FLUSHES FOR NOW. MAINTENCANCE FLUIDS CONTINUE. HAS BEEN HERE TODAY.
--- NOTE | 2021-01-28 20:11 | NUR ---
INFORMED DR COUGHLIN VIA PHONE CALL OF PATIENT'S ORAL TEMP 100.3, PATIENT FELT "HOT" REMOVED HEAVY COVERINGS. PER VERBAL ORDER BLOOD CULTURES X 2 AND A URINE TO BE ORDERED. ASKED PATIENT IF HE IS OK DUE TO HIS CONDITION IF WE CAN USE A URINE CATHETER TO OBTAIN URINE AND WATCH HIS OUTPUT.VERBAL CONSENT RECEIVED FROM DR COUGHLIN.
--- NOTE | 2021-01-28 20:46 | NUR ---
PLACED 16 SERBIAN ROY USING STERILE TECHNIQUE. DRAINAGE AMOUNT 30 ML SENT SAMPLE TO LAB. PATIENT TOLERATED WELL. ALSO PLACED TYLENOL SUPPOSITORY INTO PATIENT'S RECTUM SEE EMAR.
--- NOTE | 2021-01-28 21:48 | NUR ---
CALL LIGHT ON. pt REQUESTED ASSISTANCE TO REPOSITION. PROVIDED. CALL LIGHT WITHIN REACH.
--- NOTE | 2021-01-28 22:10 | NUR ---
CHECKED ON PATIENT, ROY IS DRAINING DARK YELLOW URINE. ORAL TEMP DOWN TO 99.9 DEGREES. MAINTENANCE FLUIDS CONTINUE INFUSING. REMAINS ON VAPOTHERM 40 LPM, 100% FIO2. PATIENT WAS ASLEEP BUT IS EASILY AROUSABLE TO VOICE COMMANDS.
--- NOTE | 2021-01-28 23:05 | NUR ---
PATIENT'S O2 SATS ARE DROPPING TO MID 80'S WENT TO CHECK ON PATIENT. PATIENT REPOSITIONED UP IN BED WITH HELP OF THER SATFF MEMBER. NASAL CANNULA HAD ALSO FALLEN OUT NARES, REAPPLIED THEM. SATS GOING BACK INTO 90'S. PATIENT DENIES NEEDING ANYTHING, DENIES PAIN AND NAUSEA. REMAINS ON VAPOTHERM 40 LPM 100% FIO2.
--- NOTE | 2021-01-28 23:59 | NUR ---
checked on patient and to start antibiotic. patient currently asleep, respiration in the high 30's, sats are mid 90's on vapotherm 40 LPM, 100% FiO2. checked bedding it is clean and dry. urine can be seen draining into hatfield bag.
--- NOTE | 2021-01-29 01:01 | NUR ---
IN ROOM TO CHECK ON PATIENT AND TO DO ASSESSMENT. DRAINED 90 ML FROM URINE CATH BAG. CONTINUES TO DRAIN URINE. PATIENT IS ASLEEP, AWAKENS EASILY TO VOICE AND VERBAL COMMANDS. CHECKED BEDDING IT IS DRY AND CLEAN. PATIENT HAS MOVED ONTO HIS RIGHT SIDE ON OWN, "I LIKE TO SLEEP ON THIS SIDE" ABX INFUSING. REMAINS ON VAPOTHERM AT 40 LPM, 100% FIO2, RR LOW 30'S, ORAL TEMP WNL.
--- NOTE | 2021-01-29 05:38 | NUR ---
PATIENT ASSESSMENT COMPLETE. PATIENT IS RESTING ON BED WITH VAPOTHERM, ADJUSTED PATIENT POSITION IN BED WITH HELP OF ANOTHER STAFF MEMBER. ROY CONTINUES TO DRAIN URINE. IV TO RIGHT WRIST IS PATENT, NO INFILTRATION NOTED. SITE TO LEFT FOREARM THAT INFILTRATED REMAINS MODERATELY SWOLLEN AND AREA TO LEFT FOREARM IS BRUISED. PATIENT DENIES PAIN OR DISCOMFORT. PATIENT CONTINUES TO BE AFEBRILE AT THIS TIME. G-TUBE FLUSHED WITH 50 CC TAP WATER.
--- NOTE | 2021-01-29 08:30 | NUR ---
PATIENT ASSESSMENT COMPLETE. MEDICATIONS GIVEN ORDERED. PATIENT TRANSFERRED FROM BED TO CHAIR WITH A TWO PERSON ASSIST. TOLLERATED IT WELL. PATIENT IS ALERT AND ORIENTED X3. PATIENT IS ON VAPOTHERM 90 LPM AND 40 FIO2. DENIES FEELING SHORT OF BREATH. OXYGEN SATURATION IS 90%. LUNG SOUNDS ARE CLEAR IN THE UPPER LOBES AND DIMINISHED IN THE LOWER LOBES. HEART SOUNDS ARE WNL AND PATIENT IS IN SINUS RHYTHM AND A HEART RATE OF 70 BPM. URINE IS CLEAR AND YELLOW. NO BM THIS MORNING. PATIENT DENIES ANY PAIN AT THIS TIME. PEG TUBE IS INTACT. IS AT BEDSIDE TEARFUL FROM DISCUSSING COMFORT CARE WITH FAMILY. PATIENT AND WOULD LIKE TO DISCUSS THIS MORE WITH MD. MD NOTIFIED ABOUT CONVERSATION. PATIENT UPDATED ON PLAN OF CARE NO QUESTIONS. CALL LIGHT WITHIN REACH NO FUTHER NEEDS.
--- NOTE | 2021-01-29 09:59 | NUR ---
DR. COUGHLIN IN ROOM TO SEE PATIENT AT THIS TIME. PT'S AND OTHER FAMILY MEMBER ARE IN ROOM AT THIS TIME. DISCUSSING FUTURE PLANS OF CARE. PT AGREEABLE TO TRY DEEP SUCTIONING, BUT STATES, "I GUESS WE WILL TRY IT, BUT WE SURE HECK BETTER GET SOMETHING WITH IT." WILL CONTINUE TO MONITOR.
--- NOTE | 2021-01-29 12:15 | NUR ---
PATIENT ASSESSMENT COMPLETE. ORDERED MEDICATIONS GIVEN. PATIENT IS ALERT AND ORIENTED X3. PATIENT IS ON VAPOTHERM AT 40 LPM AND 90 FIO2. PATIENT DENIES SHORTNESS OF BREATH. LUNG SOUNDS ARE CLEAR IN THE UPPER LOBES AND DIMINISHED IN THE LOWER LOBES. OXYGEN SATURATION IS AT 97%. HEART SOUNDS ARE WNL. SINUS RHYTHM AT 70 BPM. PEG TUB INTACT. PATIENT STATES HE HAS PAIN AT THE SURGICAL SITE. URINE IS YELLOW AND CLEAR. PATIENT IS UPDATED ON THE PLAN OF CARE. NO QUESTIONS AT THIS TIME. CALL LIGHT WITHIN REACH NO FUTHER NEEDS.
--- NOTE | 2021-01-29 12:50 | NUR ---
MIDLINE INSERTION NOTE: PATIENT IN NEED OF BETTER IV ACCESS DUE TO EXTENDED HOSPITALIZATION AND FRAGILE VEINS. PATIENT HIMSELF STATES HE IS TIRED OF BEING POKED. CURRENT IV IN RIGHT INSIDE OF 22 G IS WORKING BUT NOT A GREAT SITE FOR IV VANCO WHICH PATIENT HAS ORDERED. PATIENT AGREEABLE TO A MIDLINE AND DISCUSSED THIS WITH HIM, AND HIS . ALL QUESTIONS ANSWERED BEST POSSIBLE BEFORE PROCEDING AND PATIENT GIVES HIS VERBAL CONSENT. PATIENT'S RIGHT ARM EVALUATED FIRST. CEPHALIC VEIN IS VERY SMALL AND UNSUITABLE FOR THE NEEDS OF A MIDLINE. BASILIC VEIN IS LARGE, BUT STILL HAS AN AREA INSIDE IT THAT IS NON COMPRESSIBLE, AND POTENTIALLY INDICATES A THROMBUS OR PHLEBITIS FROM A PRIOR IV SITE. FOR THESE REASONS, LEFT ARM WAS EVALUATED. LEFT ARM SHOWS MULTIPLE OPTIONS BETWEEN THE BASILIC AND BRACHIAL VEINS. THE BRACHIAL VEIN APPEARS LARGE ENOUGH TO HOUSE AN 18G AND IT WOULD ONLY TAKE UP 28% OF THE VEIN DIAMETER. PATIENT'S SKIN WAS THEN PREPPED FOLLOWING [facility] RECOMMENDATIONS FOR STERILE PROCEDURE. PATIENT WAS GIVEN SUBQ 1% LIDOCAINE FOR LOCAL NUMBING. POWERGLIDE PRO MIDLINE CATHETER WAS USED TO ACCESS AND CANNULATE THE VEIN. TIP WAS VISUALIZED DURING INSERTION AND ADVANCED IN VEIN. DARK, BRISK, NON PULSATILE BLOOD WAS EASILY RETURNED FROM CATHETER ONCE GUIDEWIRE WAS REMOVED. SECUREMENT DEVICE PLACED OVER MIDLINE AND BIOPATCH PLACED UNDER STERILE DRESSING. BLOOD STILL EASILY RETURNS FROM MIDLINE AND FLUSHES EASILY, AND PATIENT REPORTS NO PAIN OR DISCOMFORT. PT TOLERATED ENTIRE PROCEDURE VERY WELL AND IN FACT DOZED OFF DURING MOST OF IT. PATIENT ENCOURAGED TO ASK QUESTIONS REGARDING HIS MIDLINE AND EDUCATION MATERIAL LEFT IN HIS CHART. PT'S ALSO EDUCATED ON MIDLINE.
--- NOTE | 2021-01-29 16:33 | NUR ---
PATIENT ASSESSMENT COMPLETE. MEDICATIONS GIVEN ORDERED. PATIENT IS RESTING IN BED. ALERT AND ORIENTED X4. PATIENT IS ON VAPOTHERM 40 LPM AND 90 FIO2. OXYGEN SATURATION IS AT 94%. DENIES SHORTNESS OF BREATH. LUNG SOUNDS ARE CLEAR IN THE UPPER LOBES AND DIMINISHED IN THE LOWER LOBES. HEART SOUNDS ARE WNL AND PATIENT IS IN SINUS RHYTHM AT 75 BPM. PATIENT PEG TUBE IS IN TACT. TUBE FEEDING COMPLETE. PATIENT TOLLERATED IT WELL. DENIES ANY ABDOMINAL PAIN. URINE IS YELLOW AND CLEAR. NO BM TODAY BOWEL SOUNDS WERE HYPOACTIVE. PATIENT UPDATED ON PLAN OF CARE. NO QUESTIONS CALL LIGHT WITHIN REACH NO FUTHER NEEDS.
--- NOTE | 2021-01-29 19:41 | NUR ---
REPORT RECEIVED FROM DAYSHIFT NURSES. PATIENT HAS BEEN VAPOTHERM ALL DAY SETTINGS WERE LOWEED TO 35 LPM AND 80% TOLERATED FOR ONLY A BIT FIO2 UP TO 90%. GIVEN D5 IN WATER FOR HIS SODIUM OF 148, STARTED ON VANCO DUE TO INCREASED WBC. BOLUS FEEDINGS ATTEMPTED TODAY AND WENT BETTER, PATIENT RECEIVED TWO FEEDINGS WITH ONLY SLIGHT DISCOMFORT, NO BM YET, ROY REMAINS INPLACE. RECEIVED MIDLINE ACCESS TO LEFT ARM. AT BEDSIDE.
--- NOTE | 2021-01-29 20:00 | NUR ---
FAMILY AT BEDSIDE CONVERSING WITH PATIENT AT THIS TIME.
--- NOTE | 2021-01-29 20:48 | NUR ---
PT ASKING TO SIT UP IN CHAIR, COMPLIED WITH PATIENT REQUEST, ONE PERSON ASSIST DIRECTLY PIVOTED TO CHAIR AT BEDSIDE, LEGS ELEVATED ON PILLOW, TOLERATED WELL REMAINS ON VAPO THERM AT 40 LPM 100% FIO2. EMPTIED ROY BAG. TANKER TO SUCTION IN PT'S HAND CALL LIGHT IN REACH. DENIES PAIN OR NAUSEA.
--- NOTE | 2021-01-29 22:03 | NUR ---
PATIENT ASSESSMENT COMPLETE. PATIENT HAD REQUESTED TO GO BACK TO THE BED, PATIENT USED WALKER TO SATND BUT NEEDS HELOF 2 STAFF TO REPOSITION IN BED. THIS RN DID 4-5 PASSES OF DEEP SUCTIONING, PATIENT TOLERATED WELL. RT AZALIA IN ROOM TO PROVIDE NEBULIZED MEDS. PATIENT'S G TUBE IRRIGATED WITH 10ML TAP WATER FOLLOWED BY GRAVITY FEED OF JEVITY, 110 ML, PT SO FAR TOLERATING, DENIES ABDOMINAL PAIN OR NAUSEA. FOLLOWED WITH ADDITIONAL TAP WATER, ELIQUIS CRUSHED GIVEN THRU G TUBE. PATIENT IS ON VAPOTHERM 40 LPM 100%FIO2 PER RT. CALL LIGHT IN REACH. KENNY TO SUCTION IN PT'S HAND. VANCO HAS BEEN STARTED.
--- NOTE | 2021-01-29 22:55 | NUR ---
PATIENT IS IN BED HOB ELEVATED 45 DEGREES, REMAINS ON VAPOTHERM AT 40 LPM, 100% FIP2, SATS ARE IN LOW TO MID 90'S RR HIGH 20'S TO MID 30'S. ROY CONTINUING TO DRAIN. 150 ML EMPTIED. ADJUSTED PT UP IN BED PER HIS REQUEST. WILO COMPLETE.
--- NOTE | 2021-01-30 00:28 | NUR ---
ASSISTED PT IN REPOSITIONING ONTO HIS RIGHT SIDE.
--- NOTE | 2021-01-30 00:51 | NUR ---
PATIENT STATION CASHIER LIGHT REQUESTING TO SIT IN CHAIR STATES "I CAN'T STAY IN THIS BED" ASSISTED PATIENT ONE PERSON ASSIST TO STAND PIVOT TO BEDSIDE CHAIR, PUT HIS LEGS UP. REMAINS ON VAPOTHERM 40 LPM, 100% FIO2. ABX INFUSING WELL MAINTENANCE FLUIDS. COMPLETED PATIENT ASSESSMENT WHILE HE WAS AWAKE IN CHAIR. ROY EMPTIED, 80 ML URINE. CALL LIGHT IN REACH. [place] TO SUCTION IN HAND.
--- NOTE | 2021-01-30 01:52 | NUR ---
PT REMIANS IN BEDSIDE RECLINER WITH LEGS ELEVATED ON FOOTREST. REMAINS ON VAPOTHERM 40 LPM, 100% FIO2. SATS 95% RR MID 20'S TO 30'S. ROY DRAINING URINE. MERROPENEM CONTINUES INFUSING, NO REDNESS OR SWELLING TO IV SITE TO RIGHT WRIST NOTED. MAINTENANCE FLUIDS INFUSING TO LEFT ARM MID LINE. NO SIGNS OF SWELLING NOTED.
--- NOTE | 2021-01-30 02:03 | NUR ---
PATIENTWOULD LIKE TO GO BACK TO THE BED. THIS RN AND TANGELA RN IN ROOM PATIENT ABLE TO STAND WITH ASSISTANCE, GUIDED TUBES AND WIRES FOR PATIENT HE PIVOTED TO BED WITH ASSISTANCE. PATIENT TOLERATED OK. REMAINS ON VAPOTHERM 40 LPM 100% FIO2. IV 'S BOTH INFUSING. ROY CONTINUES TO DRAIN. CALL LIGHT IN REACH. SANFORD TO SUCTION, IN PT'S HAND. HE DENIES NAUSEA OR PAIN AT THIS TIME.
--- NOTE | 2021-01-30 03:00 | NUR ---
IN ROOM TO CHECK ON PATIENT HIS IV PUMPS ARE BEEPING. HIS MERROPENEM AND D5 LR ARE COMPLETE. FLUSHED IV TO RIGHT WRIST WITH 10 ML NS. THE D5 LR REPLACED, INFUSING AT A RATE OF 60ML/HR TO MIDLINE LEFT ARM. SITE REMAINS PATENT, NO SWELLING OR REDNESS NOTED TO SITE. ROY CONTINUES DRAINING URINE. PATIENT ASLEEP REMAINS ONVAPOTHERM SAME SETTINGS. SATS IN THE LOW TO MID 90'S RR FLUCTUATES BETWEEN MID 20'S TO LOW 30'S. YANKAUER TO SUCTION, IN PT'S HAND.
--- NOTE | 2021-01-30 04:05 | NUR ---
ANSWERED PATIENT'S CALL LIGHT. ASKED TO BE MOVED UP IN BED. REPOSITIONED PATIENT WITH HELP OF OTHER STAFF MEMBER. DENIES ANY OTHER NEEDS AT THIS TIME.
--- NOTE | 2021-01-30 05:20 | NUR ---
PATIENT ASSESSMENT COMPLETE. MORNING LABS COLLECTED. IRRIGATED G TUBE WITH 20 ML TAP WATER. GRAVITY FED ABOUT 100 ML OF JEVITY, PATIENT TOLERATED WELL, DENIES ABDOMINAL CRAMPING OR NAUSEA. IRRIGATED WITH 20 ML TAP WATER. ALSO EMPTIED ROY, 200 ML URINE. STOPPED IV FLUIDS INFUSING THROUGH MIDLINE TO LEFT ARM CLEANSED HUB AND FLUSHED WITH NORMAL SALINE 10 ML. WAITED 10 MINUTES, CLEANSED HUB, PULLED AND WASTED 5ML BLOOD PULLED ADDITIONAL 6ML FOR LABS, FLUSHED WITH 10 ML SALINE AND CLEASNE HUB REATTACHED IV TUBING, RESTARTED FLUIDS.
--- NOTE | 2021-01-30 06:28 | NUR ---
PATIENT REMAINS ON VAPOTHERM 40 LPM,100% FIO2. SATS HAVE STAYED IN LOW TO MID 90'S, RR FLUCTUATING FROM MID 20'2 TO 30'S. PATIENT HAS BEEN PRODUCING PLENTY OF URINE. HAS BEEN TO SIT IN CHAIR A COUPLE OF TIMES THROUGHOUT THE NIGHT WITH ONE PERSON ASSIST. PATIENT HAS TOLERATED 2 TUBE FEEDINGS OF THE JEVITY THROUGHOUT THE NIGHT, ABOUT 100ML EACH. NO BM YET. PATIENT HAS NOT HAD ANY FEVERS TONIGHT.
--- NOTE | 2021-01-30 06:43 | NUR ---
PATIENT WAS REPOSITIONED UP IN BED AGAIN. HOB RAISED MORE PER PATIENT REQUEST. DENIES OTHER NEEDS AT THIS TIME. HR 80, SATS 93%, RR 38, REMAINS ON VAPOTHERM MAX SETTINGS.
--- NOTE | 2021-01-30 07:30 | NUR ---
PATIENT REPORT GIVEN BY CRISTINA LOJA. PATIENT IS RESTING IN BED. BREATHING IS EQUAL AND UNLABORED. CALL LIGHT WITHIN REACH NO FUTHER NEEDS.
--- NOTE | 2021-01-30 08:56 | NUR ---
PATIENT ASSESSMENT COMPLETE. MEDICATIONS GIVEN ORDERED. PATIENT IS ALERT AND ORIENTED X4. PATIENT DENIES ANY DIZZNESS. LUNG SOUNDS ARE CLEAR IN THE UPPER LOBES AND IN THE LOWER LOBES DIMINISHED AND ABSENT. PATIENT IS ON 40 LPM AND 100% FIO2. PATIENT DENIES FEELING SHORT OF BREATH. OXYGEN SATYRATION IS 90% AND RR ARE 27. HEART SOUNDS ARE WNL. PATIENT IS IN SINUS RHYTHM HR AT 85 BPM. PATIENT HAD A 100 ML TUBE FEEDING THIS MORNING TOLLERATED IT WELL. PEG TUBE INTACT. FLUSHED WITH 20 MLS OF TAP WATER. DENIES ANY ABDOMINAL CRAMPING. URINE IS YELLOW AND CLEAR. NO BM TODAY. BOWEL SOUNDS ARE HYPOACTIVE. PATIENT UPDATED ON PLAN OF CARE. OT AND MACHINE HEEL SEAT FITTER PRESENT IN ROOM AT THIS TIME. AND DAUGHTER ALSO PRESENT. NO QUESTIONS CALL LIGHT WITHIN REACH NO FUTHER NEEDS.
--- NOTE | 2021-01-30 09:25 | NUR ---
PATIENT AWAKE IN BED, AND DAUGHTER IN ROOM NOW. O/T AT BEDSIDE. LINEN CHANGED, VITALS CHARTED. 1PA FROM BED TO CHAIR. CALL LIGHT IN REACH, NO OTHER NEEDS AT THIS TIME
--- NOTE | 2021-01-30 11:15 | NUR ---
MOUTH SPONGE PROVIDED FOR ORAL CARE. EXTRA SPONGES LEFT IN ROOM AND FAMILY EDUCATED ON USE. PATIENT IN BED, CALL LIGHT IN REACH
--- NOTE | 2021-01-30 12:15 | NUR ---
PATIENT ASSESSMENT COMPLETE. MEDICATION GIVEN ORDERED. PATIENT IS ALERT AND ORIENTED X4. PATIENT LUNG SOUNDS ARE CLEAR IN THE UPPER LOBES AND DIMINISHED. VAPOTHERM IS AT 40 LPM AND 100 FIO2. OXYGEN SATUARTION IS AT 90%. HEART SOUNDS ARE WNL. PACED RHYTM IS AT 78 BPM. PATIENT PEG TUBE IS INTACT. DENIES ANY ABDOMINAL DISCOMFORT. URINE OUTPUT IS CLEAR AND YELLOW. UPDATED ON PLAN OF CARE NO FUTHER QUESTIONS. CALL LIGHT WITHIN REACH NO FUTHER NEEDS.
--- NOTE | 2021-01-30 13:00 | NUR ---
JEVITY 237 ML GIVEN, FOLLOWED BY 50 ML OF WATER. TOLERATED WELL. SLEEPING WITH HOB ELEVATED.
--- NOTE | 2021-01-30 13:00 | NUR ---
PATIENT HAVING MORE RESPIRATORY DISTRESS. DID NOT DISTURB HIM AT THIS TIME. PATIENT IS NOT READY FOR DISCHARGE. NO CHANGES AT THIS TIME.
--- NOTE | 2021-01-30 13:49 | NUR ---
PATIENT AWAKE IN CHAIR, AT SIDE. VITALS CHARTED. PATIENT REQUESTED HIS LEGS BE "DOWN" TOLD PATIENT HIS LEGS WERE ALREADY DOWN ON FLOOR..PATIENT BECAME FRUSTRATED, INSISTING WE PUT THEM DOWN. PATIENT THEN DEMANDED "PULL THE HANDLE" ON CHAIR TO ELEVATE LEGS. SO LEGS ARE NOW ELEVATED WITH PILLOW UNDER THEM. CALL LIGHT IN REACH, NO OTHER NEEDS AT THIS TIME.
--- NOTE | 2021-01-30 14:42 | NUR ---
Patient has received about 1/2 of a 237 ml carton of Jevity 1.5 earlier this morning, then received the other half about 2 hours later. He tolerated these feedings well. He received a full 237 ml plus 50 ml water flush around 1 pm and seemed to tolerate it fine so far. Bolus feedings via gravity being done at this time. Continue to use Jevity 1.5 formula aiming for 6 cartons daily to meet his calorie and protein needs. Nursing states he is sitting up all the time because he can't breathe laying flat. Will continue to monitor.
--- NOTE | 2021-01-30 16:30 | NUR ---
PATIENT ASSESSMENT COMPLETE. MEDICATIONS GIVEN ORDERED. PATIENT IS ALERT AND ORIENTED X4. PATIENT IS ON VAPOTHERM 40 LPM AND 100 FI02. LUNG SOUNDS ARE CLEAR IN THE UPPER LOBES AND DIMINSHED IN THE LOWER LOBES. OXYGEN SATURATION IS AT 94%. HEART SOUNDS ARE WNL AND PATIENT IS IN A PACED RHYTHM AT 90 BPM. PEG TUBE IS INTACT. PATIENT DENIES NAUSEA. BOWEL SOUNDS ARE HYPOACTIVE. URINE OUTPUT IS URINE IS YELLOW AND CLEAR. PATIENT UPDATED ON PLAN OF CARE. CALL LIGHT WITHIN REACH NO FUTHER NEEDS.
--- NOTE | 2021-01-30 18:30 | NUR ---
PATIENT TEMP 101.2. DR. MELARA NOTIFIED WAS DIRECTED TO CALL PHARMACY FOR LIQUID TYLENOL. 20 MLS OF LIQUID TYLENOL GIVEN THROUGH PEG TUBE. FLUSHED WITH 75 MLS OF TAP WATER. PATIENT IS RESTING IN BED. AT BEDSIDE. CALL LIGHT WITHIN REACH NO FUTHER NEEDS.
--- NOTE | 2021-01-30 19:30 | NUR ---
RECEIVED REPORT FROM CRISTINA CEDILLO. pt RESTING IN BED. ASSISTED TO ROLL TO RIGHT SIDE PER pt REQUEST. CALL LIGHT WITHIN REACH. AT BEDSIDE.
--- NOTE | 2021-01-30 20:16 | NUR ---
pt NOTED ROY WAS LEAKING. REPOSITIONED, CATHETER, NOW DRAINING YELLOW URINE. pt UP TO CHAIR. LINENS CHANGED. pt BACK TO BED. HEAVY 1PA. ORAL TEMPERATURE HAS DECREASED. ASSESSMENT DONE. LUNGS DIM IN THE BASES CRACKLES ON THE LEFT SIDE. pt SATS HIGH 80'S TO LOW 90'S ON 40L/100% VAPOTHERM. MIDLINE HAS BRISK BLOOD RETURN, IVF INFUSING. pt RESTING IN BED WITH WARM BLANKET. AT BEDSIDE. CALL LIGHT WITHIN REACH.
--- NOTE | 2021-01-30 21:21 | NUR ---
IN TO GIVE MEDICATIONS, pt RESTING WITH EYES CLOSED, RESPIRATIONS TACHY, SAME WORK OF BREATHING BEFORE. TUBE FLUSHED WELL WITH GRAVITY, MEDICATION ADMINISTERED, 100ML TUBE FEEDING PER ORDERS. pt TOLERATED WELL. FLUSH PER PROTOCOL. TUBE CLAMPED. pt CONTINUES TO REST. CALL LIGHT WITHIN REACH.
--- NOTE | 2021-01-30 21:47 | NUR ---
NOTED DESATURATION OF 79%. IN TO ASSESS. pt HAD REMOVED VAPOTHERM CANNULA, REPLACED, O2 SLOWLY CLIMBED BACK TO HIGH 80'S WITH IN A COUPLE MINUTES. NO REQUESTS AT THIS TIME.
--- NOTE | 2021-01-30 23:00 | NUR ---
pt CALLED OUT. IN TO ASSIST. 2PA TO CHAIR. WARM BLANKET PROVIDED. CALL LIGHT IN HAND.
--- NOTE | 2021-01-31 00:20 | NUR ---
CALL LIGHT ON. pt REQUESTED TO GET UP FROM CHAIR AND BACK TO BED. 1PA. ASSESSMENT DONE. DENIES PAIN OR SOB AT THIS TIME. CALL LIGHT WITHIN REACH.
--- NOTE | 2021-01-31 00:40 | NUR ---
IN TO GIVE MEDICATION pt RESTING IN BED WITH EYES CLOSED, NO CHANGE IN RESPIRATIONS OR WORK OF BREATHING. IV INFUSING. CALL LIGHT WITHIN REACH.
--- NOTE | 2021-01-31 01:36 | NUR ---
pt AWAKE IN BED. NO REQUESTS AT THIS TIME. SAT 88% ON 40L/100% VAPOTHERM. IV ANTIBIOTIC INFUSING. CALL LIGHT WITHIN REACH.
--- NOTE | 2021-01-31 03:09 | NUR ---
PT STATING THAT HE NEEDS TO GET UP WANTS TO SIT IN CHAIR. ASSISTED PATIENT, ONE PERSON ASSIST TO A STAND WHILE HE PIVOTING INTO CHAIR AND I GUIDED TUBES AND WIRES. REMAINS ON VAPOTHERM 40 LPM, 100% FIO2, SATS 95 RR 32. AARONKAUER TO SUCTION, IN PTS HAND WHILE HE IS SITTING IN CHAIR.
--- NOTE | 2021-01-31 04:39 | NUR ---
pt continuing to sit in chair insisting on "coughing" up his secretions. he has the yankauer but says "it doesn't do anything, I will get it" offered to have him deep suctioned but he is refusing, keeps saying "i'll get it" patient given cup to expel his secretions.
--- NOTE | 2021-01-31 04:46 | NUR ---
PATIENT REQUESTING DEEP SUCTIONING AT THIS TIME. NOTIFIED HEATH FROM R
--- NOTE | 2021-01-31 06:22 | NUR ---
PATIENT ASSISTED BACK TO HIS BED BY 2 STAFF MEMBERS. SANFORD IN HAND, HOOKED TO SUCTION. CALL LIGHT IN REACH. DENIES NEEDING ANYTHING AT THIS TIME.
--- NOTE | 2021-01-31 06:36 | NUR ---
PATIENT HAS REMAINED ON VAPOTHERM THROUGHOUT THE NIGHT 40 LPM, 100% FIO2, SATS HAVE REMAINED IN THE MID 90 RANGE. PATIENT HAS BEEN UP TO THE CHAIR A FEW TIMES WITH ASSISTANCE. CAN TRANSFR TO CHAIR WITH ONE PERSON ASSIST BUT NEES 2 TO TRANSFER TO BACK TO BED. URINE OUT PUT HAS INCREASED. HAS TOLERATED HIS FEEDINGS AND G TUBE FLUSHES. DENIES PAIN OR NAUSEA, NO BM.
--- NOTE | 2021-01-31 08:10 | NUR ---
PATIENT AWAKE IN BED, RFUSED MOVING TO RECLINER AT THIS TIME. 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 ROY EMPTIED. FACE AND HANDS WASHED, PLAN FOR BATH LATER THIS AM WELL. FAMILY IN OO NOW.
--- NOTE | 2021-01-31 08:33 | NUR ---
PATIENT ASSESSMENT COMPLETE. MEDICATIONS GIVEN ORDERED. PATIENT MOVED TO LEFT SIDE BY RT AARON AND THIS RN. PATIENT IS ON VAPOTHERM AT 40 LPM AND 100 FIO2. PATIENT LUNG SOUNDS ARE CLEAR ON THE RIGHT SIDE AND LEFT SIDE CLEAR IN THE UPPER LOBE AND DIMINISHED IN THE LOWER LOBE. OXYGEN SATURATION IS AT 93%. HEART SOUNDS ARE WNL. PATIENT IS IN A PACED RHTHYM AT 83 BPM. PEG TUBE IS INTACT. DENIES ANY ABDOMINAL PAIN AT THIS TIME. URINE OUTPUT IS YELLOW AND CLEAR. NO BM THIS MORNING. PATIENT UPDATED ON PLAN OF CARE. DAUGHTER AND PRESENT IN THE ROOM. NO QUESTIONS CALL LIGHT WITHIN REACH NO FUTHER NEEDS.
--- NOTE | 2021-01-31 09:17 | NUR ---
PATIENT TRANSFERRED FROM BED TO CHAIR WITH THIS TOOL SUPERVISOR AND RN MAMADOU ASSISTING. FAMILY IN ROOM. LINEN CHANGED. CALL LIGHT AND KRISUR IN REACH
--- NOTE | 2021-01-31 10:37 | OR ---
[facility] [address], [place] [address] Signed DATE OF OPERATION: 01/27/2021 SURGEON: Norma Pickett MD PREOPERATIVE DIAGNOSES: 1. Chronic recurrent right lower lobe pneumonia, probably aspiration related. 2. Post-polio syndrome, difficulty controlling airway secretions. POSTOPERATIVE DIAGNOSES: 1. Chronic recurrent right lower lobe pneumonia, probably aspiration related. 2. Post-polio syndrome, difficulty controlling airway secretions. PROCEDURE: Percutaneous endoscopic gastrostomy feeding tube. ANESTHESIA: Local with monitored anesthesia care, including IV propofol and sedation (Aranza Mcclellan CRNA), local 1% lidocaine. INDICATION: This 85-year-old white man is well known to me from the past. I performed aortic aneurysm repair on him in the 90s. 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 He is recently admitted on January 20, 2021, by the Hospitalist Service for persistent and recurring right lower lobe pneumonia, which is thought related to aspiration issues. He has had swallowing study, which did show minimal laryngeal penetration. A feeding gastrostomy tube was recommended and accepted by his and the patient himself. Prior to original plan for PEG tube, he had acute hypoxic respiratory failure with essentially complete obliteration of ventilation to his left lower lobe, requiring emergency bronchoscopy with withdrawal of mucous plugs by me a few nights ago. He largely recovered from this, has been extubated for at least two days, and is doing much better now. A feeding tube is still needed and recommended and on that basis, consideration is made for feeding tube at this time. We are mindful that his abdominal incision from aortic aneurysm repair and the chandrika from his prior PEG tube is also noted. He does not have an excessively thick abdominal wall and we will anticipate a percutaneous endoscopic gastrostomy tube if possible. If there is not good transillumination or other issues, then an operative open gastrostomy will Electronically Signed By: NORMA PICKETT MD 01/31/21 1037 PATIENT NAME: LUIS ALBERTO MADRIGAL OPERATIVE REPORT DATE OF : 35 REPORT #: [id number] PHYSICIAN: NORMA PICKETT MD PCP: JESSICA RAMIREZ MD REPORT IS CONFIDENTIAL AND NOT TO BE RELEASED WITHOUT AUTHORIZATION [facility] [address], [place] [address] [address] be placed. The patient and his understand the risks of bleeding, infection, cardiopulmonary complications and other unforeseen complications and wished to proceed. FINDINGS: The patient did have some mucoid hypopharyngeal secretions, but the airway and vocal cords appeared unencumbered by that. His gastrointestinal anatomy was reasonably normal. He had no sign of ongoing esophagitis. No ulceration or neoplasm. Excellent transillumination was noted through the abdominal wall and therefore a percutaneous endoscopic gastrostomy tube was possible and performed and appears to be functioning well. DESCRIPTION OF PROCEDURE: The patient was brought to the operating room in a semirecumbent position, was given intravenous sedation by the enterprise software engineer with propofol infusional technique. Careful monitoring of airway was maintained throughout. A bite block was placed and an Olympus video upper endoscope passed in the hypopharynx. The vocal cords appeared normal. There was some mucoid material in the periarytenoid spaces, which was suctioned. The scope was advanced to the esophagus throughout its length and it looked normal. Scope was entered into the stomach, where there was some bilious fluid, but no solid material, no bezoar or other finding. Mucosal folds of the stomach appeared normal. The pylorus was normal. Scope was passed through into the duodenum, which was normal. There was no sign of gastric outlet obstruction, ulceration, or neoplasm. The scope was realigned in the region of the antral junction and examination showed strong and easy transillumination across the abdominal wall. The index finger was placed alongside previous area of the gastrostomy tube, which made a good impression on the stomach and he was deemed a good candidate for endoscopic approach. The area of transillumination was prepared with a Betadine solution and draped sterilely. A 1% lidocaine was injected locally and a small incision made with an 11 blade. Using the enclosed needle with obturator from the Bard PEG tube kit, needle was passed percutaneously into the stomach. The flexible wire and the kit were passed down the needle and using a snare, the wire was grasped and gently withdrawn through the oropharynx. Attempts of passage of the Bard catheter over the wire were strangely unproductive and rather than for this issue the wire was removed. The wire appeared to be rather angulated and kinked, perhaps there was too much laxity in the initial passage of the PEG tube itself. On that basis with the same technique as before, a new wire was passed, withdrawn, and a new catheter passed over the wire at this time without impediment. As it emerged from the abdomen, it was gently drawn through, including the GE junction and drawn up snugged to the abdominal wall. The endoscope was passed once again showing good position of the device. The enclosed flange was placed over the Electronically Signed By: NORMA PICKETT MD 01/31/21 1037 PATIENT NAME: LUIS ALBERTO MADRIGAL OPERATIVE REPORT DATE OF : 35 REPORT #: [id number] PHYSICIAN: NORMA PICKETT MD PCP: JESSICA RAMIREZ MD REPORT IS CONFIDENTIAL AND NOT TO BE RELEASED WITHOUT AUTHORIZATION [facility] [address] [place], [place] [address] Signed catheter. It was trimmed and appropriate hardware attached to it. The flange was secured to the skin with 2-0 nylon suture and a single nylon around the stub as well. Infusion in the catheter with catheter tip syringe showed good flushing and good positioning of the device. The patient was improved in his ventilation, oxygenation, and secretions controlled with suction device and he was allowed to emerge completely from sedation and transferred to the recovery room in good condition. ESTIMATED BLOOD LOSS: Minimal. COMPLICATIONS: None. MD FEDE Samuels/ANGELL /[id number] cc: Dr. Yo Ramirez MD Copies: JESSICA RAMIREZ MD ~ Electronically Signed By: NORMA PICKETT MD 01/31/21 1037 PATIENT NAME: LUIS ALBERTO MADRIGAL OPERATIVE REPORT DATE OF : 35 REPORT #: [id number] PHYSICIAN: NORMA PICKETT MD PCP: JESSICA RAMIREZ MD REPORT IS CONFIDENTIAL AND NOT TO BE RELEASED WITHOUT AUTHORIZATION
--- NOTE | 2021-01-31 11:36 | NUR ---
PATIENT ASSESSMENT COMPLETE. D5LR RUNNING AT 60 MLS/HR. PATIENT IS ALERT AND ORIENTED X4. LUNG SOUNDS ARE CLEAR IN THE UPPER LOBES AND RONCHI IN THE LOWER LOBES. PATIENT IS ON 40 LPM AND 100 FIO2. DENIES FEELING SHORT OF BREATH. OXYGEN SATURATION IS 94%. PATIENT IS SUCTIONING HIMSELF. SECRETIONS ARE THICK AND CLOUDY. HEART SOUNDS ARE WNL. RHYTHM IS PACED AND HEART RATE IS 85 BPM. PEG TUBE IS INTACT. FEEDING IN PROGRESS. DENIES ANY ABDOMINAL PAIN. NO BM TODAY. URINE IS CLEAR AND YELLOW. DR. MELARA TALKED TO PATIENT AND ABOUT TRANSFERING TO THE [facility] FLOOR TODAY. PATIENT AND DID NOT HAVE ANY QUESTIONS ABOUT THE PLAN OF CARE. CALL LIGHT WITHIN REACH NO FUTHER NEEDS.
--- NOTE | 2021-01-31 12:28 | NUR ---
ROY EMPTIED. VITALS CHARTED.
--- NOTE | 2021-01-31 15:00 | NUR ---
Pt arrives from CCU to MS floor via chair, transferred using nonrebreather and O2 concentrator, placed on vapothem 40/100% and tolerating well with SPO2 at 95%. RR 46 breaths per min. aware, continuing to monitor. On CPOX at this time for monitoring. IVF infusing WNL into midline IV which is also WNL. Assessment and vitals complete, pt resting in chair and is alert and oriented, states no needs. at bedside and engaged in care. Joan RN in room at this time, call light in reach.
--- NOTE | 2021-01-31 15:08 | NUR ---
PATIENT REPORT GIVEN TO CRISTINA ENGLE. PATIENT TRANSFERED BY CHAIR TO [facility] ROOM. PATIENT TOLERATED MOVE ON A NON REBREATHER. RT HELPED WITH THE TRANSITION.
--- NOTE | 2021-01-31 15:40 | NUR ---
Spoke with and pt. is upset and tearful. Very concerned as she feels pt may soon. We discussed options and concerns. She does not want pt to ever go to a SNF. She is concerned she will not be able to handle him at home. Discussed option of hiring a cg in the home and I will complete a GEC with them and [facility]. Pt states several times he is 100% service connected as he was injured while serving in [employer]. cont. to be very tearful at times and states he has never been this ill before. Per he cont. to aspirate his saliva, he had feeding tube placed, but cont. to aspirate. Will fax chart and GEC to Beulah Boyer at the [facility].
--- NOTE | 2021-01-31 16:24 | NUR ---
IV ABX infusing WNL. Pt resting in bed with eyes closed, respirations even, unlabored. On vapotherm. Pt's at bedside, states has no needs at this time.
--- NOTE | 2021-01-31 18:14 | NUR ---
PATIENT'S CAME OUT TO NURSES STATION AND SAID PATIENT WANTS TO GO BACK TO BED EVEN THOUGH HE IS IN BED ALREADY. CAME IN AND REPOSITIONED PATIENT IN BED WITH RN ROBIN. PATIENT SAYS HE IS COMFORTABLE NOW. VITALS AND I&O'S CHARTED. CALL LIGHT IN REACH. NO FURTHER NEEDS AT THIS TIME.
--- NOTE | 2021-01-31 19:57 | NUR ---
REPORT RECEIVED FROM CRISTINA ENGLE. pt RESTING IN BED, HOB 30 DEGREES. pt ON VAPOTHERM 40L AT 100%. ROY DRAINING CLEAR YELLOW URINE. AT BEDSIDE. IV ANTIBIOTIC INFUSING MIDLINE. NO NEEDS AT THIS TIME.
--- NOTE | 2021-01-31 20:20 | NUR ---
CALL LIGHT ANSWERED. pt ASSISSTED TO REPOSITION IN BED REQUESTED. PILLOWS UNDER BOTH HIPS. pt DENIES PAIN. AT BEDSIDE.
--- NOTE | 2021-01-31 22:08 | NUR ---
pt REPOSITIONED WITH TWO RN ASSIST HIGHER IN BED, FLOATING WITH PILLOWS COMPLETELY UNDER EACH HIP. HOB ELEVATED FOR TUBE FEEDING. TUBE FLUSHED AND JEVITY 1.5 WITH FIBER INFUSING ORDERED TO GRAVITY. VS COMPLETE, RR 50. pt DROWSY, CLOSES EYES AFTER RN FINISHED WITH CARES. ROY CARE COMPLETE. ROY EMPTIED. ASSESSMENT COMPLETE. CALL LIGHT AND SUCTION IN REACH. VAPOTHERM 40L 100% IN PLACE.
--- NOTE | 2021-01-31 23:11 | NUR ---
pt SLEEPING, IV JEVITY FEEDING COMPLETE. TUBE FLUSHED WITH TAP WATER. HOB REMAINS ELEVATED. pt APPEARS COMFORTABLE, NO SHIFTING IN BED. BREATHING TACHYPNIC, UNLABORED. SPO2 93% WITH 40 L 100% VAPOTHERM ON.
--- NOTE | 2021-01-31 23:47 | NUR ---
IN pt ROOM FOR ANTIBIOTIC ADMINISTRATION. VAPOTHERM OFF AT THIS TIME, REMOVED BY pt. SPO2 81% ON RA. VAPOTHERM REAPPLIED, SPO2 INCREASES TO 88%. RN REMAINS AT BEDSIDE. pt REPOSITIONED TO MIDDLE OF BED, HOB ELEVATED. DENIES ADDITIONAL NEEDS. IV ANTIBIOTIC INFUSING MIDLINE ORDERED. CALL LIGHT IN REACH.
--- NOTE | 2021-01-31 23:54 | NUR ---
SPO2 ALARMING ON CPOX, REPOSITIONED TO LEFT SIDE WITH RN TANGELA ASSIST. CPOX IN PLACE, VAPOTHERM 40L, 100% IN PLACE, SPO2 INCREASES TO 90%.
--- NOTE | 2021-02-01 01:30 | NUR ---
CRISTINA MELISSA IN ROOM AFTER SPO2 DROPS TO 83% WITH MAX VAPOTHERM IN PLACE. pt REPOSITIONED HIGHER IN BED AND TO RIGHT SIDE, SPO2 INCREASES TO 90% AT REST. ROY DRAINING YELLOW URINE. pt CLOSING EYES. CALL LIGHT IN REACH.
--- NOTE | 2021-02-01 03:00 | NUR ---
SPO2 MONITOR ALARMING, SUSTAINING AT 81%. pt USING CALL LIGHT, C/O 5/10 RIGHT ANKLE PAIN. PRN TYLENOL ADMINISTERED THROUGH PEG TUBE WITH WATER FLUSH. LEGS REPOSITIONED ON PILLOWS. ASSESSMENT COMPLETE. SUCTION AND CALL LIGHT IN REACH.
--- NOTE | 2021-02-01 05:09 | NUR ---
CALL LIGHT ANSWERED. pt STATES "I'M HUNGRY WHEN ARE WE GOING TO EAT AGAIN". TUBE FEEDING INITIATED ORDERED. pt CLOSING EYES. VAPOTHERM 40L 100% FIO2 IN PLACE. ROY EMPTIED. IVF INFUSING WNL TO MIDLINE. CALL LIGHT IN REACH.
--- NOTE | 2021-02-01 06:14 | NUR ---
SPO2 83% ON MAX VAPOTHERM, REPOSITIONED IN BED WITH TWO RN ASSIST. TUBE FEEDING COMPLETE AT THIS TIME, FLUSHED WITH TAP WATER. pt CLOSING EYES. VSS, RR 38. LIGHTS OFF IN ROOM. CALL LIGHT IN REACH.
--- NOTE | 2021-02-01 07:00 | NUR ---
Report received from Raquel RN, pt resting in bed with vapotherm in place, spo2 88% and patient tachypneic with RR 30s'-40's. He is otherwise resting comfortably and states no needs. IVF infusing WNL. Will continue plan of care.
--- NOTE | 2021-02-01 08:10 | NUR ---
Spoke with Nallely briefly, she is very tearful. Dr Lu to corrine to speak with her.
--- NOTE | 2021-02-01 08:15 | NUR ---
Scheduled medications administered through g tube which is WNL, dressing C/D/I. Pt remains on vapotherm, SPO2 drops to 79% and maintains around 79-81%. Dr Lu notified and is at bedside at this time, discusses plan of care with patient's . RT comes to bedside at this time as well. Pt is alert, oriented and states has no needs, comfortable other than increased WOB. Will continue to monitor.
--- NOTE | 2021-02-01 09:15 | NUR ---
IV ABX infusing. Pt's family at bedside, pt is currently using nonrebreather mask and tolerating fair. No needs at this time, will continue to monitor.
--- NOTE | 2021-02-01 10:28 | NUR ---
In room to extend O2 tubing, pt sitting at bedside working with physical therapist per pt request. No further needs at this time, call light in reach.
--- NOTE | 2021-02-01 12:24 | NUR ---
Jevity feeding provided through gravity tubing to G tube. Pt remains on nonrebreather, spo2 93% at this time. Family at bedside and endorse no needs. Call light in reach, continuing to monitor.
--- NOTE | 2021-02-01 12:30 | NUR ---
Returned to room, pt and both sleeping. Not awakened.
--- NOTE | 2021-02-01 13:28 | NUR ---
I was asked to check on the PT and his family because PT was not doing well and potentially moving to comfort care. I visited with PT's and her sister and she was emotional and having a hard time coming to terms with her 's condition. We visited for a bit and then the PT's son, [id number]/step daughter (Stacey, [employer] OR WORK DISPATCHER here), and PT's sister arrived. I had prayed with PT and his last week as well and they were not expected PT to get worse. PT's was very emotional and readily received my prayer. I let them know I was in hospital and I would check back. When I checked back PT's family was still there. PT was getting irritated and was unkind to his . I talked with him and he shared that he was trying the best he could and felt his wanted him to try harder. He said that he is okay to . I prayed with him for healing, peace and comfort and for his relationship with his . Then I shared with his and son what we talked about and let her know that at some point it would be good for PT to hear that it is okay if he is ready to go. She said that she was not able to do so at this time. I comforted her and let her know that when the time was right it would be okay. Dr. Calero came in while I was there and shared about comfort messures and that he is going to most likely pass soon. PT's was emotional along with the rest of his family. I let the PT and his family know that I was rehabilitation engineer and they could asked for me if needed and that I would continue to pray for them. I checked in with PT's nurse and let her know what I discussed with PT and his family.
--- NOTE | 2021-02-01 13:52 | NUR ---
New bag IVF hung. Pt resting in bed, states no needs at this time. Family at bedside, questions answered regarding comfort measures and plan of care. No further needs at this time. Will continue to monitor
--- NOTE | 2021-02-01 16:04 | NUR ---
In room with RT Luan to DC nonrebreather, pt SPO2 91% with vapotherm, explained to pt's that patient is breathing well with current vapotherm tx and does not need extra masks. Pt's tearful, continuing to provide emotional reassurance about patient and plan of care. She is agreeable to plan at this time.
--- NOTE | 2021-02-01 17:00 | NUR ---
Pt's comes to nurses station to say patient would like to be moved over to chair. YENNY Leach and this RN in room to assist. Pt 2PA pivot to chair, remains on vapotherm, tolerating well. Linens changed, room tidied and pt has no further needs. Pt is agitated but calms with conversation. Call light in reach. Will continue to monitor.
--- NOTE | 2021-02-01 19:09 | NUR ---
THIS RIVET THROWER AND CRISTINA ENGLE TRANSFERRED PT TO THE BED. PT IS A HEAVY 2 PERSON. PT IS NOW IN BED WITH CALL LIGHT. PTS AND TWO FAMILY MEMBERS ARE IN THE ROOM. NO FURTHER NEEDS AT THIS TIME.
--- NOTE | 2021-02-01 19:10 | NUR ---
SHIFT REPORT FROM NURSE ENGLE. PT DROWSY AWAKE IN BED. MULTIPLE FAMILY MEMBERS AT BEDSIDE. PT DENIES NEEDS AT THIS TIME. PT'S FAMILY ENCOURAGED TO CALL FOR ANY NEEDS.
--- NOTE | 2021-02-01 21:10 | NUR ---
IN ROOM TO FLUSH IV MIDLINE, FLUSH G TUBE; BOTH FLUSH WELL. ORAL CARE PERFORMED, ROY EMPTIED. PT'S AND SISTER AT BEDSIDE. PT DENIES NEEDS AT THIS TIME. IVF INFUSING PER ORDER. PT DENIES PAIN. CALL LIGHT WITHIN REACH
--- NOTE | 2021-02-01 22:30 | NUR ---
ASSISTED NURSE WITH REPOSITIONING, HEELS FLOATED. CALL LIGHT WITHIN REACH, NO OTHER IMMEDIATE NEEDS AT THIS TIME.
--- NOTE | 2021-02-01 23:06 | NUR ---
IN ROOM TO REPOSITION PT. PT'S SLEEPING WITH HER HEAD NEAR PT; HAD TO WAKE . PT POSITIONED WITH PILLOW UNDER RT HIP; HEELS ELEVATED WITH FOLDED BLANKET UNDER ANKLES. NO FURTHER NEEDS AT THIS TIME. CALL LIGHT WITHIN REACH.
--- NOTE | 2021-02-02 02:43 | NUR ---
IN ROOM TO REPOSITION PT; WITH HELP FROM YENNY ROBISON, PT BOOSTED UP IN BED, TURNED TO RT TILT WITH PILLOW UNDER LEFT HIP. ORAL CARE PERFORMED WITH THICK ORAL SECRETIONS REMOVED. PT RESPONDS TO NAME, SPEECH IS UNAUDIBLE. PT'S AT BEDSIDE.
--- NOTE | 2021-02-02 02:45 | NUR ---
ASSISTED NURSE WITH PT REPOSITIONING, MOISTENED PATIENTS MOUTH, NO OTHER IMMEDIATE NEEDS AT THIS TIME. CALL LIGHT IN REACH.
--- NOTE | 2021-02-02 05:40 | NUR ---
rounds: pt appears to be sleeping, no apparent signs of distress. pt's continues to be at bedside, pt's sister on sofa.
--- NOTE | 2021-02-02 09:00 | NUR ---
Spoke with Nallely and attempted to discuss Hospice. states she does not want hospice and does not want to take pt home. She does not feel she can handle pt at home. Spoke with Dr. Lu and family are wanting to cont. high flow 02 and treatment, pt was made a DNR. Plan to cont. to treat at this time.
--- NOTE | 2021-02-02 09:00 | NUR ---
REPORT RECEIVED FROM NIGHT RN AND PT. CARE RESUMED. REQUESTED THAT THE PT. RECEIVE TUBE FEEDING. JEVITY INFUSED TO GRAVITY AND FLUSHED WITH TAP WATER . PT. SEATED UPRIGHT IN BED. PT. ON VAPOTHERM AT 40L, 100% FIO2 AND O2SAT IS 90%. RR IS 38 AND SHALLOW. PT. DOES NOT APPEAR TO BE IN DISTRESS AND DENIES PAIN. SPEECH IS SLURRED AND SLOW. HE IS ORIENTED TO SELF. ASSISTED WITH REPOSITIONING AND KEPT UPRIGHT. DISCUSSED POC WITH FAMILY. PT. LEFT RESTING WITH CALL LIGHT IN REACH.
--- NOTE | 2021-02-02 10:40 | NUR ---
Approached by daughter who states concern for her mom. She requests her mom have sedation if her dad passes. Discussed she should call her moms pcp and discuss. Also discussed sometimes sedation is not the best as people are unable to grieve properly if they are medicated. Discussed if they go on hospice, mom would have bereavement for 1 year following. Daughter states she wanted dad to stay through the weekend, if the same, plan on dc on hospice next week.
--- NOTE | 2021-02-02 12:30 | NUR ---
Discussed this pt with Dr. Lu and called Hospice and asked if they would be willing to provide in hospital hospice. Brittanie will have Debbie call me.
--- NOTE | 2021-02-02 13:14 | NUR ---
ROUNDING ON PT. FAMILY BROUGHT COFFEE. PT. IS SLEEPING AND VAPOTHERM SETTINGS UNCHANGED. RESPIRATORY RATE IS 51 AND BREATHING IS SHALLOW. HAS BEEN PERFORMING ORAL CARE. NO SECRETIONS OR GURGLING NOTED. PT. DOES NOT APPEAR IN DISTRESS. PT.'S COMMENTED THAT THE PATIENT STATED EARLIER HE WANTED TO GO HOME. STATED SHE TOLD HIS HE NEEDS TO STAY SO HE CAN GET BETTER. THIS NURSE DISCUSSED COMFORT CARE GOALS WITH .
--- NOTE | 2021-02-02 14:00 | NUR ---
Received call from Debbie and she states they would be will to provide Respite care for deployment specialist failure, but they do not have a contract with [facility]. This is something they have been wanting, but have not completed. Updated I had spoken with [facility] [employer] and [facility]. She is willing to work with them on a contract. Per Debbie a contract would take 2-6 months.
--- NOTE | 2021-02-02 15:15 | NUR ---
TO BEDSIDE FOR TUBE FEEDING. PT REFUSED. WILL TRY AGAIN LATER. PRIMARY NURSE NOTIFIED.
--- NOTE | 2021-02-02 18:03 | NUR ---
PT.'S DECLINED TUBE FEEDING AT THIS TIME AND STATED SHE WOULD NOTIFY RN IF PT. CHANGED HIS MIND. RR IS 62 AND BREATHING IS SHALLOW. O2 SAT IS 91%. PT. IS SLEEPING AND DOES NOT APPEAR IN DISTRESS. LEFT RESTING WITH FAMILY AT BEDSIDE.
--- NOTE | 2021-02-02 19:00 | NUR ---
SHIFT REPORT RECEIVED FROM DAYSHIFT CRISTINA OWEN AT BEDSIDE. pt RESTING ON HIS BACK IN BED, AWAKE. VAPOTHERM IN PLACE, WITH 40L IN PLACE, %O2 @ 100%. pt's AND SISTER BOTH IN ROOM. ASKS, "HOW LONG SINCE HE'S HAD HIS APIXABAN AND OTHER MEDICATIONS? HE NEEDS THOS MEDICATIONS OR ELSE HE'S GONNA HAVE ANOTHER STROKE". THIS RN AND RN LEXIE IN ROOM AND PROVIDED FAMILY WITH THERAPEUTIC COMMUNICATION AND VERBAL EDUCATION REGARDING GOAL OF COMFORT MEDICATIONS. AND SISTER REMAIN TEARFUL AND AGAIN STATES THAT HE "NEEDS THOSE MEDICATIONS". THIS RN DISCUSSED ABOVE CONVERSATION WITH DR MELARA AT RN STATION. DR MELARA AWARE AND PLANS TO DISCUSS FAMILY QUESTIONS/CONCERNS TONIGHT.
--- NOTE | 2021-02-02 19:30 | NUR ---
WITH HELP FROM YENNY VARGHESE, pt REPOSITIONED IN BED. BILATERAL HIPS FLOATED, HOB REMAINS ELEVATED ABOVE 30 DEGREES. ROY CATHETER EMPTIED. NO ADDITIONAL NEEDS VERBALIZED BY pt, pt APPEARS TO BE COMFORTABLE AT THIS TIME. CALL LIGHT IN REACH AND FAMILY REMAIN IN ROOM.
--- NOTE | 2021-02-02 19:50 | NUR ---
IN TO ASSIST THE RN WITH BOOSTING PT IN BED, FLOATED PT AT THE HIPS, ROY EMPTIED, NO FURTHER NEEDS AT THIS TIME, TRASH EMPTIED AT THIS TIME
--- NOTE | 2021-02-02 21:15 | NUR ---
ASSESSMENT COMPLETE, SCHEDULED MEDS GIVEN (SEE EMAR). DR MELARA RECENTLY IN ROOM AND DISCUSSED GOAL OF CARE AND ANSWERED FAMILY QUESTIONS/CONCERNS REGARDING COMFORT CARE. SCHEDULED MED CRUSHED AND GIVEN VIA G-TUBE. VERBALIZES THAT pt REPORTS FEELING HUNGRY, APPROX 1/3 OF JEVITY 1.5 CAN GIVEN, pt TOLERATED WELL. HOB ELEVATED BEYOND 60 DEGREES, ADDITIONAL PILLOWS PLACED BEHIND pt SO pt WAS SITTING UPRIGHT AND STRAIGHT IN BED FOR FEEDING. pt TOLERATED FEEDING WELL, FEEDING STOPPED EARLY PER pt REQUEST, BOWEL TONES HYPOACTIVE. VS TAKEN PER FAMILY REQUEST AND CHARTED. NO CHANGE TO VAPOTHERM SETTINGS, ORAL CARE SUPPLIES AT BEDSIDE, ASSISTS WITH ORAL CARE. pt CHITIMACHA, VAPOTHERM IS LOUD AND pt HAS DIFFICULTY AT TIMES HEARING, SPEECH DIFFICULT TO UNDERSTAND AT TIMES, HX PREVIOUS STROKE. , SISTER, AND NIECE GRZEGORZ ALL IN ROOM. IV FLUIDS INFUSING PER MD ORDERS, MIDLINE DRESSING C/D/I. HOB REMAINS ELEVATED D/T RECENT FEEDINGS. EDUCATION PROVIDED WITH FAMILY REGARDING ASPIRATION PREVENTIONS. pt RECENTLY DEEP SUCTIONED BY RT VIEYRA, BEDSIDE SUCTION ALSO IN REACH. pt DENIES PAIN AND OVERALL APPEARS RELAXED AND COMFORTABLE. NO ADDITIONAL NEEDS VERBALIZED, CALL LIGHT IN REACH.
--- NOTE | 2021-02-02 23:19 | NUR ---
in to reposition pt, pillow pulled from left hip and placed under left arm, pt awakens brifly, no further needs at this time
--- NOTE | 2021-02-02 23:30 | NUR ---
IN ROOM TO ROUND ON pt, pt APPEARS RELAXED AND RESTING QUIETLY IN BED, RECENTLY REPOSITIONED BY YENNY VARGHESE. ALSO IN ROOM AND AWAKE. DENIES NEEDS OR CONCERNS. RESPIRATIONS REMAIN SHALLOW, APPROX 48. NO DISTRESS NOTED AT THIS TIME FROM pt, WILL CONTINUE TO MONITOR FOR CHANGES.
--- NOTE | 2021-02-03 00:58 | NUR ---
pt RESTING QUIETLY IN BED, NO DISTRESS OR SIGNS OF PAIN/AXIETY. RESPIRATIONS REMAIN SHALLOW, VAPOTHERM SETTINGS REMAIN UNCHANGED SINCE START OF SHIFT. HOB REMAINS ABOVE 30 DEGREES. AWOKE WHEN THIS RN HUNG NEW BAG IV FLUIDS. DENIES NEEDS OR CONCERNS, ORAL CARE DECLINED AT THIS TIME pt IS SLEEPING, WISHES I OFFER AT NEXT POSITION CHANGE. NO FURTHER NEEDS, CALL LIGHT IN REACH. MIDLINE REMAINS WNL.
--- NOTE | 2021-02-03 01:35 | NUR ---
IN ROOM TO ROUND ON pt, pt RESTING QUIETLY AND AWOKE TO VOICE. pt STATES TO "GET THE HELL UP, I WANT TO GO HOME". pt REORIENTED TO PLACE AND SITUATION. pt FOLLOWS DIRECTIONS TO BEST OF ABILITY, REPOSITIONED IN BED WITH HELP FROM YENNY VARGHESE. PILLOW PLACED UNDER LEFT HIP AND RIGHT UPPER ARM. HOB REMAINS ELEVATED OVER 35 DEGREES PER MD ORDERS. MID LINE DRESSING WNL, FLUIDS INFUSING PER MD ORDERS. ORAL CARE PROVIDED, MOUTH DRY WITH WHITE PLAQUE TO TONGUE.CHAPSTICK ALSO APPLIED. pt DECLINES HUNGER AND REFUSES G-TUBE FEEDING AT THIS TIME. VAPO THERM SETTINGS REMAIN UNCHANGED. BLE ALSO ELEVATED. NO FURTHER NEEDS, AND SISTER BOTH IN ROOM. BED IN LOW POSITION.
--- NOTE | 2021-02-03 03:43 | NUR ---
pt REPOSITIONED IN BED, PILLOW REMOVED FROM LEFT HIP. pt RESTING QUIETLY IN BED, EYES CLOSED. RESPIRATIONS REMAIN SHALLOW AND ELEVATED. HOB REMAINS ELEVATED PER MD ORDERS, NO GURGLING OR DISTRESS NOTED. pt APPEARS TO BE COMFORTABLE AND RELAXED HE RESTS, pt ALLOWED TO REST HE IS ON COMFORT CARE. ORAL CARE DEFERRED AT THIS TIME TO ALLOW REST. VAPOTHERM SETTINGS REMAIN UNCHANGED. CALL LIGHT IN REACH.
--- NOTE | 2021-02-03 06:00 | NUR ---
pt REPOSITIONED IN BED WITH HELP FROM SUBSTATION OPERATOR CHIEFCRISTINA MAYO. BILATERAL HIPS FLOATED, pt ALSO BOOSTED IN BED. HOB ELEVATED, pt SITTING STRAIGHT UP IN BED, GTUBE FLUSHED WITH APPROX 30MLS TAP WATER. pt REFUSES TUBE FEEDING AT THIS TIME. CATH CARE DONE, ROY BAG EMPTIED. ORAL CARE PROVIDED, NO CHANGES TO VAPOTHERM SETTINGS. INTERMITTENT COUGH NOTED, NO DISTRESS. pt SOMEWHAT RESTLESS, BUT SETTLES WITH ENCOURAGEMENT, DECLINES PRN ATIVAN AT THIS TIME. CALL LIGHT IN REACH.
--- NOTE | 2021-02-03 06:53 | NUR ---
pt HERE ON COMFORT CARE, FAMILY IN ROOM. MD IN ROOM AT START OF SHIFT, ANSWERING QUESTIONS AND CONCERNS REGARDING COMFORT CARE, ELIQUIS ADDED PER REQUEST OF FAMILY. pt ON VAPOTHERM-MAXED SETTINGS. RESPIRATIONS SHALLOW WITH ELEVATED RESPIRATORY RATE. pt SPENT MOST OF NIGHT RESTING OFF AND ON, NO DISTRESS NOTED. HOB ELEVATED ABOVE 30 DEGREES AT ALL TIMES, DEEP SUCTIONED X1 BY RT AZALIA. MIDLINE WNL, FLUIDS INFUSING PER MD ORDERS. ROY PATENT, DRAINING YELLOW URINE. FEEDINGS VIA G-TUBE WHEN TOLERATED, FLUSH G-TUBE QID.
--- NOTE | 2021-02-03 07:30 | NUR ---
Spoke with pts daughter this am and she is upset and tearful. Awaiting arrival of brother on Saturday.
--- NOTE | 2021-02-03 09:00 | NUR ---
REPORT RECEIVED FROM NIGHT RN AND PT. CARE RESUMED. PT. IS AWAKE AND MORE COHERENT THIS MORNING. ORAL CARE PERFORMED. 02 SAT IS 88% AND VAPOTHERM SETTINGS ARE 40L AND 100%. RR IS 48 AND SHALLOW. MINIMAL SECRETIONS. PT. ASSISTED WITH REPOSITIONING. PT. REFUSED ELIQUIS AND TUBE FEEDING. HE STATED "NO! I DON'T WANT IT". SISTER AND INSIST THAT HE RECEIVE THEM ANYWAY. PT STATED TO HIS "GO AWAY! I DON'T WANT IT". INSISTED THAT I ADMINISTER THESE ANYWAY. DISCUSSED WITH THAT THE PATIENT WAS COHERENT ENOUGH TO REFUSE. DISCUSSED WHAT HIS WISHES WERE FOR CARE AND SHE BEGAN TO CRY. PT. CONSOLED AND HUGGED. WILL CONTINUE TO MONITOR.
--- NOTE | 2021-02-03 10:10 | NUR ---
Spoke with Dr. Lu and discussed if I should request pt be added to Hospice schedule for next week and she states family do not want pt decreased from H[place] 02. He is not dischargable with highflow 02. Chart not sent to Hospice.
--- NOTE | 2021-02-03 10:15 | NUR ---
Patient is resting. Patient had a urine output of 300ml from [place]. Patient is on comfort care and family is in the room. The family knows where the call light is.
--- NOTE | 2021-02-03 11:15 | NUR ---
ORAL CARE PERFORMED AND LARGE PLAQUES REMOVED FROM TONGUE AND MOUTH SUCTIONED. PT. IS ALERT AND ABLE TO ANSWER SIMPLE QUESTIONS. ASSISTED WITH REPOSITIONING. FAMILY DENIES NEEDS AT THIS TIME. CONSOLED AND HUGGED.
--- NOTE | 2021-02-03 13:30 | NUR ---
REQUESTED TUBE FEEDING. PT.'S SPEECH IS MORE SLURRED AND INCOMPREHENSIBLE. PT. FED HALF OF A JEVITY AND LINE FLUSHED WITH TAP WATER. ORAL CARE PERFORMED AND REPOSITIONED UPRIGHT. PT LEFT RESTING WITH CALL LIGHT IN REACH.
--- NOTE | 2021-02-03 14:29 | NUR ---
Patient I&Os are complete. Patient call light is in reach and family is in room. Patient is resting.
--- NOTE | 2021-02-03 17:27 | NUR ---
FAMILY IN THE ROOM. PT. AGREED TO TUBE FEEDING AND SAT UPRIGHT. JEVITY INFUSED TO GRAVITY AND FLUSHED WITH TAP WATER. PT. ATTEMPTING TO SPEAK. DENTURES PLACED IN HIS MOUTH BUT SPEACH IS SLURRED AND GARBLED. DENTURES REMOVED. ORAL CARE PERFORMED. IVF AND SALINE FOR VAPOTHERM CHANGED. PT. LEFT SITTING UPRIGHT
--- NOTE | 2021-02-03 18:06 | NUR ---
Patient's is active in patient's oral lemon swap care. I&Os are complete. Call light is in reach. Other family members are in the room.
--- NOTE | 2021-02-03 19:40 | NUR ---
CAME TO DESK ASKING IF ART COULD BE SUCTIONED. ENTERED ROOM, TRIED SUCTIONING BUT NOT SURE IF ANY SPUTUM WAS SUCTIONED OUT. WHEN PT COUGHS THERE ARE SOUNDS OF MUCAS IN HIS THROAT. FAMILY DENIES NEEDS, CALL LIGHT IS CLOSE.
--- NOTE | 2021-02-03 20:20 | NUR ---
MANY FAMILY IN PATIENT'S ROOM. NEW PAIN PATCH ADDED TO BACK OF PATIENT'S LEFT SHOULDER, DEEP SUCTIONING DONE PER PATIENT'S 'S REQUEST OBTAINING SOME THICK WHITE SECREATIONS. ORAL CARE ALSO COMPLETED AND PATIENT WAS JUST REPOSITIONED TOWARDS HIS LEFT SIDE. CALL LIGHT IS IN REACH. PATIENT UNABLE TO TAKE PO MEDS AT THIS TIME.
--- NOTE | 2021-02-03 23:00 | NUR ---
PATIENT'S ROY EMPTIED AND ORAL CARE DONE. PATIENT MOANS SLIGHTLY WITH ORAL CARE, BUT OTHERWISE DOES NOT RESPOND. PATIENT'S LAYING ON PATIENT'S RIGHT SIDE FROM HER BEDSIDE ARMCHAIR, SHE IS ASLEEP AND STAFF TRIED NOT TO DISTURB HER. ANOTHER FAMILY MEMBER IS ASLEEP ON THE COUCH. YENNY VARGHESE WENT IN TO HELP THIS RN WITH CARES. NO OTHER NEEDS NOTED AT THIS TIME AND CALL LIGHT IS IN REACH.
--- NOTE | 2021-02-03 23:00 | NUR ---
IN TO ASSIST RN WITH PT CARE, ROY EMPTIED AND RECORDED, PT AND RESTING COMFORTIBLY AT THIS TIME
--- NOTE | 2021-02-03 23:17 | NUR ---
PATIENT WEARING 2 X 12MCG FENTANYL PATCHES TO EQUAL 24MCG PER VO FROM HEARD BY THIS RN AND CRISTINA BILLY AT CHANGE OF SHIFT.
--- NOTE | 2021-02-03 23:58 | NUR ---
PATIENT REMAINS ON VAPOTHERM AT 40L/FIO2 100%. PATIENTS RESPIRATIONS ARE RAPID AT 26BPM. PATIENT'S REMAINS ASLEEP BESIDE HIM IN THE BEDSIDE ARMCHAIR. NO CURRENT CARE NEEDS. CALL LIGHT KENDRA MURILLO.
--- NOTE | 2021-02-04 01:06 | NUR ---
PATIENT'S REMAINS ASLEEP LAYING OVER ON THE PATIENT'S RIGHT SIDE FROM THE BEDSIDE ARMCHAIR. PATIENT REMAINS IN SEMI-FOWLERS POSITION, RESTING WITH HIS EYES CLOSED, RESPIRATIONS RAPID AT 26BPM AND SHALLOW. VAPOTHERM REMAINS AT 40L/FIO2 OF 100%. CALL LIGHT IS IN REACH AND NO CARE NEEDS ARE NOTED AT THIS TIME.
--- NOTE | 2021-02-04 02:12 | NUR ---
THIS RN WENT IN TO CHECK ON THE PATIENT. RESPIRATIONS ARE STILL RAPID AND SHALLOW ON VAPOTHERM 40L/100%FIO2. PATIENT'S EYES ARE CLOSED. ORAL CARE WAS DONE AND PATIENT DID MORGAN ON THE SWAB A LITTLE, BUT OTHERWISE DID NOT MOVE OR MAKE ANY NOISE. PATIENT'S REMAINS DRAPPED ON PATIENT'S RIGHT SIDE FROM SITTING IN THE BEDSIDE ARMCHAIR. CALL LIGHT IS IN REACH AND NO OTHER CARE NEEDS AT THIS TIME.
--- NOTE | 2021-02-04 02:46 | NUR ---
PT'S SISTER CAME TO RN STATION STATING THE PT'S O2 SOUNDS DIFFERENT. RT IN ROOM TO CHECK ON VAPOTHERM. IT IS WORKING CORRECTLY.
--- NOTE | 2021-02-04 04:13 | NUR ---
PATIENT'S RESPIRATIONS ARE GETTING VERY RAPID. ORAL CARE COMPLETED, BUT PATIENT'S BREATH SOUNDS ARE GETTING GURGLY AND FAMILY IS WANTED THIS RN TO PERFORM DEEP SUCTIONING. THIS RN CALLED HELADIO IN RT TO COME AND TALK WITH THE FAMILY ABOUT THIS AND FAMILY AGREED TO WAIT FOR RT TO COME. PATIENT GIVEN 1MG IV ATIVAN SIVP FOR ANXIOUSNESS/ANXIETY. PATIENT IS NOT MOANING AND BODY IS NOT TENSE. CALL LIGHT IS IN REACH AND FAMILY AWAITING RT TO ARRIVE.
--- NOTE | 2021-02-04 04:19 | NUR ---
HELADIO FROM RT HAS ARRIVED TO TALK WITH THE PATIENT'S FAMILY.
--- NOTE | 2021-02-04 04:45 | NUR ---
THIS RN WENT IN TO CHECK ON THE PATIENT AGAIN AND SAW PATIENT WAS NOT BREATHING. THIS RN HAD HELADIO RT COME BACK INTO THE ROOM AND NEITHER OF US COULD HEAR BREATH SOUNDS, HEART TONES, OR FEEL A PULSE. WAS CALLED AND INFORMED AND IS ON HER WAY IN TO [place]. [facility]ER NURSING DRY HEAT CABINET ATTENDANT INFORMED AND MARIA ESTHER MELO RN IS CONTACTING THE MIRANDA. THIS RN REMAINING AT BEDSIDE FOR FAMILY COMFORT.
--- NOTE | 2021-02-04 05:07 | NUR ---
HAS PRONOUNCED THE PATIENT'S PASSING AND STAFF IS AWAITING THE ARRIVAL OF THE MIRANDA SIGNALING PROJECT ENGINEER. PATIENT'S IS CALLING HER FAMILY MEMBERS ANND PATIENT'S SISTER REMAINS AT THE BEDSIDE WITH PATIENT'S . CALL LIGHT IS IN REACH.
--- NOTE | 2021-02-04 06:07 | NUR ---
MIRANDA HAS BEEN HERE TALKING WITH THE PATIENT'S FAMILY. STILL AWAITING SOME FAMILY MEMBERS TO ARRIVE BEFORE CALLING [employer].
--- NOTE | 2021-02-04 07:30 | NUR ---
PATIENT'S FAMILY HAVE DEPARTED AND [facility] IS HERE. REPORT GIVEN TO CRISTINA ENGLE. PATIENT IV AND MANUELA CABALLERO.
--- NOTE | 2021-02-04 07:35 | NUR ---
Called in at 0500 for PT demise. Family was here when I arrived. I talked with nursing staff and then went in to be with the family. PT's and sister were very emotional. I offered my condolences and comforted them. PT's family wanting to wait until PT's son arrived before I called the home. Once the family was gathered they had me come in and pray for them. I called [facility] at [phone] and then again at [phone] to let them know the family had left. After PT's family said their good-bye I walked them out of the unit and let them know they would be in my prayers. PT's [id number], Stacey, came back to make sure all the belongings were gathered. We talked some more and I gave her my condolences. home arrived at 0716 to receive PT.
== END 2021-02-04 07:26 | DRG 208 ==
LOC: ED 11:01 → MS 13:54 → CCU 13:54 → MS 01-25 15:52 → CCU 01-27 19:40 → MS 01-31 15:05
PROVIDERS: ADMIT Internal Medicine; ATTEND Internal Medicine
PROC: 5A09357 Assistance with Respiratory Ventilation, Less than 24 Consecutive Hours, Continuous Positive Airway Pressure (ICD-10-PCS; 2021-01-22)
PROC: 0B9J8ZX Drainage of Left Lower Lung Lobe, Via Natural or Artificial Opening Endoscopic, Diagnostic (ICD-10-PCS; principal; 2021-01-23)
PROC: 5A1935Z Respiratory Ventilation, Less than 24 Consecutive Hours (ICD-10-PCS; 2021-01-23)
PROC: 0BH17EZ Insertion of Endotracheal Airway into Trachea, Via Natural or Artificial Opening (ICD-10-PCS; 2021-01-23)
PROC: 3E033XZ Introduction of Vasopressor into Peripheral Vein, Percutaneous Approach (ICD-10-PCS; 2021-01-23)
PROC: 0DH63UZ Insertion of Feeding Device into Stomach, Percutaneous Approach (ICD-10-PCS; 2021-01-27)
PROC: BD12YZZ Fluoroscopy of Stomach using Other Contrast (ICD-10-PCS; 2021-01-27)
DX: J69.0 Pneumonitis due to inhalation of food and vomit (principal); J96.21 Acute and chronic respiratory failure with hypoxia; I69.359 Hemiplegia and hemiparesis following cerebral infarction affecting unspecified side; Z51.5 Encounter for palliative care; Z66 Do not resuscitate; Z20.822 Contact with and (suspected) exposure to COVID-19; I10 Essential (primary) hypertension; Z95.0 Presence of cardiac pacemaker; I49.5 Sick sinus syndrome; N40.0 Benign prostatic hyperplasia without lower urinary tract symptoms; E78.5 Hyperlipidemia, unspecified; Z98.890 Other specified postprocedural states; Z96.653 Presence of artificial knee joint, bilateral; Z88.0 Allergy status to penicillin; Z79.899 Other long term (current) drug therapy; Z79.82 Long term (current) use of aspirin; I95.9 Hypotension, unspecified; I46.8 Cardiac arrest due to other underlying condition; B91 Sequelae of poliomyelitis; R13.12 Dysphagia, oropharyngeal phase; F51.04 Psychophysiologic insomnia; Z99.81 Dependence on supplemental oxygen; J98.09 Other diseases of bronchus, not elsewhere classified
CPT/HCPCS: 31500; 31720; 36569; 36600; 71045; 73630; 73660; 74018; 80048; 80053; 81001; 82803; 83605; 83735; 84100; 84484; 85007; 85025; 87040; 87070; 87205; 93005; 93010; 94002; 94003; 94640; 94660; 94667; 94668; 94760; 94762; 94799; 97110; 97116; 97161; 97162; 97167; 97530; 99285-25; C1751; C9113; C9803; J0696; J1650; J1940; J2001; J2060; J2185; J2370; J2704; J3370; J3480; J7060; J7070; J7121; U0003